=== PATIENT | female | born 1940 | race Caucasian/White ===

== ENCOUNTER 2017-06-18 16:00 | Inpatient (IN) | payer BC, MEDICARE, SELFPAY ==
[2017-06-18] VITALS (9 sets, daily range): BP systolic 132–155; BP diastolic 61–78; PULSE 66–91; RESP 16–19; TEMP 36.6; O2SAT 94–98; BMI 27.1; BMI 27.5
--- NOTE | 2017-06-18 16:13 | EKG12_ITS ---
Test Reason : CHEST PAIN Blood Pressure : / mmHG Vent. Rate : 087 BPM Atrial Rate : 087 BPM P-R Int : 154 ms QRS Dur : 084 ms QT Int : 360 ms P-R-T Axes : 052 031 034 degrees QTc Int : 433 ms Sinus rhythm with occasional Premature ventricular complexes Nonspecific ST abnormality Abnormal ECG Confirmed by JOSE LOVETT, OLIVIA ([id number]), book or script editor PAN FITZGERALD ([id number]) on 06/20/2017 1:19:45 PM Referred By: Confirmed By:OLIVIA GARCIA MD
--- NOTE | 2017-06-18 16:13 | RAD_ITS ---
STUDY: X-RAY CHEST REASON FOR EXAM: Female, 76 years old. SOB / SOA TECHNIQUE: Single frontal view of the chest. COMPARISON: None. FINDINGS: Chronic appearing increased interstitial lung markings. There is no demonstrated pleural abnormality. Normal heart size. Normal mediastinum and hadley. Normal visualized pulmonary arteries. There is atherosclerotic calcification of the aortic arch with tortuosity. There are diffuse degenerative changes of the visualized thoracic spine. There is degenerative osteoarthritis of the bilateral shoulders. There is no demonstrated abnormality of the visualized soft tissue structures of the upper abdomen. RAD/Chest 1 View (Portable) IMPRESSION: There are no acute findings. Electronically Signed: Nathan Engel MD at 16:48 EST , Service support ,
--- NOTE | 2017-06-18 16:18 | ED.DCSUM_ITS ---
- ER Visit Summary Date of Service: 06/18/17 Chief Complaint: Chest pain History of Present Illness: The patient is a 76 F who has chest pain. She states for the past week she has had intermittent tightness and heaviness in her substernal area. It is worse with exertion. She does get some exertional dyspnea with this. Today she noticed some tingling in her hands and legs which is why she called her granddaughter to bring her in. She has never had a stress test before. She has multiple cardiac risk factors including hypertension diabetes and high cholesterol. She is a non-smoker. Physical Examination: Vital signs reviewed. HEENT exam unremarkable. Heart is regular rate and rhythm without murmurs. Lungs are clear to auscultation. Abdomen is soft and nontender. Extremities reveal no edema. Peripheral pulses are equal. Skin exam normal. Neurologic exam normal. Test Results: EKG was normal sinus rhythm with a rate of 87. [address] changes. Laboratory studies normal except for potassium of 3.3, glucose 175. Chest x-ray reveals chronic changes. Emergency Department Course and Treatment: Patient was given aspirin. Treatment Plan: Patient's FAMILIA score is 2. She has never had a stress test. patient will be admitted to the hospital for further cardiac testing. Disposition: Admit Impression: Chest pain This note was generated with [employer] dictation software. It may contain incorrect words, spelling, and punctuation that were not noted in review of the chart prior to signing ED Disposition - Plan for ED Patient: Chief Complaint: Chest Pain
[2017-06-18] MEDS: Aspirin 81 MG TAB.CHEW 324 MG PO (16:24)
[2017-06-18 16:30] LABS: Absolute Lymphocyte Count 1.78 X10^3/ul (0.83-4.51); Absolute Neutrophil Count 6.4 X10^3/uL (2.0-7.7); Basophil# 0.04 X10^3/uL; Basophil% 0.4 % (0-1); Eosinophils% 1.1 % (0-5); Hematocrit 37.7 % (37-47); Lymphocyte # 1.78 X10^3/ul (4.0); Lymphocyte % 19.9 % (19-41); Mean Corp Hgb Conc 31.8 g/gl (32-36); Mean Corpuscular Hgb 26.8 pg (27.0-32.0); Mean Corpuscular Volume 84.2 fL (81-99); Mean Platelet Vol. 9.1 fl (6.2-12.0); Monocyte# 0.56 X10^3/uL; Monocyte% 6.3 % (0-10); Neutrophil # 6.43 X10^3/uL (2.7-7.7); Neutrophil % 72.1 % (47-70); Platelet Count 386 K/mm3 (150-450); RBC Distribution Width CV 16.9 % (11.6-14.6); RBC Distribution Width SD 51.2 fl (35.1-43.9); Red Blood Count 4.48 M/mm3 (4.2-5.4); White Blood Count 8.9 K/mm3 (4.4-11.0)
[2017-06-18 16:31] LABS: POSITIVE COUNT NO; POSITIVE DIFFERENTIAL NO; POSITIVE MORPHOLOGY NO
[2017-06-18 16:41] LABS: Anion Gap 7 (5-15); BUN 14 mg/dL (7-18); Calcium,Total 9.9 mg/dL (8.5-10.1); Chloride 100 mmol/L (98-107); Creatinine, Serum 0.67 mg/dL (0.55-1.02); EST Glomerular Filtration Rate 91 mL/min (>60); Est Glom Filt Rate - Afr Amer 110 mL/min (>60); Estimated Creatinine Clearance 46.54 ml/min; Glucose 175 mg/dL (70-110); Potassium 3.3 mmol/L (3.5-5.1); Sodium Level 137 mmol/L (136-145)
--- NOTE | 2017-06-18 17:33 | PCM.HP.STD ---
Problem List (1) Acute chest pain Status: Acute (2) Essential (primary) hypertension Status: Chronic (3) Dyslipidemia Status: Chronic (4) DM type 2 (diabetes mellitus, type 2) Status: Chronic Qualifiers: Diabetes mellitus complication status: without complication Diabetes mellitus jail insulin use: without jail use Qualified Code(s): E11.9 - Type 2 diabetes mellitus without complications History of Present Illness Date of Admission: 06/18/17 Chief Complaint: ACUTE CHEST PAIN The patient is a 76 year old F with past medical history is none for hypertension, dyslipidemia diabetes mellitus type 2 presented with chest pain. Patient describes her pain as discomfort located in the retrosternal region. She has apparently had intermittent chest discomfort for almost a week. She relates the discomfort to some activity such as walking. She has also been noticed by her family getting short winded with minimal activity. She elected to come to the ED after developing tingling sensation in both lower and upper extremities. Patient presented to the emergency department her initial set of cardiac enzymes and EKG obtained came back unremarkable however given his risk factors and the description of his symptoms decision was made to admit patient to a monitored bed for further management. On further questioning patient denied any nausea no vomiting no lightheadedness. Past Medical History Past Medical History (Chronic Problems): Chronic Problems Essential (primary) hypertension (Chronic) Dyslipidemia (Chronic) DM type 2 (diabetes mellitus, type 2) (Chronic) Allergies cephalexin [From Keflex] Allergy (Verified 06/18/17 16:05) Swelling lisinopril Allergy (Verified 06/18/17 16:05) Swelling codeine Adverse Reaction (Verified 06/18/17 16:05) Upset Stomach Home Medications: Ambulatory Orders Medication Instructions Recorded Amlodipine [Norvasc] 5 mg PO DAILY 06/18/17 Atorvastatin Calcium [Lipitor] 20 mg PO QHS 06/18/17 Calcium Carbonate/Vitamin D3 1 each PO BID 06/18/17 [Calcium 600 + Vit D3 Caplet] Co Q10 200 [Co Q-10] 100 mg PO DAILY 06/18/17 Glimepiride 2 mg PO DAILY 06/18/17 Hydrochlorothiazide [Hctz] 25 mg PO DAILY 06/18/17 Lorazepam [Ativan] 0.5 mg PO TID PRN PRN 06/18/17 Metformin HCl [Metformin HCl ER] 1,000 mg PO BID 06/18/17 Multivitamin [Multiple Vitamins] 1 each PO DAILY 06/18/17 Potassium Chloride [Klor-Con 8] 8 meq PO BID 06/18/17 Smoking Status: Former smoker - *Family History Maternal History Items: Heart Disease - Valvular heart disease Review of Systems Constitutional: Denies: Anorexia, Chills, Fever, Night Sweats, Weight Change HEENT: Denies: Head Aches, Sinus Congestion, Sinus Drainage Cardiovascular: Reports: Chest Pain. Denies: Orthopnea, Palpitations, Paroxysmal Noc. Dyspnea Respiratory: Reports: Shortness of breath upon exertion. Denies: Cough Gastrointestinal: Denies: Abdominal Pain, Hematemesis, Hematochezia, Nausea, Melena, Vomiting Genitourinary: Denies: Dysuria, Frequency, Hematuria, Urgency Musculoskeletal: Denies: Joint Pain, Joint Tenderness Skin: Denies: Rash Neurological: Denies: Focal weakness, Numbness, Tingling Psychiatric: Denies: Homicidal Ideations, Suicidal Ideations Hematologic/ Lymphatic: Denies: Easy Bruising, Easy Bleeding VTE Information - Inpt Only VTE Present on Admission: No VTE Mechan Device Prophylaxis: Knee High DALLIN Hose VTE Pharm Prophylaxis ordered?: Yes Patient Problems: Active and Suspected Problems Acute chest pain (Acute) Objective: GENERAL: cooperative . HEENT: Clear conjunctiva, NECK; supple, normal thyroid, CHEST: Clear to auscultation bilaterally, HEART: Regular S1 S2, no audible murmurs ABDOMEN: soft, non-tender, normoactive bowel sounds, RECTAL: deferred EXTREMITIES: No edema, no clubbing, no cyanosis. PIPE LINE REPAIRER: Awake, no lateralizing signs. SKIN: No lesions no erythema, - Physical Exam Vital Signs Temp Pulse Resp BP Pulse Ox 97.8 F 77 19 H 132/70 H 97 06/18/17 16:00 06/18/17 17:21 06/18/17 17:21 06/18/17 17:21 06/18/17 17:21 Oxygen Flow Rate 2 Oxygen Delivery Method Room Air Weight: 78.8 kg Body Mass Index (BMI) 27.1 Laboratory Tests Past 24 Hrs 06/18/17 06/18/17 16:11 16:11 WBC 8.9 RBC 4.48 Hgb 12.0 Hct 37.7 MCV 84.2 MCH 26.8 L MCHC 31.8 L RDW 16.9 H RDW Differential 51.2 H Plt Count 386 MPV 9.1 Immature Gran % (Auto) 0.200 Neut % (Auto) 72.1 H Lymph % (Auto) 19.9 Floyd % (Auto) 6.3 Eos % (Auto) 1.1 Baso % (Auto) 0.4 Absolute Neuts (auto) 6.4 Absolute Lymphs (auto) 1.78 Total Counted Not Reportable Sodium 137 Potassium 3.3 L Chloride 100 Carbon Dioxide 30.0 Anion Gap 7 BUN 14 Creatinine 0.67 Estim Creat Clear Calc 46.54 Est GFR (MDRD) Af Amer 110 Est GFR (MDRD) Non-Af 91 BUN/Creatinine Ratio 21.0 H Glucose 175 H Calcium 9.9 Troponin I < 0.02 Assessment/Plan Active and Suspected Problems Acute chest pain (Acute) Patient is a 76-year-old lady with past medical history cigar for hypertension, dyslipidemia diabetes mellitus type 2 presented with chest pain 1. Chest pain: Exertional in nature suspicious for myocardial ischemia. Patient has been admitted to monitored bed ordered serial cardiac enzymes to rule out VT patient undergo a nuclear stress test on 06/20/16 if VT is ruled out. 2D echo was also ordered as part of her evaluation X 2. Dyslipidemia-patient is on statin therapy, continued at home dose 3. Hypertension-blood pressure controlled, home medications continued with dose adjustment as needed 4. Diabetes mellitus type II: , patient's oral hypoglycemics held. Placed on long acting insulin, Accu-Cheks a.c. and at bedtime and covered with sliding scale insulin 5. DVT prophylaxis SC Lovenox Code Visit OBSV E&M: 38650 Initial observation care L3
--- NOTE | 2017-06-18 17:44 | HP.PCM_ITS ---
Problem List (1) Acute chest pain Status: Acute (2) Essential (primary) hypertension Status: Chronic (3) Dyslipidemia Status: Chronic (4) DM type 2 (diabetes mellitus, type 2) Status: Chronic Qualifiers: Diabetes mellitus complication status: without complication Diabetes mellitus fpc insulin use: without fpc use Qualified Code(s): E11.9 - Type 2 diabetes mellitus without complications History of Present Illness Date of Admission: 06/18/17 Chief Complaint: ACUTE CHEST PAIN The patient is a 76 year old F with past medical history is none for hypertension, dyslipidemia diabetes mellitus type 2 presented with chest pain. Patient describes her pain as discomfort located in the retrosternal region. She has apparently had intermittent chest discomfort for almost a week. She relates the discomfort to some activity such as walking. She has also been noticed by her family getting short winded with minimal activity. She elected to come to the ED after developing tingling sensation in both lower and upper extremities. Patient presented to the emergency department her initial set of cardiac enzymes and EKG obtained came back unremarkable however given his risk factors and the description of his symptoms decision was made to admit patient to a monitored bed for further management. On further questioning patient denied any nausea no vomiting no lightheadedness. Past Medical History Past Medical History (Chronic Problems): Chronic Problems Essential (primary) hypertension (Chronic) Dyslipidemia (Chronic) DM type 2 (diabetes mellitus, type 2) (Chronic) Allergies cephalexin [From Keflex] Allergy (Verified 06/18/17 16:05) Swelling lisinopril Allergy (Verified 06/18/17 16:05) Swelling codeine Adverse Reaction (Verified 06/18/17 16:05) Upset Stomach Home Medications: Ambulatory Orders Medication Instructions Recorded Amlodipine [Norvasc] 5 mg PO DAILY 06/18/17 Atorvastatin Calcium [Lipitor] 20 mg PO QHS 06/18/17 Calcium Carbonate/Vitamin D3 1 each PO BID 06/18/17 [Calcium 600 + Vit D3 Caplet] Co Q10 200 [Co Q-10] 100 mg PO DAILY 06/18/17 Glimepiride 2 mg PO DAILY 06/18/17 Hydrochlorothiazide [Hctz] 25 mg PO DAILY 06/18/17 Lorazepam [Ativan] 0.5 mg PO TID PRN PRN 06/18/17 Metformin HCl [Metformin HCl ER] 1,000 mg PO BID 06/18/17 Multivitamin [Multiple Vitamins] 1 each PO DAILY 06/18/17 Potassium Chloride [Klor-Con 8] 8 meq PO BID 06/18/17 Smoking Status: Former smoker - *Family History Maternal History Items: Heart Disease - Valvular heart disease Review of Systems Constitutional: Denies: Anorexia, Chills, Fever, Night Sweats, Weight Change HEENT: Denies: Head Aches, Sinus Congestion, Sinus Drainage Cardiovascular: Reports: Chest Pain. Denies: Orthopnea, Palpitations, Paroxysmal Noc. Dyspnea Respiratory: Reports: Shortness of breath upon exertion. Denies: Cough Gastrointestinal: Denies: Abdominal Pain, Hematemesis, Hematochezia, Nausea, Melena, Vomiting Genitourinary: Denies: Dysuria, Frequency, Hematuria, Urgency Musculoskeletal: Denies: Joint Pain, Joint Tenderness Skin: Denies: Rash Neurological: Denies: Focal weakness, Numbness, Tingling Psychiatric: Denies: Homicidal Ideations, Suicidal Ideations Hematologic/ Lymphatic: Denies: Easy Bruising, Easy Bleeding VTE Information - Inpt Only VTE Present on Admission: No VTE Mechan Device Prophylaxis: Knee High DALLIN Hose VTE Pharm Prophylaxis ordered?: Yes Patient Problems: Active and Suspected Problems Acute chest pain (Acute) Objective: GENERAL: cooperative . HEENT: Clear conjunctiva, NECK; supple, normal thyroid, CHEST: Clear to auscultation bilaterally, HEART: Regular S1 S2, no audible murmurs ABDOMEN: soft, non-tender, normoactive bowel sounds, RECTAL: deferred EXTREMITIES: No edema, no clubbing, no cyanosis. JOURNEYMAN OPERATOR ASSISTANT: Awake, no lateralizing signs. SKIN: No lesions no erythema, - Physical Exam Vital Signs Temp Pulse Resp BP Pulse Ox 97.8 F 77 19 H 132/70 H 97 06/18/17 16:00 06/18/17 17:21 06/18/17 17:21 06/18/17 17:21 06/18/17 17:21 Oxygen Flow Rate 2 Oxygen Delivery Method Room Air Weight: 78.8 kg Body Mass Index (BMI) 27.1 Laboratory Tests Past 24 Hrs 06/18/17 06/18/17 16:11 16:11 WBC 8.9 RBC 4.48 Hgb 12.0 Hct 37.7 MCV 84.2 MCH 26.8 L MCHC 31.8 L RDW 16.9 H RDW Differential 51.2 H Plt Count 386 MPV 9.1 Immature Gran % (Auto) 0.200 Neut % (Auto) 72.1 H Lymph % (Auto) 19.9 Mcmullen % (Auto) 6.3 Eos % (Auto) 1.1 Baso % (Auto) 0.4 Absolute Neuts (auto) 6.4 Absolute Lymphs (auto) 1.78 Total Counted Not Reportable Sodium 137 Potassium 3.3 L Chloride 100 Carbon Dioxide 30.0 Anion Gap 7 BUN 14 Creatinine 0.67 Estim Creat Clear Calc 46.54 Est GFR (MDRD) Af Amer 110 Est GFR (MDRD) Non-Af 91 BUN/Creatinine Ratio 21.0 H Glucose 175 H Calcium 9.9 Troponin I < 0.02 Assessment/Plan Active and Suspected Problems Acute chest pain (Acute) Patient is a 76-year-old lady with past medical history cigar for hypertension, dyslipidemia diabetes mellitus type 2 presented with chest pain 1. Chest pain: Exertional in nature suspicious for myocardial ischemia. Patient has been admitted to monitored bed ordered serial cardiac enzymes to rule out VA patient undergo a nuclear stress test on 06/20/16 if VA is ruled out. 2D echo was also ordered as part of her evaluation X 2. Dyslipidemia-patient is on statin therapy, continued at home dose 3. Hypertension-blood pressure controlled, home medications continued with dose adjustment as needed 4. Diabetes mellitus type II: , patient's oral hypoglycemics held. Placed on long acting insulin, Accu-Cheks a.c. and at bedtime and covered with sliding scale insulin 5. DVT prophylaxis SC Lovenox Code Visit OBSV E&M: 42320 Initial observation care L3
--- NOTE | 2017-06-18 18:18 | ECHOCS_ITS ---
Reason For Study: Chest Pain Procedure This was a 2D Doppler, Color Flow transthoracic echocardiogram. The study was technically difficult. Exam performed in department. Left Ventricle Mild concentric left ventricular hypertrophy. The estimated ejection fraction is 65 %. Stage 1 diastolic dysfunction. No regional wall motion abnormalities noted. Right Ventricle Normal size and thickness. Normal systolic function. Atria Normal left atrium. Normal right atrium. Normal atrial septum. Mitral Valve The mitral valve is structurally normal. No prolapse or stenosis seen. Tricuspid Valve Normal tricuspid valve. Trivial tricuspid valve insufficiency. Right ventricular systolic pressure estimated to be 29 mmHg. Aortic Valve Normal aortic valve. Pulmonic Valve Normal pulmonic valve. Trivial pulmonic valve insufficiency. Great Vessels Normal aortic root. Normal arch. Normal inferior vena cava. Inferior vena cava collapse with sniff. Pericardium/Pleural No pericardial effusion. Medication Diluted definity 2.5ml given slow IV push to enhance endocardial definition. MMode/2D Measurements & Calculations LVIDd: 3.7 cm IVSd: 1.5 cm Ao root diam: 4.1 cm LVIDs: 2.7 cm LVPWd: 1.2 cm LA dimension: 3.3 cm FS: 25.6 % LAV(MOD-bp): 46.6 ml LA A4 area: 18.1 cm2 LAV(MOD-bp) Indexed: 25.3 ml/m2 LAV(MOD-sp2): 44.9 ml LAV(MOD-sp4): 48.4 ml Time Measurements MV dec time: 0.27 sec Doppler Measurements & Calculations MV E max jarrod: 45.6 cm/sec Lat Peak E' Jarrod: 5.6 cm/sec Med Peak E' Jarrod: 4.2 cm/sec MV A max jarrod: 73.1 cm/sec E/E' lat: 8.2 E/E' med: 10.9 MV E/A: 0.62 MV V2 max: 94.9 cm/sec MV P1/2t max jarrod: 55.5 cm/sec Ao V2 max: 136.6 cm/sec MV max P.6 mmHg MV P1/2t: 76.3 msec Ao max P.5 mmHg MV V2 mean: 46.0 cm/sec MV dec slope: 213.3 cm/sec2 Ao V2 mean: 91.0 cm/sec MV mean P.98 mmHg MVA(P1/2t): 2.9 cm2 Ao mean P.7 mmHg MV V2 VTI: 16.8 cm Ao V2 VTI: 23.7 cm AI max jarrod: 384.4 cm/sec LV V1 max: 106.9 cm/sec PA V2 max: 105.0 cm/sec AI max P.1 mmHg LV V1 max P.6 mmHg AI dec slope: 295.9 cm/sec2 LV V1 mean P.9 mmHg AI P1/2t: 380.5 msec LV V1 mean: 63.2 cm/sec LV V1 VTI: 17.8 cm TR max jarrod: 240.9 cm/sec TR max P.2 mmHg Interpretation Summary Mild concentric left ventricular hypertrophy. The estimated ejection fraction is 65 %. Stage 1 diastolic dysfunction. Right ventricular systolic pressure estimated to be 29 mmHg. Ordering Physician: Hermilo Ordonez Referring Physician: Jose G Chahal Performed By: Jer Dudley RCS
[2017-06-18 18:51] LABS: Bedside Glucose 119 mg/dL (70-110)
[2017-06-19] VITALS (12 sets, daily range): BP systolic 121–133; BP diastolic 56–67; PULSE 68–81; RESP 16–18; TEMP 36.4–36.7; O2SAT 96–99
[2017-06-19 00:21] LABS: Bedside Glucose 184 mg/dL (70-110)
--- NOTE | 2017-06-19 05:55 | EKG12_ITS ---
Test Reason : AM EKG Blood Pressure : / mmHG Vent. Rate : 075 BPM Atrial Rate : 075 BPM P-R Int : 148 ms QRS Dur : 080 ms QT Int : 370 ms P-R-T Axes : 008 022 032 degrees QTc Int : 413 ms Normal sinus rhythm Normal ECG When compared with ECG of 19-JUN-2017 05:29, MANUAL COMPARISON REQUIRED, DATA IS UNCONFIRMED Confirmed by ORION DENNIS ([id number]), editor trade journal PAN FITZGERALD ([id number]) on 06/23/2017 1:58:56 PM Referred By: INA Confirmed By:ORION DENNIS
[2017-06-19 06:29] LABS: Hematocrit 35.3 % (37-47); Hemoglobin 11.1 g/dl (12.0-15.0); Mean Corp Hgb Conc 31.4 g/gl (32-36); Mean Corpuscular Hgb 26.6 pg (27.0-32.0); Mean Corpuscular Volume 84.4 fL (81-99); Mean Platelet Vol. 9.6 fl (6.2-12.0); Platelet Count 373 K/mm3 (150-450); RBC Distribution Width CV 16.8 % (11.6-14.6); RBC Distribution Width SD 51.4 fl (35.1-43.9); Red Blood Count 4.18 M/mm3 (4.2-5.4); White Blood Count 8.7 K/mm3 (4.4-11.0)
[2017-06-19 06:30] LABS: Scan Indicated on CBC? Y/N NO
[2017-06-19 07:11] LABS: Bedside Glucose 168 mg/dL (70-110)
[2017-06-19] MEDS: Aspirin E.C. 81 MG Tablet PO (07:38)
[2017-06-19 07:54] LABS: BUN 11 mg/dL (7-18); Creatinine, Serum 0.65 mg/dL (0.55-1.02); Glucose 137 mg/dL (70-110)
[2017-06-19 07:55] LABS: Anion Gap 9 (5-15); Calcium,Total 9.6 mg/dL (8.5-10.1); Chloride 100 mmol/L (98-107); EST Glomerular Filtration Rate 94 mL/min (>60); Est Glom Filt Rate - Afr Amer 114 mL/min (>60); Magnesium 1.7 mg/dL (1.6-2.6); Potassium 3.8 mmol/L (3.5-5.1); Sodium Level 138 mmol/L (136-145); Thyroid Stim Hormone (TSH) 2.98 uIU/mL (0.358-3.74)
[2017-06-19] MEDS: Enoxaparin 40 MG/0.4 ML Syringe SC (09:55)
--- NOTE | 2017-06-19 10:23 | PCM.PROGNOTE ---
<Annetta Brooks - Last Filed: 06/19/17 10:39> Patient Problems: Active and Suspected Problems Acute chest pain (Acute) Subjective: Patient seen and examined. Resting in bed in no acute distress. Denies chest pain currently. Patient describes having substernal chest heaviness/pressure intermittently for approximately 1 week prior to admission. Associated mild dyspnea. Symptoms were noted to be increased during exertion. She denies dizziness, lightheadedness, palpitations. Denies other complaints at this time. - Physical Exam General: Alert, Oriented x3, Cooperative, No apparent distress HEENT: Atraumatic, PERRLA, EOMI, Normocephalic Neck: Supple, No JVD, Negative Carotid Bruits Lungs: Clear to auscultation, Normal air movement Cardiovascular: Regular rate, Regular Rhythm, Normal S1, Normal S2, No murmurs Abdomen: Bowel Sounds Present, Soft, Non Tender, Non-Distended Extremities: No clubbing, No cyanosis, No edema, Capillary Refill Less than 3 Seconds Skin: No rashes, No breakdown Musculoskeletal: No Tenderness to Palpation of Joints or Extremities Neurological: Cranial nerves II-XII grossly intact, Neuro grossly intact Psych/Mental Status: Normal Affect, Appropriate Vital Signs Temp Pulse Resp BP Pulse Ox 97.8 F 72 18 131/63 H 99 06/19/17 09:50 06/19/17 09:50 06/19/17 09:50 06/19/17 09:50 06/19/17 09:50 Oxygen Flow Rate 2 Oxygen Delivery Method Nasal Cannula Weight: 77.36 kg Body Mass Index (BMI) 27.5 Intake and Output for Last 24 Hours 06/17/17 06/18/17 06/19/17 23:59 23:59 23:59 Intake Total 360 / 360 Balance 360 / 360 Laboratory Tests Past 24 Hrs 06/18/17 06/19/17 06/19/17 20:23 00:30 05:30 WBC 8.7 RBC 4.18 L Hgb 11.1 L Hct 35.3 L MCV 84.4 MCH 26.6 L MCHC 31.4 L RDW 16.8 H RDW Differential 51.4 H Plt Count 373 MPV 9.6 Sodium Potassium Chloride Carbon Dioxide Anion Gap BUN Creatinine Estim Creat Clear Calc Est GFR (MDRD) Af Amer Est GFR (MDRD) Non-Af BUN/Creatinine Ratio Glucose Calcium Magnesium Troponin I < 0.02 < 0.02 TSH 06/19/17 06/19/17 05:30 05:30 WBC RBC Hgb Hct MCV MCH MCHC RDW RDW Differential Plt Count MPV Sodium Cancelled 138 Potassium Cancelled 3.8 Chloride Cancelled 100 Carbon Dioxide Cancelled 29.0 Anion Gap Cancelled 9 BUN Cancelled 11 Creatinine Cancelled 0.65 Estim Creat Clear Calc Cancelled 44.80 Est GFR (MDRD) Af Amer Cancelled 114 Est GFR (MDRD) Non-Af Cancelled 94 BUN/Creatinine Ratio Cancelled 17.0 Glucose Cancelled 137 H Calcium Cancelled 9.6 Magnesium Cancelled 1.7 Troponin I < 0.02 TSH Cancelled 2.98 POC Glucose 06/19/17 06/18/17 06/18/17 06:52 21:01 18:43 POC Glucose 168 H 184 H 119 H Assessment/Plan Active and Suspected Problems Acute chest pain (Acute) Patient is a 76-year-old female admitted 06/18/2017 due to chest pain. She has a past medical history of hypertension, hyperlipidemia, type 2 diabetes mellitus. 1. Acute chest pain-denies chest pain currently. Troponin negative ?4. EKG without ST T changes, sinus rhythm. No arrhythmias noted on telemetry overnight. Patient will undergo nuclear stress test 06/20/2017 along with echocardiogram. Repeat EKG with recurrent episode of chest pain. Patient states she has never had a stress test or other cardiac workup before. She does have cardiac risk factors including hyperlipidemia, hypertension and type 2 diabetes mellitus. 2. Hyperlipidemia-continue statin. 3. Hypertension-stable, continue amlodipine and HCTZ regimen. 4. Type 2 diabetes mellitus-hold oral regimen. Accu-Cheks before meals at bedtime with sliding scale insulin. 5. Anxiety-continue home Ativan regimen. DVT prophylaxis-Lovenox subcu. This patient was seen by GLENNA Hidalgo under the supervision of Dr. Ordonez. <Hermilo Ordonez - Last Filed: 06/19/17 12:15> - Physical Exam Vital Signs Temp Pulse Resp BP Pulse Ox 97.8 F 81 18 131/63 H 99 06/19/17 09:50 06/19/17 10:58 06/19/17 09:50 06/19/17 09:50 06/19/17 09:50 Oxygen Flow Rate 2 Oxygen Delivery Method Nasal Cannula Weight: 77.36 kg Body Mass Index (BMI) 27.5 Intake and Output for Last 24 Hours 06/17/17 06/18/17 06/19/17 23:59 23:59 23:59 Intake Total 360 / 360 Balance 360 / 360 Laboratory Tests Past 24 Hrs 06/18/17 06/19/17 06/19/17 20:23 00:30 05:30 WBC 8.7 RBC 4.18 L Hgb 11.1 L Hct 35.3 L MCV 84.4 MCH 26.6 L MCHC 31.4 L RDW 16.8 H RDW Differential 51.4 H Plt Count 373 MPV 9.6 Sodium Potassium Chloride Carbon Dioxide Anion Gap BUN Creatinine Estim Creat Clear Calc Est GFR (MDRD) Af Amer Est GFR (MDRD) Non-Af BUN/Creatinine Ratio Glucose Calcium Magnesium Troponin I < 0.02 < 0.02 TSH 06/19/17 06/19/17 05:30 05:30 WBC RBC Hgb Hct MCV MCH MCHC RDW RDW Differential Plt Count MPV Sodium Cancelled 138 Potassium Cancelled 3.8 Chloride Cancelled 100 Carbon Dioxide Cancelled 29.0 Anion Gap Cancelled 9 BUN Cancelled 11 Creatinine Cancelled 0.65 Estim Creat Clear Calc Cancelled 44.80 Est GFR (MDRD) Af Amer Cancelled 114 Est GFR (MDRD) Non-Af Cancelled 94 BUN/Creatinine Ratio Cancelled 17.0 Glucose Cancelled 137 H Calcium Cancelled 9.6 Magnesium Cancelled 1.7 Troponin I < 0.02 TSH Cancelled 2.98 POC Glucose 06/19/17 06/19/17 06/18/17 11:24 06:52 21:01 POC Glucose 150 H 168 H 184 H 06/18/17 18:43 POC Glucose 119 H Assessment/Plan This patient was seen in conjunction with GLENNA Hidalgo . I have independently interviewed and examined the patient and reviewed pertinent historical, laboratory, and other data. Please refer toGLENNA Hidalgo note for details of this patient's presentation, findings, and recommendations. I have reviewed GLENNA Hidalgo note and concur fully with documented findings. In brief, Patient is a 76-year-old lady with past medical history cigar for hypertension, dyslipidemia diabetes mellitus type 2 presented with chest pain Physical Examination: GENERAL: cooperative HEENT: Clear conjunctiva, NECK; supple, normal thyroid, CHEST: Clear to auscultation bilaterally, . HEART: Regular S1 S2, no audible murmurs ABDOMEN: soft, non-tender, normoactive bowel sounds, RECTAL: deferred SKIN: No rash Assessment: 1. Chest pain: Exertional in nature suspicious for myocardial ischemia. 2. Dyslipidemia 3. Hypertension 4. Diabetes mellitus type II 5. DVT prophylaxis SC Lovenox Recommendations: 1. I have discussed the results of my overview and impressions with the patient 2. Options for management were reviewed Code Visit OBSV E&M: 42451 Subsequent observation care L3
[2017-06-19 11:46] LABS: Bedside Glucose 150 mg/dL (70-110)
[2017-06-19] MEDS: Calcium Carb/Vitamin D 1 TABLET Tablet PO (17:10)
[2017-06-19 17:26] LABS: Bedside Glucose 157 mg/dL (70-110)
[2017-06-19] MEDS: Atorvastatin Calcium 20 MG Tablet PO (21:22)
[2017-06-19] MEDS: 0.9% NaCl Peripheral Flush Adult/Peds IV (21:22)
[2017-06-19 21:36] LABS: Bedside Glucose 145 mg/dL (70-110)
[2017-06-20] VITALS (12 sets, daily range): BP systolic 114–147; BP diastolic 58–79; PULSE 68–95; RESP 16–18; TEMP 36.7–37.1; O2SAT 95–97
[2017-06-20 05:15] LABS: Hematocrit 36.2 % (37-47); Hemoglobin 11.6 g/dl (12.0-15.0); Mean Corpuscular Hgb 26.9 pg (27.0-32.0); Mean Platelet Vol. 8.8 fl (6.2-12.0); Platelet Count 363 K/mm3 (150-450); RBC Distribution Width CV 16.9 % (11.6-14.6); RBC Distribution Width SD 51.4 fl (35.1-43.9); Red Blood Count 4.31 M/mm3 (4.2-5.4); White Blood Count 8.8 K/mm3 (4.4-11.0)
[2017-06-20 05:21] LABS: Scan Indicated on CBC? Y/N NO
[2017-06-20 05:28] LABS: Anion Gap 8 (5-15); BUN 10 mg/dL (7-18); BUN/Creat Ratio 16.9 RATIO (10-20); Chloride 101 mmol/L (98-107); Creatinine, Serum 0.59 mg/dL (0.55-1.02); EST Glomerular Filtration Rate 105 mL/min (>60); Est Glom Filt Rate - Afr Amer 127 mL/min (>60); Glucose 172 mg/dL (70-110); Potassium 3.9 mmol/L (3.5-5.1); Sodium Level 138 mmol/L (136-145)
--- NOTE | 2017-06-20 05:55 | EKG12_ITS ---
Test Reason : AM EKG Blood Pressure : / mmHG Vent. Rate : 075 BPM Atrial Rate : 075 BPM P-R Int : 154 ms QRS Dur : 088 ms QT Int : 386 ms P-R-T Axes : 014 025 039 degrees QTc Int : 431 ms Normal sinus rhythm Normal ECG No previous ECGs available Confirmed by ORION DENNIS ([id number]), news editor PAN FITZGERALD ([id number]) on 06/23/2017 1:55:49 PM Referred By: ANNALEE Confirmed By:ORION DENNIS
[2017-06-20 06:15] LABS: Bedside Glucose 174 mg/dL (70-110)
[2017-06-20] MEDS: Calcium Carb/Vitamin D 1 TABLET Tablet PO ×2 (09:56→18:30)
[2017-06-20] MEDS: Aspirin E.C. 81 MG Tablet PO (09:56)
[2017-06-20] MEDS: Acetaminophen 325 MG Tablet 650 MG PO ×2 (09:56→16:54)
[2017-06-20] MEDS: Multivitamins,Therapeutic Tablet 1 TABLET PO (09:56)
[2017-06-20] MEDS: hydroCHLOROthiazide 25 MG Tablet PO (09:56)
[2017-06-20] MEDS: amLODIPine 5 MG Tablet PO (09:56)
--- NOTE | 2017-06-20 10:32 | STRESSREP_ITS ---
Stress Test Report Date: 06/20/2017 Procedure: Exercise tolerance test/nuclear imaging study Indications: Chest pain Consent: Per the patient Procedure: The patient exercised on a Sander protocol for 4 minutes completing stage I and 1 minute of stage II achieving a peak heart rate of 142 bpm (98% predicted maximal heart rate) with a peak blood pressure 178/52 mmHg and a peak MET capacity of approximately 5 MET's. The baseline ECG demonstrated normal sinus rhythm. The peak exercise ECG demonstrated no obvious ECG changes. There is an occasional PVC pretest, during exercise, and recovery. The functional capacity was considered average. The patient had no complaint of chest discomfort during exercise recovery. The examination was discontinued secondary to completion of protocol. Impression: 1. Technically adequate (percent predicted maximal heart rate greater than 85% ) exercise tolerance test 2. Peak exercise ECG with no obvious ECG changes 3. Occasional PVC pretest, during exercise, and recovery 4. Nuclear images pending Myocardial perfusion imaging study: Technique: The patient was injected with 11.2 mCi of technetium 99m Cardiolite and subsequently rest SPECT Cardiolite nuclear imaging was obtained in the horizontal long, vertical long, and short axis views. The patient The patient exercised on a Sander protocol for 4 minutes completing stage I and 1 minute of stage II achieving a peak heart rate of 142 bpm (98% predicted maximal heart rate) with a peak blood pressure 178/52 mmHg and a peak MET capacity of approximately 5 MET's. The patient was injected with 34.1 mCi of technetium 99m Cardiolite and subsequently stress SPECT Cardiolite nuclear imaging was obtained in the horizontal long, vertical long, and short axis views. A gated Cardiolite study at peak stress was obtained. Interpretation: Rest and stress SPECT Cardiolite nuclear imaging status post realignment, normalization, and attenuation correction, demonstrates at rest relative uniform tracer uptake. Status post stress there is an area of diminished tracer uptake in the apical segments. There are similar type findings on the resting and stress polar map images. There is end systolic thickening and brightening. The gated Cardiolite study demonstrates myocardial thickening and inward wall motion. The reported LVEF is 72%. Impression: 1. Rest and stress SPECT Cardiolite nuclear imaging demonstrate myocardial perfusion changes potentially compatible with physiologic apical thinning however an area of stress-induced myocardial ischemia involving the apical segments cannot be excluded. 2. The gated Cardiolite study reports an LVEF of 72%. This note was generated with Dragon dictation software. It may contain incorrect words, spelling, and punctuation that were not noted in checking the note before signing.
[2017-06-20 11:46] LABS: Bedside Glucose 186 mg/dL (70-110)
--- NOTE | 2017-06-20 12:38 | PCM.CONS.C ---
Problem List (1) Abnormal cardiovascular stress test Status: Acute (2) Acute chest pain Status: Acute (3) Essential (primary) hypertension Status: Chronic (4) Dyslipidemia Status: Chronic Reason for Consult Date of Consultation: 06/20/17 Reason for Consultation: chest pain, abnl stress test History of Present Illness: The patient is a 76 year old F, with a history of diabetes, hypercholesterolemia, hypertension, no previous known coronary disease, former smoker who quit around 25 years ago after a less than 1 pack per day smoking history for approximately 15 years. She has never had a heart catheterization denies a CVA in the past. The patient was started on Lipitor approximately 3 months ago, and late last week around Tuesday she developed what appeared to be generalized achiness, tingling in her fingers, and a discomfort in the midportion of her chest. This appeared to be nonexertional in nature, and was fleeting in nature. When she reported to her family members who are staff members of [facility], she was encouraged to come to the emergency room. Upon walking up the ramp to the emergency room the patient developed some dyspnea on exertion. Her initial EKG showed normal sinus rhythm, normal axis, normal intervals, no evidence of previous myocardial infarction and no acute changes. She was ruled out for myocardial infarction underwent a treadmill MPI this morning which demonstrated possible mid apical ischemia. The patient denied any symptoms during her treadmill component and stopped due to fatigue. Echocardiogram was completed and showed an EF of 65%, stage I diastolic dysfunction, and an RVSP of 29 mmHg. 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 Patient still has her gallbladder. She denies any fevers, chills, presyncope or syncope. [] Past Medical History Allergies/Adverse Reactions: Allergies cephalexin [From Keflex] Allergy (Verified 06/18/17 16:05) Swelling lisinopril Allergy (Verified 06/18/17 16:05) Swelling codeine Adverse Reaction (Verified 06/18/17 16:05) Upset Stomach Home Medications: Ambulatory Orders Medication Instructions Recorded Amlodipine [Norvasc] 5 mg PO DAILY 06/18/17 Atorvastatin Calcium [Lipitor] 20 mg PO QHS 06/18/17 Calcium Carbonate/Vitamin D3 1 each PO BID 01/20/18 [Calcium 600 + Vit D3 Caplet] Co Q10 200 [Co Q-10] 100 mg PO DAILY 06/18/17 Glimepiride 2 mg PO DINNER 06/18/17 Hydrochlorothiazide [Hctz] 25 mg PO DAILY 06/18/17 Lorazepam [Ativan] 0.5 mg PO TID PRN PRN 06/18/17 Metformin HCl [Metformin HCl ER] 1,000 mg PO BID 06/18/17 Multivitamin [Multiple Vitamins] 1 each PO DAILY 06/18/17 Potassium Chloride [Klor-Con 8] 8 meq PO BID 06/18/17 Past Medical History (Chronic Problems): Chronic Problems Essential (primary) hypertension (Chronic) Dyslipidemia (Chronic) DM type 2 (diabetes mellitus, type 2) (Chronic) - *Family History Maternal History Items: Heart Disease - Valvular heart disease Smoking Status: Former smoker Review of Systems - Review of Systems General: Denies: Fever, Night Sweats, Fatigue Cardiovascular: Reports: Chest Discomfort at Rest. Denies: Chest Discomfort, Shortness of Breath, Orthopnea, PND, Peripheral Edema, Palpitations, Lightheadedness, Dizziness, Near Syncope, Syncope Respiratory: Denies: Cough, Sputum Production, Hemoptysis Gastrointestinal: Denies: Hematemesis, Hematochezia, Melena Genitourinary: Denies: Dysuria, Hematuria Skin: Denies: Rash Subjectve: Patient laying in bed, no acute distress per Objective: Vital Signs Temp Pulse Resp BP Pulse Ox 98.1 F 95 16 114/71 96 06/20/17 06:00 06/20/17 11:43 06/20/17 06:00 06/20/17 06:00 06/20/17 07:25 Oxygen Flow Rate 2 Oxygen Delivery Method Room Air Weight: 170 lb 8.792 oz Body Mass Index (BMI) 27.5 Intake and Output for Last 24 Hours 06/18/17 06/19/17 06/20/17 23:59 23:59 23:59 Intake Total 840 / 840 720 / 720 Balance 840 / 840 720 / 720 General: Awake, Alert, Oriented x 3 HEENT: PERRL, EOMI, Sclera Non Icteric Neck: Supple, Good ROM, No Lymph Node Enlargement Lungs: Clear to auscultation Cardiovascular: Regular Rhythm, Normal S1, Normal S2, No Murmurs, No Rubs, No Gallops 06/20/17 05:05: WBC 8.8, RBC 4.31, Hgb 11.6 L, Hct 36.2 L, MCV 84.0, MCH 26.9 L, MCHC 32.0, RDW 16.9 H, RDW Differential 51.4 H, Plt Count 363, MPV 8.8 06/20/17 05:05: Sodium 138, Potassium 3.9, Chloride 101, Carbon Dioxide 29.0, Anion Gap 8, BUN 10, Creatinine 0.59, Est GFR (MDRD) Af Amer 127, Est GFR (MDRD) Non-Af 105, BUN/Creatinine Ratio 16.9, Glucose 172 H, Calcium 10.0 06/20/17 05:05: APTT 35.0 Rhythm: EKG: ECHO: Stress Test: Cardiac Cath: PCI: CT Surgery: Holter monitor: EPS: PPM: CXR: Chest CT Scan: Assessment/Plan 1. Abnormal stress test: The patient has signs and symptoms of possible coronary artery disease and several risk factors including her age, diabetes, hypertension, hypercholesterolemia, former smoker. In addition she has an abnormality of the mid anterior apical segment of her myocardial perfusion imaging however had no chest pain symptoms during her exercise component. Patient has normal LV function, and normal RVSP. I recommended the patient undergo a diagnostic coronary angiogram to confirm/deny the presence of significant coronary artery disease. In anticipation of possible intervention, recommended she be started on Plavix 75 mg p.o. daily after loading dose of 300 mg today. The risks/benefits of the procedure were thoroughly explained the patient including specific attention to the lack of on-site surgical backup, and the patient is agreed to proceed. In the meantime I recommended to continue baby aspirin, Norvasc, and hydrochlorothiazide. 2. Hyperlipidemia: Patient had been on Lipitor for approximately 3 months time without any symptoms, and her symptoms may be related to her Lipitor however she requires aggressive LDL reduction given her risk factors. Recommend obtaining a fasting lipid profile. 3. Thank you very much for the opportunity to participate in the cardiac care of your patient. Consultation time took place between 1210 and 12:45 PM. Code Visit Inpatient E&M: 30965 Init Hosp L2
--- NOTE | 2017-06-20 12:48 | CON.PCM_ITS ---
Problem List (1) Abnormal cardiovascular stress test Status: Acute (2) Acute chest pain Status: Acute (3) Essential (primary) hypertension Status: Chronic (4) Dyslipidemia Status: Chronic Reason for Consult Date of Consultation: 06/20/17 Reason for Consultation: chest pain, abnl stress test History of Present Illness: The patient is a 76 year old F, with a history of diabetes, hypercholesterolemia , hypertension, no previous known coronary disease, former smoker who quit around 25 years ago after a less than 1 pack per day smoking history for approximately 15 years. She has never had a heart catheterization denies a CVA in the past. The patient was started on Lipitor approximately 3 months ago, and late last week around Tuesday she developed what appeared to be generalized achiness, tingling in her fingers, and a discomfort in the midportion of her chest. This appeared to be nonexertional in nature, and was fleeting in nature. When she reported to her family members who are staff members of [facility], she was encouraged to come to the emergency room. Upon walking up the ramp to the emergency room the patient developed some dyspnea on exertion. Her initial EKG showed normal sinus rhythm, normal axis, normal intervals, no evidence of previous myocardial infarction and no acute changes. She was ruled out for myocardial infarction underwent a treadmill MPI this morning which demonstrated possible mid apical ischemia. The patient denied any symptoms during her treadmill component and stopped due to fatigue. Echocardiogram was completed and showed an EF of 65%, stage I diastolic dysfunction, and an RVSP of 29 mmHg. 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 Patient still has her gallbladder. She denies any fevers, chills, presyncope or syncope. [] Past Medical History Allergies/Adverse Reactions: Allergies cephalexin [From Keflex] Allergy (Verified 06/18/17 16:05) Swelling lisinopril Allergy (Verified 06/18/17 16:05) Swelling codeine Adverse Reaction (Verified 06/18/17 16:05) Upset Stomach Home Medications: Ambulatory Orders Medication Instructions Recorded Amlodipine [Norvasc] 5 mg PO DAILY 06/18/17 Atorvastatin Calcium [Lipitor] 20 mg PO QHS 06/18/17 Calcium Carbonate/Vitamin D3 1 each PO BID 01/20/18 [Calcium 600 + Vit D3 Caplet] Co Q10 200 [Co Q-10] 100 mg PO DAILY 06/18/17 Glimepiride 2 mg PO DINNER 06/18/17 Hydrochlorothiazide [Hctz] 25 mg PO DAILY 06/18/17 Lorazepam [Ativan] 0.5 mg PO TID PRN PRN 06/18/17 Metformin HCl [Metformin HCl ER] 1,000 mg PO BID 06/18/17 Multivitamin [Multiple Vitamins] 1 each PO DAILY 06/18/17 Potassium Chloride [Klor-Con 8] 8 meq PO BID 06/18/17 Past Medical History (Chronic Problems): Chronic Problems Essential (primary) hypertension (Chronic) Dyslipidemia (Chronic) DM type 2 (diabetes mellitus, type 2) (Chronic) - *Family History Maternal History Items: Heart Disease - Valvular heart disease Smoking Status: Former smoker Review of Systems - Review of Systems General: Denies: Fever, Night Sweats, Fatigue Cardiovascular: Reports: Chest Discomfort at Rest. Denies: Chest Discomfort, Shortness of Breath, Orthopnea, PND, Peripheral Edema, Palpitations, Lightheadedness, Dizziness, Near Syncope, Syncope Respiratory: Denies: Cough, Sputum Production, Hemoptysis Gastrointestinal: Denies: Hematemesis, Hematochezia, Melena Genitourinary: Denies: Dysuria, Hematuria Skin: Denies: Rash Subjectve: Patient laying in bed, no acute distress per Objective: Vital Signs Temp Pulse Resp BP Pulse Ox 98.1 F 95 16 114/71 96 06/20/17 06:00 06/20/17 11:43 06/20/17 06:00 06/20/17 06:00 06/20/17 07:25 Oxygen Flow Rate 2 Oxygen Delivery Method Room Air Weight: 170 lb 8.792 oz Body Mass Index (BMI) 27.5 Intake and Output for Last 24 Hours 06/18/17 06/19/17 06/20/17 23:59 23:59 23:59 Intake Total 840 / 840 720 / 720 Balance 840 / 840 720 / 720 General: Awake, Alert, Oriented x 3 HEENT: PERRL, EOMI, Sclera Non Icteric Neck: Supple, Good ROM, No Lymph Node Enlargement Lungs: Clear to auscultation Cardiovascular: Regular Rhythm, Normal S1, Normal S2, No Murmurs, No Rubs, No Gallops 06/20/17 05:05: WBC 8.8, RBC 4.31, Hgb 11.6 L, Hct 36.2 L, MCV 84.0, MCH 26.9 L , MCHC 32.0, RDW 16.9 H, RDW Differential 51.4 H, Plt Count 363, MPV 8.8 06/20/17 05:05: Sodium 138, Potassium 3.9, Chloride 101, Carbon Dioxide 29.0, Anion Gap 8, BUN 10, Creatinine 0.59, Est GFR (MDRD) Af Amer 127, Est GFR (MDRD ) Non-Af 105, BUN/Creatinine Ratio 16.9, Glucose 172 H, Calcium 10.0 06/20/17 05:05: APTT 35.0 Rhythm: EKG: ECHO: Stress Test: Cardiac Cath: PCI: CT Surgery: Holter monitor: EPS: PPM: CXR: Chest CT Scan: Assessment/Plan 1. Abnormal stress test: The patient has signs and symptoms of possible coronary artery disease and several risk factors including her age, diabetes, hypertension, hypercholesterolemia, former smoker. In addition she has an abnormality of the mid anterior apical segment of her myocardial perfusion imaging however had no chest pain symptoms during her exercise component. Patient has normal LV function, and normal RVSP. I recommended the patient undergo a diagnostic coronary angiogram to confirm/ deny the presence of significant coronary artery disease. In anticipation of possible intervention, recommended she be started on Plavix 75 mg p.o. daily after loading dose of 300 mg today. The risks/benefits of the procedure were thoroughly explained the patient including specific attention to the lack of on- site surgical backup, and the patient is agreed to proceed. In the meantime I recommended to continue baby aspirin, Norvasc, and hydrochlorothiazide. 2. Hyperlipidemia: Patient had been on Lipitor for approximately 3 months time without any symptoms, and her symptoms may be related to her Lipitor however she requires aggressive LDL reduction given her risk factors. Recommend obtaining a fasting lipid profile. 3. Thank you very much for the opportunity to participate in the cardiac care of your patient. Consultation time took place between 1210 and 12:45 PM. Code Visit Inpatient E&M: 30746 Init Hosp L2
[2017-06-20] MEDS: Enoxaparin 40 MG/0.4 ML Syringe SC (13:09)
[2017-06-20] MEDS: Clopidogrel Bisulfate 300 MG Tablet PO (13:10)
--- NOTE | 2017-06-20 14:02 | PCM.PROGNOTE ---
<Annetta Brooks - Last Filed: 06/20/17 14:11> Patient Problems: Active and Suspected Problems Acute chest pain (Acute) Abnormal cardiovascular stress test (Acute) Subjective: Patient seen and examined. Discussed with her that stress test was abnormal and cardiology was consulted with plans of cardiac catheterization. Patient agreeable. She denies further chest pain, shortness of breath. Denies other complaints at this time. - Physical Exam General: Alert, Oriented x3, Cooperative, No apparent distress HEENT: Atraumatic, PERRLA, EOMI, Normocephalic Neck: Supple, No JVD, Negative Carotid Bruits Lungs: Clear to auscultation, Normal air movement Cardiovascular: Regular rate, Regular Rhythm, Normal S1, Normal S2, No murmurs Abdomen: Bowel Sounds Present, Soft, Non Tender, Non-Distended Extremities: No clubbing, No cyanosis, No edema, Capillary Refill Less than 3 Seconds Skin: No rashes, No breakdown Musculoskeletal: No Tenderness to Palpation of Joints or Extremities Neurological: Cranial nerves II-XII grossly intact, Neuro grossly intact Psych/Mental Status: Normal Affect, Appropriate Vital Signs Temp Pulse Resp BP Pulse Ox 98.2 F 84 16 115/59 L 97 06/20/17 12:00 06/20/17 12:00 06/20/17 12:00 06/20/17 12:00 06/20/17 12:00 Oxygen Flow Rate 2 Oxygen Delivery Method Room Air Weight: 77.36 kg Body Mass Index (BMI) 27.5 Intake and Output for Last 24 Hours 06/18/17 06/19/17 06/20/17 23:59 23:59 23:59 Intake Total 840 / 840 720 / 720 Balance 840 / 840 720 / 720 Laboratory Tests Past 24 Hrs 06/20/17 06/20/17 06/20/17 05:05 05:05 05:05 WBC 8.8 RBC 4.31 Hgb 11.6 L Hct 36.2 L MCV 84.0 MCH 26.9 L MCHC 32.0 RDW 16.9 H RDW Differential 51.4 H Plt Count 363 MPV 8.8 APTT 35.0 Sodium 138 Potassium 3.9 Chloride 101 Carbon Dioxide 29.0 Anion Gap 8 BUN 10 Creatinine 0.59 Estim Creat Clear Calc 44.80 Est GFR (MDRD) Af Amer 127 Est GFR (MDRD) Non-Af 105 BUN/Creatinine Ratio 16.9 Glucose 172 H Calcium 10.0 POC Glucose 06/20/17 06/20/17 06/19/17 11:25 06:07 21:20 POC Glucose 186 H 174 H 145 H 06/19/17 17:08 POC Glucose 157 H Assessment/Plan Active and Suspected Problems Acute chest pain (Acute) Abnormal cardiovascular stress test (Acute) Patient is a 76-year-old female admitted 06/18/2017 due to chest pain. She has a past medical history of hypertension, hyperlipidemia, type 2 diabetes mellitus. 1. Acute chest pain-denies chest pain currently. Troponin negative ?4. EKG without ST T changes, sinus rhythm. No arrhythmias noted on telemetry overnight. Patient underwent nuclear stress test 06/20/2017 which was abnormal, apical ischemia cannot be excluded. Cardiology consulted. Patient was loaded with Plavix 300 mg and will continue Plavix 75 mg daily. She will undergo cardiac catheterization tomorrow. She will continue aspirin, Norvasc, hydrochlorothiazide. Repeat EKG with recurrent episode of chest pain. 2. Hyperlipidemia-continue statin. Patient was started on statin 3 months ago. Check fasting lipid panel in a.m. 3. Hypertension-stable, continue amlodipine and HCTZ regimen. 4. Type 2 diabetes mellitus-hold oral regimen. Accu-Cheks before meals at bedtime with sliding scale insulin. Check hemoglobin A1c. 5. Anxiety-continue home Ativan regimen. DVT prophylaxis-Lovenox subcu. hold in a.m. for cardiac catheterization. This patient was seen by GLENNA Hidalgo under the supervision of Dr. Bingham. <Keely Bingham - Last Filed: 06/20/17 15:44> - Physical Exam Vital Signs Temp Pulse Resp BP Pulse Ox 98.2 F 84 16 115/59 L 97 06/20/17 12:00 06/20/17 12:00 06/20/17 12:00 06/20/17 12:00 06/20/17 12:00 Oxygen Flow Rate 2 Oxygen Delivery Method Room Air Weight: 77.36 kg Body Mass Index (BMI) 27.5 Intake and Output for Last 24 Hours 06/18/17 06/19/17 06/20/17 23:59 23:59 23:59 Intake Total 840 / 840 720 / 720 Balance 840 / 840 720 / 720 Laboratory Tests Past 24 Hrs 06/20/17 06/20/17 06/20/17 05:05 05:05 05:05 WBC 8.8 RBC 4.31 Hgb 11.6 L Hct 36.2 L MCV 84.0 MCH 26.9 L MCHC 32.0 RDW 16.9 H RDW Differential 51.4 H Plt Count 363 MPV 8.8 APTT 35.0 Sodium 138 Potassium 3.9 Chloride 101 Carbon Dioxide 29.0 Anion Gap 8 BUN 10 Creatinine 0.59 Estim Creat Clear Calc 44.80 Est GFR (MDRD) Af Amer 127 Est GFR (MDRD) Non-Af 105 BUN/Creatinine Ratio 16.9 Glucose 172 H Calcium 10.0 POC Glucose 06/20/17 06/20/17 06/19/17 11:25 06:07 21:20 POC Glucose 186 H 174 H 145 H 06/19/17 17:08 POC Glucose 157 H Assessment/Plan She was seen and examined independently of next practitioner, Annetta Brooks, history and physical exam is as above. Patient denies any active chest pain no dizziness or palpitation orthopnea or PND. Aware that stress test was abnormal and patient will undergo cardiac cath tomorrow. Patient is aware ready for procedure. Vitals are stable, labs reviewed, medications reviewed. Code Visit Inpatient E&M: 85333 Subs Hosp L2
[2017-06-20 17:06] LABS: Bedside Glucose 155 mg/dL (70-110)
[2017-06-20] MEDS: Atorvastatin Calcium 20 MG Tablet PO (21:17)
[2017-06-20] MEDS: LORazepam 0.5 MG Tablet PO (21:22)
[2017-06-20 21:56] LABS: Bedside Glucose 168 mg/dL (70-110)
[2017-06-21] VITALS (35 sets, daily range): BP systolic 107–153; BP diastolic 47–88; PULSE 69–89; RESP 11–20; TEMP 36.6–37.1; O2SAT 93–99
[2017-06-21 05:17] LABS: Hematocrit 37.8 % (37-47); Hemoglobin 12.3 g/dl (12.0-15.0); Mean Corp Hgb Conc 32.5 g/gl (32-36); Mean Corpuscular Hgb 27.1 pg (27.0-32.0); Mean Corpuscular Volume 83.3 fL (81-99); Mean Platelet Vol. 8.6 fl (6.2-12.0); Platelet Count 383 K/mm3 (150-450); RBC Distribution Width CV 16.8 % (11.6-14.6); RBC Distribution Width SD 50.3 fl (35.1-43.9); Red Blood Count 4.54 M/mm3 (4.2-5.4); White Blood Count 8.8 K/mm3 (4.4-11.0)
[2017-06-21 05:23] LABS: International Normalized Ratio 1.1; Prothrombin Time (Protime)PT. 13.3 SECONDS (11.7-14.9)
[2017-06-21 05:24] LABS: Partial Thromboplast Time 38.3 Seconds (24.1-36.2)
[2017-06-21 05:25] LABS: Bacteria 0 SEEN /hpf (None Seen); Mucous, Urine 0 SEEN /hpf (<or=2+); White Blood Cells 0 SEEN /hpf (0-5)
[2017-06-21 05:27] LABS: Color, Urine Yellow (Yellow); Glucose, Dipstick Normal (Normal); Ketone-Dipstick Negative (Negative); Leukocyte Esterase-Dipstick Negative /ul (Negative); Nitrite-Dipstick Negative (Negative); Occult Blood-Urine 10 /ul (Negative); Protein-Dipstick Negative (Negative); Specific Gravity, Urine 1.015 (1.002-1.030); Urine Bilirubin Dipstick Negative (Negative); Urine Clarity Clear (Clear); Urine Urobilinogen Normal (Normal)
[2017-06-21 05:35] LABS: Scan Indicated on CBC? Y/N NO
[2017-06-21 05:36] LABS: Anion Gap 7 (5-15); BUN 10 mg/dL (7-18); BUN/Creat Ratio 14.5 RATIO (10-20); Calcium,Total 10.1 mg/dL (8.5-10.1); Chloride 98 mmol/L (98-107); Cholesterol 155 mg/dL (200); Creatinine, Serum 0.69 mg/dL (0.55-1.02); EST Glomerular Filtration Rate 88 mL/min (>60); Est Glom Filt Rate - Afr Amer 107 mL/min (>60); Glucose 162 mg/dL (70-110); High Density Lipoprotein 80 mg/dL; Magnesium 1.8 mg/dL (1.6-2.6); Potassium 3.8 mmol/L (3.5-5.1); Sodium Level 136 mmol/L (136-145); Triglycerides 94 mg/dL; Very Low Density Lipoprotein 19 mg/dL (5-40)
[2017-06-21] MEDS: DiphenhydrAMINE 25 MG Capsule 50 MG PO (05:45)
[2017-06-21] MEDS: Aspirin E.C. 81 MG Tablet PO (05:46)
[2017-06-21] MEDS: Clopidogrel Bisulfate 75 MG Tablet PO (05:46)
[2017-06-21] MEDS: 0.9% Normal Saline 1,000 ML 15 ML IV (05:46)
[2017-06-21 05:48] LABS: Red Blood Cells-Urine 0-5 SEEN /hpf (0-5); Squamous Epithelial Cells - UA 0-5 SEEN /hpf (5-10)
[2017-06-21] MEDS: amLODIPine 5 MG Tablet PO (05:48)
--- NOTE | 2017-06-21 05:55 | EKG12_ITS ---
Test Reason : CP Blood Pressure : / mmHG Vent. Rate : 077 BPM Atrial Rate : 077 BPM P-R Int : 150 ms QRS Dur : 080 ms QT Int : 366 ms P-R-T Axes : 009 018 031 degrees QTc Int : 414 ms Normal sinus rhythm Normal ECG When compared with ECG of 21-JUN-2017 05:19, MANUAL COMPARISON REQUIRED, DATA IS UNCONFIRMED Confirmed by ORION DENNIS ([id number]), purchasing expeditor PAN FITZGERALD ([id number]) on 06/23/2017 2:04:39 PM Referred By: HOSP Confirmed By:ORION DENNIS
--- NOTE | 2017-06-21 06:10 | EKG12_ITS ---
Test Reason : AM EKG Blood Pressure : / mmHG Vent. Rate : 077 BPM Atrial Rate : 077 BPM P-R Int : 148 ms QRS Dur : 078 ms QT Int : 368 ms P-R-T Axes : 010 025 071 degrees QTc Int : 416 ms Normal sinus rhythm ST elevation consider inferior injury or acute infarct Consider right ventricular involvement in acute inferior infarct Abnormal ECG When compared with ECG of 20-JUN-2017 06:40, MANUAL COMPARISON REQUIRED, DATA IS UNCONFIRMED Confirmed by ORION DENNIS ([id number]), hat blocking operator PAN FITZGERALD ([id number]) on 06/23/2017 2:04:15 PM Referred By: DENVER Confirmed By:ORION DENNIS
[2017-06-21 06:16] LABS: Bedside Glucose 172 mg/dL (70-110)
[2017-06-21 08:26] LABS: ACT Activated Clotting Time 186 sec (74-137)
--- NOTE | 2017-06-21 08:30 | EKG12_ITS ---
Test Reason : POST-PCI Blood Pressure : / mmHG Vent. Rate : 074 BPM Atrial Rate : 074 BPM P-R Int : 140 ms QRS Dur : 086 ms QT Int : 392 ms P-R-T Axes : 029 045 052 degrees QTc Int : 435 ms Normal sinus rhythm Normal ECG When compared with ECG of 21-JUN-2017 06:18, MANUAL COMPARISON REQUIRED, DATA IS UNCONFIRMED Confirmed by ORION DENNIS ([id number]), newspaper copy editor PAN FITZGERALD ([id number]) on 06/23/2017 1:27:19 PM Referred By: JEANNIE Confirmed By:ORION DENNIS
--- NOTE | 2017-06-21 08:50 | CL.I_ITS ---
Patient Name: FLORES WASHINGTON Study Date: 06/21/2017 Performing: Agusto Calhoun MD Ht: 66 inches 168 cm : 1940 Wt: 170 lbs 77 kg Age: 76 Gender: female BSA: 1.87 PROCEDURE(S) PERFORMED OW50-MGM/COR/LV WD01-WTK W OR WO PTCA, SINGLE CORONARY ARTERY CLINICAL PROFILE AND CO-MORBIDITIES INDICATIONS: Unstable Angina Stress/Imaging Stress Test w/SPECT MPI: Yes Result: Indeterminant Stress Test with SPECT MPI: Ind eterminant Angina Classification Anginal Classification w/in 2 Weeks: CCS I CAD Presentations: Unstable angina. 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 RECOMMENDATIONS Referred for immediate PCI Highly recommend quitting all tobacco products Follow up with primary manager pe Risk factor modification ASA Indefinitley Plavix for at least 12 months Routine post interventional care Refer for Outpatient Cardiac Rehab Manual sheath removal per protocol Follow up with Dr. Lj Pierce lopressor, unable to take acei/arb due to angioedema. Medical management of LAD and LCX non-obstructive disease. DESCRIPTION OF PROCEDURE The patient arrived to the procedure lab. The risks and benefits of the procedure as well as a full d escription of our services here and lack of surgical backup were fully explained to the patient and/o r their significant other prior to the catheterization. The Timeout was completed, verifying the percy ect patient and procedure. The patient's procedural site was prepped and draped in the usual fashion. Local anesthetic was given subcutaneously to right groin region with Lidocaine 2%. Using a modified Seldinger technique, arterial access was obtained via the right femoral artery, a 4Fr sheath was inse rted. Left Coronary Artery selective angiography was performed in multiple views using a 4 Fr. JL5 c atheter. Right Coronary Artery selective angiography was then performed in multiple views using a 4 F r. 3DRC catheter. Left Ventriculography was performed in WISE projection using a 4 Fr. Pigtail cathete r. LV to AO pullback pressures were then recorded Arterial sheath was exchanged for a 6 Fr Sheath HS II Guide catheter was inserted and engaged into th e RCA. [place] Guide wire was advanced to the RCA. 2.5 by 12 emerge Balloon catheter was inserted. Balloon catheter was advanced across lesion in the right coronary, proximal. PTCA balloon inflated at 7 atms for 14 secs 4.0 by 12 synergy Drug Eluting stent was inserted Drug Eluting stent was removed intact, failed to cross lesion 3.0 by 12 emerge Balloon catheter was inserted. Balloon catheter was a dvanced across lesion in the right coronary, proximal. PTCA balloon inflated at 12 atms for 14 secs P TCA balloon inflated at 12 atms for 09 secs PTCA balloon inflated at 12 atms for 08 secs Drug Eluting stent was advanced across the lesion in the right coronary, proximal. 5 by 8 NC balloon Balloon cath eter was inserted. Balloon catheter was inserted post stent. 4.0 by 8 NC balloon Balloon catheter was inserted. Balloon catheter was inserted post stent.. . The arterial sheath was sutured in place and capped. CORONARY ANGIOGRAPHY DOMINANCE: Right Dominant LEFT HEART ASSESSMENT Left Ventricular Ejection Fraction: by LV Gram 65 % Normal Left Ventricular systolic function Normal LV wall motion LEFT MAIN: Mild calcification LEFT ANTERIOR DECENDING ARTERY: Mild calcification, Mild luminal irregularities less than 30% DIAGONAL 1: Ostial - Mild luminal irregularities less than 30% CIRCUMFLEX ARTERY: Mild luminal irregularities less than 30% RIGHT CORONARY ARTERY: PROX RCA: 85 % Stenosis RT PDA: Proximal - Angiographically normal INTERVENTION INFORMATION LESION SITE: RCA (Proximal) Lesion Complexity: Non-High/Non-C, lesion at bifurcation: No, thrombus present: No, lesion length: 12 mm, culprit lesion: Yes Pre Stenosis: 85 % Pre intervention FAMILIA flow: 3 PROCEDURE: Drug Eluting Stent with pre and post dilatation Post Stenosis: 0 % Post intervention FAMILIA flow: 3 Lesion Devices: Sonalighttronic 6 Fr HSII 100cm Guide Catheter [place] .014 [employer] [place] Straight 190cm Bakari Sci EMERGE MR 2.50x12 BALLOON Bakari Sci Synergy MR KAM 4.00x12 Bakari Sci EMERGE MR 3.00x12 BALLOON Bakari Sci NC EMERGE MR 4.00x08 BALLOON Bakari Sci NC EMERGE MR 5.00x08 BALLOON COMPLICATIONS No Complications PROCEDURE MEDICATIONS Versed 1 mg IV Oxygen: 2 L/min via nasal cannula Heparin 6000 unit(s) IV 06/21/2017 07:40:07 Heparin 4000 unit(s) IV 06/21/2017 08:15:44 IV Fluids: .9 NaCl increased to wide open ml/hr 06/21/2017 07:42:21 SUMMARY OF HEMODYNAMIC DATA Time AIR REST ECG 06:58:12 AO 115/65 (88) SA 07:31:08 LV 152/-16, 13 07:38:05 LV 147/-20, 9 07:38:12 LVp 150/-21, 7 07:38:19 AOp 150/70 (103) 07:38:24 Signed By Agusto Calhoun MD On 06/21/2017 08:49:20 Agusto Calhoun MD
[2017-06-21] MEDS: 0.9% Normal Saline 1,000 ML 150 ML IV (08:53)
[2017-06-21 08:57] LABS: Hematocrit 36.5 % (37-47); Hemoglobin 11.6 g/dl (12.0-15.0); Mean Corp Hgb Conc 31.8 g/gl (32-36); Mean Corpuscular Hgb 26.4 pg (27.0-32.0); Mean Corpuscular Volume 83.1 fL (81-99); Platelet Count 326 K/mm3 (150-450); RBC Distribution Width CV 16.6 % (11.6-14.6); RBC Distribution Width SD 50.6 fl (35.1-43.9); Red Blood Count 4.39 M/mm3 (4.2-5.4); White Blood Count 8.7 K/mm3 (4.4-11.0)
[2017-06-21 08:59] LABS: Scan Indicated on CBC? Y/N NO
[2017-06-21 09:10] LABS: CPK Total, Creatine Kinase 19 U/L (26-192)
--- NOTE | 2017-06-21 10:27 | CRPHASE1 ---
Patient Data/Charges Phase II Referral:: [facility] Start Phase II:: FOLLOWING OFFICE VISIT WITH DEDENTER Risk Factors/Lifestyle Smoking Status: Former smoker Hx Hypertension: Yes Hx Diabetes Mellitus Type 1: No Hx Diabetes Mellitus Type 2: Yes Hx Metabolic Disorders: Yes Hx Dyslipidemia: Yes Height: 5 ft 6 in - WT. 170# Post-Menopausal: Yes Stress: Home/Family Risk Factor for Sedentary Lifestyle: Moderate Risk Laboratory Values: Cardiac Rehab Phase I Labs Hemoglobin A1c 7.0 % (4.2-6.3) H 06/21/17 05:08 Triglycerides 94 mg/dL (-199) 06/21/17 05:08 Cholesterol 155 mg/dL (200) 06/21/17 05:08 LDL Cholesterol 56 mg/dL (0-130) 06/21/17 05:08 HDL Cholesterol 80 mg/dL (40-) 06/21/17 05:08 Phase I Education Given On:: [place], Nutrition, Antiplatelet medication, Smoking cessation, Diabetes - Type II Issues Affecting Care:: None Knowledge of Condition:: Yes Learning Preferences: Verbal - MANY FAMILY MEMBERS AT BEDSIDE Hospital Course Presenting Symptoms:: CHEST DISCOMFORT / ABNORMAL STRESS TEST Medical/Surgical History NC:: No CAD:: No Diabetes:: Yes Diabetes Type I:: No Diabetes Type II:: Yes Hypertension:: Yes Dyslipidemia:: Yes Discharge/Home/Social Eval Discharge Disposition: Home
[2017-06-21 10:31] LABS: ACT Activated Clotting Time 169 sec (74-137)
--- NOTE | 2017-06-21 10:31 | CRPHASE1_ITS ---
Patient Data/Charges Phase II Referral:: [facility] Start Phase II:: FOLLOWING OFFICE VISIT WITH SITE MANAGER Risk Factors/Lifestyle Smoking Status: Former smoker Hx Hypertension: Yes Hx Diabetes Mellitus Type 1: No Hx Diabetes Mellitus Type 2: Yes Hx Metabolic Disorders: Yes Hx Dyslipidemia: Yes Height: 5 ft 6 in - WT. 170# Post-Menopausal: Yes Stress: Home/Family Risk Factor for Sedentary Lifestyle: Moderate Risk Laboratory Values: Cardiac Rehab Phase I Labs Hemoglobin A1c 7.0 % (4.2-6.3) H 06/21/17 05:08 Triglycerides 94 mg/dL (-199) 06/21/17 05:08 Cholesterol 155 mg/dL (200) 06/21/17 05:08 LDL Cholesterol 56 mg/dL (0-130) 06/21/17 05:08 HDL Cholesterol 80 mg/dL (40-) 06/21/17 05:08 Phase I Education Given On:: [place], Nutrition, Antiplatelet medication, Smoking cessation, Diabetes - Type II Issues Affecting Care:: None Knowledge of Condition:: Yes Learning Preferences: Verbal - MANY FAMILY MEMBERS AT BEDSIDE Hospital Course Presenting Symptoms:: CHEST DISCOMFORT / ABNORMAL STRESS TEST Medical/Surgical History NC:: No CAD:: No Diabetes:: Yes Diabetes Type I:: No Diabetes Type II:: Yes Hypertension:: Yes Dyslipidemia:: Yes Discharge/Home/Social Eval Discharge Disposition: Home
--- NOTE | 2017-06-21 10:31 | CRPH1.INSTRU ---
General Education CAD and cardiac anatomy and function:: Patient communicates acknowledgment, Family communicates acknowledgment Explanation of diagnoses and procedures:: Patient communicates acknowledgment, Family communicates acknowledgment Sign/Symptoms of AK:: Patient communicates acknowledgment, Family communicates acknowledgment Antiplatelet therapy: Patient communicates acknowledgment, Family communicates acknowledgment Proper use of NTG-SL: Patient communicates acknowledgment, Family communicates acknowledgment Emergency procedures and activation of EMS: Patient communicates acknowledgment, Family communicates acknowledgment Compliance of all prescribed medications: Patient communicates acknowledgment, Family communicates acknowledgment - MANY FAMILY MEMBERS AT BEDSIDE Smoking Patient Nicotine/Smoking Risk Factors Are:: Non-smoker Recommendations Include:: Previous smoker; encourage continued cessation Nicotine/Smoking Response Code:: Patient communicates acknowledgment, Family communicates acknowledgment Dyslipidemia Recommendations Include:: Lipid profile provided, Reviewed NCEP/ATP guidelines, Therapeutic Lifestyle Change dietary guidelines Dyslipidemia Response Code:: Patient communicates acknowledgment, Family communicates acknowledgment Overweight/Obesity Patient Overweight/Obesity Risk Factors Are:: Overweight = 26-29 Recommendations Include:: Weight loss of 5-10%, Reduced calorie diet, Exercise 5-7 times/week Overweight/Obesity:: Patient communicates acknowledgment, Family communicates acknowledgment Hypertension Recommendations Include:: BP <130/80 if diabetic, DASH dietary guidelines, Decrease/maintain normal body weight, Moderation of ETOH Hypertension:: Patient communicates acknowledgment, Family communicates acknowledgment Heart Disease Recommendations Include:: Educated family members of their risk, Educated family members of importance of prevention of heart disease Heart Disease Response Code:: Patient communicates acknowledgment, Family communicates acknowledgment Diabetes Patient Diabetes Risk Factors Are:: Elevated blood sugars Recommendations Include:: Maintain fasting blood sugars 70-110 md/dL, Maintain HgbA1c of 6% or less, Monitor blood sugar as prescribed, Diabetic dietary guidelines, Decrease/maintain body weight Diabetes:: Patient communicates acknowledgment, Family communicates acknowledgment Metabolic Syndrome Patient Metabolic Syndrome Risk Factors Are [3 of 5]:: Fasting blood sugar > 100 mg/dL, Waist circumference > 35 [female] or 40 [male], Hypertension Recommendations Include:: Reinforce compliance to risk factor modifications, Patient is diabetic, Encouraged follow-up with Primary Care Physician Metabolic Syndrome Response Code:: Patient communicates acknowledgment, Family communicates acknowledgment Sedentary Patient Sedentary Risk Factors Are:: Lack of regular exercise Recommendations Include:: Aerobic exercise 5-7 times/week for 20-30 minutes continuously, Benefits of regular exercise, Discussed home walking program, Monitored Outpatient Cardiac Rehab Sedentary Response Code:: Patient communicates acknowledgment, Family communicates acknowledgment - 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
--- NOTE | 2017-06-21 10:35 | CRPH1.INST_ITS ---
General Education CAD and cardiac anatomy and function:: Patient communicates acknowledgment, Family communicates acknowledgment Explanation of diagnoses and procedures:: Patient communicates acknowledgment, Family communicates acknowledgment Sign/Symptoms of VT:: Patient communicates acknowledgment, Family communicates acknowledgment Antiplatelet therapy: Patient communicates acknowledgment, Family communicates acknowledgment Proper use of NTG-SL: Patient communicates acknowledgment, Family communicates acknowledgment Emergency procedures and activation of EMS: Patient communicates acknowledgment , Family communicates acknowledgment Compliance of all prescribed medications: Patient communicates acknowledgment, Family communicates acknowledgment - MANY FAMILY MEMBERS AT BEDSIDE Smoking Patient Nicotine/Smoking Risk Factors Are:: Non-smoker Recommendations Include:: Previous smoker; encourage continued cessation Nicotine/Smoking Response Code:: Patient communicates acknowledgment, Family communicates acknowledgment Dyslipidemia Recommendations Include:: Lipid profile provided, Reviewed NCEP/ATP guidelines, Therapeutic Lifestyle Change dietary guidelines Dyslipidemia Response Code:: Patient communicates acknowledgment, Family communicates acknowledgment Overweight/Obesity Patient Overweight/Obesity Risk Factors Are:: Overweight = 26-29 Recommendations Include:: Weight loss of 5-10%, Reduced calorie diet, Exercise 5 -7 times/week Overweight/Obesity:: Patient communicates acknowledgment, Family communicates acknowledgment Hypertension Recommendations Include:: BP <130/80 if diabetic, DASH dietary guidelines, Decrease/maintain normal body weight, Moderation of ETOH Hypertension:: Patient communicates acknowledgment, Family communicates acknowledgment Heart Disease Recommendations Include:: Educated family members of their risk, Educated family members of importance of prevention of heart disease Heart Disease Response Code:: Patient communicates acknowledgment, Family communicates acknowledgment Diabetes Patient Diabetes Risk Factors Are:: Elevated blood sugars Recommendations Include:: Maintain fasting blood sugars 70-110 md/dL, Maintain HgbA1c of 6% or less, Monitor blood sugar as prescribed, Diabetic dietary guidelines, Decrease/maintain body weight Diabetes:: Patient communicates acknowledgment, Family communicates acknowledgment Metabolic Syndrome Patient Metabolic Syndrome Risk Factors Are [3 of 5]:: Fasting blood sugar > 100 mg/dL, Waist circumference > 35 [female] or 40 [male], Hypertension Recommendations Include:: Reinforce compliance to risk factor modifications, Patient is diabetic, Encouraged follow-up with Primary Care Physician Metabolic Syndrome Response Code:: Patient communicates acknowledgment, Family communicates acknowledgment Sedentary Patient Sedentary Risk Factors Are:: Lack of regular exercise Recommendations Include:: Aerobic exercise 5-7 times/week for 20-30 minutes continuously, Benefits of regular exercise, Discussed home walking program, Monitored Outpatient Cardiac Rehab Sedentary Response Code:: Patient communicates acknowledgment, Family communicates acknowledgment - 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
[2017-06-21] MEDS: LORazepam 0.5 MG Tablet PO ×2 (10:59→21:45)
[2017-06-21] MEDS: Acetaminophen 325 MG Tablet 650 MG PO (10:59)
[2017-06-21 11:36] LABS: Bedside Glucose 140 mg/dL (70-110)
--- NOTE | 2017-06-21 11:56 | PN_ITS ---
<Annetta Brooks - Last Filed: 06/21/17 11:58> Patient Problems: Active and Suspected Problems Acute chest pain (Acute) Abnormal cardiovascular stress test (Acute) Subjective: Patient seen and examined. Patient underwent successful PTCA of the proximal RCA early this morning. She is currently in room recovering in stable condition. Her EKG this morning was noted to have ST elevation. She denies symptoms at that time or currently. She has not had further chest pain. She denies other complaints at this time. - Physical Exam General: Alert, Oriented x3, Cooperative, No apparent distress HEENT: Atraumatic, PERRLA, EOMI, Normocephalic Neck: Supple, No JVD, Negative Carotid Bruits Lungs: Clear to auscultation, Normal air movement Cardiovascular: Regular rate, Regular Rhythm, Normal S1, Normal S2, No murmurs Abdomen: Bowel Sounds Present, Soft, Non Tender, Non-Distended Extremities: No clubbing, No cyanosis, No edema, Capillary Refill Less than 3 Seconds Skin: No rashes, No breakdown, - - Groin puncture site without signs of hematoma. Musculoskeletal: No Tenderness to Palpation of Joints or Extremities Neurological: Cranial nerves II-XII grossly intact, Neuro grossly intact Psych/Mental Status: Normal Affect, Appropriate Vital Signs Temp Pulse Resp BP Pulse Ox 97.9 F 72 14 129/61 H 97 06/21/17 11:30 06/21/17 11:30 06/21/17 11:30 06/21/17 11:30 06/21/17 11:30 Oxygen Flow Rate 2 Oxygen Delivery Method Room Air Weight: 77.36 kg Body Mass Index (BMI) 27.5 Intake and Output for Last 24 Hours 06/19/17 06/20/17 06/21/17 23:59 23:59 23:59 Intake Total 840 / 840 1270 / 1270 Balance 840 / 840 1270 / 1270 Laboratory Tests Past 24 Hrs 06/21/17 06/21/17 06/21/17 05:08 05:08 05:08 WBC 8.8 RBC 4.54 Hgb 12.3 Hct 37.8 MCV 83.3 MCH 27.1 MCHC 32.5 RDW 16.8 H RDW Differential 50.3 H Plt Count 383 MPV 8.6 PT 13.3 INR 1.1 APTT 38.3 H Activated Clotting Time Sodium 136 Potassium 3.8 Chloride 98 Carbon Dioxide 31.0 Anion Gap 7 BUN 10 Creatinine 0.69 Estim Creat Clear Calc 44.80 Est GFR (MDRD) Af Amer 107 Est GFR (MDRD) Non-Af 88 BUN/Creatinine Ratio 14.5 Glucose 162 H Hemoglobin A1c Calcium 10.1 Magnesium 1.8 Total Creatine Kinase Triglycerides 94 Cholesterol 155 LDL Cholesterol 56 VLDL Cholesterol 19 HDL Cholesterol 80 Urine Color Urine Clarity Urine pH Ur Specific Whiteface Urine Protein Urine Glucose (UA) Urine Ketones Urine Occult Blood Urine Nitrite Urine Bilirubin Urine Urobilinogen Ur Leukocyte Esterase Urine RBC Urine WBC Ur Squamous Epith Cells Urine Bacteria Urine Mucus 06/21/17 06/21/17 06/21/17 05:08 05:15 08:12 WBC RBC Hgb Hct MCV MCH MCHC RDW RDW Differential Plt Count MPV PT INR APTT Activated Clotting Time 186 H Sodium Potassium Chloride Carbon Dioxide Anion Gap BUN Creatinine Estim Creat Clear Calc Est GFR (MDRD) Af Amer Est GFR (MDRD) Non-Af BUN/Creatinine Ratio Glucose Hemoglobin A1c 7.0 H Calcium Magnesium Total Creatine Kinase Triglycerides Cholesterol LDL Cholesterol VLDL Cholesterol HDL Cholesterol Urine Color Yellow Urine Clarity Clear Urine pH 6.0 Ur Specific Whiteface 1.015 Urine Protein Negative Urine Glucose (UA) Normal Urine Ketones Negative Urine Occult Blood 10 H Urine Nitrite Negative Urine Bilirubin Negative Urine Urobilinogen Normal Ur Leukocyte Esterase Negative Urine RBC 0-5 SEEN Urine WBC 0 SEEN Ur Squamous Epith Cells 0-5 SEEN Urine Bacteria 0 SEEN Urine Mucus 0 SEEN 06/21/17 06/21/17 06/21/17 08:45 08:45 10:17 WBC 8.7 RBC 4.39 Hgb 11.6 L Hct 36.5 L MCV 83.1 MCH 26.4 L MCHC 31.8 L RDW 16.6 H RDW Differential 50.6 H Plt Count 326 MPV 9.0 PT INR APTT Activated Clotting Time 169 H Sodium Potassium Chloride Carbon Dioxide Anion Gap BUN Creatinine Estim Creat Clear Calc Est GFR (MDRD) Af Amer Est GFR (MDRD) Non-Af BUN/Creatinine Ratio Glucose Hemoglobin A1c Calcium Magnesium Total Creatine Kinase 19 L Triglycerides Cholesterol LDL Cholesterol VLDL Cholesterol HDL Cholesterol Urine Color Urine Clarity Urine pH Ur Specific Whiteface Urine Protein Urine Glucose (UA) Urine Ketones Urine Occult Blood Urine Nitrite Urine Bilirubin Urine Urobilinogen Ur Leukocyte Esterase Urine RBC Urine WBC Ur Squamous Epith Cells Urine Bacteria Urine Mucus POC Glucose 06/21/17 06/21/17 06/20/17 11:32 06:02 21:19 POC Glucose 140 H 172 H 168 H 06/20/17 16:52 POC Glucose 155 H Assessment/Plan Active and Suspected Problems Acute chest pain (Acute) Abnormal cardiovascular stress test (Acute) Patient is a 76-year-old female admitted 06/18/2017 due to chest pain. She has a past medical history of hypertension, hyperlipidemia, type 2 diabetes mellitus. 1. Acute chest pain-Troponin negative ?4. Patient underwent nuclear stress test 06/20/2017 which was abnormal, apical ischemia cannot be excluded. Cardiology consulted. 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 Patient will continue aspirin indefinitely , Plavix for 12 months, beta-lily and follow-up with Dr. Calhoun. 2. Hyperlipidemia-continue statin. Patient was started on statin 3 months ago. Lipid panel within normal limits. 3. Hypertension-stable, continue amlodipine and HCTZ regimen. Metoprolol added. 4. Type 2 diabetes mellitus-hold oral regimen. Accu-Cheks before meals at bedtime with sliding scale insulin. Hemoglobin A1c 7%. 5. Anxiety-continue home Ativan regimen. DVT prophylaxis-Lovenox subcu. hold in a.m. for cardiac catheterization. This patient was seen by GLENNA Hidalgo under the supervision of Dr. Bingham. <Keely Bingham - Last Filed: 06/21/17 16:01> - Physical Exam Vital Signs Temp Pulse Resp BP Pulse Ox 97.9 F 71 17 131/63 H 95 06/21/17 11:30 06/21/17 15:14 06/21/17 15:00 06/21/17 15:00 06/21/17 15:29 Oxygen Delivery Method Room Air Intake and Output for Last 24 Hours 06/19/17 06/20/17 06/21/17 23:59 23:59 23:59 Intake Total 550 / 1270 1480 / 1480 Output Total 450 / 450 Balance 550 / 1270 1030 / 1030 Laboratory Tests Past 24 Hrs 06/21/17 06/21/17 06/21/17 05:08 05:08 05:08 WBC 8.8 RBC 4.54 Hgb 12.3 Hct 37.8 MCV 83.3 MCH 27.1 MCHC 32.5 RDW 16.8 H RDW Differential 50.3 H Plt Count 383 MPV 8.6 PT 13.3 INR 1.1 APTT 38.3 H Activated Clotting Time Sodium 136 Potassium 3.8 Chloride 98 Carbon Dioxide 31.0 Anion Gap 7 BUN 10 Creatinine 0.69 Estim Creat Clear Calc 44.80 Est GFR (MDRD) Af Amer 107 Est GFR (MDRD) Non-Af 88 BUN/Creatinine Ratio 14.5 Glucose 162 H Hemoglobin A1c Calcium 10.1 Magnesium 1.8 Total Creatine Kinase Triglycerides 94 Cholesterol 155 LDL Cholesterol 56 VLDL Cholesterol 19 HDL Cholesterol 80 Urine Color Urine Clarity Urine pH Ur Specific Whiteface Urine Protein Urine Glucose (UA) Urine Ketones Urine Occult Blood Urine Nitrite Urine Bilirubin Urine Urobilinogen Ur Leukocyte Esterase Urine RBC Urine WBC Ur Squamous Epith Cells Urine Bacteria Urine Mucus 06/21/17 06/21/17 06/21/17 05:08 05:15 08:12 WBC RBC Hgb Hct MCV MCH MCHC RDW RDW Differential Plt Count MPV PT INR APTT Activated Clotting Time 186 H Sodium Potassium Chloride Carbon Dioxide Anion Gap BUN Creatinine Estim Creat Clear Calc Est GFR (MDRD) Af Amer Est GFR (MDRD) Non-Af BUN/Creatinine Ratio Glucose Hemoglobin A1c 7.0 H Calcium Magnesium Total Creatine Kinase Triglycerides Cholesterol LDL Cholesterol VLDL Cholesterol HDL Cholesterol Urine Color Yellow Urine Clarity Clear Urine pH 6.0 Ur Specific Whiteface 1.015 Urine Protein Negative Urine Glucose (UA) Normal Urine Ketones Negative Urine Occult Blood 10 H Urine Nitrite Negative Urine Bilirubin Negative Urine Urobilinogen Normal Ur Leukocyte Esterase Negative Urine RBC 0-5 SEEN Urine WBC 0 SEEN Ur Squamous Epith Cells 0-5 SEEN Urine Bacteria 0 SEEN Urine Mucus 0 SEEN 06/21/17 06/21/17 06/21/17 08:45 08:45 10:17 WBC 8.7 RBC 4.39 Hgb 11.6 L Hct 36.5 L MCV 83.1 MCH 26.4 L MCHC 31.8 L RDW 16.6 H RDW Differential 50.6 H Plt Count 326 MPV 9.0 PT INR APTT Activated Clotting Time 169 H Sodium Potassium Chloride Carbon Dioxide Anion Gap BUN Creatinine Estim Creat Clear Calc Est GFR (MDRD) Af Amer Est GFR (MDRD) Non-Af BUN/Creatinine Ratio Glucose Hemoglobin A1c Calcium Magnesium Total Creatine Kinase 19 L Triglycerides Cholesterol LDL Cholesterol VLDL Cholesterol HDL Cholesterol Urine Color Urine Clarity Urine pH Ur Specific Whiteface Urine Protein Urine Glucose (UA) Urine Ketones Urine Occult Blood Urine Nitrite Urine Bilirubin Urine Urobilinogen Ur Leukocyte Esterase Urine RBC Urine WBC Ur Squamous Epith Cells Urine Bacteria Urine Mucus 06/21/17 06/21/17 15:00 15:00 WBC 9.0 RBC 4.15 L Hgb 11.1 L Hct 34.7 L MCV 83.6 MCH 26.7 L MCHC 32.0 RDW 16.7 H RDW Differential 50.1 H Plt Count 363 MPV 9.0 PT INR APTT Activated Clotting Time Sodium Potassium Chloride Carbon Dioxide Anion Gap BUN Creatinine Estim Creat Clear Calc Est GFR (MDRD) Af Amer Est GFR (MDRD) Non-Af BUN/Creatinine Ratio Glucose Hemoglobin A1c Calcium Magnesium Total Creatine Kinase 19 L Triglycerides Cholesterol LDL Cholesterol VLDL Cholesterol HDL Cholesterol Urine Color Urine Clarity Urine pH Ur Specific Whiteface Urine Protein Urine Glucose (UA) Urine Ketones Urine Occult Blood Urine Nitrite Urine Bilirubin Urine Urobilinogen Ur Leukocyte Esterase Urine RBC Urine WBC Ur Squamous Epith Cells Urine Bacteria Urine Mucus POC Glucose 06/21/17 06/21/17 06/20/17 11:32 06:02 21:19 POC Glucose 140 H 172 H 168 H 06/20/17 16:52 POC Glucose 155 H Assessment/Plan Patient seen and examined independently of OXYACETYLENE CUTTER. Interval history, physical exam and assessment as above Symptomatic of chest pain. Underwent PTCA with stenting of the proximal RCA. Patient is being monitored in the CVICU. Vitals are stable, labs reviewed, possibly will be discharged tomorrow.
[2017-06-21] MEDS: Multivitamins,Therapeutic Tablet 1 TABLET PO (13:03)
[2017-06-21] MEDS: Metoprolol Tartrate 25 MG Tablet 12.5 MG PO ×2 (13:03→21:41)
[2017-06-21] MEDS: hydroCHLOROthiazide 25 MG Tablet PO (13:03)
[2017-06-21] MEDS: Calcium Carb/Vitamin D 1 TABLET Tablet PO ×2 (13:03→17:19)
[2017-06-21] MEDS: 0.9% NaCl Peripheral Flush Adult/Peds IV (13:07)
[2017-06-21 15:24] LABS: Hematocrit 34.7 % (37-47); Hemoglobin 11.1 g/dl (12.0-15.0); Mean Corpuscular Hgb 26.7 pg (27.0-32.0); Mean Corpuscular Volume 83.6 fL (81-99); Platelet Count 363 K/mm3 (150-450); RBC Distribution Width CV 16.7 % (11.6-14.6); RBC Distribution Width SD 50.1 fl (35.1-43.9); Red Blood Count 4.15 M/mm3 (4.2-5.4)
[2017-06-21 15:33] LABS: Scan Indicated on CBC? Y/N NO
[2017-06-21 15:43] LABS: CPK Total, Creatine Kinase 19 U/L (26-192)
[2017-06-21 17:26] LABS: Bedside Glucose 108 mg/dL (70-110)
[2017-06-21] MEDS: Atorvastatin Calcium 20 MG Tablet PO (21:43)
[2017-06-21 22:01] LABS: Bedside Glucose 177 mg/dL (70-110)
[2017-06-21 23:13] LABS: Hematocrit 37.2 % (37-47); Hemoglobin 11.8 g/dl (12.0-15.0); Mean Corp Hgb Conc 31.7 g/gl (32-36); Mean Corpuscular Hgb 26.5 pg (27.0-32.0); Mean Corpuscular Volume 83.6 fL (81-99); Mean Platelet Vol. 8.8 fl (6.2-12.0); Platelet Count 338 K/mm3 (150-450); RBC Distribution Width CV 16.9 % (11.6-14.6); RBC Distribution Width SD 51.6 fl (35.1-43.9); Red Blood Count 4.45 M/mm3 (4.2-5.4); White Blood Count 9.8 K/mm3 (4.4-11.0)
[2017-06-21 23:14] LABS: Scan Indicated on CBC? Y/N NO
[2017-06-21 23:31] LABS: CPK Total, Creatine Kinase 22 U/L (26-192)
[2017-06-22] VITALS (9 sets, daily range): BP systolic 121–138; BP diastolic 41–74; PULSE 67–84; RESP 16–18; TEMP 36.8–36.9; O2SAT 92–96
[2017-06-22 05:12] LABS: Hematocrit 36.8 % (37-47); Hemoglobin 11.8 g/dl (12.0-15.0); Mean Corp Hgb Conc 32.1 g/gl (32-36); Mean Corpuscular Hgb 26.8 pg (27.0-32.0); Mean Corpuscular Volume 83.4 fL (81-99); Mean Platelet Vol. 8.8 fl (6.2-12.0); Platelet Count 305 K/mm3 (150-450); RBC Distribution Width CV 16.8 % (11.6-14.6); RBC Distribution Width SD 51.3 fl (35.1-43.9); Red Blood Count 4.41 M/mm3 (4.2-5.4); White Blood Count 9.5 K/mm3 (4.4-11.0)
[2017-06-22 05:13] LABS: Scan Indicated on CBC? Y/N NO
[2017-06-22 05:36] LABS: Anion Gap 9 (5-15); BUN 13 mg/dL (7-18); BUN/Creat Ratio 20.1 RATIO (10-20); Calcium,Total 9.9 mg/dL (8.5-10.1); Chloride 99 mmol/L (98-107); Creatinine, Serum 0.65 mg/dL (0.55-1.02); EST Glomerular Filtration Rate 95 mL/min (>60); Est Glom Filt Rate - Afr Amer 114 mL/min (>60); Glucose 158 mg/dL (70-110); Potassium 3.6 mmol/L (3.5-5.1); Sodium Level 136 mmol/L (136-145)
[2017-06-22] MEDS: Multivitamins,Therapeutic Tablet 1 TABLET PO (08:10)
[2017-06-22] MEDS: Calcium Carb/Vitamin D 1 TABLET Tablet PO (08:10)
[2017-06-22] MEDS: Aspirin E.C. 81 MG Tablet PO (08:10)
[2017-06-22] MEDS: Clopidogrel Bisulfate 75 MG Tablet PO (08:11)
[2017-06-22] MEDS: hydroCHLOROthiazide 25 MG Tablet PO (08:11)
[2017-06-22] MEDS: Metoprolol Tartrate 25 MG Tablet 12.5 MG PO (08:11)
[2017-06-22] MEDS: amLODIPine 5 MG Tablet PO (08:11)
[2017-06-22 08:16] LABS: Bedside Glucose 172 mg/dL (70-110)
--- NOTE | 2017-06-22 08:30 | EKG12_ITS ---
Test Reason : AM EKG Blood Pressure : / mmHG Vent. Rate : 085 BPM Atrial Rate : 085 BPM P-R Int : 150 ms QRS Dur : 082 ms QT Int : 370 ms P-R-T Axes : 015 029 033 degrees QTc Int : 440 ms Sinus rhythm with occasional Premature ventricular complexes Otherwise normal ECG When compared with ECG of 21-JUN-2017 08:42, MANUAL COMPARISON REQUIRED, DATA IS UNCONFIRMED Confirmed by ORION DENNIS [id number]), associate editor PAN FITZGERALD ([id number]) on 06/23/2017 1:49:42 PM Referred By: DENVER Confirmed By:ORION DENNIS
--- NOTE | 2017-06-22 08:40 | PCM.PN.CARD ---
Subjectve: Patient doing very well overnight. No chest pain, feels great explanation remigio right groin is clean/dry/intact, no thrills or bruits. Telemetry showed normal sinus rhythm with rare PVCs. CKs are negative. Hemoglobin and creatinine within nominal limits. Objective: Vital Signs Temp Pulse Resp BP Pulse Ox 98.2 F 82 16 138/48 H 94 06/22/17 04:00 06/22/17 08:11 06/22/17 06:00 06/22/17 06:00 06/22/17 06:00 Oxygen Delivery Method Room Air Weight: 159 lb 9.835 oz Intake and Output for Last 24 Hours 06/20/17 06/21/17 06/22/17 23:59 23:59 23:59 Intake Total 550 / 1270 1480 / 1480 600 / 600 Output Total 450 / 450 Balance 550 / 1270 1030 / 1030 600 / 600 General: Awake, Alert, Oriented x 3 HEENT: PERRL, EOMI, Sclera Non Icteric Neck: Supple, Good ROM, No Lymph Node Enlargement Lungs: Clear to auscultation Cardiovascular: Regular Rhythm, Normal S1, Normal S2, No Murmurs, No Rubs, No Gallops Vascular: No Carotid Bruits, Normal Femoral Pulses, Normal Radial Pulses, Normal Dorsalis Pedal Pulse, Normal Posterior Tibial Pulses Abdomen: Bowel Sounds Present, Soft, Non Tender, No HSM, No Organomegaly Extremities: No Cyanosis, No Clubbing, No edema Neurological: No Focal Motor or Sensory Deficit 06/21/17 05:08: Hemoglobin A1c 7.0 H 06/21/17 08:45: WBC 8.7, RBC 4.39, Hgb 11.6 L, Hct 36.5 L, MCV 83.1, MCH 26.4 L, MCHC 31.8 L, RDW 16.6 H, RDW Differential 50.6 H, Plt Count 326, MPV 9.0 06/21/17 15:00: WBC 9.0, RBC 4.15 L, Hgb 11.1 L, Hct 34.7 L, MCV 83.6, MCH 26.7 L, MCHC 32.0, RDW 16.7 H, RDW Differential 50.1 H, Plt Count 363, MPV 9.0 06/21/17 22:55: WBC 9.8, RBC 4.45, Hgb 11.8 L, Hct 37.2, MCV 83.6, MCH 26.5 L, MCHC 31.7 L, RDW 16.9 H, RDW Differential 51.6 H, Plt Count 338, MPV 8.8 06/22/17 05:00: WBC 9.5, RBC 4.41, Hgb 11.8 L, Hct 36.8 L, MCV 83.4, MCH 26.8 L, MCHC 32.1, RDW 16.8 H, RDW Differential 51.3 H, Plt Count 305, MPV 8.8 06/22/17 05:00: Sodium 136, Potassium 3.6, Chloride 99, Carbon Dioxide 28.0, Anion Gap 9, BUN 13, Creatinine 0.65, Est GFR (MDRD) Af Amer 114, Est GFR (MDRD) Non-Af 95, BUN/Creatinine Ratio 20.1 H, Glucose 158 H, Calcium 9.9 Rhythm: EKG: Normal sinus rhythm, no acute changes per ECHO: Stress Test: Cardiac Cath: PCI: CT Surgery: Holter monitor: EPS: PPM: CXR: Chest CT Scan: Assessment/Plan 1. Coronary artery disease: The patient underwent diagnostic left heart catheterization yesterday which demonstrated nonobstructive disease of her LAD and left circumflex with a critical proximal RCA stenosis. This was treated with a 4.0X 12 Promus Synergy stent, postdilated with 4.5 mm noncompliant balloon on the ostial segment. Patient feels much better today. Recommend that she continue baby aspirin, Plavix, Lopressor. Unfortunately she is unable to take SHANTA inhibitors due to possible angioedema related allergic reaction. She will be discharged home today, follow-up with me going forward. We will do cardiac rehab in 2 weeks time once her groin has healed. Given the ostial nature of her stenting, recommend lifelong Plavix and aspirin. In the meantime I recommended to continue Norvasc, and hydrochlorothiazide. 2. Hyperlipidemia: Continue Lipitor therapy. Repeat lipid profile in 6 weeks time. 3. Thank you very much for the opportunity to participate in the cardiac care of your patient. Patient may be discharged home from a cardiac standpoint. Code Visit Inpatient E&M: 90646 Subs Hosp L2
--- NOTE | 2017-06-22 08:40 | PCM.DC ---
- Discharge Diagnoses Current Active Problems: Current Active and Chronic Problems Acute chest pain (Acute) Essential (primary) hypertension (Chronic) Dyslipidemia (Chronic) DM type 2 (diabetes mellitus, type 2) (Chronic) Abnormal cardiovascular stress test (Acute) You will use the following diet at home:: Other - Carb Control, Low cholesterol Discharge Activity: - - Follow post-op cath/intervention activity instructions. Call your doctor if your incision/area has: Sudden Increased Bleeding, Increased Pain/ Swelling, Increased Redness, Foul Smelling Discharge, Swelling at the incision site Call your doctor if you observe: Fever of 101 or Higher, Numbness or Tingling, Shortness of breath, Dizziness, Fainting spells, Chest pain, Increased palpitations (irregular heartbeat) Additional Instructions: You will need to hold metformin until 06/23/17 due to contrast dye during cardiac catheterization. Allergies/Adverse Reactions: Allergies cephalexin [From Keflex] Allergy (Verified 06/18/17 16:05) Swelling lisinopril Allergy (Verified 06/18/17 16:05) Swelling codeine Adverse Reaction (Verified 06/18/17 16:05) Upset Stomach Medications to take at Discharge Amlodipine [Norvasc] 5 mg PO DAILY 06/18/17 Atorvastatin Calcium [Lipitor] 20 mg PO QHS 06/18/17 Calcium Carbonate/Vitamin D3 [Calcium 600-Vit D3 800 Caplet] 1 each PO BID 06/18/17 Co Q10 200 [Co Q-10] 100 mg PO DAILY 06/18/17 Glimepiride 2 mg PO DINNER 06/18/17 Hydrochlorothiazide [Hctz] 25 mg PO DAILY 06/18/17 Lorazepam [Ativan] 0.5 mg PO TID PRN PRN 06/18/17 Metformin HCl [Metformin HCl ER] 1,000 mg PO BID 06/18/17 Multivitamin [Multiple Vitamins] 1 each PO DAILY 06/18/17 Potassium Chloride [Klor-Con 8] 8 meq PO BID 06/18/17 Aspirin E.C. [Ecotrin] 81 mg PO DAILY@0800 #30 tab 06/22/17 Clopidogrel Bisulfate [Plavix] 75 mg PO DAILY #30 tab 06/22/17 Metoprolol Tartrate [Lopressor (beta lily)] 12.5 mg PO BID #60 tab 06/22/17 The following prescriptions were given: Aspirin E.C. [Ecotrin] 81 mg PO DAILY@0800 #30 tab Clopidogrel Bisulfate [Plavix] 75 mg PO DAILY #30 tab Metoprolol Tartrate [Lopressor (beta lily)] 12.5 mg PO BID #60 tab Primary Care Physician: Jose G Chahal [Primary Care Provider] - Please follow up with your Primary Care Physician in: 1-2 Weeks Please Follow Up With: Agusto Calhoun MD When: Office visit in one week for groin site check with RN,Dr. Calhoun in 2 Weeks Proposed Discharge Date: 06/22/17
--- NOTE | 2017-06-22 08:43 | PN.CARD_ITS ---
Subjectve: Patient doing very well overnight. No chest pain, feels great explanation remigio right groin is clean/dry/intact, no thrills or bruits. Telemetry showed normal sinus rhythm with rare PVCs. CKs are negative. Hemoglobin and creatinine within nominal limits. Objective: Vital Signs Temp Pulse Resp BP Pulse Ox 98.2 F 82 16 138/48 H 94 06/22/17 04:00 06/22/17 08:11 06/22/17 06:00 06/22/17 06:00 06/22/17 06:00 Oxygen Delivery Method Room Air Weight: 159 lb 9.835 oz Intake and Output for Last 24 Hours 06/20/17 06/21/17 06/22/17 23:59 23:59 23:59 Intake Total 550 / 1270 1480 / 1480 600 / 600 Output Total 450 / 450 Balance 550 / 1270 1030 / 1030 600 / 600 General: Awake, Alert, Oriented x 3 HEENT: PERRL, EOMI, Sclera Non Icteric Neck: Supple, Good ROM, No Lymph Node Enlargement Lungs: Clear to auscultation Cardiovascular: Regular Rhythm, Normal S1, Normal S2, No Murmurs, No Rubs, No Gallops Vascular: No Carotid Bruits, Normal Femoral Pulses, Normal Radial Pulses, Normal Dorsalis Pedal Pulse, Normal Posterior Tibial Pulses Abdomen: Bowel Sounds Present, Soft, Non Tender, No HSM, No Organomegaly Extremities: No Cyanosis, No Clubbing, No edema Neurological: No Focal Motor or Sensory Deficit 06/21/17 05:08: Hemoglobin A1c 7.0 H 06/21/17 08:45: WBC 8.7, RBC 4.39, Hgb 11.6 L, Hct 36.5 L, MCV 83.1, MCH 26.4 L , MCHC 31.8 L, RDW 16.6 H, RDW Differential 50.6 H, Plt Count 326, MPV 9.0 06/21/17 15:00: WBC 9.0, RBC 4.15 L, Hgb 11.1 L, Hct 34.7 L, MCV 83.6, MCH 26.7 L, MCHC 32.0, RDW 16.7 H, RDW Differential 50.1 H, Plt Count 363, MPV 9.0 06/21/17 22:55: WBC 9.8, RBC 4.45, Hgb 11.8 L, Hct 37.2, MCV 83.6, MCH 26.5 L, MCHC 31.7 L, RDW 16.9 H, RDW Differential 51.6 H, Plt Count 338, MPV 8.8 06/22/17 05:00: WBC 9.5, RBC 4.41, Hgb 11.8 L, Hct 36.8 L, MCV 83.4, MCH 26.8 L , MCHC 32.1, RDW 16.8 H, RDW Differential 51.3 H, Plt Count 305, MPV 8.8 06/22/17 05:00: Sodium 136, Potassium 3.6, Chloride 99, Carbon Dioxide 28.0, Anion Gap 9, BUN 13, Creatinine 0.65, Est GFR (MDRD) Af Amer 114, Est GFR (MDRD ) Non-Af 95, BUN/Creatinine Ratio 20.1 H, Glucose 158 H, Calcium 9.9 Rhythm: EKG: Normal sinus rhythm, no acute changes per ECHO: Stress Test: Cardiac Cath: PCI: CT Surgery: Holter monitor: EPS: PPM: CXR: Chest CT Scan: Assessment/Plan 1. Coronary artery disease: The patient underwent diagnostic left heart catheterization yesterday which demonstrated nonobstructive disease of her LAD and left circumflex with a critical proximal RCA stenosis. This was treated with a 4.0X 12 Promus Synergy stent, postdilated with 4.5 mm noncompliant balloon on the ostial segment. Patient feels much better today. Recommend that she continue baby aspirin, Plavix, Lopressor. Unfortunately she is unable to take SHANTA inhibitors due to possible angioedema related allergic reaction. She will be discharged home today, follow-up with me going forward. We will do cardiac rehab in 2 weeks time once her groin has healed. Given the ostial nature of her stenting, recommend lifelong Plavix and aspirin. In the meantime I recommended to continue Norvasc, and hydrochlorothiazide. 2. Hyperlipidemia: Continue Lipitor therapy. Repeat lipid profile in 6 weeks time. 3. Thank you very much for the opportunity to participate in the cardiac care of your patient. Patient may be discharged home from a cardiac standpoint. Code Visit Inpatient E&M: 36637 Subs Hosp L2
--- NOTE | 2017-06-22 08:46 | PCM.DC.SUM ---
Discharge Date and Diagnosis Date of Admission: 06/18/17 Date of Discharge: 06/22/17 - Primary Discharge Diagnosis Active and Suspected Problems Chest pain Abnormal stress test CAD- requiring PCI to the proximal RCA Suspected MICHAEL - Secondary Discharge Diagnosis Chronic Problems Essential (primary) hypertension (Chronic) Dyslipidemia (Chronic) DM type 2 (diabetes mellitus, type 2) (Chronic) Anxiety Hospital Course and Treatment Imaging Results: Diagnostic Data Chest X-Ray 06/18/17 16:13 IMPRESSION: There are no acute findings. Electronically Signed: Nathan Engel MD at 16:48 EST , Service support , Dr. Calhoun- Cardiology Operations: None Procedures: Cardiac catheterization, Stress test Summary of Care Provided: Patient is a 76-year-old female admitted 06/18/2017 due to chest pain. She has a past medical history of hypertension, hyperlipidemia, type 2 diabetes mellitus. 1. Acute chest pain-Troponin negative ?4. Patient underwent nuclear stress test 06/20/2017 which was abnormal, apical ischemia could not be excluded. Cardiology consulted. Patient underwent cardiac catheterization 06/21/17 in which single vessel CAD of the proximal RCA was noted and patient underwent successful PTCA of the proximal RCA. Patient will continue aspirin indefinitely, Plavix for 12 months, beta-lily, statin and follow-up with Dr. Calhoun. She will return for groin site check with RN in one week and Dr. Clahoun in 2 weeks when she can also begin cardiac rehab. 2. Hyperlipidemia-continue statin. Patient was started on statin 3 months ago. Lipid panel within normal limits. 3. Hypertension-stable, continue amlodipine and HCTZ regimen. Metoprolol added. 4. Type 2 diabetes mellitus-Hemoglobin A1c 7%. Continue home regimen of glimepiride and metformin. Continue to hold metformin until 06/23/2017 given contrast dye for cardiac catheterization. 5. Anxiety-continue home Ativan regimen. 6. Suspected MICHAEL-Recommend sleep study to be ordered by PCP. Further follow up after sleep study is complete with Pulmonary Medicine of Dr. Darvin Wall. Patient had episodes of desaturation overnight, frequently wakes herself at night with snoring. Feels tired during day. This patient was seen by GLENNA Hidalgo under the supervision of Dr. Bingham. General: Alert, Oriented x3, Cooperative, No apparent distress HEENT: Atraumatic, PERRLA, EOMI, Normocephalic Neck: Supple, No JVD, Negative Carotid Bruits Lungs: Clear to auscultation, Normal air movement Cardiovascular: Regular rate, Regular Rhythm, Normal S1, Normal S2, No murmurs Abdomen: Bowel Sounds Present, Soft, Non Tender, Non-Distended Extremities: No clubbing, No cyanosis, No edema, Capillary Refill Less than 3 Seconds Skin: No rashes, No breakdown, - - Groin puncture site without signs of hematoma. Musculoskeletal: No Tenderness to Palpation of Joints or Extremities Neurological: Cranial nerves II-XII grossly intact, Neuro grossly intact Psych/Mental Status: Normal Affect, Appropriate Patient seen and examined prior to discharge. Physical assessment as an above. Groin site without signs of hematoma, dressing clean dry and intact. Vitals stable. Patient denies chest pain, shortness of breath. Patient is stable for discharge home with recommendations as noted above. This patient was seen by GLENNA Hidalgo under the supervision of Dr. Bingham. Discharge Diet: Low fat/ Low Cholesterol, Carb Control Diet Discharge Activity: - - Follow post-op cath/intervention activity instructions. Call your doctor if your incision/area has: Sudden Increased Bleeding, Increased Pain/ Swelling, Increased Redness, Foul Smelling Discharge, Swelling at the incision site Call your doctor if you observe: Fever of 101 or Higher, Numbness or Tingling, Shortness of breath, Dizziness, Fainting spells, Chest pain, Increased palpitations (irregular heartbeat) Home Medications: Medications to take at Discharge Amlodipine [Norvasc] 5 mg PO DAILY 06/18/17 Atorvastatin Calcium [Lipitor] 20 mg PO QHS 06/18/17 Calcium Carbonate/Vitamin D3 [Calcium 600-Vit D3 800 Caplet] 1 each PO BID 06/18/17 Co Q10 200 [Co Q-10] 100 mg PO DAILY 06/18/17 Glimepiride 2 mg PO DINNER 06/18/17 Hydrochlorothiazide [Hctz] 25 mg PO DAILY 06/18/17 Lorazepam [Ativan] 0.5 mg PO TID PRN PRN 06/18/17 Metformin HCl [Metformin HCl ER] 1,000 mg PO BID 06/18/17 Multivitamin [Multiple Vitamins] 1 each PO DAILY 06/18/17 Potassium Chloride [Klor-Con 8] 8 meq PO BID 06/18/17 Aspirin E.C. [Ecotrin] 81 mg PO DAILY@0800 #30 tab 06/22/17 Clopidogrel Bisulfate [Plavix] 75 mg PO DAILY #30 tab 06/22/17 Metoprolol Tartrate [Lopressor (beta lily)] 12.5 mg PO BID #60 tab 06/22/17 Following Prescrptions Were Given to Patient: Aspirin E.C. [Ecotrin] 81 mg PO DAILY@0800 #30 tab Clopidogrel Bisulfate [Plavix] 75 mg PO DAILY #30 tab Metoprolol Tartrate [Lopressor (beta lily)] 12.5 mg PO BID #60 tab Primary Care Physician: Jose G Chahal [Primary Care Provider] - Please follow up with your Primary Care Physician in: 1-2 Weeks Please Follow Up With: Agusto Calhoun MD When: Office visit in one week for groin site check with RN,Dr. Calhoun in 2 Weeks Please Follow Up With: Sander Boston MD When: 4 Weeks following sleep study Disposition: Home Minutes spent on discharge:: 35 Patient Condition:: Stable Meaningful Use Info Meaningful Use Diagnoses (Choose all that apply): None applicable
== END 2017-06-22 10:00 | disposition home or self-care (01) | DRG 247 ==
LOC: ED 17:09 → PCU 17:52 → ICU 06-21 11:20 → PCU 06-21 13:01 → ICU 06-21 14:08 → PCU 06-22 13:04
PROVIDERS: Internal Medicine Cardiovascular Disease; Nurse Practitioner Family; Admitting Provider Internal Medicine; Emergency Provider Emergency Medicine; Family Provider Internal Medicine Infectious Disease; PCP Internal Medicine Infectious Disease; Visit Provider Internal Medicine
DX: I25.110 Atherosclerotic heart disease of native coronary artery with unstable angina pectoris (principal); E11.9 Type 2 diabetes mellitus without complications; I10 Essential (primary) hypertension; E78.5 Hyperlipidemia, unspecified; F41.9 Anxiety disorder, unspecified; Z79.84 Long term (current) use of oral hypoglycemic drugs; Z87.891 Personal history of nicotine dependence; Z79.899 Other long term (current) drug therapy; G47.33 Obstructive sleep apnea (adult) (pediatric)
CPT/HCPCS: 36415; 71045; 78452; 80048; 80061; 81001; 82550; 82962; 83036; 83735; 84443; 84484; 85025; 85027; 85347; 85610; 85730; 92928; 93005; 93017; 93306; 93458; 99152; 99153; 99283; A9500; J7030; J7040; Q9957; A4216; C1725; C1769; C1874; C1887; C1894; C8929; C9600; Q9967

== ENCOUNTER 2017-07-05 11:59 | Emergency (ER) | payer BC, MEDICARE, SELFPAY ==
[2017-07-05 11:59] VITALS: BP 145/78; PULSE 84; RESP 18; TEMP 36.9; O2SAT 97; BMI 27.7
[2017-07-05 12:16] VITALS: BP 134/66; BP 139/69; BP 141/59; PULSE 78; PULSE 80; PULSE 84
[2017-07-05 12:41] LABS: Absolute Neutrophil Count 8.5 X10^3/uL (2.0-7.7); Basophil# 0.02 X10^3/uL; Basophil% 0.2 % (0-1); Eosinophil# 0.06 X10^3/uL; Eosinophils% 0.6 % (0-5); Hematocrit 36.5 % (37-47); Hemoglobin 11.5 g/dl (12.0-15.0); Lymphocyte % 9.9 % (19-41); Mean Corp Hgb Conc 31.5 g/gl (32-36); Mean Corpuscular Hgb 26.5 pg (27.0-32.0); Mean Corpuscular Volume 84.1 fL (81-99); Mean Platelet Vol. 8.7 fl (6.2-12.0); Monocyte# 0.53 X10^3/uL; Monocyte% 5.3 % (0-10); Neutrophil # 8.47 X10^3/uL (2.7-7.7); Neutrophil % 83.9 % (47-70); POSITIVE COUNT NO; POSITIVE DIFFERENTIAL NO; Platelet Count 312 K/mm3 (150-450); RBC Distribution Width SD 49.3 fl (35.1-43.9); Red Blood Count 4.34 M/mm3 (4.2-5.4); White Blood Count 10.1 K/mm3 (4.4-11.0)
[2017-07-05 12:42] LABS: POSITIVE MORPHOLOGY NO
[2017-07-05 12:51] LABS: Anion Gap 10 (5-15); BUN 15 mg/dL (7-18); BUN/Creat Ratio 22.4 RATIO (10-20); Calcium,Total 10.2 mg/dL (8.5-10.1); Chloride 100 mmol/L (98-107); Creatinine, Serum 0.67 mg/dL (0.55-1.02); EST Glomerular Filtration Rate 91 mL/min (>60); Est Glom Filt Rate - Afr Amer 110 mL/min (>60); Glucose 167 mg/dL (74-106); Potassium 3.9 mmol/L (3.5-5.1); Sodium Level 138 mmol/L (136-145)
--- NOTE | 2017-07-05 13:26 | EKG12_ITS ---
Test Reason : Blood Pressure : / mmHG Vent. Rate : 079 BPM Atrial Rate : 079 BPM P-R Int : 154 ms QRS Dur : 088 ms QT Int : 368 ms P-R-T Axes : 025 019 038 degrees QTc Int : 421 ms Normal sinus rhythm Normal ECG Confirmed by JOSE LOVETT, OLIVIA ([id number]), desk editor PAN FITZGERALD ([id number]) on 07/08/2017 1:41:42 PM Referred By: ABBIE Confirmed By:OLIVIA GARCIA MD
--- NOTE | 2017-07-05 13:57 | ED.VISSUMM ---
- ER Visit Summary Date of Service: 07/05/17 Chief Complaint: Lightheadedness while sitting at breakfast table History of Present Illness: The patient is a 76 F presents because of lightheadedness while sitting this morning after eating breakfast. She assessed her blood sugar prior to eating and noted her blood sugar was 192. She also complains of intermittent right-sided neck pain since cardiac catheterization. She had cardiac catheterization with stent placement 2 weeks ago. She denies fever, chills night sweats. She has ocular, visual auditory symptoms. She denies trouble with speech or swallowing. She denies any cardiac or respiratory symptoms. She denies any GI symptoms. She denies dysuria, frequency, urgency hematuria. There is no history of trauma. She has history of diabetes for 10 years but does not give any symptoms of autonomic dysfunction.. She made the comment she is not sure what she should or should not be concerned with since she recently had a cardiac catheterization. These read written note for complete detail Past medical history coronary disease, diabetes hypertension Physical Examination: Patient appears no distress.. Vital signs are marked for an elevated blood pressure 141/59. Vital signs are otherwise unremarkable. She is not hypoxic. Orthostatic vital signs were obtained and negative. HEENT exam is unremarkable. Heart is regular without murmur, gallop or rub. S1 and S2 are normal. Lungs are clear to auscultation with good movement of air bilaterally. Abdomen soft nontender with no palpable, pulsatile mass or abdominal bruit. Lower extremity exam is unremarkable. There is no excessive bruising noted. Test Results: BC was obtained to evaluate for anemia. She is mildly anemic with H&H 11.5 and 36.5. This is baseline. BMP is unremarkable and specifically potassium because she made the comment that this is occurred in the past when her potassium was low. Glucose is 167. EKG was obtained after discussion with Dr. Calhoun. Since her EKG is normal with a rate of 69 she will be discharged home Emergency Department Course and Treatment: To evaluate her symptoms a BMP was obtained because patient reported similar symptoms when she had electrode abnormalities. CBC was obtained to evaluate H&H since she had recent catheterization and is on antiplatelet medication. EKG was obtained because Dr. Calhoun called and spoke to me requesting an EKG based on patient's atypical presentation prior to catheterization. Treatment Plan: Discharge to home and keep appointment to see Dr. Calhoun tomorrow in the office Disposition: Discharge to home in stable condition Impression: 1. Lightheadedness of unknown etiology 2. Recent cardiac catheterization with stent placement 3. History of type 2 diabetes 4. History of hypertension 5. Intermittent right-sided neck pain of unknown etiology This note was generated with [employer] dictation software. It may contain incorrect words, spelling, and punctuation that were not noted in review of the chart prior to signing ED Disposition - Plan for ED Patient: Disposition: Home or Assisted Living Chief Complaint: Dizziness Instructions: ED Dizziness [facility] Referrals: Jose G Chahal [Primary Care Provider] - Agusto Calhoun MD [STAFF PHYSICIAN] - Keep Tiesha appointment
[2017-07-05 14:07] VITALS: BP 127/60; PULSE 77; RESP 14; RESP 18; O2SAT 95
--- NOTE | 2017-07-05 14:08 | ED.RN ---
REVIEWED D/C INSTRUCTIONS, FOLLOW UP CARE, AND S/S THAT WOULD WARRANT A RETURN TO THE ED WITH PT. PT VERBALIZED AN UNDERSTANDING AND DENIES FURTHER QUESTIONS FOR THIS RN. PT SKIN P/W/D, RESP EVEN AND UNLABORED, PT A&O X 3, NO DISTRESS NOTED. PT AMBULATED OUT OF ED, GAIT STEADY.
== END 2017-07-05 14:10 | disposition home or self-care (01) ==
PROVIDERS: Emergency Provider Emergency Medicine; Family Provider Internal Medicine Infectious Disease; PCP Internal Medicine Infectious Disease
DX: R42 Dizziness and giddiness (principal); E11.9 Type 2 diabetes mellitus without complications; I10 Essential (primary) hypertension; M54.2 Cervicalgia; D64.9 Anemia, unspecified; I25.10 Atherosclerotic heart disease of native coronary artery without angina pectoris; Z86.73 Personal history of transient ischemic attack (TIA), and cerebral infarction without residual deficits; Z95.5 Presence of coronary angioplasty implant and graft; Z79.82 Long term (current) use of aspirin; Z79.84 Long term (current) use of oral hypoglycemic drugs; Z79.899 Other long term (current) drug therapy
CPT/HCPCS: 80048; 85025; 93005; 99285; A4216

== ENCOUNTER 2017-12-17 22:44 | Emergency (ER) | payer BC, MEDICARE, SELFPAY ==
[2017-12-17 22:45] VITALS: BP 175/84; PULSE 82; RESP 16; TEMP 36.9; O2SAT 97; BMI 27.5
--- NOTE | 2017-12-17 22:56 | ED.RN ---
RN CALLED FOR EKG, PULLED OLD EKG'S FOR
--- NOTE | 2017-12-17 22:58 | EKG12_ITS ---
Test Reason : NUMBNESS/TINGLING Blood Pressure : / mmHG Vent. Rate : 075 BPM Atrial Rate : 075 BPM P-R Int : 170 ms QRS Dur : 090 ms QT Int : 382 ms P-R-T Axes : 052 027 052 degrees QTc Int : 426 ms Normal sinus rhythm Normal ECG Confirmed by JOSE LOVETT, OLIVIA ([id number]), editor index PAN FITZGERALD ([id number]) on 12/20/2017 1:03:02 PM Referred By: ANTONIO Confirmed By:OLIVIA GARCIA MD
--- NOTE | 2017-12-17 22:59 | RAD_ITS ---
STUDY: X-RAY CHEST REASON FOR EXAM: Female, 77 years old. Numbness and tingling of the hands TECHNIQUE: 2 views COMPARISON: November 16, 2017 FINDINGS: The heart is normal. The aorta is calcified in its knuckle. There is mild widening of the right side of the superior mediastinum most likely from ectatic brachiocephalic vessels. The lungs are clear. There are no pleural effusions. Normal visualized thoracic spine. Normal visualized ribs, clavicles, and shoulders. There is no demonstrated abnormality of the visualized soft tissue structures of the upper abdomen. RAD/Chest PA and Lateral IMPRESSION: No acute findings in the lungs Electronically Signed: Aaron Sharp, at 0:43 EDT Tel , Service support ,
--- NOTE | 2017-12-17 23:02 | ED.DCSUM_ITS ---
- ER Visit Summary Date of Service: 12/17/17 Chief Complaint: [Hand tingling] History of Present Illness: The patient is a 77 F [who presents the emergency department with an hour and a half of a strange feeling over her body and tingling in her fingertips. It started about 9-930 she got this wave of discomfort from her head down to her toes. She got tingling in her fingertips. This lasted about an hour and an hour and a half. No shortness of breath no chest pain no nausea or vomiting. When it first started she was little bit dizzy that went away quickly. She has been otherwise feeling well no fevers or chills no cough urine has been normal bowel movements have been normal. She was concerned because these are similar symptoms when she had her heart attack in August. At that time she was also short of breath. She had 2 stents placed at that time and has been on aspirin and Plavix and compliant with those medications. She sees Dr. Calhoun.] Physical Examination: [] Blood pressure 175/84 other vitals within acceptable limits WN WD NAD PERRL EOMI MMM NECK supple and nontender, no masses RRR no murmur rub or gallop, no peripheral edema, symmetric radial pulses CTAB no respiratory distress ABDOMEN is soft and nontender, normal bowel sounds, no distension, no rebound or guarding SKIN is warm and dry no rashes Alert and Oriented x3, CN II-XII in tact, no motor or sensory deficits, gait normal No lymphadenopathy Test Results: [EKG is sinus at a rate of [address]-T wave abnormalities but no acute ischemic changes] Emergency Department Course and Treatment: [Workup showed mildly depressed potassium which was replaced. Initial troponin was normal. Urinalysis showed no evidence of infection. Chest x-ray was normal. I do not think that this represents an intracranial problem. The patient has no neurologic deficits. The tingling in her fingertips is bilateral and has since resolved. Because of the similarity from her previous cardiac symptoms I did discuss troponin at 3 hours this was performed and was also normal. Patient remained asymptomatic while in the emergency department. She will be discharged home to follow-up with her primary care physician. She was invited to come back to the ER for any change or recurrence of her symptoms.] Treatment Plan: [] Disposition: [Discharge] Impression: [Paresthesia] This note was generated with [employer] dictation software. It may contain incorrect words, spelling, and punctuation that were not noted in review of the chart prior to signing ED Disposition - Plan for ED Patient: Chief Complaint: Numb/Ting Referrals: Jose G Chahal [Primary Care Provider] -
[2017-12-17 23:20] VITALS: BP 132/71; PULSE 77; RESP 15; O2SAT 96
[2017-12-17] MEDS: Aspirin 81 MG TAB.CHEW 243 MG PO (23:32)
[2017-12-17 23:38] LABS: Absolute Lymphocyte Count 1.83 X10^3/ul (0.83-4.51); Absolute Neutrophil Count 5.4 X10^3/uL (2.0-7.7); Basophil# 0.03 X10^3/uL; Basophil% 0.4 % (0-1); Eosinophil# 0.12 X10^3/uL; Eosinophils% 1.5 % (0-5); Hematocrit 36.4 % (37-47); Hemoglobin 11.9 g/dl (12.0-15.0); Lymphocyte # 1.83 X10^3/ul (4.0); Lymphocyte % 22.7 % (19-41); Mean Corp Hgb Conc 32.7 g/gl (32-36); Mean Corpuscular Hgb 28.8 pg (27.0-32.0); Mean Corpuscular Volume 88.1 fL (81-99); Mean Platelet Vol. 8.8 fl (6.2-12.0); Monocyte% 8.7 % (0-10); Neutrophil # 5.37 X10^3/uL (2.7-7.7); Neutrophil % 66.6 % (47-70); POSITIVE COUNT NO; POSITIVE DIFFERENTIAL NO; POSITIVE MORPHOLOGY NO; Platelet Count 316 K/mm3 (150-450); RBC Distribution Width CV 14.3 % (11.6-14.6); RBC Distribution Width SD 45.8 fl (35.1-43.9); Red Blood Count 4.13 M/mm3 (4.2-5.4); White Blood Count 8.1 K/mm3 (4.4-11.0)
[2017-12-18 00:03] LABS: Anion Gap 5 (5-15); BUN 15 mg/dL (7-18); BUN/Creat Ratio 19.3 RATIO (10-20); Calcium,Total 9.7 mg/dL (8.5-10.1); Chloride 105 mmol/L (98-107); Creatinine, Serum 0.78 mg/dL (0.55-1.02); EST Glomerular Filtration Rate 76 mL/min (>60); Est Glom Filt Rate - Afr Amer 93 mL/min (>60); Glucose 141 mg/dL (74-106); Potassium 3.3 mmol/L (3.5-5.1); Sodium Level 140 mmol/L (136-145)
[2017-12-18 00:29] LABS: Red Blood Cells-Urine 0 SEEN /hpf (0-5); Squamous Epithelial Cells - UA 0 SEEN /hpf (5-10)
[2017-12-18 00:30] LABS: Color, Urine Yellow (Yellow); Glucose, Dipstick Normal (Normal); Ketone-Dipstick Negative (Negative); Leukocyte Esterase-Dipstick 25 /ul (Negative); Nitrite-Dipstick Negative (Negative); Occult Blood-Urine Negative /ul (Negative); Protein-Dipstick Negative (Negative); Urine Bilirubin Dipstick Negative (Negative); Urine Clarity Clear (Clear); Urine Urobilinogen Normal (Normal)
[2017-12-18 00:37] LABS: Amorphous Sediment 1+; Bacteria RARE /hpf (None Seen); Mucous, Urine 1+ /hpf (<or=2+); White Blood Cells 0-5 SEEN /hpf (0-5)
[2017-12-18 01:00] VITALS: BP 146/70; PULSE 73; RESP 18; O2SAT 97
[2017-12-18 03:10] VITALS: BP 139/70; PULSE 72; RESP 16; O2SAT 96
--- NOTE | 2017-12-18 03:22 | ED.DEP ---
ED Disposition - Plan for ED Patient: Chief Complaint: Numb/Ting Instructions: ED Paraesthesias Referrals: Jose G Chahal [Primary Care Provider] - 3-5 Days
[2017-12-18 03:29] VITALS: BP 139/70; PULSE 67; RESP 17; O2SAT 95
== END 2017-12-18 03:31 | disposition home or self-care (01) ==
LOC: ED 23:38
PROVIDERS: Emergency Provider Emergency Medicine; Family Provider Internal Medicine Infectious Disease; PCP Internal Medicine Infectious Disease
DX: R20.2 Paresthesia of skin (principal); R42 Dizziness and giddiness; E11.9 Type 2 diabetes mellitus without complications; I10 Essential (primary) hypertension; E78.00 Pure hypercholesterolemia, unspecified; I25.2 Old myocardial infarction; Z95.5 Presence of coronary angioplasty implant and graft; Z79.82 Long term (current) use of aspirin; Z79.02 Long term (current) use of antithrombotics/antiplatelets; Z79.84 Long term (current) use of oral hypoglycemic drugs; Z79.899 Other long term (current) drug therapy
CPT/HCPCS: 71046; 80048; 81001; 84484; 85025; 93005; 99285; A4216

== ENCOUNTER → 2018-04-27 08:47 | Outpatient (CLI) | payer BC, MEDICARE, SELFPAY ==
[2018-04-25 11:24] VITALS: BMI 27.6
== END ==
PROVIDERS: Family Provider Internal Medicine Infectious Disease; PCP Internal Medicine Infectious Disease; Referring Provider Internal Medicine Cardiovascular Disease; Visit Provider Internal Medicine Cardiovascular Disease
DX: R03.0 Elevated blood-pressure reading, without diagnosis of hypertension (principal)
CPT/HCPCS: 93788

== ENCOUNTER → 2018-12-21 | Outpatient (CLI) | payer MEDICARE, OTHER, SELFPAY ==
[2018-12-07 14:17] VITALS: BMI 29.5
--- NOTE | 2018-12-21 12:33 | STEWCON_ITS ---
Reason For Study: CAD Stress Results Protocol: Sander Protocol Maximum Predicted HR: 142 bpm Target HR: 121 bpm % Maximum Predicted HR: 101 % DurationHeart Rate Stage (mm:ss) (bpm) BP Comment Baseline 93 118/70No Chest Pain; Diluted Definity 4 ML Given Sander Protocol Stage I 3:00 131 134/68No Chest Pain Sander Protocol Stage II 3:00 142 142/62No Chest Pain; Mild Dyspnea Sander Protocol Stage III 0:17 144 / No Chest Pain; Mild Dyspnea Recovery 96 116/64No Chest Pain Stress Duration: 6:17 mm:ss Maximum Stress HR: 144 bpm METS: 7 Baseline Echocardiogram Findings The estimated ejection fraction is 65 %. Stress Echo Wall motion Data Resting WM Intermediate WM Stress WM Resting Wall Motion Wall Motion Stress No regional wall motion No regional wall motion abnormalities noted. abnormalities noted. EKG Data The baseline ECG displays normal sinus rhythm. The patient exercised according to the regular Sander protocol for a total duration of 6:17. The maximum heart rate attained was 146 beats per minute. This was 102% of maximum predicted heart rate. The patient exercised into stage 3 of the Sander protocol. No clinical angina was noted. At peak exercise, upsloping ST changes only were noted, which did not meet the criteria for ischemia. Interpretation Summary The estimated ejection fraction is 65 %. Normal, adequate, treadmill echocardiogram. Negative for ischemia by EKG and echocardiographic criteria. No anginal symptoms noted. Rare PVC noted. Appropriate blood pressure response to exercise. Average exercise capacity for age. Final LVEF is 75%. Decreased sensitivity due to poor echo windows requiring Definity agent. Test terminated due to leg discomfort. No complications. The study was technically difficult. Contrast injection was performed. Ordering Physician: Agusto Calhoun Referring Physician: Jose G Chahal Performed By: Candice Lott, SONCS, RVT
== END | disposition home or self-care (01) ==
LOC: CVS 12:33
PROVIDERS: Family Provider Internal Medicine Infectious Disease; PCP Internal Medicine Infectious Disease; Referring Provider Internal Medicine Infectious Disease; Visit Provider Internal Medicine Cardiovascular Disease
DX: I25.119 Atherosclerotic heart disease of native coronary artery with unspecified angina pectoris (principal); Z98.61 Coronary angioplasty status; R03.0 Elevated blood-pressure reading, without diagnosis of hypertension; Z95.5 Presence of coronary angioplasty implant and graft; E78.5 Hyperlipidemia, unspecified; I10 Essential (primary) hypertension; E11.9 Type 2 diabetes mellitus without complications
CPT/HCPCS: 93017; 93350; Q9957; A4216; C8928

== ENCOUNTER 2019-02-19 18:51 | Emergency (ER) | payer MEDICARE, OTHER, SELFPAY ==
[2018-12-07 14:17] VITALS: BMI 29.5
[2019-02-19 18:52] VITALS: BP 131/59; PULSE 78; RESP 17; TEMP 36.7; O2SAT 95; BMI 27.4
--- NOTE | 2019-02-19 19:37 | EKG12_ITS ---
Test Reason : Blood Pressure : / mmHG Vent. Rate : 075 BPM Atrial Rate : 075 BPM P-R Int : 140 ms QRS Dur : 086 ms QT Int : 382 ms P-R-T Axes : 004 008 032 degrees QTc Int : 426 ms Normal sinus rhythm Normal ECG Confirmed by JOSE LOVETT, OLIVIA ([id number]), newspaper editor BENSON MORENO ([id number]) on 02/21/2019 10:50:08 AM Referred By: Confirmed By:OLIVIA GACRIA MD
--- NOTE | 2019-02-19 19:49 | CT_ITS ---
STUDY: CT BRAIN WITHOUT CONTRAST REASON FOR EXAM: Female, 78 years old. Dizziness RADIATION DOSAGE (If Supplied By Facility): DLP = ( 1044.28 ) mGycm TECHNIQUE: Transaxial CT imaging of the brain was performed without administration of intravenous contrast material. Individualized dose optimization techniques were used for this CT. COMPARISON: None. FINDINGS: There is no acute bleed or infarct. There are normal white matter tracts. The ventricles are normal in configuration. There is no hydrocephalus. The visualized paranasal sinuses are clear. The mastoid air cells are well aerated. There is no skull fracture. CT/Brain/Head without Contrast IMPRESSION: No acute intracranial abnormality. Electronically Signed: David Rock, at 20:25 EDT Tel , Service support ,
--- NOTE | 2019-02-19 19:50 | RAD_ITS ---
STUDY: X-RAY CHEST REASON FOR EXAM: Female, 78 years old. Dizziness TECHNIQUE: PA and lateral views of the chest COMPARISON: X-ray chest December 17, 2017 FINDINGS: The lungs are clear. There are no pleural effusions. There is no pneumothorax. The heart is normal in size. The visualized osseous structures are within normal limits. RAD/Chest PA and Lateral IMPRESSION: No acute thoracic pathology. Electronically Signed: David Rock, at 20:04 EDT Tel , Service support ,
[2019-02-19 20:00] LABS: Absolute Lymphocyte Count 1.44 X10^3/uL (0.83-4.51); Absolute Neutrophil Count 4.9 X10^3/uL (2.0-7.7); Basophil# 0.02 X10^3/uL; Basophil% 0.3 % (0-1); Eosinophil# 0.09 X10^3/uL; Eosinophils% 1.3 % (0-5); Hematocrit 39.3 % (37-47); Lymphocyte # 1.44 X10^3/ul (4.0); Lymphocyte % 20.7 % (19-41); Mean Corp Hgb Conc 33.1 g/dL (32-36); Mean Corpuscular Volume 87.7 fL (81-99); Mean Platelet Vol. 9.1 fl (6.2-12.0); Monocyte# 0.54 X10^3/uL; Monocyte% 7.7 % (0-10); NRBC Flagged by Analyzer 0 % (0-5); Neutrophil # 4.86 X10^3/uL (2.7-7.7); Neutrophil % 69.7 % (47-70); Platelet Count 307 K/mm3 (150-450); RBC Distribution Width CV 13.7 % (11.6-14.6); RBC Distribution Width SD 43.8 fl (35.1-43.9); Red Blood Count 4.48 M/mm3 (4.2-5.4)
[2019-02-19 20:07] LABS: International Normalized Ratio 0.9; Prothrombin Time (Protime)PT. 12.2 SECONDS (11.7-14.9)
[2019-02-19 20:08] LABS: Partial Thromboplast Time 26.4 Seconds (24.1-36.2)
[2019-02-19 20:24] LABS: Anion Gap 9 (5-15); BUN 14 mg/dL (7-18); BUN/Creat Ratio 16.9 RATIO (10-20); Chloride 99 mmol/L (98-107); Creatinine, Serum 0.83 mg/dL (0.55-1.02); EST Glomerular Filtration Rate 71 mL/min (>60); Est Glom Filt Rate - Afr Amer 86 mL/min (>60); Estimated Creatinine Clearance 52.29 ml/min; Glucose 204 mg/dL (74-106); Potassium 3.3 mmol/L (3.5-5.1); Sodium Level 137 mmol/L (136-145)
[2019-02-19] MEDS: 0.9% Normal Saline 1,000 ML 50 ML IV (20:33)
[2019-02-19 20:34] VITALS: BP 140/68; PULSE 81; RESP 16; O2SAT 94
[2019-02-19 20:38] VITALS: BP 140/68; PULSE 78; RESP 18; O2SAT 94
[2019-02-19 21:38] VITALS: BP 133/79; PULSE 77; RESP 18; O2SAT 95
--- NOTE | 2019-02-19 21:38 | ED.VISSUMM ---
- ER Visit Summary Date of Service: 02/19/19 Chief Complaint: Dizziness History of Present Illness: The patient is a 78 F who presents after an episode of dizziness that occurred today. Patient dizziness lasted for less than 1 hour. Patient states she felt lightheaded. Patient states this improved with sitting still. Patient denies any headaches. Patient denies any nausea or vomiting. Patient denies any ear pain or hearing changes. Denies any chest pain or shortness of breath. Patient denies any nausea or vomiting. Patient states nothing made the dizziness worse. Physical Examination: Vital signs are stable. Patient is afebrile. Patient is in no acute distress. Oral mucosa is pink and moist. Neck is supple. Trachea is midline. There is no JVD noted. Heart was regular rate and rhythm. Lungs are clear and equal bilaterally. Abdomen is soft and nontender. Cranial nerves II through XII are intact. There are no focal motor or sensory deficits noted. Emergency Department Course and Treatment: Patient was asymptomatic throughout her stay here in the emergency department. CBC, basic metabolic profile, PT with INR, and PTT were obtained and were all normal. CT scan of the brain was negative. PA and lateral chest x-ray does not show any acute cardiopulmonary process. Patient wants to go home. Patient was instructed to follow-up with her primary care physician in 5 to 7 days. Patient understood and was agreeable with the plan. All questions were answered. Disposition: Discharge home Impression: Dizziness This note was generated with [employer] dictation software. It may contain incorrect words, spelling, and punctuation that were not noted in review of the chart prior to signing ED Disposition - Plan for ED Patient: Disposition: Home or Assisted Living Diagnosis: Dizziness Instructions: DIZZINESS, Unk Cause Referrals: Jose G Chahal MD [Primary Care Provider] - 3-5 Days
[2019-02-19 21:42] VITALS: BP 133/79; PULSE 80; RESP 16; O2SAT 95
== END 2019-02-19 22:04 | disposition home or self-care (01) ==
LOC: ED 22:01
PROVIDERS: Emergency Provider Emergency Medicine; Family Provider Internal Medicine Infectious Disease; PCP Internal Medicine Infectious Disease
DX: R42 Dizziness and giddiness (principal); I25.10 Atherosclerotic heart disease of native coronary artery without angina pectoris; E11.9 Type 2 diabetes mellitus without complications; I10 Essential (primary) hypertension; Z95.5 Presence of coronary angioplasty implant and graft; Z79.84 Long term (current) use of oral hypoglycemic drugs; Z79.82 Long term (current) use of aspirin; Z79.899 Other long term (current) drug therapy
CPT/HCPCS: 70450; 71046; 80048; 85025; 85610; 85730; 93005; 96360; 99284; J7030; A4216

== ENCOUNTER → 2020-01-16 09:56 | Outpatient (CLI) | payer MEDICARE, OTHER, SELFPAY ==
[2019-12-27 10:33] VITALS: BMI 27.2
--- NOTE | 2020-01-16 09:58 | ECHOD_ITS ---
Reason For Study: CAD/ASHD Procedure This was a 2D Doppler, Color Flow transthoracic echocardiogram. Exam performed in department. Left Ventricle Normal size and thickness. The estimated ejection fraction is 65 %. Stage 1 diastolic dysfunction. No regional wall motion abnormalities noted. Right Ventricle Mildly dilated right ventricle. Normal systolic function. Atria Normal left atrium. Normal right atrium. Normal atrial septum. Mitral Valve The mitral valve is structurally normal. No prolapse or stenosis seen. Tricuspid Valve Normal tricuspid valve. Mild (1+) tricuspid valve insufficiency. Right ventricular systolic pressure estimated to be 30 mmHg. Aortic Valve Trisinus/trileaflet aortic valve. Mild diffuse aortic valve thickening. Trivial aortic valve insufficiency. Pulmonic Valve Normal pulmonic valve. Great Vessels Mildly dilated aortic root. Normal arch. Normal inferior vena cava. Inferior vena cava collapse with sniff. Pericardium/Pleural No pericardial effusion. MMode/2D Measurements & Calculations LVIDd: 3.9 cm IVSd: 1.5 cm Ao root diam: 4.3 cm LVIDs: 2.2 cm LVPWd: 1.1 cm LA dimension: 3.8 cm RVDd: 4.3 cm FS: 43.3 % LAV(MOD-bp): 39.7 ml LA A4 area: 17.0 cm2 RA A4 area: 18.3 cm2 LAV(MOD-bp) Indexed: 22.0 ml/m2 LAV(MOD-sp2): 32.7 ml LAV(MOD-sp4): 47.1 ml Time Measurements MV dec time: 0.32 sec Doppler Measurements & Calculations MV E max jarrod: 55.9 cm/sec Lat Peak E' Jarrod: 7.7 cm/sec Med Peak E' Jarrod: 6.6 cm/sec MV A max jarrod: 76.6 cm/sec E/E' lat: 7.3 E/E' med: 8.5 MV E/A: 0.73 MV V2 max: 91.1 cm/sec MV P1/2t max jarrod: 73.3 cm/sec Ao V2 max: 128.8 cm/sec MV max P.3 mmHg MV P1/2t: 92.9 msec Ao max P.6 mmHg MV V2 mean: 43.6 cm/sec MV dec slope: 231.2 cm/sec2 Ao V2 mean: 92.4 cm/sec MV mean P.90 mmHg MVA(P1/2t): 2.4 cm2 Ao mean P.8 mmHg MV V2 VTI: 28.6 cm Ao V2 VTI: 30.2 cm AI max jarrod: 371.3 cm/sec LV V1 max: 116.7 cm/sec PA V2 max: 94.4 cm/sec AI max P.2 mmHg LV V1 max P.4 mmHg LV V1 mean P.4 mmHg AI dec slope: 128.1 cm/sec2 LV V1 mean: 71.1 cm/sec AI P1/2t: 848.8 msec LV V1 VTI: 27.6 cm TR max jarrod: 247.5 cm/sec TR max P.5 mmHg Interpretation Summary The estimated ejection fraction is 65 %. Stage 1 diastolic dysfunction. Mild (1+) tricuspid valve insufficiency. Right ventricular systolic pressure estimated to be 30 mmHg. Trivial aortic valve insufficiency. Mildly dilated aortic root. Mildly dilated right ventricle. Compared to echo report dated 06/20/2017, no appreciable changes noted. Ordering Physician: Agusto Calhoun Referring Physician: Agusto Calhoun Performed By: eJr Dudley RCS
== END ==
PROVIDERS: PCP Internal Medicine Infectious Disease; Referring Provider Internal Medicine Cardiovascular Disease; Visit Provider Internal Medicine Cardiovascular Disease
DX: I25.10 Atherosclerotic heart disease of native coronary artery without angina pectoris (principal)
CPT/HCPCS: 93306

== ENCOUNTER 2022-04-23 06:46 | Outpatient (CLI) | payer MEDICARE, OTHER, SELFPAY ==
--- NOTE | 2022-04-23 14:02 | STRESSREP ---
Stress Test Report Pharmacologic myocardial perfusion stress test. Resting EKG demonstrates normal sinus rhythm with a rate of [address]-T wave changes noted. Resting blood pressure is 116/64 mmHg. 0.4 mg of regadenoson was infused per usual protocol followed by wrap intravenous saline flush injection continuous EKG monitoring was performed. The maximum heart rate attained was 89 bpm which was 64% of max impacted heart rate the maximum workload was 1 metabolic equivalent. At rest there were no ST or T wave changes noted to suggest ischemia but nonspecific ST changes were noted. The final blood pressure was 124/58 mmHg. Patient noted mild nondescript chest discomfort during the infusion. No arrhythmias were noted. Myocardial perfusion protocol. 9.4 mCi of technetium 99m sestamibi was injected at rest. 0.4 mg of regadenoson was infused per usual protocol. At peak infusion 31.0 mCi of technetium 99m sestamibi was injected stress images were obtained stress and rest images were reconstructed and compared in the short axis vertical long and horizontal long axis. Gated images were also obtained. Perfusion SPECT analysis: Review of the stress images demonstrate normal uptake of tracer noted in all areas of the myocardium. The resting images similar demonstrate normal uptake of tracer noted in all areas of the myocardium. No areas of reversibility are noted to suggest ischemia and no previous infarct is noted. Gated SPECT analysis: The gated ejection fraction is noted to be 72%. Conclusion: Normal pharmacologic myocardial perfusion stress test. Preserved ejection fraction.
== END 2022-04-23 23:59 | disposition home or self-care (01) ==
LOC: CVS 06:49
PROVIDERS: PCP Internal Medicine Infectious Disease; Referring Provider Internal Medicine Cardiovascular Disease; Visit Provider Internal Medicine Cardiovascular Disease
DX: Z95.5 Presence of coronary angioplasty implant and graft (principal)
CPT/HCPCS: 78452; 93017; A9500; A4216; J2785

== ENCOUNTER 2022-07-05 13:28 | Observation (INO) | payer MEDICARE, OTHER, SELFPAY ==
[2022-07-05] VITALS (7 sets, daily range): BP systolic 120–140; BP diastolic 57–79; PULSE 67–78; RESP 13–18; TEMP 36.1–37.7; O2SAT 95–98; BMI 26.5; BMI 26.4
--- NOTE | 2022-07-05 14:38 | ED.VIS.GI ---
HPI HPI - GI History of Present Illness Chief Complaint: GI Bleed Narrative Narrative: 81-year-old female past medical history of coronary artery disease with stent placement, hypertension, diabetes, takes Plavix and aspirin/baby aspirin presents with rectal bleeding that began at 1030 this morning. She states she awoke, and felt like she had have a bowel movement. While she does not think that she passed any stool, she passed bright red blood and clots. She denies any chest pain or shortness of breath, no lightheadedness or dizziness. No abdominal pain. No nausea or vomiting, no hematemesis. She denies any other bleeding diathesis. She states she feels fine, but has to wear a pad because she feels that she is still having rectal bleeding. [facility] Medical History (Updated 07/05/22 @ 17:[address] Nena Mcallister MD) Anxiety and depression Aortic root dilatation Atherosclerosis of coronary artery of [place] heart without angina pectoris Chronic anemia DM type 2 (diabetes mellitus, type 2) Dyslipidemia Essential (primary) hypertension Home Medications atorvastatin 20 mg tablet 20 mg PO QHS 06/18/17 [History Last Taken 12/17/17] hydrochlorothiazide 25 mg tablet 25 mg PO DAILY 06/18/17 [History Last Taken 12/17/17] metformin 1,000 mg 24 hr tablet,extended release 1,000 mg PO BID 06/18/17 [History Last Taken 12/17/17] multivitamin 1 ea PO DAILY 06/18/17 [History Last Taken 12/17/17] aspirin 81 mg tablet,delayed release 81 mg PO DAILY@0800 #30 tabs 06/22/17 [Rx Last Taken 12/17/17] amlodipine 5 mg tablet 5 mg PO DAILY 10/03/17 [History Last Taken 12/17/17] coenzyme Q10 100 mg capsule (CoQ-10) 100 mg PO DAILY 05/08/18 [History Last Taken Unknown] lorazepam 0.5 mg tablet 0.5 mg PO BID PRN Anxiety 06/28/19 [History Last Taken Unknown] cholecalciferol (vitamin D3) 50 mcg (2,000 unit) capsule 50 mcg PO DAILY 03/24/21 [History Last Taken Unknown] potassium chloride 8 mEq tablet,extended release 24 meq PO DAILY 03/24/21 [History Last Taken Unknown] fluoxetine 40 mg capsule 40 mg PO DAILY 03/30/22 [History Last Taken Unknown] glimepiride 2 mg tablet 2 mg PO DAILY 03/30/22 [History Last Taken Unknown] metoprolol tartrate 25 mg tablet 12.5 mg PO BID #90 tabs 04/02/22 [Rx Last Taken Unknown] clopidogrel 75 mg tablet 75 mg PO DAILY #90 tabs 06/30/22 [Rx Last Taken Unknown] Allergy/AdvReac Type Severity Reaction Status Date / Time cephalexin [From Keflex] Allergy Swelling Verified 03/30/22 09:39 lisinopril Allergy Swelling Verified 03/30/22 09:39 codeine AdvReac Upset Verified 03/30/22 09:39 Stomach Family History Father Heart disease Mother Cancer Surgical History History of coronary artery stent placement (06/21/17) History of hysterectomy Social History Smoking Status: Never smoker alcohol intake: never substance use type: does not use caffeine: Yes Type: carbonated beverages what type of physical activity do you participate in: none seatbelt use: always do you feel safe at home: Yes ROS ROS ED ROS Narrative Constitutional: No fever, no chills. HEENT: No sore throat. No neck pain. No loss of vision. No rhinorrhea. Cardiovascular: No chest pain. No palpitations. No pedal edema. Respiratory: No cough, no shortness of breath. Abdominal: No abdominal pain. No nausea. No vomiting. Positive rectal bleeding/bright red blood per rectum. Genitourinary: No dysuria. No hematuria. Musculoskeletal: No myalgias. No arthralgias. Neurologic: No headaches. No dizziness. No lightheadedness. Skin: No rash. No change in color. Psychiatric: No depression. No anxiety. EXAM Physical Exam Narrative Exam Narrative: Afebrile. Vital signs noted. HEENT: Normocephalic. Atraumatic. PERRL, EOMI. Neck soft and supple. No point tenderness or step off. Cardiovascular: Regular rate and rhythm. No murmurs, rubs, or gallops appreciated. Respiratory: No tachypnea. Lungs clear to auscultation bilaterally. Gastrointestinal: Abdomen soft, nontender, with normoactive bowel sounds. No rebound or guarding. Chaperoned rectal examination performed which reveals Neurological: Awake. Alert. Nonfocal, nonlateralizing. Skin: No rash. Normal color. No pallor. Musculoskeletal: No pedal edema. Full range of motion extremities. Const Vital Signs: 07/05/22 13:29 07/05/22 15:09 07/05/22 17:02 Temperature 97.0 F L Temperature Source Temporal Pulse Rate 75 69 Pulse Rate [Sitting (for 1 minute prior to obtaining)] 70 Pulse Rate [Standing (for 1 minute prior to obtaining)] 78 Respiratory Rate 18 13 Blood Pressure 140/79 H 129/57 H Blood Pressure [Sitting (for 1 minute prior to obtaining)] 131/64 H Blood Pressure [Standing (for 1 minute prior to obtaining)] 120/67 Blood Pressure Mean 99 81 Blood Pressure Mean [Sitting (for 1 minute prior to obtaining)] 86 Blood Pressure Mean [Standing (for 1 minute prior to obtaining)] 84 Pulse Ox 98 97 Oxygen Delivery Method Room Air Room Air MDM MDM MDM Narrative Medical decision making narrative: In the differential diagnosis is internal hemorrhoid versus AV malformation versus diverticular bleed. Comprehensive work-up was pursued. Type and screen will be obtained along with orthostatics, CBC, BMP to look for elevated BUN for upper GI bleeding. I did order a fecal occult blood, but if there is gross blood on examination, this will be canceled. Patient did have rectal bleeding here in the emergency department, so rectal examination was deferred. I reviewed her laboratory work and she has a normal hemoglobin of 12.7, white count normal at 9.0, platelet count normal at 370. CMP is significant for a glucose of 161 with a normal anion gap of 10, BUN normal at 13 with creatinine 0.89. She was typed and screened given her GI bleeding. Orthostatics are negative. I do feel that she is having stable lower GI bleeding. I do not feel that an NG tube is indicated. I do feel that it is because she is on Plavix and baby aspirin. I discussed patient with Dr. Decker with gastroenterology who agrees with admission for endoscopy tomorrow. Additionally, I discussed patient with Dr. Nena Mcallister for observation on the general medical floor as I feel she is stable rectal bleed and she states she feels well. Disposition is assigned to observation. Patient is in stable condition. Lab Data Attestation: I reviewed the patient's lab results. Labs: Laboratory Results - last 24 hr 07/05/22 07/05/22 07/05/22 14:34 14:34 14:34 WBC 9.0 RBC 4.37 Hgb 12.7 Hct 39.2 MCV 89.7 MCH 29.1 MCHC 32.4 RDW Std Deviation 44.4 H RDW Coeff of Lizz 13.5 Plt Count 370 MPV 9.4 Immature Gran % (Auto) 0.400 Neut % (Auto) 80.6 H Lymph % (Auto) 12.9 L [place] % (Auto) 5.1 Eos % (Auto) 0.6 Baso % (Auto) 0.4 Absolute Neuts (auto) 7.3 Absolute Lymphs (auto) 1.16 Nucleated RBC % 0 Sodium 137 Potassium 3.5 Chloride 100 Carbon Dioxide 27.0 Anion Gap 10 BUN 13 Creatinine 0.89 Estim Creat Clear Calc 44.61 Est GFR (MDRD) Af Amer 78 Est GFR (MDRD) Non-Af 64 BUN/Creatinine Ratio 14.5 Glucose 161 H Calcium 10.2 H Total Bilirubin 0.40 AST 15 ALT 23 Alkaline Phosphatase 73 Total Protein 7.3 Albumin 3.6 Globulin 3.7 Albumin/Globulin Ratio 1.0 Blood Type A POSITIVE Antibody Screen NEGATIVE Discharge Plan Triage Chief Complaint: GI Bleed ED Provider: Jason Cuba Dx/Rx/DC Orders Prescriptions: No Action coenzyme Q10 [CoQ-10] 100 mg capsule 100 mg PO DAILY cholecalciferol (vitamin D3) 50 mcg (2,000 unit) capsule 50 mcg PO DAILY fluoxetine 40 mg capsule 40 mg PO DAILY glimepiride 2 mg tablet 2 mg PO DAILY multivitamin 1 EACH tablet 1 ea PO DAILY atorvastatin 20 MG tablet 20 mg PO QHS hydrochlorothiazide 25 MG tablet 25 mg PO DAILY metformin 1,000 MG tablet,ER leanna.retention 24 hr 1,000 mg PO BID aspirin 81 MG tablet 81 mg PO DAILY@0800 Qty: 30 0RF amlodipine 5 mg tablet 5 mg PO DAILY Label Comments: at night lorazepam 0.5 mg tablet 0.5 mg PO BID PRN (Reason: Anxiety) potassium chloride 8 mEq tablet extended release 24 meq PO DAILY metoprolol tartrate 25 mg tablet 12.5 mg PO BID Qty: 90 3RF clopidogrel 75 mg tablet 75 mg PO DAILY Qty: 90 3RF Primary Care Provider: Jose G Chahal Referrals: Jose G Chahal MD [Primary Care Provider] -
--- NOTE | 2022-07-05 14:38 | ED.VIS.GI ---
HPI HPI - GI History of Present Illness Chief Complaint: GI Bleed PFSH PFSH Medical History Aortic root dilatation Atherosclerosis of coronary artery of [place] heart without angina pectoris DM type 2 (diabetes mellitus, type 2) Dyslipidemia Essential (primary) hypertension Home Medications atorvastatin 20 mg tablet 20 mg PO QHS 06/18/17 [History Last Taken 12/17/17] hydrochlorothiazide 25 mg tablet 25 mg PO DAILY 06/18/17 [History Last Taken 12/17/17] metformin 1,000 mg 24 hr tablet,extended release 1,000 mg PO BID 06/18/17 [History Last Taken 12/17/17] multivitamin 1 ea PO DAILY 06/18/17 [History Last Taken 12/17/17] aspirin 81 mg tablet,delayed release 81 mg PO DAILY@0800 #30 tabs 06/22/17 [Rx Last Taken 12/17/17] amlodipine 5 mg tablet 5 mg PO DAILY 10/03/17 [History Last Taken 12/17/17] coenzyme Q10 100 mg capsule (CoQ-10) 100 mg PO DAILY 05/08/18 [History Last Taken Unknown] lorazepam 0.5 mg tablet 0.5 mg PO BID PRN Anxiety 06/28/19 [History Last Taken Unknown] cholecalciferol (vitamin D3) 50 mcg (2,000 unit) capsule 50 mcg PO DAILY 03/24/21 [History Last Taken Unknown] potassium chloride 8 mEq tablet,extended release 24 meq PO DAILY 03/24/21 [History Last Taken Unknown] fluoxetine 40 mg capsule 40 mg PO DAILY 03/30/22 [History Last Taken Unknown] glimepiride 2 mg tablet 2 mg PO DAILY 03/30/22 [History Last Taken Unknown] metoprolol tartrate 25 mg tablet 12.5 mg PO BID #90 tabs 04/02/22 [Rx Last Taken Unknown] clopidogrel 75 mg tablet 75 mg PO DAILY #90 tabs 06/30/22 [Rx Last Taken Unknown] Allergy/AdvReac Type Severity Reaction Status Date / Time cephalexin [From Keflex] Allergy Swelling Verified 03/30/22 09:39 lisinopril Allergy Swelling Verified 03/30/22 09:39 codeine AdvReac Upset Verified 03/30/22 09:39 Stomach Family History Father Heart disease Mother Cancer Surgical History History of coronary artery stent placement (06/21/17) History of hysterectomy Social History Smoking Status: Never smoker alcohol intake: never substance use type: does not use caffeine: Yes Type: carbonated beverages what type of physical activity do you participate in: none seatbelt use: always do you feel safe at home: Yes EXAM Physical Exam Const Vital Signs: 07/05/22 13:29 07/05/22 15:09 Temperature 97.0 F L Temperature Source Temporal Pulse Rate 75 69 Respiratory Rate 18 13 Blood Pressure 140/79 H 129/57 H Blood Pressure Mean 99 81 Pulse Ox 98 97 Oxygen Delivery Method Room Air Room Air MDM MDM Lab Data Labs: Laboratory Results - last 24 hr 07/05/22 07/05/22 07/05/22 14:34 14:34 14:34 WBC 9.0 RBC 4.37 Hgb 12.7 Hct 39.2 MCV 89.7 MCH 29.1 MCHC 32.4 RDW Std Deviation 44.4 H RDW Coeff of Lizz 13.5 Plt Count 370 MPV 9.4 Immature Gran % (Auto) 0.400 Neut % (Auto) 80.6 H Lymph % (Auto) 12.9 L [place] % (Auto) 5.1 Eos % (Auto) 0.6 Baso % (Auto) 0.4 Absolute Neuts (auto) 7.3 Absolute Lymphs (auto) 1.16 Nucleated RBC % 0 Sodium 137 Potassium 3.5 Chloride 100 Carbon Dioxide 27.0 Anion Gap 10 BUN 13 Creatinine 0.89 Estim Creat Clear Calc 44.61 Est GFR (MDRD) Af Amer 78 Est GFR (MDRD) Non-Af 64 BUN/Creatinine Ratio 14.5 Glucose 161 H Calcium 10.2 H Total Bilirubin 0.40 AST 15 ALT 23 Alkaline Phosphatase 73 Total Protein 7.3 Albumin 3.6 Globulin 3.7 Albumin/Globulin Ratio 1.0 Blood Type A POSITIVE Antibody Screen NEGATIVE Discharge Plan Triage Chief Complaint: GI Bleed ED Provider: Jason Cuba Dx/Rx/DC Orders Prescriptions: No Action coenzyme Q10 [CoQ-10] 100 mg capsule 100 mg PO DAILY cholecalciferol (vitamin D3) 50 mcg (2,000 unit) capsule 50 mcg PO DAILY fluoxetine 40 mg capsule 40 mg PO DAILY glimepiride 2 mg tablet 2 mg PO DAILY multivitamin 1 EACH tablet 1 ea PO DAILY atorvastatin 20 MG tablet 20 mg PO QHS hydrochlorothiazide 25 MG tablet 25 mg PO DAILY metformin 1,000 MG tablet,ER leanna.retention 24 hr 1,000 mg PO BID aspirin 81 MG tablet 81 mg PO DAILY@0800 Qty: 30 0RF amlodipine 5 mg tablet 5 mg PO DAILY Label Comments: at night lorazepam 0.5 mg tablet 0.5 mg PO BID PRN (Reason: Anxiety) potassium chloride 8 mEq tablet extended release 24 meq PO DAILY metoprolol tartrate 25 mg tablet 12.5 mg PO BID Qty: 90 3RF clopidogrel 75 mg tablet 75 mg PO DAILY Qty: 90 3RF Primary Care Provider: Jose G Chahal Referrals: Jose G Chahal MD [Primary Care Provider] -
[2022-07-05 14:55] LABS: Absolute Lymphocyte Count 1.16 X10^3/uL (0.83-4.51); Absolute Neutrophil Count 7.3 X10^3/uL (2.0-7.7); Basophil# 0.04 X10^3/uL; Basophil% 0.4 % (0-1); Eosinophil# 0.05 X10^3/uL; Eosinophils% 0.6 % (0-5); Hematocrit 39.2 % (37-47); Hemoglobin 12.7 g/dL (12.0-15.0); Lymphocyte # 1.16 X10^3/ul (0.83-4.51); Lymphocyte % 12.9 % (19-41); Mean Corp Hgb Conc 32.4 g/dL (32-36); Mean Corpuscular Hgb 29.1 pg (27.0-32.0); Mean Corpuscular Volume 89.7 fL (81-99); Mean Platelet Vol. 9.4 fl (6.2-12.0); Monocyte# 0.46 X10^3/uL; Monocyte% 5.1 % (0-10); NRBC Flagged by Analyzer 0 % (0-5); Neutrophil # 7.27 X10^3/uL (2.7-7.7); Neutrophil % 80.6 % (47-70); Platelet Count 370 K/mm3 (150-450); RBC Distribution Width CV 13.5 % (11.6-14.6); RBC Distribution Width SD 44.4 fl (35.1-43.9); Red Blood Count 4.37 M/mm3 (4.2-5.4)
[2022-07-05] MEDS: 0.9% Normal Saline 1,000 ML 1000 ML IV (15:01)
[2022-07-05 15:10] LABS: AST(SGOT) 15 U/L (15-37); Alanine Aminotransfer ALT/SGPT 23 U/L (13-56); Albumin, Serum 3.6 g/dL (3.2-5.0); Alkaline Phosphatase 73 U/L (45-117); Anion Gap 10 (5-15); BUN 13 mg/dL (7-18); BUN/Creat Ratio 14.5 RATIO (10-20); Calcium,Total 10.2 mg/dL (8.5-10.1); Chloride 100 mmol/L (98-107); Creatinine, Serum 0.89 mg/dL (0.55-1.02); EST Glomerular Filtration Rate 64 mL/min (>60); Est Glom Filt Rate - Afr Amer 78 mL/min (>60); Estimated Creatinine Clearance 44.61 ml/min; Globulin 3.7 g/dL (2.2-4.2); Glucose 161 mg/dL (74-106); Potassium 3.5 mmol/L (3.5-5.1); Protein, Total 7.3 g/dL (6.4-8.2); Sodium Level 137 mmol/L (136-145)
--- NOTE | 2022-07-05 17:03 | ED.RN ---
patient had bowel movement that was dark red blood.
--- NOTE | 2022-07-05 17:14 | PCM.HP.STD ---
HPI - General General Date of Admission: 07/05/22 Date of Service: 07/05/22 Chief Complaint: Rectal bleeding BRBPR/clots, ongoing. HPI Narrative The patient is an 81 y/o F w/ PMHx: Anxiety and Depression, Chronic normocytic anemia, CAD s/p PCI, Known aortic root dilation, HTN, HLD, Diabetes mellitus type II, Overweight who presents to the [facility] ED on 07/05/22 with history of rectal bleeding that started approximately 10:30 in the morning apparently awoke and felt like she was having a bowel movement but instead of passing stool she passed copious amounts of bright red blood and large clots with no chest pain, dyspnea, lightheadedness or dizziness at that time nor any recent nausea, emesis, abdominal pain or hematemesis but given ongoing bleeding requiring her to wear a pad prompted eventual ED evaluation. She notes that since she has presented to the ED the bleeding has somewhat slowed. Work-up in the ED included T97, heart 75, BP 140/79, respiratory rate 18, 98% on room air, unremarkable orthostatic vital signs, CBC with WC 9, hemoglobin 12.7, platelet 370 without marked shift, unremarkable CMP with glucose 161, calcium 10.2, type and screen performed per ED physician, stool occult requested per ED physician and pending. Patient ministered 1 L normal saline. [facility] Medical History Anxiety and depression Aortic root dilatation Atherosclerosis of coronary artery of [place] heart without angina pectoris Chronic anemia DM type 2 (diabetes mellitus, type 2) Dyslipidemia Essential (primary) hypertension Home Medications atorvastatin 20 mg tablet 20 mg PO QHS 06/18/17 [History Last Taken 12/17/17] hydrochlorothiazide 25 mg tablet 25 mg PO DAILY 06/18/17 [History Last Taken 12/17/17] metformin 1,000 mg 24 hr tablet,extended release 1,000 mg PO BID 06/18/17 [History Last Taken 12/17/17] multivitamin 1 ea PO DAILY 06/18/17 [History Last Taken 12/17/17] aspirin 81 mg tablet,delayed release 81 mg PO DAILY@0800 #30 tabs 06/22/17 [Rx Last Taken 12/17/17] amlodipine 5 mg tablet 5 mg PO DAILY 10/03/17 [History Last Taken 12/17/17] coenzyme Q10 100 mg capsule (CoQ-10) 100 mg PO DAILY 05/08/18 [History Last Taken Unknown] lorazepam 0.5 mg tablet 0.5 mg PO BID PRN Anxiety 06/28/19 [History Last Taken Unknown] cholecalciferol (vitamin D3) 50 mcg (2,000 unit) capsule 50 mcg PO DAILY 03/24/21 [History Last Taken Unknown] potassium chloride 8 mEq tablet,extended release 24 meq PO DAILY 03/24/21 [History Last Taken Unknown] fluoxetine 40 mg capsule 40 mg PO DAILY 03/30/22 [History Last Taken Unknown] glimepiride 2 mg tablet 2 mg PO DAILY 03/30/22 [History Last Taken Unknown] metoprolol tartrate 25 mg tablet 12.5 mg PO BID #90 tabs 04/02/22 [Rx Last Taken Unknown] clopidogrel 75 mg tablet 75 mg PO DAILY #90 tabs 06/30/22 [Rx Last Taken Unknown] Allergy/AdvReac Type Severity Reaction Status Date / Time cephalexin [From Keflex] Allergy Swelling Verified 03/30/22 09:39 lisinopril Allergy Swelling Verified 03/30/22 09:39 codeine AdvReac Upset Verified 03/30/22 09:39 Stomach Family History Father Heart disease Mother Cancer Surgical History History of coronary artery stent placement (06/21/17) History of hysterectomy Social History Smoking Status: Never smoker alcohol intake: never substance use type: does not use caffeine: Yes Type: carbonated beverages what type of physical activity do you participate in: none seatbelt use: always do you feel safe at home: Yes ROS ROS Narrative Admission Review of Systems: CONSTITUTIONAL: No weight loss, fever, chills, + weakness or fatigue. HEENT: Eyes: No visual loss, blurred vision, double vision or yellow sclerae. Ears, Nose, Throat: No hearing loss, sneezing, congestion, runny nose or sore throat. SKIN: No rash or itching, lesions, wounds. CARDIOVASCULAR: No chest pain, chest pressure or chest discomfort, palpitations, edema, orthopnea, syncopal events. RESPIRATORY: No shortness of breath, cough or sputum, wheezing, hemoptysis. GASTROINTESTINAL: + Bright red blood per rectum, no anorexia, nausea, vomiting or diarrhea, abdominal pain, melena. GENITOURINARY: No dysuria, frequency, urgency or retention. NEUROLOGICAL: No headache, dizziness, syncope, paralysis, ataxia, numbness or tingling in the extremities, focal weakness, change in bowel or bladder control, seizure. MUSCULOSKELETAL: + muscle, back pain, joint pain or stiffness. HEMATOLOGIC: + anemia, bleeding or bruising. LYMPHATICS: No enlarged nodes. No history of splenectomy. PSYCHIATRIC: + history of depression or anxiety. ENDOCRINOLOGIC: No reports of sweating, cold or heat intolerance. No polyuria or polydipsia. ALLERGIES: No history of asthma, hives, eczema or rhinitis. Vital Signs Vital Signs Vital Signs: 07/05/22 13:29 07/05/22 15:09 07/05/22 17:02 Temperature 97.0 F L Temperature Source Temporal Pulse Rate 75 69 Pulse Rate [Sitting (for 1 minute prior to obtaining)] 70 Pulse Rate [Standing (for 1 minute prior to obtaining)] 78 Respiratory Rate 18 13 Blood Pressure 140/79 H 129/57 H Blood Pressure [Sitting (for 1 minute prior to obtaining)] 131/64 H Blood Pressure [Standing (for 1 minute prior to obtaining)] 120/67 Blood Pressure Mean 99 81 Blood Pressure Mean [Sitting (for 1 minute prior to obtaining)] 86 Blood Pressure Mean [Standing (for 1 minute prior to obtaining)] 84 Pulse Ox 98 97 Oxygen Delivery Method Room Air Room Air Weight Weight: 159 lb 11.2 oz Body Mass Index (BMI) 26.5 Physical Exam Narrative Physical Examination: General: Awake, alert, oriented x 3 and cooperative, seated upright in ED bed, fatigued but no acute distress. Skin: Normal color, normal turgor, no icterus, no cyanosis. HEENT: AT/NC, EOMI, PERRLA, MMM, no carotid bruits or JVD noted. Lungs: Mildly diminished, greater bases appropriate effort, no rales, ronchi or wheezing. Heart: Currently regular rate and rhythm; no gallop, rub audible. Abdomen: Soft, NTTP, ND, hyperactive BS, no HSM. Extremities: No cyanosis, no clubbing, no marked bilateral lower extremity peripheral ankle edema, does have thicker ankles. Neurological: Patient awake, alert, oriented as noted, cognitive function intact; pupils equally reactive to light and accommodation, cranial nerves II-XII grossly normal, moving all 4 extremities, no focal deficits, strength mildly to moderately globally [place] secondary to acute presentation Psychiatric: Affect appears fatigued otherwise normal, no acute evidence of depressive or anxiety feelings. Results Lab / Micro Data Result Diagrams: 07/05/22 14:34 07/05/22 14:34 Labs: Laboratory Results - last 24 hr 07/05/22 14:34: WBC 9.0, RBC 4.37, Hgb 12.7, Hct 39.2, MCV 89.7, MCH 29.1, MCHC 32.4, RDW Std Deviation 44.4 H, RDW Coeff of Lizz 13.5, Plt Count 370, MPV 9.4, Immature Gran % (Auto) 0.400, Neut % (Auto) 80.6 H, Lymph % (Auto) 12.9 L, [place] % (Auto) 5.1, Eos % (Auto) 0.6, Baso % (Auto) 0.4, Absolute Neuts (auto) 7.3, Absolute Lymphs (auto) 1.16, Nucleated RBC % 0 07/05/22 14:34: Sodium 137, Potassium 3.5, Chloride 100, Carbon Dioxide 27.0, Anion Gap 10, BUN 13, Creatinine 0.89, Estim Creat Clear Calc 44.61, Est GFR (MDRD) Af Amer 78, Est GFR (MDRD) Non-Af 64, BUN/Creatinine Ratio 14.5, Glucose 161 H, Calcium 10.2 H, Total Bilirubin 0.40, AST 15, ALT 23, Alkaline Phosphatase 73, Total Protein 7.3, Albumin 3.6, Globulin 3.7, Albumin/Globulin Ratio 1.0 07/05/22 14:34: Blood Type A POSITIVE, Antibody Screen NEGATIVE Assessment & Plan Assessment/Plan (1) GI bleed: PLAN: Plan The patient is an 81 y/o F w/ PMHx: Anxiety and Depression, Chronic normocytic anemia, CAD s/p PCI, Known aortic root dilation, HTN, HLD, Diabetes mellitus type II, Overweight who presents to the [facility] ED on 2/6/23 with history of rectal bleeding that started approximately 10:30 in the morning apparently awoke and felt like she was having a bowel movement but instead of passing stool she passed copious amounts of bright red blood and large clots with ongoing bleeding requiring her to wear a pad prompted eventual ED evaluation. #1. Acute GI Bleed with chronic anemia, normocytic: Admission hemoglobin 12.7, baseline prior has been 11-12, will admit to medical surgical, maintain on judicious IV fluids, will obtain serial H&H's, type and screen already performed per ED physician, maintain on IV PPI although this is more distal, will allow clear liquids until n.p.o. status at midnight, gastroenterology consulted, pending. Will maintain on fall precautions although patient not currently markedly symptomatic may worsen. #2. CAD: Status post prior PCI 2017, given acute presentation we will temporarily hold aspirin, Plavix, resume immediately following GI evaluation, will continue metoprolol, not on SHANTA inhibitor/ARB recurrent regimen. #3 hypertension: Continue home regimen including metoprolol, hydrochlorothiazide, amlodipine with hold parameters as needed given symptoms, PRN hydralazine. #4. Hyperlipidemia: We will continue patient on statin therapy. #5. Anxiety depression: We will continue patient on fluoxetine and low-dose as needed Ativan regimen. #6. Diabetes mellitus type II: Hold oral home regimen, given presentation will maintain on clears with n.p.o. status transition at midnight, accu checks w/ ISS. #7. DVT prophylaxis: SCDs, holding chemoprophylaxis given acute presentation as noted. #8. CODE status: Patient HCPOA are her children and living will is currently in place. Discussed CODE status at length including difference between FULL code, DNR-CCA and DNR-CC status. Following discussions about the differences in these status, requested Full Code status. Admission Evaluation Time spent evaluating chart, patient history, patient evaluation, care planning and discussion with specialists: 60 minutes. Charges/Coding Visit Charges Inpatient E&M: 30321 Init Hosp L2
--- NOTE | 2022-07-05 19:47 | CON.PCM.GI_ITS ---
HPI Consult Data Date of Consult: 07/05/22 HPI Narrative Reason for Consultation: GI bleed HPI Narrative: FLORES WASHINGTON, is a 81 F who presents with lower GI bleeding. 81-year-old female past medical history of coronary artery disease with stent placement, hypertension, diabetes, takes Plavix and aspirin/baby aspirin presents with rect al bleeding that began at 1030 this morning.? She states she awoke, and felt like she had have a bowel movement.? While she does not think that she passed any stool, she passed bright red blood and clots.? She denies any chest pain or shortness of breath, no lightheadedness or dizziness.? No abdominal pain.? No nausea or vomiting, no hematemesis.? She denies any other bleeding diathesis.? She states she feels fine, but has to wear a pad because she feels that she is still having rectal bleeding. Her hemoglobin is 12.9 and then ranges in between 11 and 12. She has normal kidney function. Her BUN to creatinine ratio was normal. She denies any abdominal pain. [facility] Medical History (Updated 07/05/22 @ 19:[address] Roth Friend, DO) Anxiety and depression Aortic root dilatation Atherosclerosis of coronary artery of [place] heart without angina pectoris Chronic anemia DM type 2 (diabetes mellitus, type 2) Dyslipidemia Essential (primary) hypertension Home Medications atorvastatin 20 mg tablet 20 mg PO QHS 06/18/17 [History Last Taken 12/17/17] hydrochlorothiazide 25 mg tablet 25 mg PO DAILY 06/18/17 [History Last Taken 12/17/17] metformin 1,000 mg 24 hr tablet,extended release 1,000 mg PO BID 06/18/17 [History Last Taken 12/17/17] multivitamin 1 ea PO DAILY 06/18/17 [History Last Taken 12/17/17] aspirin 81 mg tablet,delayed release 81 mg PO DAILY@0800 #30 tabs 06/22/17 [Rx Last Taken 12/17/17] amlodipine 5 mg tablet 5 mg PO DAILY 10/03/17 [History Last Taken 12/17/17] coenzyme Q10 100 mg capsule (CoQ-10) 100 mg PO DAILY 05/08/18 [History Last Taken Unknown] lorazepam 0.5 mg tablet 0.5 mg PO BID PRN Anxiety 06/28/19 [History Last Taken Unknown] cholecalciferol (vitamin D3) 50 mcg (2,000 unit) capsule 50 mcg PO DAILY 03/24/21 [History Last Taken Unknown] potassium chloride 8 mEq tablet,extended release 24 meq PO DAILY 03/24/21 [History Last Taken Unknown] fluoxetine 40 mg capsule 40 mg PO DAILY 03/30/22 [History Last Taken Unknown] glimepiride 2 mg tablet 2 mg PO DAILY 03/30/22 [History Last Taken Unknown] metoprolol tartrate 25 mg tablet 12.5 mg PO BID #90 tabs 04/02/22 [Rx Last Taken Unknown] clopidogrel 75 mg tablet 75 mg PO DAILY #90 tabs 06/30/22 [Rx Last Taken Unknown] Allergy/AdvReac Type Severity Reaction Status Date / Time cephalexin [From Keflex] Allergy Swelling Verified 03/30/22 09:39 lisinopril Allergy Swelling Verified 03/30/22 09:39 codeine AdvReac Upset Verified 03/30/22 09:39 Stomach Family History Father Heart disease Mother Cancer Surgical History History of coronary artery stent placement (06/21/17) History of hysterectomy Social History Smoking Status: Never smoker alcohol intake: never substance use type: does not use caffeine: Yes Type: carbonated beverages what type of physical activity do you participate in: none seatbelt use: always do you feel safe at home: Yes ROS Review of Systems ROS Unobtainable: other Constitutional Constitutional: Denies fatigue, fever(s), poor appetite, weight gain or weight loss ENT HEENT: Denies mouth lesions Cardiovascular Cardiovascular: Denies abdominal bloating, abdominal edema or abdominal pain Respiratory/Chest Respiratory/Chest: Denies change in mental status, change in phlegm color, chest congestion or chest tightness Gastrointestinal Gastrointestinal: Denies belching, bloating, change in bowel habits, change in stool character, chewing difficulty, coffee ground emesis, constipation, cramping, diarrhea, dyspepsia, dysphagia, early satiety, excessive flatus, fecal incontinence, heartburn, hematemesis, hematochezia, hemorrhoids, loose stools, melena, nausea, odynophagia, rectal bleeding, tenesmus, vomiting or weight yamini nges Genitourinary Genitourinary: Denies abdominal discomfort, burning urination or itching Musculoskeletal Musculoskeletal: Reports as per HPI; Denies muscle weakness or myalgias Integumentary Integumentary: Denies jaundice Neurologic Neurologic: Denies lack of coordination or weakness Psychiatric Psychiatric: Denies confusion, depression, memory loss, mood swings, paranoia or suicidal ideation Endocrine Endocrinology: Denies systems reviewed and no addt'l complaints, except as documented Hematologic/Lymphatic Hematologic/Lymphatic: Denies anemia, easy bleeding, easy bruising or lymphadenopathy Allergic/Immunologic Allergic/Immunologic: Denies systems reviewed and no addt'l complaints, except as documented Physical Exam Const alert General Appearance: cooperative Orientation / Consciousness: oriented to person HEENT hearing grossly normal bilaterally Head and Scalp: normal to inspection Face and Sinus: face symmetric Nose: external nose normal Mouth: oral and palatal mucosa normal Eyes conjunctivae normal General Eye: normal appearance of both eyes Neck full ROM General: normal visual inspection Lymph Lymphatic: no lymphadenopathy noted Chest inspection of chest normal and palpation of chest normal Chest: symmetrical chest wall rise Resp normal respiratory effort Effort and Inspection: able to speak in complete sentences Cardio regular rate GI non-distended Percussion: normal to percussion Rectal Exam: deferred Neuro Speech: speech normal Gait (Neuro): normal gait Lab / Micro Data Result Diagrams: 07/05/22 14:34 07/05/22 14:34 Labs: Laboratory Results - last 24 hr 07/05/22 14:34: WBC 9.0, RBC 4.37, Hgb 12.7, Hct 39.2, MCV 89.7, MCH 29.1, MCHC 32.4, RDW Std Deviation 44.4 H, RDW Coeff of Lizz 13.5, Plt Count 370, MPV 9.4, Immature Gran % (Auto) 0.400, Neut % (Auto) 80.6 H, Lymph % (Auto) 12.9 L, [place] % (Auto) 5.1, Eos % (Auto) 0.6, Baso % (Auto) 0.4, Absolute Neuts (auto) 7.3, Absolute Lymphs (auto) 1.16, Nucleated RBC % 0 07/05/22 14:34: Sodium 137, Potassium 3.5, Chloride 100, Carbon Dioxide 27.0, Anion Gap 10, BUN 13, Creatinine 0.89, Estim Creat Clear Calc 44.61, Est GFR (MDRD) Af Amer 78, Est GFR (MDRD) Non-Af 64, BUN/Creatinine Ratio 14.5, Glucose 161 H, Calcium 10.2 H, Total Bilirubin 0.40, AST 15, ALT 23, Alkaline Phosphatase 73, Total Protein 7.3, Albumin 3.6, Globulin 3.7, Albumin/Globulin Ratio 1.0 07/05/22 14:34: Blood Type A POSITIVE, Antibody Screen NEGATIVE Assessment & Plan Assessment/Plan (1) GI bleed: PLAN: The differential diagnosis for lower GI bleed to her would be diverticular, hemorrhoidal, stercoral ulcer, ischemic colitis, ulcerative colitis in the elderly, NSAID induced enteropathy or colitis, angiodysplasia, neoplasia. I am okay with her having clear liquids. Recommended to follow her hemoglobin and to get a CT scan of the abdomen pelvis be that her kidney function is within normal limits. I will discuss with her the possibility of possibly done a sigmoidoscopy or colonoscopy pending CT scan. Charges/Coding Visit Charges Inpatient E&M: 29737 Init Hosp L2
--- NOTE | 2022-07-05 20:02 | CT_ITS ---
STUDY: CT ABDOMEN AND PELVIS WITH CONTRAST REASON FOR EXAM: Female, 81 years old. gi bleed RADIATION DOSAGE (If Supplied By Facility): CTDIvol = ( 14.86 ) mGy, DLP = ( 774.14 ) mGycm TECHNIQUE: Transaxial images were obtained from the dome of the diaphragm to the symphysis pubis without oral contrast. IV 100mL Isovue-370 was administered. Sagittal and coronal images were reconstructed. Individualized dose optimization techniques were used for this CT. COMPARISON: None. FINDINGS: The visualized lung bases are unremarkable. The visualized portions of the heart are within normal limits. Small hiatal hernia is noted Mild multinodular appearance to the liver which may be hepatic cirrhosis. No focal mass or bile duct dilatation. Outside gallstones without evidence for acute cholecystitis. Normal size spleen demonstrating tiny granulomatous calcifications. Normal pancreas. Normal bilateral adrenal glands. Multifocal cortical scarring of the kidneys which may be on the basis of old inflammatory disease. No evidence for renal obstruction. There is a small simple cyst in the right kidney which will not need additional imaging. Normal visualized stomach. Normal small intestine. Nonspecific fecal retention throughout the colon.. Minor diverticular changes of the colon without evidence for acute diverticulitis No evidence for acute appendicitis. Atherosclerotic changes of the aorta without evidence for aneurysm. Normal inferior vena cava. Normal retroperitoneum. Poorly distended thick walled bladder of uncertain significance.. Uterus not visualized status post hysterectomy. There is a tiny left ovarian cyst Normal abdominal wall. Lumbar spine demonstrates degenerative change. CT/Abdomen/Pelvis W IV Cont ONLY IMPRESSION: Cholelithiasis without evidence for acute cholecystitis.. Minor diverticular changes of the colon without evidence for acute diverticulitis. No evidence for small bowel obstruction. No site of contrast accumulation within the bowel to suggest acute intraluminal hemorrhage at this time Radionuclide tagged red blood cells study would be helpful for further evaluation if clinically warranted Electronically Signed: David Bedoya MD at 20:39 EST ,
[2022-07-05] MEDS: 0.9% Normal Saline 1,000 ML 100 ML IV (21:20)
[2022-07-05] MEDS: 0.9% Saline Lock 10 ML Syringe IV (21:20)
[2022-07-05 21:38] LABS: Hematocrit 34.5 % (37-47); Hemoglobin 11.1 g/dL (12.0-15.0)
[2022-07-05] MEDS: Metoprolol Tartrate 25 MG Tablet 12.5 MG PO (22:00)
[2022-07-05] MEDS: Atorvastatin Calcium 20 MG Tablet PO (22:00)
[2022-07-05 22:55] LABS: Bedside Glucose 100 mg/dL (74-106)
[2022-07-06 00:37] LABS: Hematocrit 33.1 % (37-47); Hemoglobin 11.1 g/dL (12.0-15.0)
[2022-07-06 03:42] VITALS: BP 136/62; PULSE 69; RESP 16; TEMP 36.8; O2SAT 96
[2022-07-06 04:11] LABS: Bedside Glucose 94 mg/dL (74-106)
[2022-07-06 04:47] LABS: Absolute Lymphocyte Count 2.36 X10^3/uL (0.83-4.51); Absolute Neutrophil Count 4.8 X10^3/uL (2.0-7.7); Basophil# 0.05 X10^3/uL; Basophil% 0.6 % (0-1); Eosinophil# 0.09 X10^3/uL; Eosinophils% 1.1 % (0-5); Hematocrit 30.9 % (37-47); Hemoglobin 10.6 g/dL (12.0-15.0); Lymphocyte # 2.36 X10^3/ul (0.83-4.51); Lymphocyte % 29.9 % (19-41); Mean Corp Hgb Conc 34.3 g/dL (32-36); Mean Corpuscular Hgb 30.1 pg (27.0-32.0); Mean Corpuscular Volume 87.8 fL (81-99); Monocyte# 0.54 X10^3/uL; Monocyte% 6.8 % (0-10); NRBC Flagged by Analyzer 0 % (0-5); Neutrophil # 4.84 X10^3/uL (2.7-7.7); Neutrophil % 61.5 % (47-70); Platelet Count 284 K/mm3 (150-450); RBC Distribution Width CV 13.6 % (11.6-14.6); RBC Distribution Width SD 43.6 fl (35.1-43.9); Red Blood Count 3.52 M/mm3 (4.2-5.4); White Blood Count 7.9 K/mm3 (4.4-11.0)
[2022-07-06 05:17] LABS: AST(SGOT) 12 U/L (15-37); Alanine Aminotransfer ALT/SGPT 19 U/L (13-56); Albumin, Serum 2.9 g/dL (3.2-5.0); Alkaline Phosphatase 56 U/L (45-117); Anion Gap 8 (5-15); BUN 10 mg/dL (7-18); BUN/Creat Ratio 15.4 RATIO (10-20); Calcium,Total 9.1 mg/dL (8.5-10.1); Chloride 105 mmol/L (98-107); Creatinine, Serum 0.65 mg/dL (0.55-1.02); EST Glomerular Filtration Rate 93 mL/min (>60); Est Glom Filt Rate - Afr Amer 113 mL/min (>60); Globulin 2.8 g/dL (2.2-4.2); Glucose 94 mg/dL (74-106); Potassium 3.2 mmol/L (3.5-5.1); Protein, Total 5.7 g/dL (6.4-8.2); Sodium Level 140 mmol/L (136-145)
[2022-07-06] MEDS: 0.9% Normal Saline 1,000 ML 100 ML IV (06:49)
[2022-07-06 08:05] VITALS: BP 139/62; PULSE 65; RESP 16; TEMP 36.8; O2SAT 94
[2022-07-06 08:48] VITALS: BP 139/62; PULSE 65; RESP 18; TEMP 36.8; O2SAT 94
[2022-07-06] MEDS: 0.9% Saline Lock 10 ML Syringe IV (08:58)
[2022-07-06 09:18] VITALS: PULSE 65
[2022-07-06] MEDS: Metoprolol Tartrate 25 MG Tablet 12.5 MG PO (09:18)
[2022-07-06] MEDS: Fluoxetine HCl 40 MG CAPSULE PO (09:19)
[2022-07-06] MEDS: amLODIPine 5 MG Tablet PO (09:19)
[2022-07-06] MEDS: hydroCHLOROthiazide 25 MG Tablet PO (09:19)
[2022-07-06] MEDS: Insulin Lispro 100 UNIT/ML INSULN.PEN SC (11:21)
[2022-07-06 11:41] LABS: Bedside Glucose 194 mg/dL (74-106)
--- NOTE | 2022-07-06 12:15 | PCM.DC.SUM ---
Providers Date of Admission: 07/05/22 Date of Discharge: 07/06/22 Primary Care Physician: Dr. Jose G Chahal MD Consultations 07/05/22 20:43 Consult: Gastroenterology Routine Consulting Provider: [facility] Reason for Consult: Rectal bleeding EMERGENT Consult: No MD Notified: Yes Date Notified: 07/05/22 Time Notified: 18:43 Method of Notification: ED Physician Initiated Reason For Visit: RECTAL BLEEDING Diagnosis Discharge Diagnosis (1) GI bleed: Status: Acute Code(s): K92.2 - Gastrointestinal hemorrhage, unspecified Medications at Discharge Home Medications atorvastatin 20 mg tablet 20 mg PO QHS 06/18/17 hydrochlorothiazide 25 mg tablet 25 mg PO DAILY 06/18/17 metformin 1,000 mg 24 hr tablet,extended release 1,000 mg PO BID 06/18/17 multivitamin 1 ea PO DAILY 06/18/17 aspirin 81 mg tablet,delayed release 81 mg PO DAILY@0800 #30 tabs 06/22/17 amlodipine 5 mg tablet 5 mg PO DAILY 10/03/17 coenzyme Q10 100 mg capsule (CoQ-10) 100 mg PO DAILY 05/08/18 lorazepam 0.5 mg tablet 0.5 mg PO BID PRN Anxiety 06/28/19 cholecalciferol (vitamin D3) 50 mcg (2,000 unit) capsule 50 mcg PO DAILY 03/24/21 potassium chloride 8 mEq tablet,extended release 24 meq PO DAILY 03/24/21 fluoxetine 40 mg capsule 40 mg PO DAILY 03/30/22 glimepiride 2 mg tablet 2 mg PO DAILY 03/30/22 metoprolol tartrate 25 mg tablet 12.5 mg PO BID #90 tabs 04/02/22 clopidogrel 75 mg tablet 75 mg PO DAILY #90 tabs 06/30/22 Hospital Course Operations None Procedures - (CT abdomen and pelvis) Summary of Care Provided Minutes Spent on Discharge: 33 Hospital Course: Mrs. Vance is an 81-year-old white female who presented to the emergency department at [facility] on 07/05/2022 with rectal bleeding having bright red blood per rectum and clots that has been ongoing. The patient reported that it started on the morning prior to admission at 1030 at which time she woke and felt like she was having a bowel movement but instead of passing stool she passed copious amounts of bright red blood with large clots. She denied chest pain, dyspnea, lightheadedness or dizziness at that time or since. She had no nausea or vomiting, no abdominal pain and no melena. With her ongoing bleeding she had to wear a pad and eventually presented to the emergency department. At the time of arrival to the ED she felt the bleeding had somewhat slowed. Vital signs upon presentation were unremarkable. Orthostatic vital signs were normal. Her hemoglobin was 12.7 on presentation and she was given 1 L of normal saline. She was admitted to the medical floor and evaluated by gastroenterology. Her aspirin and Plavix were held and she was initially made NPO for possible colonoscopy. A CT of her abdomen pelvis was performed and demonstrated cholelithiasis without acute cholecystitis, minor diverticular changes in the colon without evidence of acute diverticulitis, no evidence of a small bowel obstruction, and no contrast accumulation in the bowel suggestive of acute intraluminal hemorrhage. The patient had no further bleeding after admission to the hospital. I reviewed the case with gastroenterology and they feel that this is most likely a diverticular bleed as noted above and with the fact that the bleeding stopped they did not feel urgent colonoscopy was required at this time. Her hemoglobin on the morning of discharge was 10.6. Given her drop, we repeated her hemoglobin at noon at which time it was found to be 11.3. I have asked the patient to hold her aspirin and Plavix for 5 days postdischarge. Her last cardiac stent was 3 years ago. I did encourage her to talk with her primary school childcare attendant about possibly discontinuing her Plavix since she is 3 years out from her last stent. She was discharged home after eating on a regular diet without any difficulties in stable condition on 07/06/2022. She is to follow-up with gastroenterology within the next month to be evaluated for need of colonoscopy but we strongly encouraged her to come back to the emergency department if she has any recurrent bleeding. I have asked her to follow-up with her primary care physician within the next 2 weeks. Discharge diagnoses: Hematochezia-suspect diverticular bleed--> resolved Acute blood loss anemia-mild and stable CAD Hypertension Hyperlipidemia DM-2 Anxiety Depression Physical Exam Const alert, oriented x3, no apparent distress, average body habitus and well nourished Constitutional Narrative: Very pleasant, elderly, white female sitting up in bed eating breakfast, family at bedside, patient appears comfortable and nontoxic General Appearance: cooperative, comfortable, well kempt and well developed Orientation / Consciousness: awake, oriented to person, oriented to place and oriented to time Exam Limitations: no limitations Nutritional Appearance: overweight HEENT normocephalic, head/scalp atraumatic and moist oral mucous membranes HEENT Narrative: Mild hearing loss Eyes PERRL, EOMs intact bilaterally and conjunctivae normal Eyes Narrative: Scleral torus Neck no lymphadenopathy, supple and no JVD Neck Narrative: Trachea midline, no thyroid enlargement Resp normal respiratory effort, no retractions, no use of accessory muscles and clear to auscultation bilaterally Cardio regular rate, regular rhythm, S1 normal heart sound, S2 normal heart sound, no murmurs, no rub, no gallops and no clicks GI normal to inspection, nondistended, normoactive bowel sounds, soft to palpation and non-tender Extremity no clubbing, cyanosis or edema Extremity Narrative: 2+ pedal pulses Skin no rashes or lesions noted, no wounds, skin turgor normal and no jaundice Neuro oriented x3, moves all extremities and no focal motor deficits Speech: speech normal Psych affect normal Psych Narrative: Very pleasant and appropriately interactive Weight / BMI Weight Weight: 72.5 kg Body Mass Index (BMI) 26.4 ABG / Lab / Microbiology Data Result Diagrams: 07/06/22 04:40 07/06/22 04:40 Laboratory: Laboratory Results - last 24 hr 07/05/22 14:34: WBC 9.0, RBC 4.37, Hgb 12.7, Hct 39.2, MCV 89.7, MCH 29.1, MCHC 32.4, RDW Std Deviation 44.4 H, RDW Coeff of Lizz 13.5, Plt Count 370, MPV 9.4, Immature Gran % (Auto) 0.400, Neut % (Auto) 80.6 H, Lymph % (Auto) 12.9 L, [place] % (Auto) 5.1, Eos % (Auto) 0.6, Baso % (Auto) 0.4, Absolute Neuts (auto) 7.3, Absolute Lymphs (auto) 1.16, Nucleated RBC % 0 07/05/22 14:34: Sodium 137, Potassium 3.5, Chloride 100, Carbon Dioxide 27.0, Anion Gap 10, BUN 13, Creatinine 0.89, Estim Creat Clear Calc 44.61, Est GFR (MDRD) Af Amer 78, Est GFR (MDRD) Non-Af 64, BUN/Creatinine Ratio 14.5, Glucose 161 H, Calcium 10.2 H, Total Bilirubin 0.40, AST 15, ALT 23, Alkaline Phosphatase 73, Total Protein 7.3, Albumin 3.6, Globulin 3.7, Albumin/Globulin Ratio 1.0 07/05/22 14:34: Blood Type A POSITIVE, Antibody Screen NEGATIVE 07/05/22 21:25: Hgb 11.1 L, Hct 34.5 L 07/05/22 21:49: POC Glucose 100 07/06/22 00:15: Hgb 11.1 L, Hct 33.1 L 07/06/22 03:47: POC Glucose 94 07/06/22 04:40: WBC 7.9, RBC 3.52 L, Hgb 10.6 L, Hct 30.9 L, MCV 87.8, MCH 30.1, MCHC 34.3 D, RDW Std Deviation 43.6, RDW Coeff of Lizz 13.6, Plt Count 284, MPV 9.0, Immature Gran % (Auto) 0.100, Neut % (Auto) 61.5, Lymph % (Auto) 29.9, [place] % (Auto) 6.8, Eos % (Auto) 1.1, Baso % (Auto) 0.6, Absolute Neuts (auto) 4.8, Absolute Lymphs (auto) 2.36, Nucleated RBC % 0 07/06/22 04:40: Sodium 140, Potassium 3.2 L, Chloride 105, Carbon Dioxide 27.0, Anion Gap 8, BUN 10, Creatinine 0.65, Estim Creat Clear Calc 39.70, Est GFR (MDRD) Af Amer 113, Est GFR (MDRD) Non-Af 93, BUN/Creatinine Ratio 15.4, Glucose 94, Calcium 9.1, Total Bilirubin 0.60, AST 12 L, ALT 19, Alkaline Phosphatase 56, Total Protein 5.7 L, Albumin 2.9 L, Globulin 2.8, Albumin/Globulin Ratio 1.0 07/06/22 11:07: POC Glucose 194 H Radiography Diagnostic Testing: Radiology Impression Abdomen/Pelvis CT 07/05/22 20:02 IMPRESSION: Cholelithiasis without evidence for acute cholecystitis.. Minor diverticular changes of the colon without evidence for acute diverticulitis. No evidence for small bowel obstruction. No site of contrast accumulation within the bowel to suggest acute intraluminal hemorrhage at this time Radionuclide tagged red blood cells study would be helpful for further evaluation if clinically warranted Electronically Signed: David Bedoya MD at 20:39 EST Reading Location ID and State: [address] [place] [address] , Service support , D/C Instructions Discharge Diet: Low fat / Low cholesterol and 1800 Calorie Control Diet Discharge Activity: Return to Normal Activity and No Restrictions Meaningful Use Info Meaningful Use Diagnoses (Choose all that apply): None applicable Discharge Plan Admission Admit Date/Time: 07/05/22 18:42 Primary Reason for Your Visit: Rectal Bleeding Attending Provider: Sarah Vera Primary Care Provider: Jose G Chahal Consulting Providers: Nena Mcallister Instructions Additional Instructions / Restrictions: 1. Your bleeding is highly suspicious for diverticular bleed. Your hemoglobin/blood counts stabilized. 2. Hold Plavix and aspirin for 5 days and I would discuss whether or not you need ongoing Plavix with your primary school childcare attendant since it has been 3 years since your last stent placement 3. Please return to the emergency department if you have repeat bleeding otherwise schedule appointment with Dr. Decker as directed below Discharge Orders/Prescriptions Prescriptions: Continued coenzyme Q10 [CoQ-10] 100 mg capsule 100 mg PO DAILY cholecalciferol (vitamin D3) 50 mcg (2,000 unit) capsule 50 mcg PO DAILY fluoxetine 40 mg capsule 40 mg PO DAILY glimepiride 2 mg tablet 2 mg PO DAILY multivitamin 1 EACH tablet 1 ea PO DAILY atorvastatin 20 MG tablet 20 mg PO QHS hydrochlorothiazide 25 MG tablet 25 mg PO DAILY metformin 1,000 MG tablet,ER leanna.retention 24 hr 1,000 mg PO BID amlodipine 5 mg tablet 5 mg PO DAILY Label Comments: at night lorazepam 0.5 mg tablet 0.5 mg PO BID PRN (Reason: Anxiety) potassium chloride 8 mEq tablet extended release 24 meq PO DAILY metoprolol tartrate 25 mg tablet 12.5 mg PO BID Qty: 90 3RF Held aspirin 81 MG tablet 81 mg PO DAILY@0800 Qty: 30 0RF Hold Instructions: x 5 days clopidogrel 75 mg tablet 75 mg PO DAILY Qty: 90 3RF Hold Instructions: x 5 days Referrals / Follow Up: Gonzalez Decker DO [Med Staff - Active Staff] - Within 1 Month (follow up for rectal bleeding) Jose G Chahal MD [Primary Care Provider] - Within 2 Weeks Disposition Disposition (needs filled in before D/C Order can be placed): Home, Self Care Charges/Coding Visit Charges Inpatient E&M: 32327 Disch Hosp >30min
[2022-07-06 12:23] LABS: Hemoglobin 11.3 g/dL (12.0-15.0)
[2022-07-06 12:41] VITALS: BP 112/49; PULSE 62; RESP 18; TEMP 36.6; O2SAT 98
--- NOTE | 2022-07-06 13:24 | CASEMGMT ---
RN CM NOTE: Pt being discharged. RN CM to room. Introduced self and role. Pt denies having any discharge planning needs or concerns. Luiz GUARDADON RN CM
--- NOTE | 2022-07-06 13:28 | PHA.DC.MR ---
Pharmacy Service has performed discharge medication reconciliation for this patient. The patient's discharge medication list was reviewed for discrepancies and discrepancies were resolved. Home Medications atorvastatin 20 mg tablet 20 mg PO QHS 06/18/17 hydrochlorothiazide 25 mg tablet 25 mg PO DAILY 06/18/17 metformin 1,000 mg 24 hr tablet,extended release 1,000 mg PO BID 06/18/17 multivitamin 1 ea PO DAILY 06/18/17 aspirin 81 mg tablet,delayed release 81 mg PO DAILY@0800 #30 tabs 06/22/17 amlodipine 5 mg tablet 5 mg PO DAILY 10/03/17 coenzyme Q10 100 mg capsule (CoQ-10) 100 mg PO DAILY 05/08/18 lorazepam 0.5 mg tablet 0.5 mg PO BID PRN Anxiety 06/28/19 cholecalciferol (vitamin D3) 50 mcg (2,000 unit) capsule 50 mcg PO DAILY 03/24/21 potassium chloride 8 mEq tablet,extended release 24 meq PO DAILY 03/24/21 fluoxetine 40 mg capsule 40 mg PO DAILY 03/30/22 glimepiride 2 mg tablet 2 mg PO DAILY 03/30/22 metoprolol tartrate 25 mg tablet 12.5 mg PO BID #90 tabs 04/02/22 clopidogrel 75 mg tablet 75 mg PO DAILY #90 tabs 06/30/22
== END 2022-07-06 14:00 | disposition home or self-care (01) ==
LOC: ED 15:37 → MS3 19:05
PROVIDERS: Admitting Provider Family Medicine; Emergency Provider Emergency Medicine; PCP Internal Medicine Infectious Disease; Visit Provider Internal Medicine
DX: K92.2 Gastrointestinal hemorrhage, unspecified (principal); E11.9 Type 2 diabetes mellitus without complications; Z95.5 Presence of coronary angioplasty implant and graft; D62 Acute posthemorrhagic anemia; F41.9 Anxiety disorder, unspecified; E78.5 Hyperlipidemia, unspecified; F32.A Depression, unspecified; I25.10 Atherosclerotic heart disease of native coronary artery without angina pectoris; I10 Essential (primary) hypertension; Z79.84 Long term (current) use of oral hypoglycemic drugs; Z79.899 Other long term (current) drug therapy; Z79.82 Long term (current) use of aspirin
CPT/HCPCS: 36415; 74177; 80053; 82962; 85014; 85018; 85025; 86850; 86900; 86901; 94668; 96361; 96365; 99221; 99252; 99284; J7030; Q9967; A4216; G0378; G0463

== ENCOUNTER → 2022-07-21 | Outpatient (CLI) | payer MEDICARE, OTHER, SELFPAY ==
[2022-07-21 15:46] LABS: Hematocrit 36.1 % (37-47); Hemoglobin 11.5 g/dL (12.0-15.0)
== END | disposition home or self-care (01) ==
LOC: LAB 15:22
PROVIDERS: PCP Internal Medicine Infectious Disease; Visit Provider Internal Medicine Gastroenterology
DX: I25.10 Atherosclerotic heart disease of native coronary artery without angina pectoris (principal)
CPT/HCPCS: 36415; 85014; 85018

== ENCOUNTER → 2023-08-01 | Outpatient (CLI) | payer MEDICARE, OTHER, SELFPAY ==
--- NOTE | 2023-08-01 13:50 | ECHOD_ITS ---
Reason For Study: HTN, Dilated Ao Root Procedure This was a 2D Doppler, Color Flow transthoracic echocardiogram. Exam performed in department. Left Ventricle Normal LV size. Sigmoid septum. Left ventricular systolic function is normal. The estimated ejection fraction is 65 %. Stage 1 diastolic dysfunction. No regional wall motion abnormalities noted. Right Ventricle Normal RV size. Normal systolic function. Atria Normal left atrium. Normal right atrium. Mitral Valve Normal mitral valve. Trivial eccentric mitral valve insufficiency. Tricuspid Valve Normal tricuspid valve. Mild tricuspid valve insufficiency. Pulmonary artery systolic pressure is 22 mmHg. Aortic Valve Trisinus/trileaflet aortic valve. Mild (1+) aortic valve insufficiency. Pulmonic Valve Normal pulmonic valve. Trivial pulmonic valve insufficiency. Great Vessels Dilated aortic root measuring 4.4 cm at the sinus and 4.1 cm at the root. The pulmonary artery is normal size. Normal inferior vena cava. Pericardium/Pleural No pericardial effusion. MMode/2D Measurements & Calculations LVIDd: 3.6 cm IVSd: 1.5 cm Ao root diam: 4.4 cm LVIDs: 2.3 cm LVPWd: 1.1 cm RVDd: 3.3 cm FS: 36.2 % LAV(MOD-bp): 63.1 ml LVAd ap4: 24.0 cm2 LVAd ap2: 23.6 cm2 LAV(MOD-bp) Indexed: 35.0 ml/m2 LVLd ap4: 7.4 cm LVLd ap2: 7.5 cm LAV(MOD-sp2): 69.4 ml EDV(MOD-sp4): 63.7 ml EDV(MOD-sp2): 60.4 ml LAV(MOD-sp4): 56.7 ml EDV(sp4-el): 66.5 ml EDV(sp2-el): 63.5 ml LVAs ap4: 13.2 cm2 LVAs ap2: 12.1 cm2 LVLs ap4: 6.3 cm LVLs ap2: 6.6 cm ESV(MOD-sp4): 24.4 ml ESV(MOD-sp2): 19.3 ml ESV(sp4-el): 23.8 ml ESV(sp2-el): 18.8 ml EF(MOD-sp4): 61.7 % EF(MOD-sp2): 68.1 % EF(sp4-el): 64.2 % SV(MOD-sp4): 39.3 ml SV(MOD-sp2): 41.1 ml SV(sp4-el): 42.7 ml LA dimension(2D): 3.5 cm LA A4 area: 19.9 cm2 RA A4 area: 15.6 cm2 TAPSE: 2.6 cm Time Measurements MV dec time: 0.28 sec Doppler Measurements & Calculations MV E max jarrod: 50.4 cm/sec Lat Peak E' Jarrod: 4.6 cm/sec Med Peak E' Jarrod: 5.3 cm/sec MV A max jarrod: 73.4 cm/sec E/E' lat: 10.9 E/E' med: 9.5 MV E/A: 0.69 MV dec slope: 180.3 cm/sec2 Ao V2 max: 148.7 cm/sec AI max jarrod: 398.6 cm/sec Ao max P.8 mmHg AI max P.6 mmHg Ao V2 mean: 108.2 cm/sec AI dec slope: 184.4 cm/sec2 Ao mean P.1 mmHg AI P1/2t: 633.3 msec Ao V2 VTI: 33.3 cm AV (velocity ratio): 0.86 LV V1 max: 119.2 cm/sec PA V2 max: 86.4 cm/sec TR max jarrod: 217.7 cm/sec LV V1 max P.7 mmHg TR max P.0 mmHg LV V1 mean P.9 mmHg LV V1 mean: 79.0 cm/sec LV V1 VTI: 28.5 cm ECHO/Echo Complete Interpretation Summary Normal LV size. Left ventricular systolic function is normal. The estimated ejection fraction is 65 %. Dilated aortic root measuring 4.4 cm at the sinus and 4.1 cm at the root Mild (1+) aortic valve insufficiency. Stage 1 diastolic dysfunction. Ordering Physician: Yoana Sethi Referring Physician: Jose G Chahal Performed By: Sarah Andrea RDCS
== END | disposition home or self-care (01) ==
LOC: CVS 13:49
PROVIDERS: PCP Internal Medicine Infectious Disease; Referring Provider Nurse Practitioner Gerontology; Visit Provider Nurse Practitioner Gerontology
DX: I25.10 Atherosclerotic heart disease of native coronary artery without angina pectoris (principal); I77.810 Thoracic aortic ectasia; Z95.5 Presence of coronary angioplasty implant and graft; I10 Essential (primary) hypertension
CPT/HCPCS: 93306

== ENCOUNTER → 2024-02-10 | Outpatient (CLI) | payer MEDICARE, OTHER, SELFPAY ==
--- NOTE | 2024-02-10 17:06 | RAD_ITS ---
EXAM: XR LEFT RIBS, 2 VIEWS CLINICAL INDICATION: rib pain TECHNIQUE: Frontal and oblique views of the left ribs. COMPARISON: No relevant prior studies available. FINDINGS: LUNGS AND PLEURAL SPACES: Unremarkable. No consolidation or edema. No pneumothorax. No effusion. BONES/JOINTS: Unremarkable. No displaced fracture. No sclerotic or destructive changes observed. SOFT TISSUES: Unremarkable. No soft tissue swelling or gas. RAD/Ribs Unil 2V No CXR IMPRESSION: No evidence of displaced rib fracture. Electronically Signed: Jaden Zuleta MD at 18:03 EDT ,
== END | disposition home or self-care (01) ==
LOC: MTRAD 17:06
PROVIDERS: PCP Internal Medicine Infectious Disease; Referring Provider Physician Assistant Surgical; Visit Provider Physician Assistant Surgical
DX: R07.81 Pleurodynia (principal)
CPT/HCPCS: 71100

== ENCOUNTER → 2024-10-09 | Outpatient (CLI) | payer MEDICARE, OTHER, SELFPAY ==
[2024-10-09 13:04] LABS: Absolute Lymphocyte Count 1.65 X10^3/uL (0.83-4.51); Absolute Neutrophil Count 7.7 X10^3/uL (2.0-7.7); Basophil# 0.06 X10^3/uL; Basophil% 0.6 % (0-1); Eosinophil# 0.17 X10^3/uL; Eosinophils% 1.6 % (0-5); Hematocrit 36.8 % (37-47); Hemoglobin 11.8 g/dL (12.0-15.0); Lymphocyte # 1.65 X10^3/ul (0.83-4.51); Mean Corp Hgb Conc 32.1 g/dL (32-36); Mean Corpuscular Volume 90.4 fL (81-99); Mean Platelet Vol. 9.4 fl (6.2-12.0); Monocyte# 0.75 X10^3/uL; Monocyte% 7.3 % (0-10); NRBC Flagged by Analyzer 0 % (0-5); Neutrophil # 7.66 X10^3/uL (2.7-7.7); Neutrophil % 74.1 % (47-70); Platelet Count 368 K/mm3 (150-450); RBC Distribution Width CV 13.4 % (11.6-14.6); RBC Distribution Width SD 44.1 fl (35.1-43.9); Red Blood Count 4.07 M/mm3 (4.2-5.4); White Blood Count 10.3 K/mm3 (4.4-11.0)
[2024-10-09 15:02] LABS: Hemoglobin A1c 7.2 % (<=5.6)
[2024-10-09 15:25] LABS: ALB/GLOB Ratio 1.5 RATIO (0.9-2.4); AST(SGOT) 23 U/L (<=31); Alanine Aminotransfer ALT/SGPT 18 U/L (<=34); Albumin, Serum 4.1 g/dL (3.4-4.8); Alkaline Phosphatase 74 U/L (35-104); Anion Gap 12 (5-15); BUN 22 mg/dL (4-19); Carbon Dioxide 24.4 mmol/L (21.0-32.0); Chloride 102 mmol/L (98-108); Cholesterol 146 mg/dL (<=200); Creatinine, Serum 0.97 mg/dL (0.70-1.20); EST Glomerular Filtration Rate 58 (>60); Ferritin 41 ng/mL (22-378); Globulin 2.8 g/dL (2.2-4.2); Glucose 132 mg/dL (70-99); High Density Lipoprotein 65 mg/dL; Low Density Lipoprotein Calc. 65 mg/dL; Potassium 4.1 mmol/L (3.3-5.1); Protein, Total 6.9 g/dL (5.9-8.4); Sodium Level 138 mmol/L (133-145); Total Bilirubin 0.37 mg/dL (0.00-1.30); Triglycerides 84 mg/dL; Very Low Density Lipoprotein 17 mg/dL (5-40); Vitamin B12 410 pg/mL (180-914); cholesterol:hdl ratio screen 2.26
[2024-10-09 15:45] LABS: Iron 51 ug/dL (50-170); Iron Binding Capacity,Total 338 ug/dL (250-450); Iron Binding Capacity,Unsat 287 ug/dL (228-428)
== END | disposition home or self-care (01) ==
LOC: VSLAB 09:26
PROVIDERS: PCP Nurse Practitioner Family; Visit Provider Nurse Practitioner Family
DX: E11.9 Type 2 diabetes mellitus without complications (principal); E78.5 Hyperlipidemia, unspecified; R54 Age-related physical debility
CPT/HCPCS: 36415; 80053; 80061; 82607; 82728; 83036; 83540; 83550; 85025

== ENCOUNTER 2025-03-26 06:20 | Day surgery (SDC) | payer MEDICARE, OTHER, SELFPAY ==
--- NOTE | 2025-03-22 16:15 | PAT.ANESEVAL ---
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 When Was Last Pacemaker Check QUESTION #4 FULL TEXT: You/Your Family Experience fever (hyperthermia) with Anesthesia Last Oral Intake Last Oral intake: Last Oral Intake NPO since Meds taken in AM with sips of water? 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 Female Yes 03/22/25 13:56 HX of Motion Sickness Yes 03/22/25 13:56 HX of N/V After Surgery No 03/22/25 13:56 Non-Smoker Yes 03/22/25 13:56 Duration of Surgery greater No 03/22/25 13:56 than 60 minutes Number of Risk Factors 3 03/22/25 13:56 PONV Score Moderate Risk 03/22/25 13:56 Height & Weight Height & Weight: Anesthesia: Height & Weight Height 5 ft 5 in 03/13/25 14:07 Respiratory Assessment Respiratory Assessment - core winder machine operator: Respiratory Tract Infection Hx - 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 Has anyone observed you stop No 03/22/25 13:56 breathing during sleep? STOP Results Positive 03/22/25 13:56 QUESTION #5 FULL TEXT : Do you snore loudly (louder than talking or can be heard through closed doors)? 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 Specify any problems Hx of Preganancy in last 3 No 03/22/25 13:56 Months Nurse Filling Out Transfusion DSCHRIBER 03/22/25 13:56 & Questions: Date: 03/22/25 03/22/25 13:56 Time: 13:57 03/22/25 13:56 Patient unable to answer at this time (ie. 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: /Reproductive Hx- core winder machine operator Hx Now No 03/22/25 13:56 Gestational Age (in weeks): EDC: Hx Hx Para Hx Section SAB No 03/22/25 13:56 [facility] Medical History (Updated 03/22/25 @ 14:04 by Jocelin Tinsley) Wears glasses Wears dentures Post-menopausal Arthritis High cholesterol Restless legs Migraine headache History of diverticulitis Heartburn Non-smoker Shortness of breath on exertion History of edema History of stress test History of echocardiogram Cardiology follow-up encounter Anxiety Depression Diabetes Coronary artery disease Hypertension Chronic anemia Aortic root dilatation Atherosclerosis of coronary artery of [place] heart without angina pectoris Home Medications Medication Instructions Recorded Last Taken Type atorvastatin 20 mg tablet 20 mg PO QHS 06/18/17 12/17/17 History metformin 1,000 mg 24 hr 1,000 mg PO BID 06/18/17 12/17/17 History tablet,extended release (gastric reten.) multivitamin 1 ea PO DAILY 06/18/17 12/17/17 History aspirin 81 mg tablet,delayed 81 mg PO DAILY@0800 #30 tabs 06/22/17 03/21/25 Rx release lorazepam 0.5 mg tablet 0.5 mg PO BID PRN Anxiety 06/28/19 Unknown History cholecalciferol (vitamin D3) 50 50 mcg PO DAILY 03/24/21 Unknown History mcg (2,000 unit) capsule fluoxetine 40 mg capsule 40 mg PO DAILY 03/30/22 Unknown History glimepiride 2 mg tablet 2 mg PO DAILY 03/30/22 03/21/25 History calcium 600 mg-D3 20 mcg-magnesium 1 tab PO QDAY 03/07/24 Unknown History 50 mg-copper 1 [id number] tablet coenzyme Q10 200 mg capsule 200 mg PO QDAY 03/07/24 Unknown History amlodipine 5 mg tablet 2.5 mg (1/2 x 5 mg) PO DAILY #90 03/09/24 Unknown Rx tabs metoprolol tartrate 25 mg tablet 12.5 mg (1/2 x 25 mg) PO BID #90 03/29/24 Unknown Rx tabs spironolactone 25 mg tablet 25 mg PO DAILY #90 tabs 06/12/24 Unknown Rx buspirone 5 mg tablet 5 mg PO TID 11/29/24 Unknown History fluoxetine 10 mg capsule 10 mg PO QDAY 11/29/24 Unknown History inulin 1.7 gram chewable tablet 1.7 g PO DAILY 11/29/24 Unknown History (Fiber Gummies) Allergy/AdvReac Type Severity Reaction Status Date / Time cephalexin (From Keflex) Allergy Swelling Verified 03/22/25 13:52 lisinopril Allergy Swelling Verified 03/22/25 13:52 codeine AdvReac Upset Verified 03/22/25 13:52 Stomach Family History Father Heart disease Mother Cancer Surgical History (Updated 03/22/25 @ 14:04 by Jocelin Tinsley) History of cardiac catheterization Hx of colonoscopy History of bilateral cataract extraction History of coronary artery stent placement (06/21/17) History of hysterectomy Social History Smoking Status: Never smoker alcohol intake: never substance use type: does not use caffeine: Yes Type: carbonated beverages what type of physical activity do you participate in: none seatbelt use: always do you feel safe at home: Yes Audit: Pertinent Findings Pertinent Findings EKG Perinent findings: 02/19/2019. Normal sinus rhythm. Stress test pertinent findings: 04/23/2022. EF is 73%. No areas of reversibility are noted suggest ischemia. No previous infarct. Echo (EF%) pertinent findings: August 01, 2023. EF is 65%. PASP is 22 mmHg. No aortic stenosis noted. Aortic root at 4.4 cm at the sinus and 4.1 cm at the root. Consult pertinent findings: November 29, 2024. Dr. Ortiz. 1. Coronary artery stent placement-status post PCI/KAM to the proximal RCA in 2017. Most recent stress in 2021 was negative for ischemia. Stable at this time. Continue current medical therapy. 2. [id number]. Continue medical therapy. 3. Aortic root dilation-last echo 08/01/2023 shows mild dilated aortic root at 4.4 cm. Continue to monitor. Recommendation Anesthesia Recommendation Anesthesia recommendation: OPTIMIZED for anesthesia
[2025-03-26] VITALS (8 sets, daily range): BP systolic 119–134; BP diastolic 60–67; PULSE 60–70; RESP 15–16; TEMP 36.6–36.8; O2SAT 92–96; BMI 26.0
--- OUTSIDE RECORDS SUMMARY | 2025-03-26 06:40 | XMS RPT_ITS | CCD ---
Author Organization [facility] Care Team Providers Care Database Report Writer Name Role Phone Dr. Jessica Escobar Primary Care Provider Dr. Jessica Escobar Referring Provider Dr. Etienne Ortiz Attending Provider Dr. Etienne Ortiz Referring Provider Dr. Etienne Ortiz Other Provider MD Rosa Elena [place] Emergency Provider Dr. Nnea Mcallister Admit Provider Dr. Nena Mcallister Other Provider Friend, Dr. Roth Attending Provider Dr. Sarah Vera Attending Provider Dr. Sarah Vera Other Provider Dr. Jessica Escobar Primary Care Provider Dr. Etienne Ortiz Attending Provider Dr. Jessica Escobar Referring Provider Dr. Jessica Escobar Primary Care Provider Dr. Jessica Escobar Referring Provider Navdeep NICHOLS, GLENNA Lees Attending Provider Dr. Etienne Ortiz Attending Provider Unavailable Primary Care Provider Unavailabl e JESSICA ESCOBAR MD Admitting Unavailable JESSICA ESCOBAR MD Primary Care Unavailable JESSICA ESCOBAR MD Consulting Unavailable JESSICA ESCOBAR MD Attending Unavailable PROVIDER, UNKNOWN Consulting Unavailable PROVIDER, UNKNOWN Consulting Unavailable PROVIDER, UNKNOWN Consulting Unavailable JESSICA ESCOBAR MD Admitting Unavailable JESSICA ESCOBAR MD Primary Care Unavailable JESSICA ESCOBAR MD Consulting Unavailable JESSICA ESCOBAR MD Attending Unavailable PROVIDER, UNKNOWN Consulting Unavailable PROVIDER, UNKNOWN Consulting Unavailable PROVIDER, UNKNOWN Consulting Unavailable JESSICA ESCOBAR MD Attending Unavailable JESSICA ESCOBAR MD Admitting Unavailable JESSICA ESCOBAR MD Primary Care Unavailable JESSICA ESCOBAR MD Consulting Unavailable PROVIDER, UNKNOWN Consulting Unavailable PROVIDER, UNKNOWN Consulting Unavailable PROVIDER, UNKNOWN Consulting Unavailable JESSICA ESCOBAR MD Admitting Unavailable JESSICA ESCOBAR MD Primary Care Unavailable JESSICA ESCOBAR MD Consulting Unavailable JESSICA ESCOBAR MD Attending Unavailable PROVIDER, UNKNOWN Consulting Unavailable PROVIDER, UNKNOWN Consulting Unavailable PROVIDER, UNKNOWN Consulting Unavailable Tannhof WE[employer]ER-C, Anh Primary Care Provider [phone] Alden WELL SHOOTER-CAnh Attending Provider [phone] Fela LOVETT, Dr. Araiza Referring Provider [phone] Dr. Etienne Ortiz MD Attending Provider [phone] Tannhof, Anh Primary Care Unavailable Alexeihof, Anh Referring Unavailable Brian Lim Attending Unavailable Alexeihof, Anh Primary Care Unavailable Anh Ruano Attending Unavailable Tannhof, Anh Primary Care Unavailable Tannhof, Anh Referring Unavailable Brian Lim Attending Unavailable Tannhof, Anh Primary Care Unavailable Etienne Ortiz Attending Unavailable Jessica Escobar Referring Unavailable Allergies Allergy Classification Reported Allergen(s) Allergy Type Date of Onset Reaction(s) Facility (9 sources) Cephalexin Drug Allergy 03-30-2022 [facility] (9 sources) Codeine Drug Allergy 03-30-2022 GI Upset [facility] (9 sources) Lisinopril Drug Allergy 03-30-2022 [facility] (1 source) Cephalexin Drug Allergy 03-22-2025 [facility]ository (1 source) Codeine Drug Allergy 03-22-2025 [facility] (1 source) Lisinopril Drug Allergy 03-22-2025 [facility] Repository Medications Current Medications Medication Drug Class(es) Dates Sig (Normalized) Sig (Original) amLODIPine 5 mg oral tablet (20 sources) Dihydropyridine Calcium Channel Nando Start: 03-09-2024 take 0.5 tablet by mouth once amLODIPine (NORVASC) 5 mg tablet Take 0.5 tablets by mouth every afternoon. 03/09/2024 Active Start: 11-14-2023 End: 03-09-2024 take 2.5 mg by mouth once daily Amlodipine 5 mg tablet Active 2.5 mg PO DAILY March 09, 2024 5:22pm Start: 06-18-2017 End: 11-14-2023 take 1 tablet by mouth once daily Amlodipine 5 mg tablet Discontinued 5 mg PO DAILY October 03, 2017 1:28pm November 14, 2023 4:32pm aspirin 81 mg delayed release oral tablet (8 sources) Platelet Aggregation Inhibitor, Nonsteroidal Anti-inflammatory Drug Start: 06-22-2017 take 1 tablet by mouth once daily Aspirin 81 MG tablet Active 81 mg PO DAILY@0800 30 0 June 22, 2017 1:00am atorvastatin 20 mg oral tablet (9 sources) HMG-CoA Reductase Inhibitor Start: 06-18-2017 take 1 tablet by mouth at bedtime Atorvastatin 20 MG tablet Active 20 mg PO AT BEDTIME June 18, 2017 1:00am benzonatate 100 mg oral capsule (1 source) Non-narcotic Antitussive Start: 05-25-2024 take 1 capsule by mouth every eight hours as needed benzonatate (TESSALON PERLE) 100 mg capsule Take 1 capsule by mouth three times a day as needed. 21 capsule 05/25/2024 Active busPIRone hydrochloride 5 mg oral tablet (1 source) Start: 11-29-2024 take 1 tablet by mouth three times daily in the morning, then take 2 tablets by mouth in the evening Buspirone 5 mg tablet Active 5 mg PO THREE TIMES A DAY November 29, 2024 12:00am 5mg AM, Lunch and 10mg at PM Ca Carb-D3-Mag Eu-Ofo-Rkcy-Zn 600 mg-20 mcg- 50 mg-1 mg tablet (2 sources) Start: 03-07-2024 Ca Carb-D3-Mag Po-Kic-Xtke-Zn 600 mg-20 mcg- 50 mg-1 mg tablet Active {tbl} PO daily March 07, 2024 12:00am cholecalciferol 0.05 mg oral capsule (8 sources) Vitamin D Start: 03-24-2021 take 1 capsule by mouth once daily Cholecalciferol (Vitamin D3) 50 mcg (2,000 unit) capsule Active 50 ug PO DAILY March 24, 2021 12:00am FLUoxetine 10 mg oral capsule (18 sources) Serotonin Reuptake Inhibitor Start: 11-29-2024 take 1 capsule by mouth once daily Fluoxetine 10 mg capsule Active 10 mg PO daily November 29, 2024 12:00am Start: 03-30-2022 take 1 capsule by mo [facility] once daily Fluoxetine 40 mg capsule Active 40 mg PO DAILY March 30, 2022 12:00am Start: 06-28-2019 End: 03-30-2022 take 1 capsule by mouth once daily Fluoxetine 20 mg capsule Discontinued 20 mg PO DAILY June 28, 2019 1:00am March 30, 2022 11:24am glimepiride 2 mg oral tablet (17 sources) Sulfonylurea Start: 03-30-2022 take 1 tablet by mouth once daily Glimepiride 2 mg tablet Active 2 mg PO DAILY March 30, 2022 12:00am Start: 06-18-2017 End: 03-30-2022 take 2 tablets by mouth at dinner Glimepiride 1 MG tablet Discontinued 2 mg PO WITH DINNER June 18, 2017 1:00am March 30, 2022 11:25am Start: 06-18-2017 End: 03-30-2022 take 2 mg by mouth at dinner Glimepiride Discontinued 2 MG PO WITH DINNER June 18, 2017 12:00am March 30, 2022 10:25am Inulin (1 source) Start: 11-29-2024 Inulin (Fiber Gummies) 1.7 gram tablet,chewable Active g PO November 29, 2024 12:00am LORazepam 0.5 mg oral tablet (16 sources) Benzodiazepine Start: 06-18-2017 End: 06-28-2019 take 1 tablet by mouth twice daily as needed for anxiety Lorazepam 0.5 mg tablet Active 0.5 mg PO TWICE A DAY as needed for Anxiety June 28, 2019 11:55am modified 24 hr metFORMIN hydrochloride 1000 mg extended release oral tablet (8 sources) Biguanide Start: 06-18-2017 take 1 tablet by mouth twice daily Metformin 1,000 MG tablet,ER leanna.retention 24 hr Active 1000 mg PO TWICE A DAY June 18, 2017 1:00am Multivitamin 1 EACH tablet (2 sources) Start: 06-18-2017 Multivitamin 1 EACH tablet Active 1 NMA PO DAILY June 18, 2017 1:00am Multivitamin preparation (6 sources) Start: 06-18-2017 Multivitamin Active 1 EACH PO DAILY June 18, 2017 12:00am spironolactone 25 mg oral tablet (5 sources) Aldosterone Antagonist Start: 06-23-2023 End: 06-12-2024 take 1 tablet by mouth once daily Spironolactone 25 mg tablet Active 25 mg PO DAILY 90 3 June 12, 2024 4:10pm ubidecarenone 200 mg oral capsule (18 sources) Start: 03-07-2024 take 10 capsules by mouth once daily Coenzyme Q10 200 mg capsule Active 200 mg PO daily March 07, 2024 12:00am Start: 05-08-2018 End: 03-07-2024 Coenzyme Q10 (Coq-10) 100 mg capsule Discontinued 100 mg PO DAILY May 08, 2018 1:00am March 07, 2024 11:06am Start: 06-18-2017 End: 10-03-2017 take 10 capsules by mouth once daily Coenzyme Q10 100 MG capsule Discontinued 100 mg PO DAILY June 18, 2017 1:00am October 03, 2017 1:30pm Completed/Discontinued Medications Medication Drug Class(es) Dates Sig (Normalized) Sig (Original) calcium carbonate 1500 mg / cholecalciferol 800 unt oral tablet (8 sources) Vitamin D Start: 06-18-2017 End: 03-24-2021 Calcium Carbonate-Vitamin D3 1 EACH tablet Discontinued 1 NMA PO TWICE A DAY June 18, 2017 1:00am March 24, 2021 10:05am Start: 06-18-2017 End: 03-24-2021 Calcium Carbonate-Vitamin D3 Discontinued 1 EACH PO TWICE A DAY June 18, 2017 12:00am March 24, 2021 9:05am clopidogrel 75 mg oral tablet (20 sources) P2Y12 Platelet Inhibitor Start: 06-22-2017 End: 07-08-2022 take 1 tablet by mouth once daily Clopidogrel 75 mg tablet Discontinued 75 mg PO DAILY 90 3 June 30, 2022 5:42pm July 08, 2022 1:56pm On Hold: x 5 days hydroCHLOROthiazide 25 mg oral tablet (8 sources) Thiazide Diuretic Start: 06-18-2017 End: 06-23-2023 take 1 tablet by mouth once daily Hydrochlorothiazide 25 MG tablet Discontinued 25 mg PO DAILY June 18, 2017 1:00am June 23, 2023 12:05pm methylPREDNISolone 4 mg oral tablet (2 sources) Corticosteroid Start: 02-10-2024 End: 02-16-2024 take 1 tablet by mouth once Methylprednisolone (Medrol (Kaleb)) 4 mg tablets,dose pack Discontinued 4 mg PO per package directions 21 6 February 10, 2024 12:00am February 15, 2024 12:00am February 16, 2024 12:06am metoprolol tartrate 25 mg oral tablet (20 sources) beta-Adrenergic Nando Start: 06-22-2017 End: 03-29-2024 Metoprolol Tartrate 25 mg tablet Discontinued 12.5 mg PO TWICE A DAY April 04, 2023 6:06pm March 29, 2024 1:49pm Start: 06-22-2017 End: 04-04-2023 take 12.5 mg by mouth twice daily Metoprolol Tartrate Active 12.5 MG PO TWICE A DAY April 04, 2023 5:06pm potassium chloride 8 meq extended release oral tablet (20 sources) Start: 06-23-2023 End: 07-04-2023 take 2 tablets by mouth once daily Potassium Chloride 8 mEq tablet extended release Discontinued 16 meq PO DAILY June 23, 2023 12:06pm July 04, 2023 5:45pm Start: 06-23-2023 End: 07-04-2023 take 16 mEq by mouth once daily Potassium Chloride Dis continued 16 MEQ PO DAILY June 23, 2023 11:06am July 04, 2023 4:45pm Start: 06-23-2023 End: 06-23-2023 take 4 tablets by mouth once daily Potassium Chloride Discontinued 32 MEQ PO DAILY June 23, 2023 10:56am June 23, 2023 11:08am takes 4 tablets daily Start: 06-23-2023 End: 06-23-2023 take 4 tablets by mouth once daily Potassium Chloride 8 mEq tablet extended release Discontinued 32 meq PO DAILY June 23, 2023 11:56am June 23, 2023 12:08pm takes 4 tablets daily Start: 06-23-2023 End: 06-23-2023 take 4 tablets by mouth once daily Potassium Chloride Discontinued 28 MEQ PO DAILY June 23, 2023 10:50am June 23, 2023 10:56am takes 4 tablets daily Start: 03-24-2021 End: 06-23-2023 take 3 tablets by mouth once daily Potassium Chloride 8 mEq tablet extended release Discontinued 24 meq PO DAILY March 24, 2021 10:06am June 23, 2023 11:50am Start: 03-24-2021 End: 06-23-2023 take 24 mEq by mouth once daily Potassium Chloride Dis continued 24 MEQ PO DAILY March 24, 2021 9:06am June 23, 2023 10:50am Start: 06-18-2017 End: 03-24-2021 take 1 tablet by mouth twice daily Potassium Chloride 8 MEQ tablet extended release Discontinued 8 meq PO TWICE A DAY June 18, 2017 1:00am March 24, 2021 10:07am simvastatin 40 mg oral tablet (8 sources) HMG-CoA Reductase Inhibitor Start: 09-22-2017 End: 10-03-2017 Simvastatin 40 mg tablet Discontinued 40 mg PO .Take As Directed September 22, 2017 12:00am October 03, 2017 1:29pm Problems Active Problems Problem Classification Problem Date Documented Da te Episodic/Chronic Aortic; peripheral; and visceral artery aneurysms (9 sources) Aortic root dilatation; Translations: [Thoracic aortic ectasia] 06-27-2020 Chronic Conditions associated with dizziness or vertigo (8 sources) Dizziness; Translations: [Dizziness and giddiness] 02-20-2019 Episodic Coronary atherosclerosis and other heart disease (8 sources) Coronary atherosclerosis; Translations: [Atherosclerotic heart disease of [place] coronary artery without angina pectoris] 11-12-2020 Chronic Diabetes mellitus without complication (10 sources) Type 2 diabetes mellitus; Translations: [Type 2 diabetes mellitus without complications] Onset: 5 03-29-2022 Chronic Disorders of lipid metabolism (14 sources) Dyslipidemia; Translations: [Hyperlipidemia, unspecified] Onset: Chronic Essential hypertension (13 sources) Essential hypertension; Translations: [Essential (primary) hypertension] Chronic Gastrointestinal hemorrhage (14 sources) Gastrointestinal hemorrhage; Translations: [Gastrointestinal hemorrhage, unspecified] 07-05-2022 Episodic Malaise and fatigue (4 sources) Fatigue; Translations: [Other fatigue] 06-23-2023 Episodic Nonspecific chest pain (8 sources) Acute chest pain; Translations: [Chest pain, unspecified] 11-12-2020 Episodic Other bone disease and musculoskeletal deformities (2 sources) Costal chondritis; Translations: [Chondrocostal junction syndrome [Tietze]] 02-10-2024 Episodic Other gastrointestinal disorders (1 source) Dysphagia, unspecified; Translations: [Dysphagia, unspecified] Onset: Episodic Other screening for suspected conditions (not mental disorders or infectious disease) (8 sources) Cardiovascular stress test abnormal; Translations: [Abnormal result of other cardiovascular function study] 11-12-2020 Episodic Viral infection (1 source) Disease caused by 2019-nCoV; Translations: [COVID-19] 05-25-2024 Episodic Past or Other Problems Problem Classification Problem Date Documented Da te Episodic/Chronic Coronary atherosclerosis and other heart disease (6 sources) Presence of coronary angioplasty implant and graft; Translations: [Percutaneous transluminal coronary angioplasty status] Onset: 06-21-2017 Episodic Results Test Name Value Interpretation Reference Range Facility MR/RODshi 03-22-2025 /PAT.ROD [facility] Medical Records Department [address] [place] [address] PAT - Anesthesia 03/22/25 1615 MR#: [id number] Acct: [id number] Name: FLORES WASHINGTON Rep #: [id number] : 1940 84 From: Mainor Reilly MD PCP: GLENNA Herrera [place] [facility] [place] C Location: [place] Pre-Assessment Diagnosis/Proposed Procedure Planned Operative Procedure(s): EGD POSS DILATION Anesthesia History 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 When Was Last Pacemaker Check QUESTION #4 FULL TEXT: You/Your Family Experience fever (hyperthermia) with Anesthesia Last Oral Intake Last Oral intake: Last Oral Intake NPO since Meds taken in AM with sips of water? Meds patient instructed to take am of surgery PONV PONV - intelligence analyst: PONV - intelligence analyst Female Yes 03/22/25 13:56 HX of Motion Sickness Yes 03/22/25 13:56 HX of N/V After Surgery No 03/22/25 13:56 Non-Smoker Yes 03/22/25 13:56 Duration of Surgery greater No 03/22/25 13:56 than 60 minutes Number of Risk Factors 3 03/22/25 13:56 PONV Score Moderate Risk 03/22/25 13:56 Height Weight Height Weight: Anesthesia: Height Weight Height 5 ft 5 in 03/13/25 14:07 Respiratory Assessment Respiratory Assessment - intelligence analyst: Respiratory Tract Infection Hx - intelligence analyst Hx Respiratory Tract Infection No 03/22/25 13:56 STOP Sleep Apnea STOP Sleep Apnea - intelligence analyst: STOP Sleep Apnea - intelligence analyst Hx Hypertension Yes: CONTROLLED WITH MED 03/22/25 13:56 Hx Sleep Apnea No 03/22/25 13:56 CPAP BIPAP Do you snore loudly (louder No 03/22/25 13:56 than talking or can be heard Do you often feel tired/ Yes 03/22/25 13:56 fatigued/ sleepy during daytime? Has anyone observed you stop No 03/22/25 13:56 breathing during sleep? STOP Results Positive 03/22/25 13:56 QUESTION #5 FULL TEXT : Do you snore loudly (louder than talking or can be heard through closed doors)? 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 Specify any problems Hx of Preganancy in last 3 No 03/22/25 13:56 Months Nurse Filling Out Transfusion DSCHRIBER 03/22/25 13:56 Questions: Date: 03/22/25 03/22/25 13:56 Time: 13:57 03/22/25 13:56 Patient unable to answer at this time (ie. confused, unrespo /Reproducti on History /Reproducti ve History - intelligence analyst: /Reproducti ve Hx- intelligence analyst Hx Now No 03/22/25 13:56 Gestational Age (in weeks): EDC: Hx Hx Para Hx Section SAB No 03/22/25 13:56 [facility] Medical History (Updated 03/22/25 @ 14:04 by Jocelin Tinsely) Wears glasses Wears dentures Post-menopausal Arthritis High cholesterol Restless legs Migraine headache History of diverticulitis Heartburn Non-smoker Shortness of breath on exertion History of edema History of stress test History of echocardiogram Cardiology follow-up encounter Anxiety Depression Diabetes Coronary artery disease Hypertension Chronic anemia Aortic root dilatation Atherosclerosis of coronary artery of [place] heart without angina pectoris Home Medications ???Medication ???Instructions ???Recorded ???Last Taken ???Type atorvastatin 20 mg tablet 20 mg PO QHS 06/18/17 12/17/17 His tory metformin 1,000 mg 24 hr 1,000 mg PO BID 06/18/17 12/17/17 History tablet,extended release (gastric reten.) multivitamin 1 ea PO DAILY 06/18/17 12/17/17 Hi story aspirin 81 mg tablet,delayed 81 mg PO DAILY@0800 #30 tabs 06/22 (more content not included)... Normal [facility] Surgery Visit Reporton 03-13 Surgery Visit Report [facility] [address] [place] [address] OFFICE VISIT Date of Service: 03/13/25 MR#: [id number] Acct: [id number] Name: FLORES WASHINGTON Jeana Rep #: [id number] : 1940 Provider: Dr. Brian hernandez MD Age/Sex: 84/F Location: [facility] Status: Signed Intake Vital Signs 11/29/24 11:18 10/15/25 14:07 Height 5 ft 5 in 5 ft 5 in Weight: 163 lb 158 lb BMI 27.1 26.2 BP 110/63 125/66 H Blood Pressure Location Lt brachial Rt brachial Position Sitting Sitting Respiration 16 16 Pulse 62 Pulse Source Monitor Intake Visit Reasons: Dysphagia Chief Complaint: dysphagia Director Food Safety Required: No Is patient in pain?: No Allergies cephalexin (From Keflex) Allergy (Verified 03/13/25 14:07) Swelling lisinopril Allergy (Verified 03/13/25 14:07) Swelling codeine Adverse Reaction (Verified 03/13/25 14:07) Upset Stomach Medications ???Medication ???Instructions ???Recorded ???Confirmed ???Type atorvastatin 20 mg tablet 20 mg PO QHS 06/18/17 03/13/25 His tory metformin 1,000 mg 24 hr 1,000 mg PO BID 06/18/17 03/13/25 History tablet,extended release (gastric reten.) multivitamin 1 ea PO DAILY 06/18/17 03/13/25 Hi story aspirin 81 mg tablet,delayed 81 mg PO DAILY@0800 #30 tabs 06/2203/13/25 Rx release lorazepam 0.5 mg tablet 0.5 mg PO BID PRN Anxiety 06/28/19 03/13/25 History cholecalciferol (vitamin D3) 50 50 mcg PO DAILY 03/24/21 03/13/25 History mcg (2,000 unit) capsule fluoxetine 40 mg capsule 40 mg PO DAILY 03/30/22 03/13/25 H istory glimepiride 2 mg tablet 2 mg PO DAILY 03/30/22 03/13/25 Hi story calcium 600 mg-D3 20 mcg-magnesium tab PO QDAY 03/07/24 03/13/25 Hi story 50 mg-copper 1 ni-knqy-zbug tablet coenzyme Q10 200 mg capsule 200 mg PO QDAY 03/07/24 03/13/25 H istory amlodipine 5 mg tablet 2.5 mg (1/2 x 5 mg) PO DAILY #90 1 03/13/25 Rx tabs metoprolol tartrate 25 mg tablet 12.5 mg (1/2 x 25 mg) PO BID #90 1 03/13/25 Rx tabs spironolactone 25 mg tablet 25 mg PO DAILY #90 tabs 06/12/24 1 Rx buspirone 5 mg tablet 5 mg PO TID 11/29/24 03/13/25 Hist ory fluoxetine 10 mg capsule 10 mg PO QDAY 11/29/24 03/13/25 Hi story inulin 1.7 gram chewable tablet g PO 11/29/24 03/13/25 History (Fiber Gummies) Have you fallen in the past year?: No PFSH Medical History Anxiety Depression Diabetes Coronary artery disease Hypertension Chronic anemia Anxiety and depression Aortic root dilatation Atherosclerosis of coronary artery of [place] heart without angina pectoris DM type 2 (diabetes mellitus, type 2) Dyslipidemia Essential (primary) hypertension Surgical History History of bilateral cataract extraction History of coronary artery stent placement (06/21/17) History of hysterectomy Family History Father Heart disease Mother Cancer Social History Smoking Status: Never smoker alcohol intake: never substance use type: does not use caffeine: Yes Type: carbonated beverages what type of physical activity do you participate in: none seatbelt use: always do you feel safe at home: Yes HPI HPI HPI: Patient is a 84-year-old female who reports dysphagia. She thinks that food is getting stuck in her distal esophagus. She says that if she eats too fast or does not chew well enough food gets stuck and eventually moves this way through. She has never had food get stuck but has not been able to pass. She has no problems swallowing pills. ROS General General: Yes fatigue; No weight change, appetite, colon cancer, breast cancer or weakness HEENT HEENT: Yes difficulty swallowing and eye surgery; No eye injury, swollen glands or hoarseness Endo Endocrine: Yes diabetes mellitus; No thyroid disease, thyroid cancer, Hair loss, heat intolerance or cold intolerance Skin Skin: No rash or changing moles Breast Breast: No left breast lump, right breast lump, nipple discharge, breast pain, abnormal mammogram, abnormal US or breast enlargement Musc Musculoskeletal: Yes arthritis; No back problems, rheumatoid arthritis, gout or joint pain Cardio Cardiovascular: Yes high blood pressure and heart stent; No murmur, pacemaker, heart disease, atrial fibrillation, heart attack, palpitations, shortness of breath with exertion or chest pain Psych Psychiatric: No depression, anxiety or hearing voices Resp Respiratory: No shortness of breath, No sleep apnea, No cough, No COPD, No asthma, No emphysema and No wheezing Gastro Gastrointestinal: No abdominal pain, No na (more content not included)... Normal [facility] Cardiology Visit Reporton Cardiology Visit Report [facility] [address] [place] [address] OFFICE VISIT Date of Service: 11/29/24 MR#: [id number] Acct: [id number] Name: FLORES WASHINGTON Rep #: [id number] : 1940 Provider: Dr. Etienne Ortiz MD Age/Sex: 84/F Location: [facility] Status: Signed HPI HPI History of Present Illness Details: This is a 84-year-old female who presents here today for a cardiovascular follow-up. She has a history of coronary artery disease status post PCI/KAM to RCA in May 2017, hypertension, hyperlipidemia, and diabetes. Patient presented to [facility] in May 2017 with chest pain. She was admitted and underwent a cardiovascular stress test. Her stress test was read abnormal and she underwent a heart catheterization. Heart catheterization revealed left main with mild calcification, LAD with less than 30% stenosis, diagonal 1 with less than 30% stenosis, circumflex artery with less than 30% stenosis, proximal RCA with 85% stenosis, and proximal right PDA that was angiographically normal. Patient underwent successful PTCA/KAM of the Proximal RCA with a 4.0 x 12 Promus Synergy stent, post dilated with a 4.0 x 8 NC, followed at the ostium of the stent with a 4.5 x 8 NC balloon. In June of last year, she presented to the emergency room for a GI bleed. She did follow with Dr. Decker, and her Plavix was discontinued at that time. From a cardiac standpoint, the patient is doing well. She denies any palpitations, chest pain, pressure or heaviness. She denies SOB, Orthopnea, and PND. She does not have bleeding issues; no blood in urine, stool or nosebleeds. She denies any decrease in energy level, myalgias, or claudication. She does not have edema, or sudden weight gain. She denies dizziness, lightheadedness, syncopal or near syncopal episodes, and headaches. 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 Food Safety Required: No Accompanied by: Granddaughter Is patient in pain?: No Allergies cephalexin (From Keflex) Allergy (Verified 11/29/24 11:20) Swelling lisinopril Allergy (Verified 11/29/24 11:20) Swelling codeine Adverse Reaction (Verified 11/29/24 11:20) Upset Stomach Medications ???Medication ???Instructions ???Recorded ???Confirmed ???Type atorvastatin 20 mg tablet 20 mg PO QHS 06/18/17 11/29/24 His tory metformin 1,000 mg 24 hr 1,000 mg PO BID 06/18/17 11/29/24 History tablet,extended release (gastric reten.) multivitamin 1 ea PO DAILY 06/18/17 11/29/24 Hi story aspirin 81 mg tablet,delayed 81 mg PO DAILY@0800 #30 tabs 06/2211/29/24 Rx release lorazepam 0.5 mg tablet 0.5 mg PO BID PRN Anxiety 06/28/19 11/29/24 History cholecalciferol (vitamin D3) 50 50 mcg PO DAILY 03/24/21 11/29/24 History mcg (2,000 unit) capsule fluoxetine 40 mg capsule 40 mg PO DAILY 03/30/22 11/29/24 H istory glimepiride 2 mg tablet 2 mg PO DAILY 03/30/22 11/29/24 Hi story calcium 600 mg-D3 20 mcg-magnesium tab PO QDAY 03/07/24 11/29/24 Hi story 50 mg-copper 1 fw-yzpx-gwol tablet coenzyme Q10 200 mg capsule 200 mg PO QDAY 03/07/24 11/29/24 H istory amlodipine 5 mg tablet 2.5 mg (1/2 x 5 mg) PO DAILY #90 1 11/29/24 Rx tabs metoprolol tartrate 25 mg tablet 12.5 mg (1/2 x 25 mg) PO BID #90 1 11/29/24 Rx tabs spironolactone 25 mg tablet 25 mg PO DAILY #90 tabs 06/12/24 0 11/29/24 Rx buspirone 5 mg tablet 5 mg PO TID 11/29/24 11/29/24 Hist ory fluoxetine 10 mg capsule 10 mg PO QDAY 11/29/24 11/29/24 Hi story inulin 1.7 gram chewable tablet g PO 11/29/24 11/29/24 History (Fiber Gummies) Have you fallen in the past year?: Yes PFSH Medical History Anxiety Depression Diabetes Coronary artery disease Hypertension Chronic anemia Anxiety and depression Aortic root dilatation Atherosclerosis of coronary artery of [place] heart without angina pectoris DM type 2 (diabetes mellitus, type 2) Dyslipidemia Essential (primary) hypertension Surgical History History of bilateral cataract extraction History of coronary artery stent placement (06/21/17) History of hysterectomy Family History Father Heart disease Mother Cancer Social History Smoking Status: Never smoker alcohol intake: never substance use type: does not use caffeine: Yes Typ (more content not included)... Normal [facility] Absolute lymphocyte countOrd ered By: Anh Ruano on 10-09-2024 Lymphocytes Auto (Unsp spec) [#/Vol] 1.65 10*3/uL 0.83-4.51 [facility] Absolute neutrophil countOrd ered By: Anh Ruano on 10-09-2024 Neutrophils (Bld) [#/Vol] 7.7 10*3/uL 2.0-7.7 [facility] Anion gap in Serum or Plasma Ordered By: Anh Ruano on 10-09-2024 Anion gap [Moles/Vol] 12 mmol/L 5-15 [facility] Automated lymphocyte count a s percentage of total leukocytesOrdered By: Anh Ruano on 10-09-2024 Lymphocytes/100 WBC Auto (Unsp spec) 16.0 % Low 19-41 [facility] BUN/creatinine ratioOrdered By: Anh Ruano on 10-09-2024 Urea nitrogen/Creatinine [Mass ratio] 23.0 mg/mg High 10-20 [facility] Basophil percentageOrdered B y: Anh Ruano on 10-09-2024 Basophils/100 WBC (Bld) 0.6 % 0-1 [facility] Bilirubin, totalOrdered By: Anh Ruano on 10-09-2024 Bilirubin [Mass/Vol] 0.37 mg/dL 0.00-1.30 [facility] CBC W/Diff, Automatedon 09-27 Absolute Lymph 1.65 X10 3/uL Normal 0.83-4.51 [facility] Comment on above: Performed By: #### L 503.6030, L500.4100, L500.4050, L100.0100, L501.9985, L503.0106, L503.6550 #### [facility] [address] [place], [place], [id number] ([phone] Absolute Neut 7.7 X10 3/uL Normal 2.0-7.7 [facility] Comment on above: Performed By: #### L 503.6030, L500.4100, L500.4050, L100.0100, L501.9985, L503.0106, L503.6550 #### [facility] [address], [address] Basophils/100 WBC (Bld) 0.6 % Normal 0-1 [facility] Comment on above: Performed By: #### L 503.6030, L500.4100, L500.4050, L100.0100, L501.9985, L503.0106, L503.6550 #### [facility] [address] [place], [address] Eosinophils/100 WBC (Bld) 1.6 % Normal 0-5 [facility] Comment on above: Performed By: #### L 503.6030, L500.4100, L500.4050, L100.0100, L501.9985, L503.0106, L503.6550 #### [facility] [address] [place], [address] Erythrocyte distribution width (RBC) [Ratio] 13.4 % Normal 11.6-14.6 [facility] Comment on above: Performed By: #### L 503.6030, L500.4100, L500.4050, L100.0100, L501.9985, L503.0106, L503.6550 #### [facility] [address] [place], [address] Hematocrit (Bld) [Volume fraction] 36.8 % Low 37-47 [facility] Comment on above: Performed By: #### L 503.6030, L500.4100, L500.4050, L100.0100, L501.9985, L503.0106, L503.6550 #### [facility] [address] [place], [address] Hemoglobin (Bld) [Mass/Vol] 11.8 g/dL Low 12.0-15.0 [facility] Comment on above: Performed By: #### L 503.6030, L500.4100, L500.4050, L100.0100, L501.9985, L503.0106, L503.6550 #### [facility] [address] [place], [address] IG% 0.400 Normal 0.0-0.9 [facility] Comment on above: Result Comment: IG% - Immature Granulocytes (promyelocytes, myelocytes and metamyelocytes) > 1% indicates that a LEFT SHIFT is Present. Performed By: #### L 503.6030, L500.4100, L500.4050, L100.0100, L501.9985, L503.0106, L503.6550 #### [facility] [address] [place], [address] Lymphocytes/100 WBC (Bld) 16.0 % Low 19-41 [facility] Comment on above: Performed By: #### L 503.6030, L500.4100, L500.4050, L100.0100, L501.9985, L503.0106, L503.6550 #### [facility] [address] [place], [address] MCH (RBC) [Entitic mass] 29.0 pg Normal 27.0-32.0 [facility] Comment on above: Performed By: #### L 503.6030, L500.4100, L500.4050, L100.0100, L501.9985, L503.0106, L503.6550 #### [facility] [address] [place], [address] MCHC (RBC) [Mass/Vol] 32.1 g/dL Normal 32-36 [facility] Comment on above: Performed By: #### L 503.6030, L500.4100, L500.4050, L100.0100, L501.9985, L503.0106, L503.6550 #### [facility] [address] [place], [address] MCV (RBC) [Entitic vol] 90.4 fL Normal 81-99 [facility] Comment on above: Performed By: #### L 503.6030, L500.4100, L500.4050, L100.0100, L501.9985, L503.0106, L503.6550 #### [facility] [address] [place], [address] Monocytes/100 WBC (Bld) 7.3 % Normal 0-10 [facility] Comment on above: Performed By: #### L 503.6030, L500.4100, L500.4050, L100.0100, L501.9985, L503.0106, L503.6550 #### [facility] [address] [place], [address] Neutrophils/100 WBC (Bld) 74.1 % High 47-70 [facility] Comment on above: Performed By: #### L 503.6030, L500.4100, L500.4050, L100.0100, L501.9985, L503.0106, L503.6550 #### [facility] [address] [place], [address] Nucleated RBC (Bld) [#/Vol] 0 10*3/uL Normal 0-5 [facility] Comment on above: Performed By: #### L 503.6030, L500.4100, L500.4050, L100.0100, L501.9985, L503.0106, L503.6550 #### [facility] [address] [place], [address] Platelet mean volume (Bld) [Entitic vol] 9.4 fL Normal 6.2-12.0 [facility] Comment on above: Performed By: #### L 503.6030, L500.4100, L500.4050, L100.0100, L501.9985, L503.0106, L503.6550 #### [facility] [address] [place], [address] Platelets (Bld) [#/Vol] 368 10*3/uL Normal 150-450 [facility] Comment on above: Performed By: #### L 503.6030, L500.4100, L500.4050, L100.0100, L501.9985, L503.0106, L503.6550 #### [facility] [address] [place], [place], [phone] (858) RBC (Bld) [#/Vol] 4.07 10*6/uL Low 4.2-5.4 [facility] Comment on above: Performed By: #### L 503.6030, L500.4100, L500.4050, L100.0100, L501.9985, L503.0106, L503.6550 #### [facility] [address] [place], [address] (417) RDW SD 44.1 fl High 35.1-43.9 [facility] Comment on above: Performed By: #### L 503.6030, L500.4100, L500.4050, L100.0100, L501.9985, L503.0106, L503.6550 #### [facility] [address] [place], [place], [phone] (517) WBC (Bld) [#/Vol] 10.3 10*3/uL Normal 4.4-11.0 [facility] Comment on above: Performed By: #### L 503.6030, L500.4100, L500.4050, L100.0100, L501.9985, L503.0106, L503.6550 #### [facility] [address] [place], [place], [id number] Calculated very low density lipoprotein (VLDL) cholesterol measurementOrdered By: Anh Ruano on 10-09-2024 Calculated very low density lipoprotein (VLDL) cholesterol measurement 17 mg/dL 5-40 [facility] Carbon dioxide, total [Moles /volume] in Central venous bloodOrdered By: Anh Ruano on 10-09-2024 CO2 [Moles/Vol] 24.4 mmol/L 21.0-32.0 [facility] Chloride assayOrdered By: Kevan Ruano on 10-09-2024 Chloride [Moles/Vol] 102 mmol/L 98-108 [facility] Comprehensive Metabolic Prof ilon 10-09-2024 Albumin [Mass/Vol] 4.1 g/dL Normal 3.4-4.8 [facility] Comment on above: Performed By: #### L 503.6030, L500.4100, L500.4050, L100.0100, L501.9985, L503.0106, L503.6550 #### [facility] [address] [place], [address] Albumin/Globulin [Mass ratio] 1.5 {ratio} Normal 0.9-2.4 [facility] Comment on above: Performed By: #### L 503.6030, L500.4100, L500.4050, L100.0100, L501.9985, L503.0106, L503.6550 #### [facility] [address] [place], [address] ALK PHOS 74 U/L Normal 35-104 [facility] Comment on above: Performed By: #### L 503.6030, L500.4100, L500.4050, L100.0100, L501.9985, L503.0106, L503.6550 #### [facility] [address] [place], [place], [phone] (196) ALT [Catalytic activity/Vol] 18 U/L Normal <=34 [facility] Comment on above: Performed By: #### L 503.6030, L500.4100, L500.4050, L100.0100, L501.9985, L503.0106, L503.6550 #### [facility] [address] [place], [address] AST [Catalytic activity/Vol] 23 U/L Normal <=31 [facility] Comment on above: Performed By: #### L 503.6030, L500.4100, L500.4050, L100.0100, L501.9985, L503.0106, L503.6550 #### [facility] [address] [place], [address] Bilirubin [Mass/Vol] 0.37 mg/dL Normal 0.00-1.30 [facility] Comment on above: Performed By: #### L 503.6030, L500.4100, L500.4050, L100.0100, L501.9985, L503.0106, L503.6550 #### [facility] [address] [place], [address] BUN/CRE 23.0 RATIO High 10-20 [facility] Comment on above: Performed By: #### L 503.6030, L500.4100, L500.4050, L100.0100, L501.9985, L503.0106, L503.6550 #### [facility] [address] [place], [address] Calcium [Mass/Vol] 11.0 mg/dL Normal 7.6-11.0 [facility] Comment on above: Performed By: #### L 503.6030, L500.4100, L500.4050, L100.0100, L501.9985, L503.0106, L503.6550 #### [facility] [address] [place], [address] Chloride [Moles/Vol] 102 mmol/L Normal 98-108 [facility] Comment on above: Performed By: #### L 503.6030, L500.4100, L500.4050, L100.0100, L501.9985, L503.0106, L503.6550 #### [facility] [address] [place], [address] CO2 [Moles/Vol] 24.4 mmol/L Normal 21.0-32.0 [facility] Comment on above: Performed By: #### L 503.6030, L500.4100, L500.4050, L100.0100, L501.9985, L503.0106, L503.6550 #### [facility] [address] [place], [place], [phone] (560) Creatinine [Mass/Vol] 0.97 mg/dL Normal 0.70-1.20 [facility] Comment on above: Performed By: #### L 503.6030, L500.4100, L500.4050, L100.0100, L501.9985, L503.0106, L503.6550 #### [facility] [address] [place], [address] (378) GAP 12 Normal 5-15 [facility] Comment on above: Performed By: #### L 503.6030, L500.4100, L500.4050, L100.0100, L501.9985, L503.0106, L503.6550 #### [facility] [address] [place], [address] GFR/1.73 sq M.predicted among non-blacks MDRD (S/P/Bld) [Vol rate/Area] 58 mL/min/{1.73_m2} Low >60 [facility] Comment on above: Result Comment: mL/m in/1.73m2 CKD-EPI Creatinine Equation (2020) Performed By: #### L 503.6030, L500.4100, L500.4050, L100.0100, L501.9985, L503.0106, L503.6550 #### [facility] [address] [place], [address] (514) Globulin (S) [Mass/Vol] 2.8 g/dL Normal 2.2-4.2 [facility] Comment on above: Performed By: #### L 503.6030, L500.4100, L500.4050, L100.0100, L501.9985, L503.0106, L503.6550 #### [facility] [address] [place], [address] Glucose [Mass/Vol] 132 mg/dL High 70-99 [facility] Comment on above: Performed By: #### L 503.6030, L500.4100, L500.4050, L100.0100, L501.9985, L503.0106, L503.6550 #### [facility] [address] [place], [address] Potassium [Moles/Vol] 4.1 mmol/L Normal 3.3-5.1 [facility] Comment on above: Performed By: #### L 503.6030, L500.4100, L500.4050, L100.0100, L501.9985, L503.0106, L503.6550 #### [facility] [address] [place], [address] Sodium [Moles/Vol] 138 mmol/L Normal 133-145 [facility] Comment on above: Performed By: #### L 503.6030, L500.4100, L500.4050, L100.0100, L501.9985, L503.0106, L503.6550 #### [facility] [address] [place], [address] T PROT 6.9 g/dL Normal 5.9-8.4 [facility] Comment on above: Performed By: #### L 503.6030, L500.4100, L500.4050, L100.0100, L501.9985, L503.0106, L503.6550 #### [facility] [address] [place], [address] Urea nitrogen [Mass/Vol] 22 mg/dL High 4-19 [facility] Comment on above: Performed By: #### L 503.6030, L500.4100, L500.4050, L100.0100, L501.9985, L503.0106, L503.6550 #### [facility] [address] [place], [place], [id number] Eosinophil percentageOrdered By: Anh Ruano on 10-09-2024 Eosinophils/100 WBC (Bld) 1.6 % 0-5 [facility] Erythrocyte distribution wid th ratioOrdered By: Anh Ruano on 10-09-2024 Erythrocyte distribution width (RBC) [Ratio] 13.4 % 11.6-14.6 [facility] Erythrocyte distribution wid th standard deviationOrdered By: Anhleno Ruano on 10-09-2024 Erythrocyte distribution width (RBC) [Ratio] 44.1 fl High 35.1-43.9 [facility] Ferritinon 10-09-2024 Ferritin [Mass/Vol] 41 ng/mL Normal 22-378 [facility] Comment on above: Performed By: #### L 503.6030, L500.4100, L500.4050, L100.0100, L501.9985, L503.0106, L503.6550 #### [facility] [address] [place], [place], [id number] Glomerular filtration rate ( GFR) estimation/1.73 sq m using serum, plasma, or whole bOrdered By: Anh Ruano on 10-09-2024 GFR/1.73 sq M.predicted among non-blacks MDRD (S/P/Bld) [Vol rate/Area] 58 mL/min/{1.73_m2} Low >60 [facility] Comment on above: mL/min/1.73m2 CKD-EP I Creatinine Equation (2020) Hematocrit Auto (Bld) [Volum e fraction]Ordered By: Anh Ruano on 10-09-2024 Hematocrit (Bld) [Volume fraction] 36.8 % Low 37-47 [facility] Hemoglobin A1con 10-09-2024 HbA1c (Bld) [Mass fraction] 7.2 % High <=5.6 [facility] Comment on above: Result Comment: Norm al < 5.7 % Prediabetic 5.7 - 6.4 % Diabetic >or= 6.5 % Please note range changes. Performed By: #### L 503.6030, L500.4100, L500.4050, L100.0100, L501.9985, L503.0106, L503.6550 #### [facility] [address] [place], [address] Hemoglobin A1c percentageOrd ered By: Anh Ruano on 10-09-2024 HbA1c (Bld) [Mass fraction] 7.2 % High <5.7 [facility] Comment on above: Normal < 5.7 % Predi abetic 5.7 - 6.4 % Diabetic >or= 6.5 % Please note range changes. Hemoglobin measurementOrdere d By: Anh Ruano on 10-09-2024 Hemoglobin (Bld) [Mass/Vol] 11.8 g/dL Low 12.0-15.0 [facility] Immature granulocytes/100 WB C Auto (Bld)Ordered By: Anh Ruano on 10-09-2024 Immature granulocytes/100 WBC (Bld) 0.400 % 0.0-0.9 [facility] Comment on above: IG% - Immature Granu locytes (promyelocytes, myelocytes and metamyelocytes) > 1% indicates that a LEFT SHIFT is Present. Iron measurement (mass/mass) Ordered By: Anh Ruano on 10-09-2024 Iron (Unsp spec) [Mass/Mass] 51 ug/dL 50-170 [facility] Iron+Iron Binding Capacityon 10-09-2024 Iron [Mass/Vol] 51 ug/dL Normal 50-170 [facility] Comment on above: Performed By: #### L 503.6030, L500.4100, L500.4050, L100.0100, L501.9985, L503.0106, L503.6550 #### [facility] [address] [place], [address] IRON SATURATION 15.0 Normal 13-59 [facility] Comment on above: Performed By: #### L 503.6030, L500.4100, L500.4050, L100.0100, L501.9985, L503.0106, L503.6550 #### [facility] [address] [place], [address] TIBC 338 ug/dL Normal 250-450 [facility] Comment on above: Performed By: #### L 503.6030, L500.4100, L500.4050, L100.0100, L501.9985, L503.0106, L503.6550 #### [facility] [address] [place], [address] UIBC 287 ug/dL Normal 228-428 [facility] Comment on above: Performed By: #### L 503.6030, L500.4100, L500.4050, L100.0100, L501.9985, L503.0106, L503.6550 #### [facility] [address] [place], [address] LDL calc ser/plasOrdered By: Anh Ruano on 10-09-2024 Cholesterol in LDL [Mass/Vol] 65 mg/dL [facility] Comment on above: Yutjdgtaej=500-974 m g/dL & Higher Alsq=371 mg/dL or greater Laboratory - Chemistry and C hemistry - challengeOrdered By: Anh Ruano on 10-09-2024 AST [Catalytic activity/Vol] 23 U/L <32 [facility] Lipid Profileon 10-09-2024 CHOL:HDL 2.26 Normal [facility] Comment on above: Performed By: #### L 503.6030, L500.4100, L500.4050, L100.0100, L501.9985, L503.0106, L503.6550 #### [facility] [address] [place], [address] Cholesterol [Mass/Vol] 146 mg/dL Normal <=200 [facility] Comment on above: Result Comment: Chol esterol level, Desirable <200 mg/dL Borderline high cholesterol 200-239 mg/dL High cholesterol >=240 mg/dL Recommendations of the NCEP Adult Treatment Panel for the following risk-cutoff thresholds for the [place] population. Performed By: #### L 503.6030, L500.4100, L500.4050, L100.0100, L501.9985, L503.0106, L503.6550 #### [facility] [address] [place], [address] Cholesterol in HDL [Mass/Vol] 65 mg/dL Normal [facility] Comment on above: Result Comment: Ashli onal Cholesterol Education Program (NCEP) guidelines: <40 mg/dL: Low HDL-cholesterol (major risk factor for CHD) >= 60 mg/dL: High HDL-cholesterol (negative risk factor for CHD) HDL-cholesterol is affected by a number of factors, e.g. smoking, exercise, hormones, sex and age. Performed By: #### L 503.6030, L500.4100, L500.4050, L100.0100, L501.9985, L503.0106, L503.6550 #### [facility] [address] [place], [address] Cholesterol in LDL [Mass/Vol] 65 mg/dL Normal [facility] Comment on above: Result Comment: Bord zlobho=985-670 mg/dL Higher Dlek=561 mg/dL or greater Performed By: #### L 503.6030, L500.4100, L500.4050, L100.0100, L501.9985, L503.0106, L503.6550 #### [facility] [address] [place], [address] Cholesterol in VLDL [Mass/Vol] 17 mg/dL Normal 5-40 [facility] Comment on above: Performed By: #### L 503.6030, L500.4100, L500.4050, L100.0100, L501.9985, L503.0106, L503.6550 #### [facility] [address] [place], [address] Triglyceride [Mass/Vol] 84 mg/dL Normal [facility] Comment on above: Result Comment: The drugs N-Acetylcysteine and Metamizole may falsely depress this assay. Normal range: <150 mg/dL Borderline High: 150-199 mg/dL High: 200-499 mg/dL Very High: >500 mg/dL Performed By: #### L 503.6030, L500.4100, L500.4050, L100.0100, L501.9985, L503.0106, L503.6550 #### [facility] [address] [place], [address] MCV (mean corpuscular volume ) determinationOrdered By: Anh Ruano on 10-09-2024 MCV (RBC) [Entitic vol] 90.4 fL 81-99 [facility] Mean corpuscular hemoglobin (MCH) determinationOrdered By: Anh Ruano on 10-09-2024 MCH (RBC) [Entitic mass] 29.0 pg 27.0-32.0 [facility] Mean corpuscular hemoglobin concentration (MCHC) determinationOrdered By: Anh Ruano on 10-09-2024 MCHC (RBC) [Mass/Vol] 32.1 g/dL 32-36 [facility] Mean platelet volume determi nationOrdered By: Anh Ruano on 10-09-2024 Platelet mean volume (Bld) [Entitic vol] 9.4 fL 6.2-12.0 [facility] Monocyte percentageOrdered B y: Anh Ruano on 10-09-2024 Monocytes/100 WBC (Bld) 7.3 % 0-10 [facility] Neutrophil percentageOrdered By: Anh Ruano on 10-09-2024 Neutrophils/100 WBC (Bld) 74.1 % High 47-70 [facility] No Panel InformationOrdered By: Anh Ruano on 10-09-2024 Unsaturated Iron Binding Capacity 287 ug/dL 228-428 [facility] Nucleated red blood cell per centageOrdered By: Anh Ruano on 10-09-2024 Nucleated RBC/100 WBC (Bld) [Ratio] 0 % 0-5 [facility] Platelet countOrdered By: Kevan Ruano on 10-09-2024 Platelets (Bld) [#/Vol] 368 10*3/uL 150-450 [facility] Potassium measurement (mass/ volume)Ordered By: Anh Ruano on 10-09-2024 Potassium (Unsp spec) [Mass/Vol] 4.1 mmol/L 3.3-5.1 [facility] RBC Auto (Bld) [#/Vol]Ordere d By: Anh Ruano on 10-09-2024 RBC (Bld) [#/Vol] 4.07 10*6/uL Low 4.2-5.4 [facility] Screening total cholesterol/ high density lipoprotein (HDL) cholesterol ratioOrdered By: Anh Ruano on 10-09-2024 Cholesterol.total/Choles terol in HDL [Mass ratio] 2.26 {ratio} [facility] Serum creatinine measurement (mass/volume)Ordered By: Anh Ruano on 10-09-2024 Creatinine [Mass/Vol] 0.97 mg/dL 0.70-1.20 [facility] Serum globulin measurementOr dered By: Anh Ruano on 10-09-2024 Globulin (S) [Mass/Vol] 2.8 g/dL 2.2-4.2 [facility] Serum glucose measurement (m ass/volume)Ordered By: Anh Ruano on 10-09-2024 Glucose [Mass/Vol] 132 mg/dL High 70-99 [facility] Serum or plasma alanine brunson otransferase (ALT) measurementOrdered By: Anh Ruano on 10-09-2024 ALT [Catalytic activity/Vol] 18 U/L <35 [facility] Serum or plasma albumin cheryl urement (mass/volume)Ordered By: Anh Ruano on 10-09-2024 Albumin [Mass/Vol] 4.1 g/dL 3.4-4.8 [facility] Serum or plasma albumin/glob ulin mass ratioOrdered By: Anh Ruano on 10-09-2024 Albumin/Globulin [Mass ratio] 1.5 {ratio} 0.9-2.4 [facility] Serum or plasma alkaline [place] sphatase measurementOrdered By: Anh Ruano on 10-09-2024 ALP [Catalytic activity/Vol] 74 U/L 35-104 [facility] Serum or plasma calcium cheryl urement (mass/volume)Ordered By: Anh Ruano on 10-09-2024 Calcium [Mass/Vol] 11.0 mg/dL 7.6-11.0 [facility] Serum or plasma cholesterol in HDL measurement (mass/volume)Ordered By: Anh Ruano on 10-09-2024 Cholesterol in HDL [Mass/Vol] 65 mg/dL >40 [facility] Comment on above: National Cholesterol Education Program (NCEP) guidelines:<40 mg/dL: Low HDL-cholesterol (major risk factor for CHD)>= 60 mg/dL: High HDL-cholesterol (negative risk factor for CHD)HDL-cholesterol is affected by a number of factors, e.g. smoking, exercise, hormones, sex and age. Serum or plasma cholesterol measurement (mass/volume)Ordered By: Anh Ruano on 10-09-2024 Cholesterol [Mass/Vol] 146 mg/dL <201 [facility] Comment on above: Cholesterol level, D esirable <200 mg/dLBorderline high cholesterol 200-239 mg/dLHigh cholesterol >=240 mg/dLRecommendations of the NCEP Adult Treatment Panel for the following risk-cutoff thresholds for the [place] population. Serum or plasma ferritin darrell surement (mass/volume)Ordered By: Anh Ruano on 10-09-2024 Ferritin [Mass/Vol] 41 ng/mL 22-378 [facility] Serum or plasma iron saturat ion measurement (mass fraction)Ordered By: Anh Ruano on 10-09-2024 Iron saturation [Mass fraction] 15.0 % 13-59 [facility] Serum or plasma urea nitroge n measurement (mass/volume)Ordered By: Anh Ruano on 10-09-2024 Urea nitrogen [Mass/Vol] 22 mg/dL High 4-19 [facility] Sodium levelOrdered By: Grecia Ruano on 10-09-2024 Sodium [Moles/Vol] 138 mmol/L 133-145 [facility] Total proteinOrdered By: Vick Ruano on 10-09-2024 Protein [Mass/Vol] 6.9 g/dL 5.9-8.4 [facility] Triglycerides measurementOrd ered By: Anh Ruano on 10-09-2024 Triglyceride [Mass/Vol] 84 mg/dL <199 [facility] Comment on above: The drugs N-Acetylcy steine and Metamizole may falsely depress this assay. Normal range: <150 mg/dLBorderline High: 150-199 mg/dLHigh: 200-499 mg/dLVery High: >500 mg/dL Vitamin B12on 10-09-2024 Cobalamin (Vitamin B12) [Mass/Vol] 410 pg/mL Normal 180-914 [facility] Comment on above: Performed By: #### L 503.6030, L500.4100, L500.4050, L100.0100, L501.9985, L503.0106, L503.6550 #### [facility] [address] [place] [address], [address] Vitamin B12 ser/plasOrdered By: Anh Ruano on 10-09-2024 Cobalamin (Vitamin B12) [Mass/Vol] 410 pg/mL 180-914 [facility] White blood cell (WBC) count Ordered By: Anh Ruano on 10-09-2024 WBC (Bld) [#/Vol] 10.3 10*3/uL 4.4-11.0 [facility] CMP with eGFRon 06-13-2024 AGE 83 years Normal [facility] Comment on above: Performed By: #### 2 34874 #### [facility],[address] [place] [address] 02472 Albumin [Mass/Vol] 3.3 g/dL Low 3.4 - 5.0 [facility] Comment on above: Performed By: #### 2 10893 #### [facility],[address] [place] [address] 17941 Albumin/Globulin [Mass ratio] 1.0 {ratio} Normal 0.9 - 1.6 [facility] Comment on above: Performed By: #### 2 23066 #### [facility],[address] [place] [address] 51550 ALK PHOS 71 U/L Normal 46 - 116 [facility] Comment on above: Performed By: #### 2 07506 #### [facility],[address] [place] [address] 40870 ALT [Catalytic activity/Vol] 29 U/L Normal 16 - 63 [facility] Comment on above: Performed By: #### 2 61822 #### [facility],[address] [place] [address] 53525 Anion gap [Moles/Vol] 15 mmol/L Normal 10 - 20 [facility] Comment on above: Performed By: #### 2 86819 #### [facility],[address] [place] [address] 35986 AST [Catalytic activity/Vol] 28 U/L Normal 13 - 39 [facility] Comment on above: Performed By: #### 2 11651 #### [facility],[address] [place] [address] 94937 B/C RATIO 11 ratio Normal 0 - 30 [facility] Comment on above: Performed By: #### 2 80510 #### [facility],[address] [place] [address] 24306 Bilirubin [Mass/Vol] 0.5 mg/dL Normal 0.2 - 1.0 [facility] Comment on above: Performed By: #### 2 81335 #### [facility],[address] [place] [address] 47021 Calcium [Mass/Vol] 10.2 mg/dL High 8.5 - 10.1 [facility] Comment on above: Performed By: #### 2 49621 #### [facility],[address] [place] [address] 98146 Chloride [Moles/Vol] 103 mmol/L Normal 98 - 107 [facility] Comment on above: Performed By: #### 2 84195 #### [facility],[address] [place] [address] 23758 CMP with eGFR Normal [facility] Comment on above: Result Comment: COMP REHENSIVE METABOLIC PANEL Performed By: #### 2 12327 #### [facility],[address] [place] [address] 62472 CO2 [Moles/Vol] 27.1 mmol/L Normal 21.0 - 32.0 [facility] Comment on above: Performed By: #### 2 69046 #### [facility],[address] [place] [address] 16077 Creatinine [Mass/Vol] 1.13 mg/dL High 0.55 - 1.02 [facility] Comment on above: Performed By: #### 2 68119 #### [facility],[address] [place] [address] 76872 eGFR 46 ML/MINUTE Low 60 - 999 [facility] Comment on above: Performed By: #### 2 45727 #### [facility],[address] [place] [address] 78632 eGFR(AA) 56 ML/MINUTE Low 60 - 999 [facility] Comment on above: Result Comment: ACCO RDING TO THE NATIONAL KIDNEY DISEASE EDUCATION PROGRAM(NKDE), A NORMAL eGFR IS A VALUE GREATER THAN OR EQUAL TO 60 ML/MIN/1.73 SQ METERS. CHRONIC KIDNEY DISEASE: <60mL/MIN/1.73 SQ METERS KIDNEY FAILURE: <15mL/MIN/1.73 SQ METERS THIS TEST SHOULD ONLY BE USED FOR PATIENTS 18 YEARS OF AGE AND OLDER. Performed By: #### 2 57061 #### [facility],[address] [place] [address] 46865 Globulin (S) [Mass/Vol] 3.3 g/dL Normal 1.5 - 3.8 [facility] Comment on above: Performed By: #### 2 34673 #### [facility],[address] [place] [address] 38564 Glucose [Mass/Vol] 180 mg/dL High 74 - 106 [facility] Comment on above: Performed By: #### 2 54525 #### [facility],[address] [place] [address] 57298 Potassium [Moles/Vol] 4.7 mmol/L Normal 3.5 - 5.1 [facility] Comment on above: Performed By: #### 2 19975 #### [facility],[address] [place] [address] 50023 Protein [Mass/Vol] 6.6 g/dL Normal 6.4 - 8.2 [facility] Comment on above: Performed By: #### 2 61016 #### [facility],[address] [place] [address] 47712 Sodium [Moles/Vol] 140 mmol/L Normal 136 - 145 [facility] Comment on above: Performed By: #### 2 72365 #### [facility],[address] [place], [place] [address] Urea nitrogen [Mass/Vol] 12 mg/dL Normal 7 - 18 [facility] Comment on above: Performed By: #### 2 73027 #### [facility],[address] [place] [address] 06687 HEMOGLOBIN A1C (POM)on 06-13 Glucose [Mass/Vol] 154.2 mg/dL High 0.0 - 0.0 [facility] Comment on above: Result Comment: BLDo HEMOGLOBIN A1C REFERENCE RANGESBLDo Suggested Diagnosis HbA1c(%) HbA1C (mmol/mol Diabetic >/=6.5 >/=48 Prediabetes 5.7 - 6.4 39 - 47 Normal <5.7 <39 Performed By: #### 2 83685 #### [facility],[address] [place] [address] 27261 HbA1c (Bld) [Mass fraction] 7.0 % High 0.0 - 6.5 [facility] Comment on above: Performed By: #### 2 66618 #### [place] [address],[place] [address] LIPID PROFILEon 06-13-2024 Cholesterol [Mass/Vol] 151 mg/dL Normal 0 - 240 [facility] Comment on above: Performed By: #### 2 19815 #### [facility],[address] [place] [address] 43581 Cholesterol in HDL [Mass/Vol] 76 mg/dL High 40 - 60 [facility] Comment on above: Performed By: #### 2 86550 #### [facility],[address] [place] [address] 04994 Cholesterol in LDL [Mass/Vol] 61 mg/dL Normal 0 - 129 [facility] Comment on above: Performed By: #### 2 26444 #### [facility],[address] [place] [address] 50629 Cholesterol.total/Choles terol in HDL [Mass ratio] 2.0 {ratio} Normal 0.0 - 5.0 [facility] Comment on above: Performed By: #### 2 51131 #### [facility],[address] [place] [address] 77755 Lipid 1996 panel Normal [facility] Comment on above: Result Comment: LIPI D PROFILE Performed By: #### 2 32678 #### [facility],[address] [place] [address] 28481 Triglyceride [Mass/Vol] 70 mg/dL Normal 0 - 150 [facility] Comment on above: Performed By: #### 2 96399 #### [facility],[address] [place] [address] 40052 CNOVon 05-25-2024 CNOV Office Visit ([facility]WSTR) FLORES WASHINGTON ([id number]) 1940 F Date Time Provider Department 05/25/24 6:30 PM MUSTAPHA SOTO [facility] During your visit today, we recorded the following information about you: Temperature Pulse Respiration Blood pressure 98.6 degrees 76/minute 18/minute 110/64 Weight 76.4 kg Mustapha Soto PA 05/25/2024 6:39 PM Signed This note was created using [facility]. Subjective Flores Washington is a 83 year old female. HPI 83-year-old female presents for cough, congestion, fever x 2 days. Patient states she started getting a cough 2 days ago. She has a little bit of nasal congestion. She had a fever yesterday of 99 ?F. No chest pain or shortness of breath. No vomiting or diarrhea. Still able to eat and drink. She states that she was exposed to COVID and did a COVID test today that came back negative. She would like to discuss Paxlovid. History reviewed. No pertinent past medical history. No past surgical history on file. ALLERGIES Cephalexin, Codeine, and Lisinopril MEDICATIONS amLODIPine (NORVASC) 5 mg tablet Take 0.5 tablets by mouth every afternoon. atorvastatin (LIPITOR) 20 mg tablet Take 20 mg by mouth daily at bedtime. ONETOUCH ULTRA TEST test strip use 1 strip to check glucose once daily FLUoxetine (PROZAC) 40 mg capsule Take 1 capsule by mouth every afternoon. glimepiride (AMARYL) 2 mg tablet Take 1 tablet by mouth every afternoon. benzonatate (TESSALON PERLE) 100 mg capsule Take 1 capsule by mouth three times a day as needed. No family history on file. Review of Systems Constitutional: Positive for fever. Negative for chills. HENT: Positive for congestion. Negative for ear pain and sore throat. Respiratory: Positive for cough. Negative for shortness of breath. Cardiovascular: Negative for chest pain. Gastrointestinal: Negative for diarrhea and vomiting. Objective BP 110/64 Pulse 76 Temp 37 ?C (98.6 ?F) (Tympanic) Resp 18 Wt 76.4 kg (168 lb 6.9 oz) SpO2 95% Physical Exam Vitals and nursing note reviewed. Constitutional: General: She is not in acute distress. Appearance: Normal appearance. She is not toxic-appearing. HENT: Right Ear: Tympanic membrane and ear canal normal. Left Ear: Tympanic membrane and ear canal normal. Nose: Nose normal. Mouth/Throat: Mouth: Mucous membranes are moist. Eyes: Conjunctiva/sclera: Conjunctivae normal. Cardiovascular: Rate and Rhythm: Normal rate and regular rhythm. Pulmonary: Effort: Pulmonary effort is normal. Breath sounds: Normal breath sounds. No wheezing, rhonchi or rales. Skin: General: Skin is warm and dry. Neurological: Mental Status: She is alert. Assessment and Plan ASSESSMENT/PLAN: 1. COVID - ICD9: 079.89, ICD10: U07.1 -Home positive COVID test. -Discussed with patient that she is a candidate for Paxlovid. However, I do not have any recent kidney function on her. Lab is closed for the evening. Did recommend if patient would like Paxlovid, she would need to return tomorrow to have lab testing completed before we could prescribe it. -Patient declines Paxlovid at this time. -Rx for Tessalon Perles given to help with cough. -She will follow-up if she changes her mind within the next 2 days. Diagnosis and treatment plan were discussed and questions were answered to the patient's satisfaction. Pt acknowledged understanding of concepts and follow up plan. Specific signs and symptoms that would indicate the need for higher level of care were discussed in detail warranting prompt ER evaluation. NOEL Mendoza Allergies As of Date: 05/25/2024 Noted Allergy Reaction CEPHALEXIN 05/25/2024 7 - Swelling CODEINE 05/25/2024 8 - GI Upset LISINOPRIL 05/25/2024 7 - Swelling Date Reviewed: 05/25/2024 Reviewed by: Porsche Killian LPN - Fully Assessed Reason for Visit: Cough [28] Cmt: Cough x 2 days-positive for COVID at home 2 hours ago Primary Visit Diagnosis:COVID [U07.1] Order(s):benzonatate (TESSALON PERLE) 100 mg capsuleTake 1 capsule by mouth three times a day as needed.Disp: 21 capsuleRfl: 0 Prescriptions as of 05/25/2024 - amLODIPine (NORVASC) 5 mg tablet Take 0.5 tablets by mouth every afternoon. - atorvastatin (LIPITOR) 20 mg tablet Take 20 mg by mouth daily at bedtime. - Accuri CytometersTOUCH ULTRA TEST test strip use 1 strip to check glucose once daily - FLUoxetine (PROZAC) 40 mg capsule Take 1 capsule by mouth every afternoon. - glimepiride (AMARYL) 2 mg tablet Take 1 tablet by mouth every afternoon. - benzonatate (TESSALON PERLE) 100 mg capsule Take 1 capsule by mouth three times a day as needed. Problem List As Of Date: 05/25/2024 (None) Prescriptions ordered this encounter Disp Refills Start End BENZONATATE 100 MG CAPSULE 21 c* 0 05/25/2024 Route: ORAL Sig: Take 1 capsule by mouth three times a day as needed. (more content not included)... Normal [facility] CBC + DIFFon 11-01-2023 Baso # 0.02 x10EE3/UL Normal 0.00 - 0.10 [facility] Comment on above: Performed By: #### 2 43591 #### [facility],[address] [place] [address] Basophils/100 WBC (Bld) 0.3 % Normal 0.0 - 2.0 [facility] Comment on above: Performed By: #### 2 13822 #### [place] [address] CBC + DIFF Normal [facility] Comment on above: Result Comment: CBC- COMPLETE BLOOD COUNT Performed By: #### 2 70336 #### [facility],[address] [place] [address] EO # 0.11 x10EE3/UL Normal 0.00 - 0.50 [facility] Comment on above: Performed By: #### 2 38575 #### [facility],[address] [place] [address] Eosinophils/100 WBC (Bld) 1.3 % Normal 0.0 - 7.0 [facility] Comment on above: Performed By: #### 2 30309 #### [place] [address],[place] [address] Erythrocyte distribution width (RBC) [Ratio] 14.0 % Normal 12.0 - 15.6 [facility] Comment on above: Performed By: #### 2 13593 #### [facility],[address] [place], [place] [address] Hematocrit (Bld) [Volume fraction] 35.3 % Normal 34.0 - 46.0 [facility] Comment on above: Performed By: #### 2 46805 #### [facility],[address] [place] [address] Hemoglobin (Bld) [Mass/Vol] 11.8 g/dL Low 12.0 - 16.0 [facility] Comment on above: Performed By: #### 2 12751 #### [facility],[address] [place] [address] Lymph # 1.51 x10EE3/UL Normal 0.80 - 2.80 [facility] Comment on above: Performed By: #### 2 06832 #### [facility],[address] [place], [place] [address] Lymphocytes/100 WBC (Bld) 18.6 % Low 20.0 - 45.0 [facility] Comment on above: Performed By: #### 2 39388 #### [facility],[address] [place], [place] [address] MANUAL DIFF N/A Normal [facility] Comment on above: Performed By: #### 2 57549 #### [facility],[address] [place] [address] 30304 MCH (RBC) [Entitic mass] 30 pg Normal 27 - 33 [facility] Comment on above: Performed By: #### 2 85305 #### [facility],[address] [place] [address] 67990 MCHC 34 X10 3 Normal 32 - 36 [facility] Comment on above: Performed By: #### 2 18529 #### [facility],[address] [place] [address] 81907 MCV (RBC) [Entitic vol] 90 fL Normal 80 - 99 [facility] Comment on above: Performed By: #### 2 22899 #### [facility],[address] [place] [address] [place] # 0.64 x10EE3/UL Normal 0.20 - 1.00 [facility] Comment on above: Performed By: #### 2 31412 #### [facility],[address] [place] [address] 71347 MONOS % 7.8 % Normal 0.0 - 10.0 [facility] Comment on above: Performed By: #### 2 97781 #### [facility],[address] [place] [address] 06484 Morphology Charly (Bld) [Interp] N/A Normal [facility] Comment on above: Performed By: #### 2 74586 #### [facility],[address] [place] [address] 10677 Neut # 5.85 x10EE3/UL Normal 1.50 - 7.10 [facility] Comment on above: Performed By: #### 2 25717 #### [facility],[address] [place] [address] 29807 Neutrophils/100 WBC (Bld) 72.0 % Normal 46.0 - 76.0 [facility] Comment on above: Performed By: #### 2 91576 #### [facility],[address] [place] [address] 56562 PLATELET 346 x10EE3/UL Normal 150 - 450 [facility] Comment on above: Performed By: #### 2 40762 #### [facility],[address] [place] [address] 25054 Platelet mean volume (Bld) [Entitic vol] 7.6 fL Normal 6.6 - 10.5 [facility] Comment on above: Result Comment: AUTO MATED DIFFERENTIAL Performed By: #### 2 72744 #### [facility],[address] [place] [address] 79907 RBC 3.93 x 10EE6/UL Low 4.10 - 5.30 [facility] Comment on above: Performed By: #### 2 41231 #### [facility],[address] [place] [address] 74884 WBC 8.1 x 10EE3/UL Normal 4.5 - 10.8 [facility] Comment on above: Performed By: #### 2 19462 #### [facility],[address] [place] [address] 24663 CMP with eGFRon 11-01-2023 AGE 83 years Normal [facility] Comment on above: Performed By: #### 2 75515 #### [facility],[address] [place] [address] 07093 Albumin [Mass/Vol] 3.5 g/dL Normal 3.4 - 5.0 [facility] Comment on above: Performed By: #### 2 38415 #### [facility],[address] [place] [address] 20516 Albumin/Globulin [Mass ratio] 1.1 {ratio} Normal 0.9 - 1.6 [facility] Comment on above: Performed By: #### 2 07556 #### [facility],[address] [place] [address] 30364 ALK PHOS 63 U/L Normal 46 - 116 [facility] Comment on above: Performed By: #### 2 82394 #### [facility],[address] [place] [address] 84133 ALT [Catalytic activity/Vol] 26 U/L Normal 16 - 63 [facility] Comment on above: Performed By: #### 2 25424 #### [facility],[address] [place] [address] 81068 Anion gap [Moles/Vol] 12 mmol/L Normal 10 - 20 [facility] Comment on above: Performed By: #### 2 82331 #### [facility],[address] [place] [address] 93834 AST [Catalytic activity/Vol] 23 U/L Normal 13 - 39 [facility] Comment on above: Performed By: #### 2 69188 #### [facility],[address] [place] [address] 03984 B/C RATIO 14 ratio Normal 0 - 30 [facility] Comment on above: Performed By: #### 2 46738 #### [facility],[address] [place] [address] 21781 Bilirubin [Mass/Vol] 0.5 mg/dL Normal 0.2 - 1.0 [facility] Comment on above: Performed By: #### 2 61489 #### [facility],[address] [place] [address] 22473 Calcium [Mass/Vol] 10.0 mg/dL Normal 8.5 - 10.1 [facility] Comment on above: Performed By: #### 2 49058 #### [facility],[address] [place] [address] 88546 Chloride [Moles/Vol] 99 mmol/L Normal 98 - 107 [facility] Comment on above: Performed By: #### 2 46555 #### [facility],[address] [place] [address] 36618 CMP with eGFR Normal [facility] Comment on above: Result Comment: COMP REHENSIVE METABOLIC PANEL Performed By: #### 2 11938 #### [facility],[address] [place] [address] 91725 CO2 [Moles/Vol] 26.1 mmol/L Normal 21.0 - 32.0 [facility] Comment on above: Performed By: #### 2 99539 #### [facility],[address] [place] [address] 18335 Creatinine [Mass/Vol] 0.94 mg/dL Normal 0.55 - 1.02 [facility] Comment on above: Performed By: #### 2 61419 #### [facility],[address] [place] [address] 46714 eGFR 57 ML/MINUTE Low 60 - 999 [facility] Comment on above: Performed By: #### 2 56093 #### [facility],[address] [place] [address] 58484 GFR/1.73 sq M.predicted among non-blacks MDRD (S/P/Bld) [Vol rate/Area] mL/min/{1.73_m2} Normal 60 - 999 [facility] Comment on above: Result Comment: ACCO RDING TO THE NATIONAL KIDNEY DISEASE EDUCATION PROGRAM(NKDE), A NORMAL eGFR IS A VALUE GREATER THAN OR EQUAL TO 60 ML/MIN/1.73 SQ METERS. CHRONIC KIDNEY DISEASE: <60mL/MIN/1.73 SQ METERS KIDNEY FAILURE: <15mL/MIN/1.73 SQ METERS THIS TEST SHOULD ONLY BE USED FOR PATIENTS 18 YEARS OF AGE AND OLDER. Performed By: #### 2 55952 #### [facility],[address] [place] [address] 34428 Globulin (S) [Mass/Vol] 3.2 g/dL Normal 1.5 - 3.8 [facility] Comment on above: Performed By: #### 2 53871 #### [facility],[address] [place] [address] 42532 Glucose [Mass/Vol] 123 mg/dL High 74 - 106 [facility] Comment on above: Performed By: #### 2 84188 #### [facility],[address] [place] [address] 12677 Potassium [Moles/Vol] 4.3 mmol/L Normal 3.5 - 5.1 [facility] Comment on above: Performed By: #### 2 90580 #### [facility],[address] [place] [address] 71913 Protein [Mass/Vol] 6.7 g/dL Normal 6.4 - 8.2 [facility] Comment on above: Performed By: #### 2 25087 #### [facility],[address] [place] [address] Sodium [Moles/Vol] 133 mmol/L Low 136 - 145 [facility] Comment on above: Performed By: #### 2 22487 #### [facility],[address] [place] [address] Urea nitrogen [Mass/Vol] 13 mg/dL Normal 7 - 18 [facility] Comment on above: Performed By: #### 2 72447 #### [facility],[address] [place], [place] [address] HEMOGLOBIN A1C (POM)on 10-31 Glucose [Mass/Vol] 148.5 mg/dL High 0.0 - 0.0 [facility] Comment on above: Result Comment: BLDo HEMOGLOBIN A1C REFERENCE RANGESBLDo Suggested Diagnosis HbA1c(%) HbA1C (mmol/mol Diabetic >/=6.5 >/=48 Prediabetes 5.7 - 6.4 39 - 47 Normal <5.7 <39 Performed By: #### 2 88168 #### [facility],[address] [place] [address] HbA1c (Bld) [Mass fraction] 6.8 % High 0.0 - 6.5 [facility] Comment on above: Performed By: #### 2 95325 #### [facility],[address] [place], [place] [address] LIPID PROFILEon 11-01-2023 Cholesterol [Mass/Vol] 138 mg/dL Normal 0 - 240 [facility] Comment on above: Performed By: #### 2 78557 #### [facility],[address] [place], [place] [address] Cholesterol in HDL [Mass/Vol] 64 mg/dL High 40 - 60 [facility] Comment on above: Performed By: #### 2 05404 #### [facility],[address] [place] [address] 85796 Cholesterol in LDL [Mass/Vol] 62 mg/dL Normal 0 - 129 [facility] Comment on above: Performed By: #### 2 45697 #### [facility],[address] [place] [address] 39403 Cholesterol.total/Choles terol in HDL [Mass ratio] 2.2 {ratio} Normal 0.0 - 5.0 [facility] Comment on above: Performed By: #### 2 20957 #### [facility],[address] [place] [address] 86607 Lipid 1996 panel Normal [facility] Comment on above: Result Comment: LIPI D PROFILE Performed By: #### 2 33938 #### [facility],[address] [place] [address] 08361 Triglyceride [Mass/Vol] 61 mg/dL Normal 0 - 150 [facility] Comment on above: Performed By: #### 2 46241 #### [facility],[address] [place] [address] 78531 URINALYSISon 11-01-2023 Amorphous NONE Normal [facility] Comment on above: Performed By: #### 2 50006 #### [facility],[address] [place] [id number] Bacteria NONE Normal [facility] Comment on above: Performed By: #### 2 [id number] #### [facility],[address] [place] [address] 77472 Bilirubin Ql (U) 1 Abnormal NORMAL: NEGATIVE [facility] Comment on above: Performed By: #### 2 60582 #### [facility],[address] [place] [address] 41785 Casts NONE Normal [facility] Comment on above: Performed By: #### 2 07180 #### [facility],[address] [place] [address] 96203 Clarity (U) clear Normal NORMAL: CLEAR [facility] Comment on above: Performed By: #### 2 78207 #### [facility],[address] [place] [address] 52829 Color (U) tierra Normal NORMAL: YELLOW [facility] Comment on above: Performed By: #### 2 46378 #### [facility],[address] [place] [address] 06382 Crystals LM Nom (Urine sed) NONE Normal [facility] Comment on above: Performed By: #### 2 44104 #### [facility],[address] [place] [address] 71020 Epi Cells NONE Normal [facility] Comment on above: Performed By: #### 2 92352 #### [facility],[address] [place] [address] 70314 Glucose Ql (U) NORM Normal NORMAL: NORMAL [facility] Comment on above: Performed By: #### 2 85060 #### [facility],[address] [place] [address] 73245 Hemoglobin Ql (U) 10 Abnormal NORMAL: NEGATIVE [facility] Comment on above: Performed By: #### 2 96418 #### [facility],[address] [place] [address] 79497 Ketone 5 Abnormal NORMAL: NEGATIVE [facility] Comment on above: Performed By: #### 2 88130 #### [facility],[address] [place] [address] 42778 Leukocytes 25 Abnormal NORMAL: NEGATIVE [facility] Comment on above: Performed By: #### 2 01959 #### [facility],[address] [place] [address] 66913 Mucous NONE Normal [facility] Comment on above: Performed By: #### 2 19420 #### [facility],[address] [place] [address] 43821 Nitrite Ql (U) Negative Normal NORMAL: NEGATIVE [facility] Comment on above: Performed By: #### 2 09208 #### [facility],[address] [place] [address] pH (U) 5 [pH] Normal NORMAL: 5.0-8.0 [facility] Comment on above: Performed By: #### 2 77493 #### [facility],[address] [place] [address] Protein Ql (U) 30 Abnormal NORMAL: NEGATIVE [facility] Comment on above: Performed By: #### 2 20957 #### [facility],[address] [place] [address] Rbc 0-5 Normal 0-3/hpf [facility] Comment on above: Performed By: #### 2 41398 #### [facility],[address] [place] [address] Sp [place] 1.025 Normal NORMAL: 1.010-1.030 [facility] Comment on above: Performed By: #### 2 93274 #### [facility],[address] [place] [address] Specimen Type R Normal [facility] Comment on above: Performed By: #### 2 68503 #### [facility],[address] [place] [address] Urinalysis dipstick W Reflex Microscopic panel (U) SEE BELOW Normal [facility] Comment on above: Result Comment: MICR OSCOPIC Performed By: #### 2 89763 #### [facility],[address] [place] [address] Urobilinog 1 Abnormal NORMAL: NORMAL [facility] Comment on above: Performed By: #### 2 01573 #### [facility],[address] [place] [address] Wbc 1-5 Normal 0-5/hpf [facility] Comment on above: Performed By: #### 2 72662 #### [facility],[address] [place] [address] Yeast NONE Normal [facility] Comment on above: Performed By: #### 2 99762 #### [facility],[address] [place] [address] URINE MICROALBUMIN W/CREATIN INE, RANDOMon 11-01-2023 CREATININE UR 284.51 mg/dl Normal [facility] Comment on above: Performed By: #### 2 27387 #### [facility],[address] [place], [place] [id number] MICROALBUMIN UR 5.6 mg/dL Normal 0.1 - 11.6 [facility] Comment on above: Performed By: #### 2 46996 #### [facility],[address] [place] [address] UACR 20 mg/g Normal [facility] Comment on above: Performed By: #### 2 15871 #### [facility],[address] [place], [place] [id number] T3Free SerPl-mCncon 07-01-19 24 Free T3 [Mass/Vol] 3.0 pg/mL Normal 2.3-4.1 [facility] Comment on above: Order Comment: Speci men Type: BLOOD SPECIMEN Ordering Facility: [facility] Address: [address] [place] [address] Performed By: #### 3 051-0 #### [facility] CLIA [id number] [address] [place] [address] [place] Blood hemoglobin measurement (mass/volume)Ordered By: Gonzalez Decker on 07-21-2022 Hemoglobin (Bld) [Mass/Vol] 11.5 g/dL 12.0-15.0 [facility] Hematocrit Auto (Bld) [Volum e fraction]Ordered By: Gonzalez Decker on 07-21-2022 Hematocrit (Bld) [Volume fraction] 36.1 % 37-47 [facility] Absolute lymphocyte countOrd ered By: Dr. Mcallister on 07-06-2022 Lymphocytes Auto (Unsp spec) [#/Vol] 2.36 10*3/uL 0.83-4.51 [facility] Basophil percentageOrdered B y: Dr. Mcallister on 07-06-2022 Basophils/100 WBC (Bld) 0.6 % 0-1 [facility] Bilirubin [Mass/Vol] 0.60 mg/dL 0.20-1.00 [facility] Comment on above: For patients on eltr ombopag therapy, use of Dimension [place] TBIL is not recommended. Chloride [Moles/Vol] 105 mmol/L 98-107 [facility] Eosinophils/100 WBC (Bld) 1.1 % 0-5 [facility] Glucose [Mass/Vol] 94 mg/dL 74-106 [facility] Neutrophils (Bld) [#/Vol] 4.8 10*3/uL 2.0-7.7 [facility] Neutrophils/100 WBC (Bld) 61.5 % 47-70 [facility] Potassium [Moles/Vol] 3.2 mmol/L 3.5-5.1 [facility] Protein [Mass/Vol] 5.7 g/dL 6.4-8.2 [facility] Sodium [Moles/Vol] 140 mmol/L 136-145 [facility] WBC (Bld) [#/Vol] 7.9 10*3/uL 4.4-11.0 [facility] Blood erythrocytes count (nu mber/volume)Ordered By: Dr. Mcallister on 07-06-2022 RBC (Bld) [#/Vol] 3.52 10*6/uL 4.2-5.4 [facility] Blood hemoglobin measurement (mass/volume)Ordered By: Dr. Vera on 07-06-2022 Hemoglobin (Bld) [Mass/Vol] 11.3 g/dL 12.0-15.0 [facility] Blood lymphocytes/100 leukoc ytesOrdered By: Dr. Mcallister on 07-06-2022 Lymphocytes/100 WBC (Bld) 29.9 % 19-41 [facility] Blood monocytes/100 leukocyt esOrdered By: Dr. Mcallister on 07-06-2022 Monocytes/100 WBC (Bld) 6.8 % 0-10 [facility] Blood platelet mean volumeOr dered By: Dr. Mcallister on 07-06-2022 Platelet mean volume (Bld) [Entitic vol] 9.0 fL 6.2-12.0 [facility] Determination of erythrocyte mean corpuscular volume (MCV)Ordered By: Dr. Mcallister on 07-06-2022 MCV (RBC) [Entitic vol] 87.8 fL 81-99 [facility] Glucose Glucometer (BldC) [M ass/Vol]Ordered By: Dr. Vera on 07-06-2022 Glucose [Mass/Vol] 194 mg/dL 74-106 [facility] Comment on above: MANAGEMENT OF PATIEN T CARE PER NURSING PROTOCOL Hematocrit Auto (Bld) [Volum e fraction]Ordered By: Dr. Vera on 07-06-2022 Hematocrit (Bld) [Volume fraction] 34.0 % 37-47 [facility] Laboratory - Chemistry and C hemistry - challengeOrdered By: Dr. Mcallister on 07-06-2022 ALP [Catalytic activity/Vol] 56 U/L 45-117 [facility] ALT [Catalytic activity/Vol] 19 U/L 13-56 [facility] CO2 [Moles/Vol] 27.0 mmol/L 21.0-32.0 [facility] Globulin (S) [Mass/Vol] 2.8 g/dL 2.2-4.2 [facility] Urea nitrogen/Creatinine [Mass ratio] 15.4 mg/mg 10-20 [facility] Laboratory - Hematology and Cell countsOrdered By: Dr. Mcallister on 07-06-2022 Erythrocyte distribution width (RBC) [Entitic vol] 43.6 fL 35.1-43.9 [facility] Erythrocyte distribution width (RBC) [Ratio] 13.6 % 11.6-14.6 [facility] Immature granulocytes/100 WBC (Bld) 0.100 % 0.0-0.9 [facility] Comment on above: IG% - Immature Granu locytes (promyelocytes, myelocytes and metamyelocytes) > 1% indicates that a LEFT SHIFT is Present. MCH (RBC) [Entitic mass] 30.1 pg 27.0-32.0 [facility] Nucleated RBC/100 WBC (Bld) [Ratio] 0 % 0-5 [facility] MCHC Auto (RBC) [Mass/Vol]Or dered By: Dr. Mcallister on 07-06-2022 MCHC (RBC) [Mass/Vol] 34.3 g/dL 32-36 [facility] Comment on above: Delta: 32.4 on [id number] No Panel InformationOrdered By: Dr. Mcallister on 07-06-2022 Estimated Creatinine Clearance Calc 39.70 ml/min [facility] Estimated GFR (MDRD) Amer 113 mL/min >60 [facility] Comment on above: GFR Calc Estimated GFR (MDRD) Non-Af Amer 93 mL/min >60 [facility] Comment on above: Non- GFR Calc Platelets bldOrdered By: Dr. Mcallister on 07-06-2022 Platelets (Bld) [#/Vol] 284 10*3/uL 150-450 [facility] Serum or plasma albumin cheryl urement (mass/volume)Ordered By: Dr. Mcallister on 07-06-2022 Albumin [Mass/Vol] 2.9 g/dL 3.2-5.0 [facility] Serum or plasma albumin/glob ulin mass ratioOrdered By: Dr. Mcallister on 07-06-2022 Albumin/Globulin [Mass ratio] 1.0 {ratio} 0.9-2.4 [facility] Serum or plasma calcium cheryl urement (mass/volume)Ordered By: Dr. Mcallister on 07-06-2022 Calcium [Mass/Vol] 9.1 mg/dL 8.5-10.1 [facility] Serum or plasma creatinine m easurement (mass/volume)Ordered By: Dr. Mcallister on 07-06-2022 Creatinine [Mass/Vol] 0.65 mg/dL 0.55-1.02 [facility] Comment on above: The validity of the calculated GFR & GFRAA in patients over 70 years has not been determined. Clinical correlation is essential. Serum or plasma urea nitroge n measurement (mass/volume)Ordered By: Dr. Mcallister on 07-06-2022 Urea nitrogen [Mass/Vol] 10 mg/dL 7-18 [facility] Thin prep Papanicolaou smear with manual screeningOrdered By: Dr. Mcallister on 07-06-2022 Thin prep Papanicolaou smear with manual screening 12 U/L 15-37 [facility] Thin prep Papanicolaou smear with manual screening 8 5-15 [facility] Absolute lymphocyte countOrd ered By: Dr. Cuba on 07-05-2022 Lymphocytes Auto (Unsp spec) [#/Vol] 1.16 10*3/uL 0.83-4.51 [facility] Basophil percentageOrdered B y: Dr. Cuba on 07-05-2022 Basophils/100 WBC (Bld) 0.4 % 0-1 [facility] Bilirubin [Mass/Vol] 0.40 mg/dL 0.20-1.00 [facility] Comment on above: For patients on eltr ombopag therapy, use of Dimension [place] TBIL is not recommended. Chloride [Moles/Vol] 100 mmol/L 98-107 [facility] Eosinophils/100 WBC (Bld) 0.6 % 0-5 [facility] Glucose [Mass/Vol] 161 mg/dL 74-106 [facility] Comment on above: Fasting Glucose resu lt greater than or equal to 126 mg/dL suggests DIABETES MELLITUS per A.D.A. criteria. Neutrophils (Bld) [#/Vol] 7.3 10*3/uL 2.0-7.7 [facility] Neutrophils/100 WBC (Bld) 80.6 % 47-70 [facility] Potassium [Moles/Vol] 3.5 mmol/L 3.5-5.1 [facility] Protein [Mass/Vol] 7.3 g/dL 6.4-8.2 [facility] Sodium [Moles/Vol] 137 mmol/L 136-145 [facility] WBC (Bld) [#/Vol] 9.0 10*3/uL 4.4-11.0 [facility] Blood erythrocytes count (nu mber/volume)Ordered By: Dr. Cuba on 07-05-2022 RBC (Bld) [#/Vol] 4.37 10*6/uL 4.2-5.4 [facility] Blood hemoglobin measurement (mass/volume)Ordered By: Dr. Cuba on 07-05-2022 Hemoglobin (Bld) [Mass/Vol] 12.7 g/dL 12.0-15.0 [facility] Blood lymphocytes/100 leukoc ytesOrdered By: Dr. Cuba on 07-05-2022 Lymphocytes/100 WBC (Bld) 12.9 % 19-41 [facility] Blood monocytes/100 leukocyt esOrdered By: Dr. Cuba on 07-05-2022 Monocytes/100 WBC (Bld) 5.1 % 0-10 [facility] Blood platelet mean volumeOr dered By: Dr. Cuba on 07-05-2022 Platelet mean volume (Bld) [Entitic vol] 9.4 fL 6.2-12.0 [facility] Determination of erythrocyte mean corpuscular volume (MCV)Ordered By: Dr. Cuba on 07-05-2022 MCV (RBC) [Entitic vol] 89.7 fL 81-99 [facility] Hematocrit Auto (Bld) [Volum e fraction]Ordered By: Dr. Cuba on 07-05-2022 Hematocrit (Bld) [Volume fraction] 39.2 % 37-47 [facility] Laboratory - Chemistry and C hemistry - challengeOrdered By: Dr. Cuba on 07-05-2022 ALP [Catalytic activity/Vol] 73 U/L 45-117 [facility] ALT [Catalytic activity/Vol] 23 U/L 13-56 [facility] CO2 [Moles/Vol] 27.0 mmol/L 21.0-32.0 [facility] Globulin (S) [Mass/Vol] 3.7 g/dL 2.2-4.2 [facility] Urea nitrogen/Creatinine [Mass ratio] 14.5 mg/mg 10-20 [facility] - Hematology and Cell countsOrdered By: Dr. Cuba on 07-05-2022 Erythrocyte distribution width (RBC) [Entitic vol] 44.4 fL 35.1-43.9 [facility] Erythrocyte distribution width (RBC) [Ratio] 13.5 % 11.6-14.6 [facility] Immature granulocytes/100 WBC (Bld) 0.400 % 0.0-0.9 [facility] Comment on above: IG% - Immature Granu locytes (promyelocytes, myelocytes and metamyelocytes) > 1% indicates that a LEFT SHIFT is Present. MCH (RBC) [Entitic mass] 29.1 pg 27.0-32.0 [facility] Nucleated RBC/100 WBC (Bld) [Ratio] 0 % 0-5 [facility] Auto ([facility]BC) [Mass/Vol]Or dered By: Dr. Cuba on 07-05-2022 MCHC (RBC) [Mass/Vol] 32.4 g/dL 32-36 [facility] No Panel InformationOrdered By: Dr. Cuba on 07-05-2022 Estimated Creatinine Clearance Calc 44.61 ml/min [facility] Estimated GFR (MDRD) Amer 78 mL/min >60 [facility] Comment on above: GFR Calc Estimated GFR (MDRD) Non-Af Amer 64 mL/min >60 [facility] Comment on above: Non- GFR Calc Platelets bldOrdered By: Dr. Cuba on 07-05-2022 Platelets (Bld) [#/Vol] 370 10*3/uL 150-450 [facility] Serum or plasma albumin cheryl urement (mass/volume)Ordered By: Dr. Cuba on 07-05-2022 Albumin [Mass/Vol] 3.6 g/dL 3.2-5.0 [facility] Serum or plasma albumin/glob ulin mass ratioOrdered By: Dr. Cuba on 07-05-2022 Albumin/Globulin [Mass ratio] 1.0 {ratio} 0.9-2.4 [facility] Serum or plasma calcium cheryl urement (mass/volume)Ordered By: Dr. Cuba on 07-05-2022 Calcium [Mass/Vol] 10.2 mg/dL 8.5-10.1 [facility] Serum or plasma creatinine m easurement (mass/volume)Ordered By: Dr. Cuba on 07-05-2022 Creatinine [Mass/Vol] 0.89 mg/dL 0.55-1.02 [facility] Comment on above: The validity of the calculated GFR & GFRAA in patients over 70 years has not been determined. Clinical correlation is essential. Serum or plasma urea nitroge n measurement (mass/volume)Ordered By: Dr. Cuba on 07-05-2022 Urea nitrogen [Mass/Vol] 13 mg/dL 7-18 [facility] Thin prep Papanicolaou smear with manual screeningOrdered By: Dr. Cuba on 07-05-2022 Thin prep Papanicolaou smear with manual screening 15 U/L 15-37 [facility] Thin prep Papanicolaou smear with manual screening 10 5-15 [facility] Hemoglobin A1con 05-06-2021 Glucose [Mass/Vol] 134 mg/dL Normal [facility] Comment on above: Performed By: #### H BA1C #### [facility] Routine Lab [address] [address] HbA1c (Bld) [Mass fraction] 6.3 % High 4.3-5.6 [facility] Comment on above: Performed By: #### H BA1C #### [facility] Routine Lab [address] [address] Hemoglobin A1con 10-25-2020 Glucose [Mass/Vol] 140 mg/dL Normal [facility] Comment on above: Performed By: #### H BA1C #### [facility] Routine Lab [address] [address] HbA1c (Bld) [Mass fraction] 6.5 % High 4.3-5.6 [facility] Comment on above: Performed By: #### H BA1C #### [facility] Routine Lab [address] [address] Vital Signs Date Time Vital Sign Value Performing Clinician Dev tam 11-29-2024 11:18-0400 Body height 165.1 cm Anh Ruano [employer] Work Phone: [facility] 11-29-2024 11:18-0400 Body mass index (BMI) [Ratio] 27.1 kg/m2 Anh Ruano [employer] Work Phone: [facility] 11-29-2024 11:18-040 Body weight 73.93 kg Anh Ruano [employer] Work Phone: [facility] 11-29-2024 11:18-0400 Diastolic blood pressure 63 mm[Hg] Anh Ruano [employer] Work Phone: [facility] 11-29-2024 11:18-0400 Heart rate 62 /min Anh Howardf [employer] Work Phone: [facility] 11-29-2024 11:18-0400 Respiratory rate 16 /min Anh Howardf [employer] Work Phone: [facility] 11-29-2024 11:18-0400 Systolic blood pressure 110 mm[Hg] Anh Howardf [employer] Work Phone: [facility] 05-25-2024 18:27-0500 Body temperature 98.6 [degF] Krislyn Aberegg PA Work Phone: [facility] 05-25-2024 18:27-0500 Body weight 76.4 kg Krislyn Aberegg PA Work Phone: [facility] 05-25-2024 18:27-0500 Diastolic blood pressure 64 mm[Hg] Krislyn Aberegg PA Work Phone: [facility] 05-25-2024 18:27-0500 Heart rate 76 /min Krislyn Aberegg PA Work Phone: [facility] 05-25-2024 18:27-0500 Respiratory rate 18 /min Krislyn Aberegg PA Work Phone: [facility] 05-25-2024 18:27-0500 SaO2% (BldA) [Mass fraction] 95 % Krislyn Aberegg PA Work Phone: [facility] 05-25-2024 18:27-0500 Systolic blood pressure 110 mm[Hg] Krislyn Aberegg PA Work Phone: [facility] 06-23-2023 10:48-0500 Body height 165.[address] Jessica Escobar Work Phone: [facility] 06-23-2023 10:48-0500 Body mass index (BMI) [Ratio] 26.8 kg/m2 Dr. Jessica Escobar Work Phone: [facility] 06-23-2023 10:48-0500 Body weight 73.[address] Jessica Escobar Work Phone: [facility] 06-23-2023 10:48-0500 Diastolic blood pressure 65 mm[Hg] Dr. Jessica Escobar Work Phone: [facility] 06-23-2023 10:48-0500 Heart rate 73 /min Dr. Jessica Escobar Work Phone: [facility] 06-23-2023 10:48-0500 Respiratory rate 18 /min Dr. Jessica Escobar Work Phone: [facility] 06-23-2023 10:48-0500 SaO2% (BldA) [Mass fraction] 97 % Dr. Jessica Escobar Work Phone: [facility] 06-23-2023 10:48-0500 Systolic blood pressure 122 mm[Hg] Dr. Jessica Escobar Work Phone: [facility] 07-06-2022 12:41-0500 Body temperature 97.9 [degF] Dr. Jessica Escobar Work Phone: [facility] 07-06-2022 12:41-0500 Diastolic blood pressure 49 mm[Hg] Dr. Jessica Escobar Work Phone: [facility] 07-06-2022 12:41-0500 Heart rate 62 /min Dr. Jessica Escobar Work Phone: [facility] 07-06-2022 12:41-0500 Respiratory rate 18 /min Dr. Jessica Escobar Work Phone: [facility] 07-06-2022 12:41-0500 SaO2% (BldA) [Mass fraction] 98 % Dr. Jessica Escobar Work Phone: [facility] 07-06-2022 12:41-0500 Systolic blood pressure 112 mm[Hg] Dr. Jessica Escobar Work Phone: [facility] 07-06-2022 02:59-0500 Body weight 72.[address] Jessica Escobar Work Phone: [facility] 07-05-2022 20:54-0500 Body height 165.[address] Jessica Escobar Work Phone: [facility] 07-05-2022 20:54-0500 Body mass index (BMI) [Ratio] 26.4 kg/m2 Dr. Jessica Escobar Work Phone: [facility] 07-05-2022 19:37-0500 Body temperature 97.6 [degF] Dr. Jessica Escobar Work Phone: [facility] 07-05-2022 19:37-0500 Diastolic blood pressure 67 mm[Hg] Dr. Jessica Escobar Work Phone: [facility] 07-05-2022 19:37-0500 Heart rate 67 /min Dr. Jessica Escobar Work Phone: [facility] 07-05-2022 19:37-0500 Respiratory rate 16 /min Dr. Jessica Escobar Work Phone: [facility] 07-05-2022 19:37-0500 SaO2% (BldA) [Mass fraction] 95 % Dr. Jessica Escobar Work Phone: [facility] 07-05-2022 19:37-0500 Systolic blood pressure 131 mm[Hg] Dr. Jessica Escobar Work Phone: [facility] 07-05-2022 13:29-0500 Body height 165.[address] Jessica Escobar Work Phone: [facility] 07-05-2022 13:29-0500 Body mass index (BMI) [Ratio] 26.5 kg/m2 Dr. Jessica Escobar Work Phone: [facility] 07-05-2022 13:29-0500 Body weight 72.[address] Jessica Escobar Work Phone: [facility] 03-30-2022 09:39-0400 Body height 182.[address] Jessica Escobar Work Phone: [facility] Work Phone: 03-30-2022 09:39-0400 Body mass index (BMI) [Ratio] 21.4 kg/m2 Dr. Jessica Escobar Work Phone: [facility] 03-30-2022 09:39-0400 Body weight 71.[address] Jessica Escobar Work Phone: [facility] 03-30-2022 09:39-0400 Diastolic blood pressure 65 mm[Hg] Dr. Jessica Escobar Work Phone: [facility] 03-30-2022 09:39-0400 Heart rate 68 /min Dr. Jessica Escobar Work Phone: [facility] 03-30-2022 09:39-0400 Respiratory rate 16 /min Dr. Jessica Escobar Work Phone: [facility] 03-30-2022 09:39-0400 SaO2% (BldA) [Mass fraction] 97 % Dr. Jessica Escobar Work Phone: [facility] 03-30-2022 09:39-0400 Systolic blood pressure 112 mm[Hg] Dr. Jessica Escobar Work Phone: [facility] Encounters Encounter Date Encounter Type Care Provider Facility Start: 03-26-2025 [facility] Facility :[facility] Start: 03-13-2025 End: 03-13-2025 ambulatory [facility] Facility:[facility] Start: 11-29-2024 End: 11-29-[address] Etienne Ortiz MD -[facility] Work Phone: Start: 11-29-2024 End: 11-29-2024 ambulatory Anh Ruano [employer] Work Phone: -[facility] Start: 10-09-2024 End: 10-09-2024 ambulatory Anh Ruano [employer] Work Phone: [facility] Work Phone: Start: 10-09-2024 End: 10-09-2024 Patient encounter procedure Anh Ruano [employer] -[facility] Start: 10-09-2024 End: 10-09-2024 ambulatory Anh Ruano Facility:[facility] Start: 09-17-2024 ambulatory JESSICA Mai [facility] Start: 06-13-2024 End: 06-13-2024 ambulatory JESSICA LOVETT [facility] Start: 05-25-2024 End: 05-25-2024 ambulatory Facility:[facility] Start: 05-25-2024 End: 05-25-2024 Patient encounter procedure Mustapha COHEN Work Phone: [facility] Comment on above: COVID (Primary Dx) Start: 11-01-2023 End: 11-01-2023 ambulatory JESSICA LOVETT MAND[facility] Start: 08-01-2023 Non-patient / Non-visit Dr. Jessica Escobar Work Phone: [facility] Work Phone: Start: 08-01-2023 Non-patient / Non-visit Dr. Jessica Escobar Work Phone: [facility] Start: 08-01-2023 End: 08-01-[address] Jessica Escobar Work Phone: [facility] Work Phone: Start: 08-01-2023 End: 08-01-[address] [facility]: Start: 06-23-2023 End: 06-23-[address] Jessica Escobar Work Phone: [facility] Work Phone: Start: 07-21-2022 End: 07-21-[address] Jessica Escobar Work Phone: [facility] Work Phone: Start: 07-21-2022 End: 07-21-[address] Jessica Escobar Work Phone: [facility] Start: 07-06-2022 Non-patient / Non-visit Dr. Jessica Escobar Work Phone: [facility] Start: 07-05-2022 Non-patient / Non-visit Dr. Jessica Escobar Work Phone: [facility] Start: 07-05-2022 End: 07-06-2022 Evaluation and management of inpatient Dr. Jessica Escobar [facility] Start: 07-05-2022 End: 07-06-2022 observation encounter Dr. Jessica Escobar Work Phone: [facility] Work Phone: Start: 04-23-2022 Non-patient / Non-visit Dr. Jessica Escobar Work Phone: [facility] Start: 04-23-2022 End: 04-23-[address] Jessica Escobar Work Phone: [facility] Work Phone: Start: 04-23-2022 End: 04-23-[address] Jessica Escobar Work Phone: [facility] Start: 03-30-2022 End: 03-30-[address] Jessica Escobar Work Phone: [facility] Procedures Date Procedure Procedure Detail Performing Clinician Start: 10-09-2024 Total iron binding capacity measurement Anh Ruano [employer] Work Phone: Start: 11-01-2023 Urinalysis JESSICA CAREY Comment on above: Result Comment: URIN ALYSIS Performed By: #### [id number] #### [facility],[address] [address] Start: 07-05-2022 Computed tomography of abdomen and pelvis with intravenous contrast Dr. Jessica Escobar Work Phone: Start: 04-23-2022 Cardiovascular stres s test using pharmacologic stress agent Dr. Jessica Escobar Work Phone: Start: 06-21-2017 History of placement of stent for coronary artery disease History of coronary artery stent placement Dr. Jessica Escobar Work Phone: Comment on above: [id number] RCA w/ 4.0 X 12 Promus Synergy 06/21/2017 Stool Occult Blood (JAN) Dr. Jessica Escobar Work Phone: Plan of Treatment Date Care Activity Detail Author Start: 11-12-2025 Diabetes Screening Diabetes Screening [facility] Start: 01-29-2024 Covid-19 Vaccine ( season) Covid-19 Vaccine () [facility] Start: 05-30-2023 Advance Directive Discussion Advance Directive Discussion [facility] Start: 07-06-2022 Patient discharge [facility] Start: 07-05-2022 End: 07-06-2022 [facility] Start: 07-05-2022 Application of intermittent pneumatic compression device [facility] Start: 07-05-2022 Following clinical pathway protocol [facility] Start: 07-05-2022 Assessment of risk of venous thromboembolism [facility] Start: 07-05-2022 Care regimes management [facility] Start: 07-05-2022 Fall prevention [facility] Start: 07-05-2022 Incentive spirometry [facility] Start: 07-05-2022 Inhalation therapy procedure [facility] Start: 07-05-2022 Insertion of catheter into peripheral vein [facility] Start: 07-05-2022 Introduction of urinary catheter [facility] Start: 07-05-2022 Measuring intake and output [facility] Start: 07-05-2022 Oxygen therapy [facility] Start: 07-05-2022 Providing care according to standard [facility] Start: 07-05-2022 Provision of activity privileges [facility] Start: 07-05-2022 Referral to gastroenterology service [facility] Start: 07-05-2022 Referral to service [facility] Start: 07-05-2022 Computed tomography of abdomen and pelvis with intravenous contrast Abdomen/Pelvis W IV Cont ONLY [facility] Start: 07-05-2022 CT Abdomen and Pelvis W contrast IV [facility] Start: 07-05-2022 Verification routine [facility] Start: 07-05-2022 Admission procedure [facility] Start: 07-05-2022 Measurement of occult blood in stool specimen using immunoassay [facility] Start: 10-19-2015 RSV Vaccine (1 - 1-dose 75+ series) RSV Vaccine (1 - 1-dose 75+ series) [facility] Start: 2005 Screening for osteoporosis Bone Density Screening [facility] Start: 1990 Shingrix Vaccine (1 of 2) Shingrix Vaccine (1 of 2) [facility] Start: 10-19-1959 Urine microalbumin profile DTaP,Tdap,Td Vaccine (1 - Tdap) [facility] Start: 1958 Anxiety Screening Anxiety Screening [facility] Start: 1958 Depression Screening Depression Screening [facility] Patient referral [facility] Work Phone: Immunizations Immunization Date Immunization Notes Care Provider Gaurav garcia 03-19-2024 influenza, high dose seasonal, preservative-free Mustapha COHEN Work Phone: [facility] 11-10-2023 pneumococcal conjuga te (PCV20) vaccine, 20 valent (PREVNAR 20) Mustapha COHEN Work Phone: [facility] 03-03-2023 influenza (HD-IIV4) vaccine, age 65+ yr, high dose, quadrivalent, PF (FLUZONE HIGH-DOSE) Krislyn Aberegg PA Work Phone: [facility] 03-11-2022 influenza, injectabl e, quadrivalent, preservative free Krislyn Aberegg PA Work Phone: [facility] 04-13-2021 influenza (HD-IIV4) vaccine, age 65+ yr, high dose, quadrivalent, PF (FLUZONE HIGH-DOSE) Krislyn Aberegg PA Work Phone: [facility] 03-17-2020 influenza, injectabl e, quadrivalent, preservative free Krislyn Aberegg PA Work Phone: [facility] 03-29-2019 influenza, injectabl e, quadrivalent, preservative free Krislyn Aberegg PA Work Phone: [facility] 02-28-2018 influenza, seasonal, injectable Krislyn Aberegg PA Work Phone: [facility] 03-30-[address] Jessica Escobar Work Phone: [facility] 03-23-2017 influenza, high dose seasonal, preservative-free Krislyn Aberegg PA Work Phone: [facility] 03-23-2017 pneumococcal polysaccharide vaccine, 23 valent Krislyn Aberegg PA Work Phone: [facility] 03-04-2016 influenza, seasonal, injectable Krislyn Aberegg PA Work Phone: [facility] 11-13-2015 pneumococcal conjuga te vaccine, 13 valent Krislyn Aberegg PA Work Phone: [facility] 04-16-2015 influenza, high dose seasonal, preservative-free Krislyn Aberegg PA Work Phone: [facility] 03-16-2007 influenza virus vacc ine, whole virus Mustapha COHEN Work Phone: [facility] Payers Date Payer Category Payer Self-pay [id number] 2021 Unknown MMO MMO MEDICARE SUPPLEMENT [id number] 2021-Present [phone] [address] [place] [address] Indemnity [id number] 2021 Unknown [id number] 2005 Medicare MEDICARE MEDICAR E A AND B [id number] 2005-Present [phone] [address] [address] [place] [address] Medicare [id number] 2005 Medicare [id number] 1940 Unknown [id number] 1940 Unknown [id number] 1940 Unknown [id number] 1940 Unknown [id number] Unknown [id number] Unknown [id number] Unknown [id number] Unknown [id number] Unknown [id number] Social History Date Type Detail Facility Start: 03-30-2022 End: 06-23-2023 Tobacco smoking status NHIS Unknown if ever smoked [facility] Start: 1940 Sex Assigned At Female [facility] Start: 1940 Sex assigned at Not on file [facility] Gender identity Not on file [facility] Start: 06-23-2023 Tobacco smoking stat us NHIS Never smoked tobacco (finding) [facility] Medical Equipment Procedure Code Equipment Code Equipment Origin al Text Equipment Identifier Dates use 1 strip to c heck glucose once daily Start: 05-08-2024 Goals Date Patient Goal Desired Activity /State Functional Status Date Assessment Result Facility 07-06-2022 Functional status Activity Abili ty Standby Assist [facility] Work Phone: 07-06-2022 Functional status Patient Activity Ambula florinda [facility] Work Phone: Mental Status Date Assessment Result Facility 07-06-2022 Cognitive function Appropriate;Cooperativ e [facility] Work Phone: Clinical Notes 06-21-2017 to 05-25-2024 Mustapha Soto PA - 05/25/2024 6:36 PM EST Note Date & Type Note Facility 05-25-2024 Note HNO ID: [id number] Author: MUSTAPHA SOTO PA Service: ? Author Type: Physician [employer] Type: Progress Notes Filed: 05/25/2024 18:39 Note Text: This note was created using [employer]. Subjective Flores Washington is a 83 year old female. HPI 83-year-old female presents for cough, congestion, fever x 2 days. Patient states she started getting a cough 2 days ago. She has a little bit of nasal congestion. She had a fever yesterday of 99 ?F. No chest pain or shortness of breath. No vomiting or diarrhea. Still able to eat and drink. She states that she was exposed to COVID and did a COVID test today that came back negative. She would like to discuss Paxlovid. History reviewed. No pertinent past medical history. No past surgical history on file. ALLERGIES Cephalexin, Codeine, and Lisinopril MEDICATIONS amLODIPine (NORVASC) 5 mg tablet Take 0.5 tablets by mouth every afternoon. atorvastatin (LIPITOR) 20 mg tablet Take 20 mg by mouth daily at bedtime. ONETOUCH ULTRA TEST test strip use 1 strip to check glucose once daily FLUoxetine (PROZAC) 40 mg capsule Take 1 capsule by mouth every afternoon. glimepiride (AMARYL) 2 mg tablet Take 1 tablet by mouth every afternoon. benzonatate (TESSALON PERLE) 100 mg capsule Take 1 capsule by mouth three times a day as needed. No family history on file. Review of Systems Constitutional: Positive for fever. Negative for chills. HENT: Positive for congestion. Negative for ear pain and sore throat. Respiratory: Positive for cough. Negative for shortness of breath. Cardiovascular: Negative for chest pain. Gastrointestinal: Negative for diarrhea and vomiting. Objective BP 110/64 Pulse 76 Temp 37 ?C (98.6 ?F) (Tympanic) Resp 18 Wt 76.4 kg (168 lb 6.9 oz) SpO2 95% Physical Exam Vitals and nursing note reviewed. Constitutional: General: She is not in acute distress. Appearance: Normal appearance. She is not toxic-appearing. HENT: Right Ear: Tympanic membrane and ear canal normal. Left Ear: Tympanic membrane and ear canal normal. Nose: Nose normal. Mouth/Throat: Mouth: Mucous membranes are moist. Eyes: Conjunctiva/sclera: Conjunctivae normal. Cardiovascular: Rate and Rhythm: Normal rate and regular rhythm. Pulmonary: Effort: Pulmonary effort is normal. Breath sounds: Normal breath sounds. No wheezing, rhonchi or rales. Skin: General: Skin is warm and dry. Neurological: Mental Status: She is alert. Assessment and Plan ASSESSMENT/PLAN: 1. COVID - ICD9: 079.89, ICD10: U07.1 -Home positive COVID test. -Discussed with patient that she is a candidate for Paxlovid. However, I do not have any recent kidney function on her. Lab is closed for the evening. Did recommend if patient would like Paxlovid, she would need to return tomorrow to have lab testing completed before we could prescribe it. -Patient declines Paxlovid at this time. -Rx for Tessalon Perles given to help with cough. -She will follow-up if she changes her mind within the next 2 days. Diagnosis and treatment plan were discussed and questions were answered to the patient's satisfaction. Pt acknowledged understanding of concepts and follow up plan. Specific signs and symptoms that would indicate the need for higher level of care were discussed in detail warranting prompt ER evaluation. NOEL Mendoza [facility] 05-25-2024 History of Present illness Narrative This note was created using [facility]. Subjective Flores Washington is a 83 year old female. HPI 83-year-old female presents for cough, congestion, fever x 2 days. Patient states she started getting a cough 2 days ago. She has a little bit of nasal congestion. She had a fever yesterday of 99 F. No chest pain or shortness of breath. No vomiting or diarrhea. Still able to eat and drink. She states that she was exposed to COVID and did a COVID test today that came back negative. She would like to discuss Paxlovid. History reviewed. No pertinent past medical history. No past surgical history on file. ALLERGIES Cephalexin, Codeine, and Lisinopril MEDICATIONS amLODIPine (NORVASC) 5 mg tablet Take 0.5 tablets by mouth every afternoon. atorvastatin (LIPITOR) 20 mg tablet Take 20 mg by mouth daily at bedtime. ONETOUCH ULTRA TEST test strip use 1 strip to check glucose once daily FLUoxetine (PROZAC) 40 mg capsule Take 1 capsule by mouth every afternoon. glimepiride (AMARYL) 2 mg tablet Take 1 tablet by mouth every afternoon. benzonatate (TESSALON PERLE) 100 mg capsule Take 1 capsule by mouth three times a day as needed. No family history on file. Review of Systems Constitutional: Positive for fever. Negative for chills. HENT: Positive for congestion. Negative for ear pain and sore throat. Respiratory: Positive for cough. Negative for shortness of breath. Cardiovascular: Negative for chest pain. Gastrointestinal: Negative for diarrhea and vomiting. Objective BP 110/64 Pulse 76 Temp 37 C (98.6 F) (Tympanic) Resp 18 Wt 76.4 kg (168 lb 6.9 oz) SpO2 95% Physical Exam Vitals and nursing note reviewed. Constitutional: General: She is not in acute distress. Appearance: Normal appearance. She is not toxic-appearing. HENT: Right Ear: Tympanic membrane and ear canal normal. Left Ear: Tympanic membrane and ear canal normal. Nose: Nose normal. Mouth/Throat: Mouth: Mucous membranes are moist. Eyes: Conjunctiva/sclera: Conjunctivae normal. Cardiovascular: Rate and Rhythm: Normal rate and regular rhythm. Pulmonary: Effort: Pulmonary effort is normal. Breath sounds: Normal breath sounds. No wheezing, rhonchi or rales. Skin: General: Skin is warm and dry. Neurological: Mental Status: She is alert. Assessment and Plan ASSESSMENT/PLAN: 1. COVID - ICD9: 079.89, ICD10: U07.1 -Home positive COVID test. -Discussed with patient that she is a candidate for Paxlovid. However, I do not have any recent kidney function on her. Lab is closed for the evening. Did recommend if patient would like Paxlovid, she would need to return tomorrow to have lab testing completed before we could prescribe it. -Patient declines Paxlovid at this time. -Rx for Tessalon Perles given to help with cough. -She will follow-up if she changes her mind within the next 2 days. Diagnosis and treatment plan were discussed and questions were answered to the patient's satisfaction. Pt acknowledged understanding of concepts and follow up plan. Specific signs and symptoms that would indicate the need for higher level of care were discussed in detail warranting prompt ER evaluation. NOLE Mendoza documented in this encounter [facility] 07-05-2022 History and physi natividad note Note Date/Time July 05, 2022 5:15pm [facility] Medical Records Department [address] [place] [address] H&P Exam - Hospitalist 07/05/22 1714 MR#: [id number] Acct: [id number] Name: FLORES WASHINGTON Jeana Rep #:[id number] 1 : 1940 81 From: Nena Mcallister MD PCP: Dr. Jessica Escobar MD Status:ADM I NO Location: [place]3 [facility] HPI - General General Date of Admission: 07/05/22 Date of Service: 07/05/22 Chief Complaint: Rectal bleeding BRBPR/clots, ongoing. HPI Narrative The patient is an 81 y/o F w/ PMHx: Anxiety and Depression, Chronic normocytic anemia, CAD s/p PCI, Known aortic root dilation, HTN, HLD, Diabetes mellitus type II, Overweight who presents to the [facility] ED on 07/05/22 with history of rectal bleeding that started approximately 10:30 in the morning apparently awoke and felt like she was having a bowel movement but instead of passing stool she passed copious amounts of bright red blood and large clots with no chest pain, dyspnea, lightheadedness or dizziness at that time nor any recent nausea, emesis, abdominal pain or hematemesis but given ongoing bleeding requiring her to wear a pad prompted eventual ED evaluation. She notes that since she has presented to the ED the bleeding has somewhat slowed. Work-up in the ED included T97, heart 75, BP 140/79, respiratory rate 18, 98% on room air, unremarkable orthostatic vital signs, CBC with WC 9, hemoglobin 12.7, platelet 370 without marked shift, unremarkable CMP with glucose 161, calcium 10.2, type and screen performed per ED physician, stool occult requested per ED physician and pending. Patient ministered 1 L normal saline. [facility] Medical History Anxiety and depression Aortic root dilatation Atherosclerosis of coronary artery of [place] heart without angina pectoris Chronic anemia DM type 2 (diabetes mellitus, type 2) Dyslipidemia Essential (primary) hypertension Home Medications atorvastatin 20 mg tablet 20 mg PO QHS 06/18/17 [History Last Taken 12/17/17] hydrochlorothiazide 25 mg tablet 25 mg PO DAILY 06/18/17 [History Last Taken 12/17/17] metformin 1,000 mg 24 hr tablet,extended release 1,000 mg PO BID 06/18/17 [History Last Taken 12/17/17] multivitamin 1 ea PO DAILY 06/18/17 [History Last Taken 12/17/17] aspirin 81 mg tablet,delayed release 81 mg PO DAILY@0800 #30 tabs 06/22/17 [Rx Last Taken 12/17/17] amlodipine 5 mg tablet 5 mg PO DAILY 10/03/17 [History Last Taken 12/17/17] coenzyme Q10 100 mg capsule (CoQ-10) 100 mg PO DAILY 05/08/18 [History Last Taken Unknown] lorazepam 0.5 mg tablet 0.5 mg PO BID PRN Anxiety 06/28/19 [History Last Taken Unknown] cholecalciferol (vitamin D3) 50 mcg (2,000 unit) capsule 50 mcg PO DAILY 03/24/21 [History Last Taken Unknown] potassium chloride 8 mEq tablet,extended release 24 meq PO DAILY 03/24/21 [History Last Taken Unknown] fluoxetine 40 mg capsule 40 mg PO DAILY 03/30/22 [History Last Taken Unknown] glimepiride 2 mg tablet 2 mg PO DAILY 03/30/22 [History Last Taken Unknown] metoprolol tartrate 25 mg tablet 12.5 mg PO BID #90 tabs 04/02/22 [Rx Last Taken Unknown] clopidogrel 75 mg tablet 75 mg PO DAILY #90 tabs 06/30/22 [Rx Last Taken Unknown] Allergy/AdvReac Type Severity Reaction Status Date / Time cephalexin [From Keflex] Allergy Swelling Verified 03/30/22 09:39 lisinopril Allergy Swelling Verified 03/30/22 09:39 codeine AdvReac Upset Verified 03/30/22 09:39 Stomach Family History Father Heart disease Mother Cancer Surgical History History of coronary artery stent placement (06/21/17) History of hysterectomy Social History Smoking Status: Never smoker alcohol intake: never substance use type: does not use caffeine: Yes Type: carbonated beverages what type of physical activity do you participate in: none seatbelt use: always do you feel safe at home: Yes ROS ROS Narrative Admission Review of Systems: CONSTITUTIONAL: No weight loss, fever, chills, + weakness or fatigue. HEENT: Eyes: No visual loss, blurred vision, double vision or yellow sclerae. Ears, Nose, Throat: No hearing loss, sneezing, congestion, runny nose or sore throat. SKIN: No rash or itching, lesions, wounds. CARDIOVASCULAR: No chest pain, chest pressure or chest discomfort, palpitations,edema, orthopnea, syncopal events. RESPIRATORY: No shortness of breath, cough or sputum, wheezing, hemoptysis. GASTROINTESTINAL: + Bright red blood per rectum, no anorexia, nausea, vomiting or diarrhea, abdominal pain, melena. GENITOURINARY: No dysuria, frequency, urgency or retention. NEUROLOGICAL: No headache, dizziness, syncope, paralysis, ataxia, numbness or tingling in the extremities, focal weakness, change in bowel or bladder control,seizure. MUSCULOSKELETAL: + muscle, back pain, joint pain or stiffness. HEMATOLOGIC: + anemia, bleeding or bruising. LYMPHATICS: No enlarged nodes. No history of splenectomy. PSYCHIATRIC: + history of depression or anxiety. ENDOCRINOLOGIC: No reports of sweating, cold or heat intolerance. No polyuria orpolydipsia. ALLERGIES: No history of asthma, hives, eczema or rhinitis. Vital Signs Vital Signs Vital Signs: 07/05/22 13:29 07/05/22 15:09 07/05/22 17:02 Temperature 97.0 F L Temperature Source Temporal Pulse Rate 75 69 Pulse Rate [Sitting (for 1 minute prior to obtaining)] 70 Pulse Rate [Standing (for 1 minute prior to obtaining)] 78 Respiratory Rate 18 13 Blood Pressure 140/79 H 129/57 H Blood Pressure [Sitting (for 1 minute prior to obtaining)] 131/64 H Blood Pressure [Standing (for 1 minute prior to obtaining)] 120/67 Blood Pressure Mean 99 81 Blood Pressure Mean [Sitting (for 1 minute prior to obtaining)] 86 Blood Pressure Mean [Standing (for 1 minute prior to obtaining)] 84 Pulse Ox 98 97 Oxygen Delivery Method Room Air Room Air Weight Weight: 159 lb 11.2 oz Body Mass Index (BMI) 26.5 Physical Exam Narrative Physical Examination: General: Awake, alert, oriented x 3 and cooperative, seated upright in ED bed, fatigued but no acute distress. Skin: Normal color, normal turgor, no icterus, no cyanosis. HEENT: AT/NC, EOMI, PERRLA, MMM, no carotid bruits or JVD noted. Lungs: Mildly diminished, greater bases appropriate effort, no rales, ronchi or wheezing. Heart: Currently regular rate and rhythm; no gallop, rub audible. Abdomen: Soft, NTTP, ND, hyperactive BS, no HSM. Extremities: No cyanosis, no clubbing, no marked bilateral lower extremity peripheral ankle edema, does have thicker ankles. Neurological: Patient awake, alert, oriented as noted, cognitive function intact; pupils equally reactive to light and accommodation, cranial nerves II-XII grossly normal, moving all 4 extremities, no focal deficits, strength mildly to moderately globally Germaine secondary to acute presentation Psychiatric: Affect appears fatigued otherwise normal, no acute evidence of depressive or anxiety feelings. Results Lab / Micro Data Result Diagrams: 07/05/22 14:34 07/05/22 14:34 Labs: Laboratory Results - last 24 hr 07/05/22 14:34: WBC 9.0, RBC 4.37, Hgb 12.7, Hct 39.2, MCV 89.7, MCH 29.1, MCHC 32.4, RDW Std Deviation 44.4 H, RDW Coeff of Lizz 13.5, Plt Count 370, MPV 9.4, Immature Gran % (Auto) 0.400, Neut % (Auto) 80.6 H, Lymph % (Auto) 12.9 L, [place] % (Auto) 5.1, Eos % (Auto) 0.6, Baso % (Auto) 0.4, Absolute Neuts (auto) 7.3, Absolute Lymphs (auto) 1.16, Nucleated RBC % 0 07/05/22 14:34: Sodium 137, Potassium 3.5, Chloride 100, Carbon Dioxide 27.0, Anion Gap 10, BUN 13, Creatinine 0.89, Estim Creat Clear Calc 44.61, Est GFR (MDRD) Af Amer 78, Est GFR (MDRD) Non-Af 64, BUN/Creatinine Ratio 14.5, Glucose 161 H, Calcium 10.2 H, Total Bilirubin 0.40, AST 15, ALT 23, Alkaline Phosphatase 73, Total Protein 7.3, Albumin 3.6, Globulin 3.7, Albumin/Globulin Ratio 1.0 07/05/22 14:34: Blood Type A POSITIVE, Antibody Screen NEGATIVE Assessment & Plan Assessment/Plan (1) GI bleed: PLAN: Plan The patient is an 81 y/o F w/ PMHx: Anxiety and Depression, Chronic normocytic anemia, CAD s/p PCI, Known aortic root dilation, HTN, HLD, Diabetes mellitus type II, Overweight who presents to the [facility] ED on 07/05/22 with history of rectal bleeding that started approximately 10:30 in the morning apparently awoke and felt like she was having a bowel movement but instead of passing stool she passed copious amounts of bright red blood and large clots with ongoing bleedingrequiring her to wear a pad prompted eventual ED evaluation. #1. Acute GI Bleed with chronic anemia, normocytic: Admission hemoglobin 12.7, baseline prior has been 11-12, will admit to medical surgical, maintain on judicious IV fluids, will obtain serial H&H's, type and screen already performedper ED physician, maintain on IV PPI although this is more distal, will allow clear liquids until n.p.o. status at midnight, gastroenterology consulted, pending. Will maintain on fall precautions although patient not currently markedly symptomatic may worsen. #2. CAD: Status post prior PCI 2017, given acute presentation we will temporarily hold aspirin, Plavix, resume immediately following GI evaluation, will continue metoprolol, not on SHANTA inhibitor/ARB recurrent regimen. #3 hypertension: Continue home regimen including metoprolol, hydrochlorothiazide, amlodipine with hold parameters as needed given symptoms, PRN hydralazine. #4. Hyperlipidemia: We will continue patient on statin therapy. #5. Anxiety depression: We will continue patient on fluoxetine and low-dose as needed Ativan regimen. #6. Diabetes mellitus type II: Hold oral home regimen, given presentation will maintain on clears with n.p.o. status transition at midnight, accu checks w/ ISS. #7. DVT prophylaxis: SCDs, holding chemoprophylaxis given acute presentation asnoted. #8. CODE status: Patient HCPOA are her children and living will is currently inplace. Discussed CODE status at length including difference between FULL code, DNR-CCA and DNR-CC status. Following discussions about the differences in these status, requested Full Code status. Admission Evaluation Time spent evaluating chart, patient history, patient evaluation, care planning and discussion with specialists: 60 minutes. Charges/Coding Visit Charges Inpatient E&M: 02744 Init Hosp L2 07/05/221952 <Electronically signed by Nena Mcallister MD> Cosigner Signature (if applicable): CC: Dr. Nena Mcallister MD; Dr. Jessica Escobar MD~ Signed [facility] Work Phone: 1(908) 663-818102-06-2023 Consult note Author Gonzalez Decker [facility] July 05, 2022 7:51pm Note Date/Time July 05, 2022 7 :51pm [facility] Medical Records Department [address] [place] [address] Consultation - GI 07/05/221946 MR#: [id number] Acct: [id number] Name: FLORES WASHINGTON Rep #:[id number] : 1940 81 From: Gonzalez Decker DO PCP: Dr. Jessica Escobar MD Status:ADM I NO Location: [place] [address] HPI Consult Data Date of Consult: 07/05/22 HPI Narrative Reason for Consultation: GI bleed HPI Narrative: FLORES WASHINGTON, is a 81 F who presents with lower GI bleeding. 81-year-old female past medical history of coronary artery disease with stent placement, hypertension, diabetes, takes Plavix and aspirin/baby aspirin presents with rectal bleeding that began at 1030 this morning.? She states she awoke, and felt like she had have a bowel movement.? While she does not think that she passed any stool, she passed bright red blood and clots.? She denies any chest pain or shortness of breath, no lightheadedness or dizziness.? No abdominal pain.? No nausea or vomiting, no hematemesis.? She denies any other bleeding diathesis.? She states she feels fine, but has to weara pad because she feels that she is still having rectal bleeding. Her hemoglobin is 12.9 and then ranges in between 11 and 12. She has normal kidney function. Her BUN to creatinine ratio was normal. She denies any abdominal pain. [facility] Medical History (Updated 07/05/22 @ 19:[address] Gonzalez Decker DO) Anxiety and depression Aortic root dilatation Atherosclerosis of coronary artery of [place] heart without angina pectoris Chronic anemia DM type 2 (diabetes mellitus, type 2) Dyslipidemia Essential (primary) hypertension Home Medications atorvastatin 20 mg tablet 20 mg PO QHS 06/18/17 [History Last Taken 12/17/17] hydrochlorothiazide 25 mg tablet 25 mg PO DAILY 06/18/17 [History Last Taken 12/17/17] metformin 1,000 mg 24 hr tablet,extended release 1,000 mg PO BID 06/18/17 [History Last Taken 12/17/17] multivitamin 1 ea PO DAILY 06/18/17 [History Last Taken 12/17/17] aspirin 81 mg tablet,delayed release 81 mg PO DAILY@0800 #30 tabs 06/22/17 [Rx Last Taken 12/17/17] amlodipine 5 mg tablet 5 mg PO DAILY 10/03/17 [History Last Taken 12/17/17] coenzyme Q10 100 mg capsule (CoQ-10) 100 mg PO DAILY 05/08/18 [History Last Taken Unknown] lorazepam 0.5 mg tablet 0.5 mg PO BID PRN Anxiety 06/28/19 [History Last Taken Unknown] cholecalciferol (vitamin D3) 50 mcg (2,000 unit) capsule 50 mcg PO DAILY 03/24/21 [History Last Taken Unknown] potassium chloride 8 mEq tablet,extended release 24 meq PO DAILY 03/24/21 [History Last Taken Unknown] fluoxetine 40 mg capsule 40 mg PO DAILY 03/30/22 [History Last Taken Unknown] glimepiride 2 mg tablet 2 mg PO DAILY 03/30/22 [History Last Taken Unknown] metoprolol tartrate 25 mg tablet 12.5 mg PO BID #90 tabs 04/02/22 [Rx Last Taken Unknown] clopidogrel 75 mg tablet 75 mg PO DAILY #90 tabs 06/30/22 [Rx Last Taken Unknown] Allergy/AdvReac Type Severity Reaction Status Date / Time cephalexin [From Keflex] Allergy Swelling Verified 03/30/22 09:39 lisinopril Allergy Swelling Verified 03/30/22 09:39 codeine AdvReac Upset Verified 03/30/22 09:39 Stomach Family History Father Heart disease Mother Cancer Surgical History History of coronary artery stent placement (06/21/17) History of hysterectomy Social History Smoking Status: Never smoker alcohol intake: never substance use type: does not use caffeine: Yes Type: carbonated beverages what type of physical activity do you participate in: none seatbelt use: always do you feel safe at home: Yes ROS Review of Systems ROS Unobtainable: other Constitutional Constitutional: Denies fatigue, fever(s), poor appetite, weight gain or weight loss ENT HEENT: Denies mouth lesions Cardiovascular Cardiovascular: Denies abdominal bloating, abdominal edema or abdominal pain Respiratory/Chest Respiratory/Chest: Denies change in mental status, change in phlegm color, chestcongestion or chest tightness Gastrointestinal Gastrointestinal: Denies belching, bloating, change in bowel habits, change in stool character, chewing difficulty, coffee ground emesis, constipation, cramping, diarrhea, dyspepsia, dysphagia, early satiety, excessive flatus, fecalincontinence, heartburn, hematemesis, hematochezia, hemorrhoids, loose stools, melena, nausea, odynophagia, rectal bleeding, tenesmus, vomiting or weight changes Genitourinary Genitourinary: Denies abdominal discomfort, burning urination or itching Musculoskeletal Musculoskeletal: Reports as per HPI; Denies muscle weakness or myalgias Integumentary Integumentary: Denies jaundice Neurologic Neurologic: Denies lack of coordination or weakness Psychiatric Psychiatric: Denies confusion, depression, memory loss, mood swings, paranoia orsuicidal ideation Endocrine Endocrinology: Denies systems reviewed and no addt'l complaints, except as documented Hematologic/Lymphatic Hematologic/Lymphatic: Denies anemia, easy bleeding, easy bruising or lymphadenopathy Allergic/Immunologic Allergic/Immunologic: Denies systems reviewed and no addt'l complaints, except as documented Physical Exam Const alert General Appearance: cooperative Orientation / Consciousness: oriented to person HEENT hearing grossly normal bilaterally Head and Scalp: normal to inspection Face and Sinus: face symmetric Nose: external nose normal Mouth: oral and palatal mucosa normal Eyes conjunctivae normal General Eye: normal appearance of both eyes Neck full ROM General: normal visual inspection Lymph Lymphatic: no lymphadenopathy noted Chest inspection of chest normal and palpation of chest normal Chest: symmetrical chest wall rise Resp normal respiratory effort Effort and Inspection: able to speak in complete sentences Cardio regular rate GI non-distended Percussion: normal to percussion Rectal Exam: deferred Neuro Speech: speech normal Gait (Neuro): normal gait Lab / Micro Data Result Diagrams: 07/05/22 14:34 07/05/22 14:34 Labs: Laboratory Results - last 24 hr 07/05/22 14:34: WBC 9.0, RBC 4.37, Hgb 12.7, Hct 39.2, MCV 89.7, MCH 29.1, MCHC 32.4, RDW Std Deviation 44.4 H, RDW Coeff of Lizz 13.5, Plt Count 370, MPV 9.4, Immature Gran % (Auto) 0.400, Neut % (Auto) 80.6 H, Lymph % (Auto) 12.9 L, [place] % (Auto) 5.1, Eos % (Auto) 0.6, Baso % (Auto) 0.4, Absolute Neuts (auto) 7.3, Absolute Lymphs (auto) 1.16, Nucleated RBC % 0 07/05/22 14:34: Sodium 137, Potassium 3.5, Chloride 100, Carbon Dioxide 27.0, Anion Gap 10, BUN 13, Creatinine 0.89, Estim Creat Clear Calc 44.61, Est GFR (MDRD) Af Amer 78, Est GFR (MDRD) Non-Af 64, BUN/Creatinine Ratio 14.5, Glucose 161 H, Calcium 10.2 H, Total Bilirubin 0.40, AST 15, ALT 23, Alkaline Phosphatase 73, Total Protein 7.3, Albumin 3.6, Globulin 3.7, Albumin/Globulin Ratio 1.0 07/05/22 14:34: Blood Type A POSITIVE, Antibody Screen NEGATIVE Assessment & Plan Assessment/Plan (1) GI bleed: PLAN: The differential diagnosis for lower GI bleed to her would be diverticular, hemorrhoidal, stercoral ulcer, ischemic colitis, ulcerative colitis in the elderly, NSAID induced enteropathy or colitis, angiodysplasia, neoplasia. I am okay with her having clear liquids. Recommended to follow her hemoglobin and to get a CT scan of the abdomen pelvis be that her kidney function is within normal limits. I will discuss with her the possibility of possibly done a sigmoidoscopy or colonoscopy pending CT scan. Charges/Coding Visit Charges Inpatient E&M: 46889 Init Hosp L2 07/05/221950 <Electronically signed by Gonzalez Friend DO> Cosigner Signature (if applicable): CC: Dr. Jessica Escobar MD~ Signed [facility] Work Phone: 1(339) 493-578902-06-[address] Cuba [facility] July 05, 2022 5:36pm Note Date/Time July 05, 2022 2 :41pm [facility] Medical Records Department [address] [place] [address] Emergency Department Summary 07/05/22 MR#: [id number] Acct: [id number] Name: FLORES WASHINGTON Rep #:[id number] : 1940 81 From: Jason Cuba MD PCP: Dr. Jessica Escobar MD Status:REG E R Location: ED HPI HPI - GI History of Present Illness Chief Complaint: GI Bleed Narrative Narrative: 81-year-old female past medical history of coronary artery disease with stent placement, hypertension, diabetes, takes Plavix and aspirin/baby aspirin presents with rectal bleeding that began at 1030 this morning. She states she awoke, and felt like she had have a bowel movement. While she does not think that she passed any stool, she passed bright red blood and clots. She denies any chest pain or shortness of breath, no lightheadedness or dizziness. No abdominal pain. No nausea or vomiting, no hematemesis. She denies any other bleeding diathesis. She states she feels fine, but has to wear a pad because she feels that she is still having rectal bleeding. [facility] Medical History (Updated 07/05/22 @ 17:[address] Nena Mcallister MD) Anxiety and depression Aortic root dilatation Atherosclerosis of coronary artery of [place] heart without angina pectoris Chronic anemia DM type 2 (diabetes mellitus, type 2) Dyslipidemia Essential (primary) hypertension Home Medications atorvastatin 20 mg tablet 20 mg PO QHS 06/18/17 [History Last Taken 12/17/17] hydrochlorothiazide 25 mg tablet 25 mg PO DAILY 06/18/17 [History Last Taken 12/17/17] metformin 1,000 mg 24 hr tablet,extended release 1,000 mg PO BID 06/18/17 [History Last Taken 12/17/17] multivitamin 1 ea PO DAILY 06/18/17 [History Last Taken 12/17/17] aspirin 81 mg tablet,delayed release 81 mg PO DAILY@0800 #30 tabs 06/22/17 [Rx Last Taken 12/17/17] amlodipine 5 mg tablet 5 mg PO DAILY 10/03/17 [History Last Taken 12/17/17] coenzyme Q10 100 mg capsule (CoQ-10) 100 mg PO DAILY 05/08/18 [History Last Taken Unknown] lorazepam 0.5 mg tablet 0.5 mg PO BID PRN Anxiety 06/28/19 [History Last Taken Unknown] cholecalciferol (vitamin D3) 50 mcg (2,000 unit) capsule 50 mcg PO DAILY 03/24/21 [History Last Taken Unknown] potassium chloride 8 mEq tablet,extended release 24 meq PO DAILY 03/24/21 [History Last Taken Unknown] fluoxetine 40 mg capsule 40 mg PO DAILY 03/30/22 [History Last Taken Unknown] glimepiride 2 mg tablet 2 mg PO DAILY 03/30/22 [History Last Taken Unknown] metoprolol tartrate 25 mg tablet 12.5 mg PO BID #90 tabs 04/02/22 [Rx Last Taken Unknown] clopidogrel 75 mg tablet 75 mg PO DAILY #90 tabs 06/30/22 [Rx Last Taken Unknown] Allergy/AdvReac Type Severity Reaction Status Date / Time cephalexin [From Keflex] Allergy Swelling Verified 03/30/22 09:39 lisinopril Allergy Swelling Verified 03/30/22 09:39 codeine AdvReac Upset Verified 03/30/22 09:39 Stomach Family History Father Heart disease Mother Cancer Surgical History History of coronary artery stent placement (06/21/17) History of hysterectomy Social History Smoking Status: Never smoker alcohol intake: never substance use type: does not use caffeine: Yes Type: carbonated beverages what type of physical activity do you participate in: none seatbelt use: always do you feel safe at home: Yes ROS ROS ED ROS Narrative Constitutional: No fever, no chills. HEENT: No sore throat. No neck pain. No loss of vision. No rhinorrhea. Cardiovascular: No chest pain. No palpitations. No pedal edema. Respiratory: No cough, no shortness of breath. Abdominal: No abdominal pain. No nausea. No vomiting. Positive rectal bleeding/bright red blood per rectum. Genitourinary: No dysuria. No hematuria. Musculoskeletal: No myalgias. No arthralgias. Neurologic: No headaches. No dizziness. No lightheadedness. Skin: No rash. No change in color. Psychiatric: No depression. No anxiety. EXAM Physical Exam Narrative Exam Narrative: Afebrile. Vital signs noted. HEENT: Normocephalic. Atraumatic. PERRL, EOMI. Neck soft and supple. No pointtenderness or step off. Cardiovascular: Regular rate and rhythm. No murmurs, rubs, or gallops appreciated. Respiratory: No tachypnea. Lungs clear to auscultation bilaterally. Gastrointestinal: Abdomen soft, nontender, with normoactive bowel sounds. No rebound or guarding. Chaperoned rectal examination performed which reveals Neurological: Awake. Alert. Nonfocal, nonlateralizing. Skin: No rash. Normal color. No pallor. Musculoskeletal: No pedal edema. Full range of motion extremities. Const Vital Signs: 07/05/22 13:29 07/05/22 15:09 07/05/22 17:02 Temperature 97.0 F L Temperature Source Temporal Pulse Rate 75 69 Pulse Rate [Sitting (for 1 minute prior to obtaining)] 70 Pulse Rate [Standing (for 1 minute prior to obtaining)] 78 Respiratory Rate 18 13 Blood Pressure 140/79 H 129/57 H Blood Pressure [Sitting (for 1 minute prior to obtaining)] 131/64 H Blood Pressure [Standing (for 1 minute prior to obtaining)] 120/67 Blood Pressure Mean 99 81 Blood Pressure Mean [Sitting (for 1 minute prior to obtaining)] 86 Blood Pressure Mean [Standing (for 1 minute prior to obtaining)] 84 Pulse Ox 98 97 Oxygen Delivery Method Room Air Room Air MDM MDM MDM Narrative Medical decision making narrative: In the differential diagnosis is internal hemorrhoid versus AV malformation versus diverticular bleed. Comprehensive work-up was pursued. Type and screen will be obtained along with orthostatics, CBC, BMP to look for elevated BUN for upper GI bleeding. I did order a fecal occult blood, but if there is gross blood on examination, this will be canceled. Patient did have rectal bleeding here in the emergency department, so rectal examination was deferred. I reviewed her laboratory work and she has a normal hemoglobin of 12.7, white count normal at 9.0, platelet count normal at 370. CMP is significant for a glucose of 161 with a normal anion gap of 10, BUN normal at 13 with creatinine 0.89. She was typed and screened given her GI bleeding. Orthostatics are negative. I do feel that she is having stable lower GI bleeding. I do not feel that an NG tube is indicated. I do feel that it is because she is on Plavix and baby aspirin. I discussed patient with Dr. Decker with gastroenterology who agrees with admission for endoscopy tomorrow. Additionally, I discussed patient with Dr. Nena Mcallister for observation on the general medical floor as I feel she is stable rectal bleed and she states she feels well. Disposition is assigned to observation. Patient is in stable condition. Lab Data Attestation: I reviewed the patient's lab results. Labs: Laboratory Results - last 24 hr 07/05/22 07/05/22 07/05/22 14:34 14:34 14:34 WBC 9.0 RBC 4.37 Hgb 12.7 Hct 39.2 MCV 89.7 MCH 29.1 MCHC 32.4 RDW Std Deviation 44.4 H RDW Coeff of Lizz 13.5 Plt Count 370 MPV 9.4 Immature Gran % (Auto) 0.400 Neut % (Auto) 80.6 H Lymph % (Auto) 12.9 L [place] % (Auto) 5.1 Eos % (Auto) 0.6 Baso % (Auto) 0.4 Absolute Neuts (auto) 7.3 Absolute Lymphs (auto) 1.16 Nucleated RBC % 0 Sodium 137 Potassium 3.5 Chloride 100 Carbon Dioxide 27.0 Anion Gap 10 BUN 13 Creatinine 0.89 Estim Creat Clear Calc 44.61 Est GFR (MDRD) Af Amer 78 Est GFR (MDRD) Non-Af 64 BUN/Creatinine Ratio 14.5 Glucose 161 H Calcium 10.2 H Total Bilirubin 0.40 AST 15 ALT 23 Alkaline Phosphatase 73 Total Protein 7.3 Albumin 3.6 Globulin 3.7 Albumin/Globulin Ratio 1.0 Blood Type A POSITIVE Antibody Screen NEGATIVE Discharge Plan Triage Chief Complaint: GI Bleed ED Provider: Jason Cuba Dx/Rx/DC Orders Prescriptions: No Action coenzyme Q10 [CoQ-10] 100 mg capsule 100 mg PO DAILY cholecalciferol (vitamin D3) 50 mcg (2,000 unit) capsule 50 mcg PO DAILY fluoxetine 40 mg capsule 40 mg PO DAILY glimepiride 2 mg tablet 2 mg PO DAILY multivitamin 1 EACH tablet 1 ea PO DAILY atorvastatin 20 MG tablet 20 mg PO QHS hydrochlorothiazide 25 MG tablet 25 mg PO DAILY metformin 1,000 MG tablet,ER leanna.retention 24 hr 1,000 mg PO BID aspirin 81 MG tablet 81 mg PO DAILY@0800 Qty: 30 0RF amlodipine 5 mg tablet 5 mg PO DAILY Label Comments: at night lorazepam 0.5 mg tablet 0.5 mg PO BID PRN (Reason: Anxiety) potassium chloride 8 mEq tablet extended release 24 meq PO DAILY metoprolol tartrate 25 mg tablet 12.5 mg PO BID Qty: 90 3RF clopidogrel 75 mg tablet 75 mg PO DAILY Qty: 90 3RF Primary Care Provider: Jessica Escobar Referrals: Jessica Escobar MD [Primary Care Provider] - What to do if you have Problems For any increased pain, shortness of breath, bleeding, nausea or vomiting, chestpain, or any unexpected problems, contact your Primary Care Provider. Call [facility] ([phone]) or report to the closest Emergency Room. Call 911 if necessary. 07/05/22 1736 <Electronically signed by Jason Cuba MD> Cosigner Signature (if applicable): CC: Dr. Jessica Escobar MD ~ Signed [facility] Work Phone: 1(945) 101-564902-06-2023 History and physical note Author Dr. Mcallister [facility] July 05, 2022 7:53pm Note Date/Time July 05, 2022 5 :15pm [facility] Medical Records Department [address] [place] [address] H&P Exam - Hospitalist 07/05/22 1714 MR#: [id number] Acct: [id number] Name: FLORES WASHINGTON Rep #:[id number] : 1940 81 From: Nena Mcallister MD PCP: Dr. Jessica Escobar MD Status:ADM I NO [place] [place] HPI - General General Date of Admission: 07/05/22 Date of Service: 07/05/22 Chief Complaint: Rectal bleeding BRBPR/clots, ongoing. HPI Narrative The patient is an 81 y/o F w/ PMHx: Anxiety and Depression, Chronic normocytic anemia, CAD s/p PCI, Known aortic root dilation, HTN, HLD, Diabetes mellitus type II, Overweight who presents to the [facility] ED on 07/05/22 with history of rectal bleeding that started approximately 10:30 in the morning apparently awoke and felt like she was having a bowel movement but instead of passing stool she passed copious amounts of bright red blood and large clots with no chest pain, dyspnea, lightheadedness or dizziness at that time nor any recent nausea, emesis, abdominal pain or hematemesis but given ongoing bleeding requiring her to wear a pad prompted eventual ED evaluation. She notes that since she has presented to the ED the bleeding has somewhat slowed. Work-up in the ED included T97, heart 75, BP 140/79, respiratory rate 18, 98% on room air, unremarkable orthostatic vital signs, CBC with WC 9, hemoglobin 12.7, platelet 370 without marked shift, unremarkable CMP with glucose 161, calcium 10.2, type and screen performed per ED physician, stool occult requested per ED physician and pending. Patient ministered 1 L normal saline. [facility] Medical History Anxiety and depression Aortic root dilatation Atherosclerosis of coronary artery of [place] heart without angina pectoris Chronic anemia DM type 2 (diabetes mellitus, type 2) Dyslipidemia Essential (primary) hypertension Home Medications atorvastatin 20 mg tablet 20 mg PO QHS 06/18/17 [History Last Taken 12/17/17] hydrochlorothiazide 25 mg tablet 25 mg PO DAILY 06/18/17 [History Last Taken 12/17/17] metformin 1,000 mg 24 hr tablet,extended release 1,000 mg PO BID 06/18/17 [History Last Taken 12/17/17] multivitamin 1 ea PO DAILY 06/18/17 [History Last Taken 12/17/17] aspirin 81 mg tablet,delayed release 81 mg PO DAILY@0800 #30 tabs 06/22/17 [Rx Last Taken 12/17/17] amlodipine 5 mg tablet 5 mg PO DAILY 10/03/17 [History Last Taken 12/17/17] coenzyme Q10 100 mg capsule (CoQ-10) 100 mg PO DAILY 12/10/18 [History Last Taken Unknown] lorazepam 0.5 mg tablet 0.5 mg PO BID PRN Anxiety 06/28/19 [History Last Taken Unknown] cholecalciferol (vitamin D3) 50 mcg (2,000 unit) capsule 50 mcg PO DAILY 03/24/21 [History Last Taken Unknown] potassium chloride 8 mEq tablet,extended release 24 meq PO DAILY 03/24/21 [History Last Taken Unknown] fluoxetine 40 mg capsule 40 mg PO DAILY 03/30/22 [History Last Taken Unknown] glimepiride 2 mg tablet 2 mg PO DAILY 03/30/22 [History Last Taken Unknown] metoprolol tartrate 25 mg tablet 12.5 mg PO BID #90 tabs 04/02/22 [Rx Last Taken Unknown] clopidogrel 75 mg tablet 75 mg PO DAILY #90 tabs 06/30/22 [Rx Last Taken Unknown] Allergy/AdvReac Type Severity Reaction Status Date / Time cephalexin [From Keflex] Allergy Swelling Verified 03/30/22 09:39 lisinopril Allergy Swelling Verified 03/30/22 09:39 codeine AdvReac Upset Verified 03/30/22 09:39 Stomach Family History Father Heart disease Mother Cancer Surgical History History of coronary artery stent placement (06/21/17) History of hysterectomy Social History Smoking Status: Never smoker alcohol intake: never substance use type: does not use caffeine: Yes Type: carbonated beverages what type of physical activity do you participate in: none seatbelt use: always do you feel safe at home: Yes ROS ROS Narrative Admission Review of Systems: CONSTITUTIONAL: No weight loss, fever, chills, + weakness or fatigue. HEENT: Eyes: No visual loss, blurred vision, double vision or yellow sclerae. Ears, Nose, Throat: No hearing loss, sneezing, congestion, runny nose or sore throat. SKIN: No rash or itching, lesions, wounds. CARDIOVASCULAR: No chest pain, chest pressure or chest discomfort, palpitations,edema, orthopnea, syncopal events. RESPIRATORY: No shortness of breath, cough or sputum, wheezing, hemoptysis. GASTROINTESTINAL: + Bright red blood per rectum, no anorexia, nausea, vomiting or diarrhea, abdominal pain, melena. GENITOURINARY: No dysuria, frequency, urgency or retention. NEUROLOGICAL: No headache, dizziness, syncope, paralysis, ataxia, numbness or tingling in the extremities, focal weakness, change in bowel or bladder control,seizure. MUSCULOSKELETAL: + muscle, back pain, joint pain or stiffness. HEMATOLOGIC: + anemia, bleeding or bruising. LYMPHATICS: No enlarged nodes. No history of splenectomy. PSYCHIATRIC: + history of depression or anxiety. ENDOCRINOLOGIC: No reports of sweating, cold or heat intolerance. No polyuria orpolydipsia. ALLERGIES: No history of asthma, hives, eczema or rhinitis. Vital Signs Vital Signs Vital Signs: 07/05/22 13:29 07/05/22 15:09 07/05/22 17:02 Temperature 97.0 F L Temperature Source Temporal Pulse Rate 75 69 Pulse Rate [Sitting (for 1 minute prior to obtaining)] 70 Pulse Rate [Standing (for 1 minute prior to obtaining)] 78 Respiratory Rate 18 13 Blood Pressure 140/79 H 129/57 H Blood Pressure [Sitting (for 1 minute prior to obtaining)] 131/64 H Blood Pressure [Standing (for 1 minute prior to obtaining)] 120/67 Blood Pressure Mean 99 81 Blood Pressure Mean [Sitting (for 1 minute prior to obtaining)] 86 Blood Pressure Mean [Standing (for 1 minute prior to obtaining)] 84 Pulse Ox 98 97 Oxygen Delivery Method Room Air Room Air Weight Weight: 159 lb 11.2 oz Body Mass Index (BMI) 26.5 Physical Exam Narrative Physical Examination: General: Awake, alert, oriented x 3 and cooperative, seated upright in ED bed, fatigued but no acute distress. Skin: Normal color, normal turgor, no icterus, no cyanosis. HEENT: AT/NC, EOMI, PERRLA, MMM, no carotid bruits or JVD noted. Lungs: Mildly diminished, greater bases appropriate effort, no rales, ronchi or wheezing. Heart: Currently regular rate and rhythm; no gallop, rub audible. Abdomen: Soft, NTTP, ND, hyperactive BS, no HSM. Extremities: No cyanosis, no clubbing, no marked bilateral lower extremity peripheral ankle edema, does have thicker ankles. Neurological: Patient awake, alert, oriented as noted, cognitive function intact; pupils equally reactive to light and accommodation, cranial nerves II-XII grossly normal, moving all 4 extremities, no focal deficits, strength mildly to moderately globally Germaine secondary to acute presentation Psychiatric: Affect appears fatigued otherwise normal, no acute evidence of depressive or anxiety feelings. Results Lab / Micro Data Result Diagrams: 07/05/22 14:34 07/05/22 14:34 Labs: Laboratory Results - last 24 hr 07/05/22 14:34: WBC 9.0, RBC 4.37, Hgb 12.7, Hct 39.2, MCV 89.7, MCH 29.1, MCHC 32.4, RDW Std Deviation 44.4 H, RDW Coeff of Lizz 13.5, Plt Count 370, MPV 9.4, Immature Gran % (Auto) 0.400, Neut % (Auto) 80.6 H, Lymph % (Auto) 12.9 L, [place] % (Auto) 5.1, Eos % (Auto) 0.6, Baso % (Auto) 0.4, Absolute Neuts (auto) 7.3, Absolute Lymphs (auto) 1.16, Nucleated RBC % 0 07/05/22 14:34: Sodium 137, Potassium 3.5, Chloride 100, Carbon Dioxide 27.0, Anion Gap 10, BUN 13, Creatinine 0.89, Estim Creat Clear Calc 44.61, Est GFR (MDRD) Af Amer 78, Est GFR (MDRD) Non-Af 64, BUN/Creatinine Ratio 14.5, Glucose 161 H, Calcium 10.2 H, Total Bilirubin 0.40, AST 15, ALT 23, Alkaline Phosphatase 73, Total Protein 7.3, Albumin 3.6, Globulin 3.7, Albumin/Globulin Ratio 1.0 07/05/22 14:34: Blood Type A POSITIVE, Antibody Screen NEGATIVE Assessment & Plan Assessment/Plan (1) GI bleed: PLAN: Plan The patient is an 81 y/o F w/ PMHx: Anxiety and Depression, Chronic normocytic anemia, CAD s/p PCI, Known aortic root dilation, HTN, HLD, Diabetes mellitus type II, Overweight who presents to the [facility] ED on 07/05/22 with history of rectal bleeding that started approximately 10:30 in the morning apparently awoke and felt like she was having a bowel movement but instead of passing stool she passed copious amounts of bright red blood and large clots with ongoing bleedingrequiring her to wear a pad prompted eventual ED evaluation. #1. Acute GI Bleed with chronic anemia, normocytic: Admission hemoglobin 12.7, baseline prior has been 11-12, will admit to medical surgical, maintain on judicious IV fluids, will obtain serial H&H's, type and screen already performedper ED physician, maintain on IV PPI although this is more distal, will allow clear liquids until n.p.o. status at midnight, gastroenterology consulted, pending. Will maintain on fall precautions although patient not currently markedly symptomatic may worsen. #2. CAD: Status post prior PCI 2017, given acute presentation we will temporarily hold aspirin, Plavix, resume immediately following GI evaluation, will continue metoprolol, not on SHANTA inhibitor/ARB recurrent regimen. #3 hypertension: Continue home regimen including metoprolol, hydrochlorothiazide, amlodipine with hold parameters as needed given symptoms, PRN hydralazine. #4. Hyperlipidemia: We will continue patient on statin therapy. #5. Anxiety depression: We will continue patient on fluoxetine and low-dose as needed Ativan regimen. #6. Diabetes mellitus type II: Hold oral home regimen, given presentation will maintain on clears with n.p.o. status transition at midnight, accu checks w/ ISS. #7. DVT prophylaxis: SCDs, holding chemoprophylaxis given acute presentation asnoted. #8. CODE status: Patient TOYA are her children and living will is currently inplace. Discussed CODE status at length including difference between FULL code, DNR-CCA and DNR-CC status. Following discussions about the differences in these status, requested Full Code status. Admission Evaluation Time spent evaluating chart, patient history, patient evaluation, care planning and discussion with specialists: 60 minutes. Charges/Coding Visit Charges Inpatient E&M: 69380 Init Hosp L2 07/05/221952 <Electronically signed by Nena Mcallister MD> Cosigner Signature (if applicable): CC: Dr. Nena Mcallister MD; Dr. Jessica Escobar MD~ Signed [facility] Work Phone: [phone]) 780-622201-23-2018 Evaluation note* Diagnosis Onset Date Resolution Status History of coronary artery stent placement May acute Dyslipidemia chronic Essential (primary) hypertension [facility] Work Phone: [phone]) 497-902001-23-2018 Evaluation note* Diagnosis Onset Date Resolution Status History of coronary artery stent placement May acute Dyslipidemia chronic Essential (primary) hypertension chronic GI bleed acute [facility] Work Phone: [phone]) 383-653401-23-2018 Evaluation note* Diagnosis Onset Date Resolution Status GI bleed resolved GI bleed acute History of coronary artery stent placement May acute [facility] Work Phone: [phone]) [phone] Evaluation note* Diagnosis Onset Date Resolution Status Fatigue acute History of coronary artery stent placement May acute Aortic root dilatation chron ic Dyslipidemia chronic Essential (primary) hypertension [facility] Work Phone: Consult note Author Gonzalez Decker [facility] July 05, 2022 7:51pm Note Date/Time July 05, 2022 7 :51pm [facility] Medical Records Department [address] [place] [id number] Consultation - GI 07/05/221946 MR#: [id number] Acct: [id number] Name: FLORES WASHINGTON Rep #:[id number] : 1940 81 From: Gonzalez Decker DO PCP: Dr. Jessica Escobar MD Status:ADM I NO Location: [place] [address] HPI Consult Data Date of Consult: 07/05/22 HPI Narrative Reason for Consultation: GI bleed HPI Narrative: FLORES WASHINGTON, is a 81 F who presents with lower GI bleeding. 81-year-old female past medical history of coronary artery disease with stent placement, hypertension, diabetes, takes Plavix and aspirin/baby aspirin presents with rectal bleeding that began at 1030 this morning.? She states she awoke, and felt like she had have a bowel movement.? While she does not think that she passed any stool, she passed bright red blood and clots.? She denies any chest pain or shortness of breath, no lightheadedness or dizziness.? No abdominal pain.? No nausea or vomiting, no hematemesis.? She denies any other bleeding diathesis.? She states she feels fine, but has to weara pad because she feels that she is still having rectal bleeding. Her hemoglobin is 12.9 and then ranges in between 11 and 12. She has normal kidney function. Her BUN to creatinine ratio was normal. She denies any abdominal pain. [facility] Medical History (Updated 07/05/22 @ 19:[address] Roth Friend, DO) Anxiety and depression Aortic root dilatation Atherosclerosis of coronary artery of [place] heart without angina pectoris Chronic anemia DM type 2 (diabetes mellitus, type 2) Dyslipidemia Essential (primary) hypertension Home Medications atorvastatin 20 mg tablet 20 mg PO QHS 06/18/17 [History Last Taken 12/17/17] hydrochlorothiazide 25 mg tablet 25 mg PO DAILY 06/18/17 [History Last Taken 12/17/17] metformin 1,000 mg 24 hr tablet,extended release 1,000 mg PO BID 06/18/17 [History Last Taken 12/17/17] multivitamin 1 ea PO DAILY 06/18/17 [History Last Taken 12/17/17] aspirin 81 mg tablet,delayed release 81 mg PO DAILY@0800 #30 tabs 06/22/17 [Rx Last Taken 12/17/17] amlodipine 5 mg tablet 5 mg PO DAILY 10/03/17 [History Last Taken 12/17/17] coenzyme Q10 100 mg capsule (CoQ-10) 100 mg PO DAILY 05/08/18 [History Last Taken Unknown] lorazepam 0.5 mg tablet 0.5 mg PO BID PRN Anxiety 06/28/19 [History Last Taken Unknown] cholecalciferol (vitamin D3) 50 mcg (2,000 unit) capsule 50 mcg PO DAILY 03/24/21 [History Last Taken Unknown] potassium chloride 8 mEq tablet,extended release 24 meq PO DAILY 03/24/21 [History Last Taken Unknown] fluoxetine 40 mg capsule 40 mg PO DAILY 03/30/22 [History Last Taken Unknown] glimepiride 2 mg tablet 2 mg PO DAILY 03/30/22 [History Last Taken Unknown] metoprolol tartrate 25 mg tablet 12.5 mg PO BID #90 tabs 04/02/22 [Rx Last Taken Unknown] clopidogrel 75 mg tablet 75 mg PO DAILY #90 tabs 06/30/22 [Rx Last Taken Unknown] Allergy/AdvReac Type Severity Reaction Status Date / Time cephalexin [From Keflex] Allergy Swelling Verified 03/30/22 09:39 lisinopril Allergy Swelling Verified 03/30/22 09:39 codeine AdvReac Upset Verified 03/30/22 09:39 Stomach Family History Father Heart disease Mother Cancer Surgical History History of coronary artery stent placement (06/21/17) History of hysterectomy Social History Smoking Status: Never smoker alcohol intake: never substance use type: does not use caffeine: Yes Type: carbonated beverages what type of physical activity do you participate in: none seatbelt use: always do you feel safe at home: Yes ROS Review of Systems ROS Unobtainable: other Constitutional Constitutional: Denies fatigue, fever(s), poor appetite, weight gain or weight loss ENT HEENT: Denies mouth lesions Cardiovascular Cardiovascular: Denies abdominal bloating, abdominal edema or abdominal pain Respiratory/Chest Respiratory/Chest: Denies change in mental status, change in phlegm color, chestcongestion or chest tightness Gastrointestinal Gastrointestinal: Denies belching, bloating, change in bowel habits, change in stool character, chewing difficulty, coffee ground emesis, constipation, cramping, diarrhea, dyspepsia, dysphagia, early satiety, excessive flatus, fecalincontinence, heartburn, hematemesis, hematochezia, hemorrhoids, loose stools, melena, nausea, odynophagia, rectal bleeding, tenesmus, vomiting or weight changes Genitourinary Genitourinary: Denies abdominal discomfort, burning urination or itching Musculoskeletal Musculoskeletal: Reports as per HPI; Denies muscle weakness or myalgias Integumentary Integumentary: Denies jaundice Neurologic Neurologic: Denies lack of coordination or weakness Psychiatric Psychiatric: Denies confusion, depression, memory loss, mood swings, paranoia orsuicidal ideation Endocrine Endocrinology: Denies systems reviewed and no addt'l complaints, except as documented Hematologic/Lymphatic Hematologic/Lymphatic: Denies anemia, easy bleeding, easy bruising or lymphadenopathy Allergic/Immunologic Allergic/Immunologic: Denies systems reviewed and no addt'l complaints, except as documented Physical Exam Const alert General Appearance: cooperative Orientation / Consciousness: oriented to person HEENT hearing grossly normal bilaterally Head and Scalp: normal to inspection Face and Sinus: face symmetric Nose: external nose normal Mouth: oral and palatal mucosa normal Eyes conjunctivae normal General Eye: normal appearance of both eyes Neck full ROM General: normal visual inspection Lymph Lymphatic: no lymphadenopathy noted Chest inspection of chest normal and palpation of chest normal Chest: symmetrical chest wall rise Resp normal respiratory effort Effort and Inspection: able to speak in complete sentences Cardio regular rate GI non-distended Percussion: normal to percussion Rectal Exam: deferred Neuro Speech: speech normal Gait (Neuro): normal gait Lab / Micro Data Result Diagrams: 07/05/22 14:34 07/05/22 14:34 Labs: Laboratory Results - last 24 hr 07/05/22 14:34: WBC 9.0, RBC 4.37, Hgb 12.7, Hct 39.2, MCV 89.7, MCH 29.1, MCHC 32.4, RDW Std Deviation 44.4 H, RDW Coeff of Lizz 13.5, Plt Count 370, MPV 9.4, Immature Gran % (Auto) 0.400, Neut % (Auto) 80.6 H, Lymph % (Auto) 12.9 L, [place] % (Auto) 5.1, Eos % (Auto) 0.6, Baso % (Auto) 0.4, Absolute Neuts (auto) 7.3, Absolute Lymphs (auto) 1.16, Nucleated RBC % 0 07/05/22 14:34: Sodium 137, Potassium 3.5, Chloride 100, Carbon Dioxide 27.0, Anion Gap 10, BUN 13, Creatinine 0.89, Estim Creat Clear Calc 44.61, Est GFR (MDRD) Af Amer 78, Est GFR (MDRD) Non-Af 64, BUN/Creatinine Ratio 14.5, Glucose 161 H, Calcium 10.2 H, Total Bilirubin 0.40, AST 15, ALT 23, Alkaline Phosphatase 73, Total Protein 7.3, Albumin 3.6, Globulin 3.7, Albumin/Globulin Ratio 1.0 07/05/22 14:34: Blood Type A POSITIVE, Antibody Screen NEGATIVE Assessment & Plan Assessment/Plan (1) GI bleed: PLAN: The differential diagnosis for lower GI bleed to her would be diverticular, hemorrhoidal, stercoral ulcer, ischemic colitis, ulcerative colitis in the elderly, NSAID induced enteropathy or colitis, angiodysplasia, neoplasia. I am okay with her having clear liquids. Recommended to follow her hemoglobin and to get a CT scan of the abdomen pelvis be that her kidney function is within normal limits. I will discuss with her the possibility of possibly done a sigmoidoscopy or colonoscopy pending CT scan. Charges/Coding Visit Charges Inpatient E&M: 52825 Init Hosp L2 07/05/221950 <Electronically signed by Gonzalez Decker DO> Cosigner Signature (if applicable): CC: Dr. Jessica Escobar MD~ Signed [facility] Work Phone: Discharge summary Author Dr. Vera [facility] July 06, 2022 12:30pm Note Date/Time July 06, 2022 1 2:15pm [facility] Medical Records Department [address] [place] [id number] Discharge Summary 07/06/22 1215 MR#: [id number] Acct: [id number] Name: FLORES WASHINGTON Rep #:[id number] : 1940 81 From: Sarah Vera DO PCP: Dr. Jessica Escobar MD Status:ADM I NO Location: [address] Providers Date of Admission: 07/05/22 Date of Discharge: 07/06/22 Primary Care Physician: Dr. Jessica Escobar MD Consultations 07/05/22 20:43 Consult: Gastroenterology Routine Consulting Provider: [facility] Reason for Consult: Rectal bleeding EMERGENT Consult: No MD Notified: Yes Date Notified: 07/05/22 Time Notified: 18:43 Method of Notification: ED Physician Initiated Reason For Visit: RECTAL BLEEDING Diagnosis Discharge Diagnosis (1) GI bleed: Status: Acute Code(s): K92.2 - Gastrointestinal hemorrhage, unspecified Medications at Discharge Home Medications atorvastatin 20 mg tablet 20 mg PO QHS 06/18/17 hydrochlorothiazide 25 mg tablet 25 mg PO DAILY 06/18/17 metformin 1,000 mg 24 hr tablet,extended release 1,000 mg PO BID 06/18/17 multivitamin 1 ea PO DAILY 06/18/17 aspirin 81 mg tablet,delayed release 81 mg PO DAILY@0800 #30 tabs 06/22/17 amlodipine 5 mg tablet 5 mg PO DAILY 10/03/17 coenzyme Q10 100 mg capsule (CoQ-10) 100 mg PO DAILY 05/08/18 lorazepam 0.5 mg tablet 0.5 mg PO BID PRN Anxiety 06/28/19 cholecalciferol (vitamin D3) 50 mcg (2,000 unit) capsule 50 mcg PO DAILY 03/24/21 potassium chloride 8 mEq tablet,extended release 24 meq PO DAILY 03/24/21 fluoxetine 40 mg capsule 40 mg PO DAILY 03/30/22 glimepiride 2 mg tablet 2 mg PO DAILY 03/30/22 metoprolol tartrate 25 mg tablet 12.5 mg PO BID #90 tabs 04/02/22 clopidogrel 75 mg tablet 75 mg PO DAILY #90 tabs 06/30/22 Hospital Course Operations None Procedures - (CT abdomen and pelvis) Summary of Care Provided Minutes Spent on Discharge: 33 Hospital Course: Mrs. Washington is an 81-year-old white female who presented to the emergency department at [facility] on 07/05/2022 with rectal bleeding havingbright red blood per rectum and clots that has been ongoing. The patient reported that it started on the morning prior to admission at 1030 at which timeshe woke and felt like she was having a bowel movement but instead of passing stool she passed copious amounts of bright red blood with large clots. She denied chest pain, dyspnea, lightheadedness or dizziness at that time or since. She had no nausea or vomiting, no abdominal pain and no melena. With her ongoing bleeding she had to wear a pad and eventually presented to the emergencydepartment. At the time of arrival to the ED she felt the bleeding had somewhatslowed. Vital signs upon presentation were unremarkable. Orthostatic vital signs were normal. Her hemoglobin was 12.7 on presentation and she was given 1 L of normal saline. She was admitted to the medical floor and evaluated by gastroenterology. Her aspirin and Plavix were held and she was initially made NPO for possible colonoscopy. A CT of her abdomen pelvis was performed and demonstrated cholelithiasis without acute cholecystitis, minor diverticular changes in the colon without evidence of acute diverticulitis, no evidence of a small bowel obstruction, and no contrast accumulation in the bowel suggestive ofacute intraluminal hemorrhage. The patient had no further bleeding after admission to the hospital. I reviewed the case with gastroenterology and they feel that this is most likely a diverticular bleed as noted above and with the fact that the bleeding stopped they did not feel urgent colonoscopy was requiredat this time. Her hemoglobin on the morning of discharge was 10.6. Given her drop, we repeated her hemoglobin at noon at which time it was found to be 11.3. I have asked the patient to hold her aspirin and Plavix for 5 days postdischarge. Her last cardiac stent was 3 years ago. I did encourage her to talk with her primary rn postpartum about possibly discontinuing her Plavix sinceshe is 3 years out from her last stent. She was discharged home after eating oliverio regular diet without any difficulties in stable condition on 07/06/2022. She isto follow- up with gastroenterology within the next month to be evaluated for need of colonoscopy but we strongly encouraged her to come back to the emergencydepartment if she has any recurrent bleeding. I have asked her to follow-up with her primary care physician within the next 2 weeks. Discharge diagnoses: Hematochezia-suspect diverticular bleed--> resolved Acute blood loss anemia-mild and stable CAD Hypertension Hyperlipidemia DM-2 Anxiety Depression Physical Exam Const alert, oriented x3, no apparent distress, average body habitus and well nourished Constitutional Narrative: Very pleasant, elderly, white female sitting up in bed eating breakfast, family at bedside, patient appears comfortable and nontoxic General Appearance: cooperative, comfortable, well kempt and well developed Orientation / Consciousness: awake, oriented to person, oriented to place and oriented to time Exam Limitations: no limitations Nutritional Appearance: overweight HEENT normocephalic, head/scalp atraumatic and moist oral mucous membranes HEENT Narrative: Mild hearing loss Eyes PERRL, EOMs intact bilaterally and conjunctivae normal Eyes Narrative: Scleral torus Neck no lymphadenopathy, supple and no JVD Neck Narrative: Trachea midline, no thyroid enlargement Resp normal respiratory effort, no retractions, no use of accessory muscles and clearto auscultation bilaterally Cardio regular rate, regular rhythm, S1 normal heart sound, S2 normal heart sound, no murmurs, no rub, no gallops and no clicks GI normal to inspection, nondistended, normoactive bowel sounds, soft to palpation and non-tender Extremity no clubbing, cyanosis or edema Extremity Narrative: 2+ pedal pulses Skin no rashes or lesions noted, no wounds, skin turgor normal and no jaundice Neuro oriented x3, moves all extremities and no focal motor deficits Speech: speech normal Psych affect normal Psych Narrative: Very pleasant and appropriately interactive Weight / BMI Weight Weight: 72.5 kg Body Mass Index (BMI) 26.4 ABG / Lab / Microbiology Data Result Diagrams: 07/06/22 04:40 07/06/22 04:40 Laboratory: Laboratory Results - last 24 hr 07/05/22 14:34: WBC 9.0, RBC 4.37, Hgb 12.7, Hct 39.2, MCV 89.7, MCH 29.1, MCHC 32.4, RDW Std Deviation 44.4 H, RDW Coeff of Lizz 13.5, Plt Count 370, MPV 9.4, Immature Gran % (Auto) 0.400, Neut % (Auto) 80.6 H, Lymph % (Auto) 12.9 L, [place] % (Auto) 5.1, Eos % (Auto) 0.6, Baso % (Auto) 0.4, Absolute Neuts (auto) 7.3, Absolute Lymphs (auto) 1.16, Nucleated RBC % 0 07/05/22 14:34: Sodium 137, Potassium 3.5, Chloride 100, Carbon Dioxide 27.0, Anion Gap 10, BUN 13, Creatinine 0.89, Estim Creat Clear Calc 44.61, Est GFR (MDRD) Af Amer 78, Est GFR (MDRD) Non-Af 64, BUN/Creatinine Ratio 14.5, Glucose 161 H, Calcium 10.2 H, Total Bilirubin 0.40, AST 15, ALT 23, Alkaline Phosphatase 73, Total Protein 7.3, Albumin 3.6, Globulin 3.7, Albumin/Globulin Ratio 1.0 07/05/22 14:34: Blood Type A POSITIVE, Antibody Screen NEGATIVE 07/05/22 21:25: Hgb 11.1 L, Hct 34.5 L 07/05/22 21:49: POC Glucose 100 07/06/22 00:15: Hgb 11.1 L, Hct 33.1 L 07/06/22 03:47: POC Glucose 94 07/06/22 04:40: WBC 7.9, RBC 3.52 L, Hgb 10.6 L, Hct 30.9 L, MCV 87.8, MCH 30.1,MCHC 34.3 D, RDW Std Deviation 43.6, RDW Coeff of Lizz 13.6, Plt Count 284, MPV 9.0, Immature Gran % (Auto) 0.100, Neut % (Auto) 61.5, Lymph % (Auto) 29.9, [place]% (Auto) 6.8, Eos % (Auto) 1.1, Baso % (Auto) 0.6, Absolute Neuts (auto) 4.8, Absolute Lymphs (auto) 2.36, Nucleated RBC % 0 07/06/22 04:40: Sodium 140, Potassium 3.2 L, Chloride 105, Carbon Dioxide 27.0, Anion Gap 8, BUN 10, Creatinine 0.65, Estim Creat Clear Calc 39.70, Est GFR (MDRD) Af Amer 113, Est GFR (MDRD) Non-Af 93, BUN/Creatinine Ratio 15.4, [id number], Calcium 9.1, Total Bilirubin 0.60, AST 12 L, ALT 19, Alkaline Phosphatase 56, Total Protein 5.7 L, Albumin 2.9 L, Globulin 2.8, Albumin/Globulin Ratio 1.0 07/06/22 11:07: POC Glucose 194 H Radiography Diagnostic Testing: Radiology Impression Abdomen/Pelvis CT 07/05/22 20:02 IMPRESSION: Cholelithiasis without evidence for acute cholecystitis.. Minor diverticular changes of the colon without evidence for acute diverticulitis. No evidence for small bowel obstruction. No site of contrast accumulation within the bowel to suggest acute intraluminal hemorrhage at this time Radionuclide tagged red blood cells study would be helpful for further evaluation if clinically warranted Electronically Signed: David Bedoya MD at 20:39 EST Reading Location ID and State: [facility] / MD , Service support , D/C Instructions Discharge Diet: Low fat / Low cholesterol and 1800 Calorie Control Diet Discharge Activity: Return to Normal Activity and No Restrictions Meaningful Use Info Meaningful Use Diagnoses (Choose all that apply): None applicable Discharge Plan Admission Admit Date/Time: 07/05/22 18:42 Primary Reason for Your Visit: Rectal Bleeding Attending Provider: Sarah Vera Primary Care Provider: Jessica Escobar Consulting Providers: Nena Mcallister Instructions Additional Instructions / Restrictions: 1. Your bleeding is highly suspicious for diverticular bleed. Your hemoglobin/blood counts stabilized. 2. Hold Plavix and aspirin for 5 days and I would discuss whether or not you need ongoing Plavix with your primary rn postpartum since it has been 3 years since your last stent placement 3. Please return to the emergency department if you have repeat bleeding otherwise schedule appointment with Dr. Decker as directed below Discharge Orders/Prescriptions Prescriptions: Continued coenzyme Q10 [CoQ-10] 100 mg capsule 100 mg PO DAILY cholecalciferol (vitamin D3) 50 mcg (2,000 unit) capsule 50 mcg PO DAILY fluoxetine 40 mg capsule 40 mg PO DAILY glimepiride 2 mg tablet 2 mg PO DAILY multivitamin 1 EACH tablet 1 ea PO DAILY atorvastatin 20 MG tablet 20 mg PO QHS hydrochlorothiazide 25 MG tablet 25 mg PO DAILY metformin 1,000 MG tablet,ER leanna.retention 24 hr 1,000 mg PO BID amlodipine 5 mg tablet 5 mg PO DAILY Label Comments: at night lorazepam 0.5 mg tablet 0.5 mg PO BID PRN (Reason: Anxiety) potassium chloride 8 mEq tablet extended release 24 meq PO DAILY metoprolol tartrate 25 mg tablet 12.5 mg PO BID Qty: 90 3RF Held aspirin 81 MG tablet 81 mg PO DAILY@0800 Qty: 30 0RF Hold Instructions: x 5 days clopidogrel 75 mg tablet 75 mg PO DAILY Qty: 90 3RF Hold Instructions: x 5 days Referrals / Follow Up: Gonzalez Decker DO [Med Staff - Active Staff] - Within 1 Month (follow up for rectal bleeding) Jessica Escobar MD [Primary Care Provider] - Within 2 Weeks Disposition Disposition (needs filled in before D/C Order can be placed): Home, Self Care Charges/Coding Visit Charges Inpatient E&M: 34922 Disch Hosp >30min 07/06/22 1229 <Electronically signed by Sarah Vera DO> Cosigner Signature (if applicable): CC: Dr. Sarah Vera DO; Dr. Jessica Escobar MD; Gonzalez Decker DO~ Signed [facility] Work Phone: Evaluation note* Diagnosis COVID- Primary [facility] noteNo assessment information availableWooster [facility] Work Phone: Reason for referral (narrative)No reason for referral information availableWMemorial Health System Work Phone: Summary Purpose Family History No Family History Records Found Relationship Condition Age at Onset Recorded Date/T dipti father Cardiac disease Unknown mother Malignant neoplasm Unknown Advance Directives No Advanced Directives Records Found Advance Directive Response Recorded Date/ Time Living Will Yes February 19, 2019 7:35pm Power of Instructional Design Specialist Yes January 7:35pm Advance Directive Response Recorded Date/ Time Name of Medical Power of Instructional Design Specialist JOHN/ DAUGHTER July 05, 2022 3:03pm Living Will Yes July 05 3:03pm Power of Instructional Design Specialist Yes July 05, 2022 3:03pm Advance Directive Response Recorded Date/ Time Name of Medical Power of Instructional Design Specialist JOHN/ DAUGHTER July 05, 2022 8:54pm Living Will Yes July 05 8:54pm Power of Instructional Design Specialist Yes July 05, 2022 8:54pm Advance Directive Response Recorded Date/ Time Living Will Yes July 05 8:54pm Power of Instructional Design Specialist Yes July 05, 2022 8:54pm Advance Directive Response Recorded Date/ Time Living Will Yes July 05 9:54pm Do you have a Healthcare Power of Instructional Design Specialist? Yes July 05, 2022 9:54pm Chief Complaint and Reason for Visit Chief Complaint 1 Y FU CAD Coronary artery disease Reason for Visit History of coronary artery stent placement Dyslipidemia Essential (primary) hypertension Chief Complaint 1 Y FU CAD Coronary artery disease RECTAL BLEEDING RECTAL BLEEDING Reason for Visit History of coronary artery stent placement Dyslipidemia Essential (primary) hypertension GI bleed Chief Complaint 1 Y FU CAD Coronary artery disease RECTAL BLEEDING RECTAL BLEEDING RECTAL BLEEDING Reason for Visit History of coronary artery stent placement Dyslipidemia Essential (primary) hypertension GI bleed Chief Complaint CAD Coronary artery disease RECTAL BLEEDING RECTAL BLEEDING RECTAL BLEEDING H FU Reason for Visit GI bleed GI bleed History of coronary artery stent placement Chief Complaint 1 Y FU DILATED AORTIC ROOT Amb Documentation Reason for Visit Fatigue History of coronary artery stent placement Aortic root dilatation Dyslipidemia Essential (primary) hypertension Chief Complaint Admit Date 9 M FU November 29, 2024 11:17 am Additional Source Comments INFORMATION SOURCE (unrecogn ized section and content) DATE CREATED AUTHOR 05/07/2021 [facility] DATE CREATED AUTHOR AUTHOR'S ORGANIZ ATION 05/27/2024 [facility] DATE CREATED AUTHOR AUTHOR'S ORGANIZ ATION 09/17/2024 [facility] DATE CREATED AUTHOR AUTHOR'S ORGANIZ ATION 03/23/2025 [facility] Goals (unrecognized section and content) Goals may be documented in a n alternate sectionGoals may be documented in an alternate sectionGoals may be documented in an alternate sectionGoals may be documented in an alternate sectionGoals may be documented in an alternate sectionGoals may be documented in an alternate section Care Teams (unrecognized sec tion and content) Team Status: Active Member Role Status Dates Dr. Jessica Escobar MD Family Provider Active Dr. Jessica Escobar MD Primary Care Provider Active Team Status: Inactive Member Role Status Dates Dr. Jessica Escobar MD Primary Care Provider, Referring Provider Active Dr. Etienne Ortiz MD Attending Provider Active Team Status: Active Member Role Status Dates Dr. Jessica Escobar MD Primary Care Provider Active Dr. Etienne Ortiz MD Attending Provider, Referring Provider, Other Provider Active Team Status: Active Member Role Status Dates Dr. Jessica Escobar MD Primary Care Provider Active Jason Cuba MD Emergency Provider Active Dr. Nena Mcallister MD Admit Provider, Other Provider Active Dr. Gonzalez Decker DO Attending Provider Active Team Status: Inactive Member Role Status Dates Dr. Jessica Escobar MD Primary Care Provider Active Dr. Etienne Ortiz MD Attending Provider, Referring Pro vider Active Team Status: Active Member Role Status Dates Dr. Jessica Escobar MD Primary Care Provider Active Jason Cuba MD Emergency Provider Active Dr. Nena Mcallister MD Admit Provider, Attending Prov ider Active Team Status: Active Member Role Status Dates Dr. Jessica Escobar MD Primary Care Provider Active Jason Cuba MD Emergency Provider Active Dr. Nena Mcallister MD Admit Provider, Other Provider Active Dr. Sarah Vera DO Attending Provider, Other Provide r Active Team Status: Inactive Member Role Status Dates Dr. Jessica Escobar MD Primary Care Provider Active Jason Cuba MD Emergency Provider Active Dr. Nena Mcallister MD Admit Provider, Other Provider Active Dr. Sarah Vera DO Attending Provider Active Team Status: Inactive Member Role Status Dates Dr. Jessica Escobar MD Primary Care Provider, Referring Provider Active Dr. Gonzalez Decker DO Attending Provider Active Team Status: Inactive Member Role Status Dates Dr. Jessica Escobar MD Primary Care Provider Active Dr. Gonzalez Decker DO Attending Provider Active Team Status: Inactive Member Role Status Dates Dr. Jessica Escobar MD Primary Care Provider, Referring Provider Active Dr. Etienne Ortiz MD Active Yoana Sethi WELL SHOOTER, WELL SHOOTER-C Attending Provider Active Team Status: Active Member Role Status Dates Dr. Jessica Escobar MD Primary Care Provider Active Dr. Etienne Ortiz MD Attending Provider Active Team Status: Active Member Role Status Dates Dr. Jessica Escobar MD Primary Care Provider Active Yoana Sethi WELL SHOOTER, WELL SHOOTER-C Attending Provider Active Team Status: Inactive Member Role Status Dates Dr. Jessica Escobar MD Primary Care Provider Active Yoana Sethi WELL SHOOTER, WELL SHOOTER-C Attending Provider, Referring P annita Active Team Status: Active Member Role Status Dates Dr. Jessica Escobar MD Family Provider Active Anh Ruano WELL SHOOTER-C Primary Care Provider Active Team Status: Inactive Member Role Status Dates Anh Ruano WELL SHOOTER-C Primary Care Provider Active Start: October 09, 2024 End: October 09, 2024 Anh Ruano WELL SHOOTER-C Attending Provider Active Start: October 09, 2024 End: October 09, 2024 Team Status: Active Member Role/Relationship Status Dates Anh Ruano WELL SHOOTER-C Primary Care Provider Active Team Status: Inactive Member Role/Relationship Status Dates Anh Ruano WELL SHOOTER-C Primary Care Provider Active Start: October 09, 2024 End: October 09, 2024 Anh Ruano , WELL SHOOTER-C Attending Provider Active Start: October 09, 2024 End: October 09, 2024 Team Status: Inactive Member Role/Relationship Status Dates Dr. Jessica Escobar MD Referring Provider Active Start: November 29, 2024 End: November 29, 2024 Dr. Etienne Ortiz MD Attending Provider Active S tart: November 29, 2024 End: November 29, 2024 Anh Ruano WELL SHOOTER-C Primary Care Provider Active Start: November 29, 2024 End: November 29, 2024 Source Comments (unrecognize d section and content) In the event this informatio n is protected by the Federal Confidentiality of Alcohol and Drug Abuse Patient Records regulations: The Federal rules restrict any use of the information to criminally investigate or prosecute any alcohol or drug abuse patient.[facility] Reason for Visit (unrecogniz ed section and content) Reason Comments Cough Cough x 2 days-posit amber for COVID at home 2 hours ago FOR RECORDS PERTAINING TO PATIENTS WHO ARE OR HAVE BEEN ENROLLED IN A CHEMICAL DEPENDENCY/SUBSTANCEABUSE PROGRAM, SOME INFORMATION MAY BE OMITTED. This clinical summary was aggregated from multiple sources. Caution should be exercised in using it in the provision of clinical care. This summary normalizes information from multiple sources, and as a consequence, information in this document may materially change the coding, format and clinical context of patient data. In addition, data may be omitted in some cases. CLINICAL DECISIONS SHOULD BE BASED ON THE PRIMARY CLINICAL RECORDS. [facility]. provides no warranty or guarantee of the accuracy or completeness of information in this document.
[2025-03-26] MEDS: Lactated Ringers 1,000 ML 15 ML IV (06:53)
--- NOTE | 2025-03-26 07:13 | PCM.HP.BLA ---
History and Physical Date of Admission: 03/26/25 Intake Vital Signs 11/29/2510:18 03/13/2514:07 Height 5 ft 5 in 5 ft 5 in Weight: 163 lb 158 lb BMI 27.1 26.2 BP 110/63 125/66 H Blood Pressure Location Lt brachial Rt brachial Position Sitting Sitting Respiration 16 16 Pulse 62 Pulse Source Monitor Intake Visit Reasons: Dysphagia Chief Complaint: dysphagia Dispatcher Relay Required: No Is patient in pain?: No Allergies cephalexin (From Keflex) Allergy (Verified 03/13/25 14:07) Swelling lisinopril Allergy (Verified 03/13/25 14:07) Swelling codeine Adverse Reaction (Verified 03/13/25 14:07) Upset Stomach Medications Medication Instructions Recorded Confirmed Type atorvastatin 20 mg tablet 20 mg PO QHS 06/18/17 03/13/25 History metformin 1,000 mg 24 hr 1,000 mg PO BID 06/18/17 03/13/25 History tablet,extended release (gastric reten.) multivitamin 1 ea PO DAILY 06/18/17 03/13/25 History aspirin 81 mg tablet,delayed 81 mg PO DAILY@0800 #30 tabs 06/22/17 03/13/25 Rx release lorazepam 0.5 mg tablet 0.5 mg PO BID PRN Anxiety 06/28/19 03/13/25 History cholecalciferol (vitamin D3) 50 50 mcg PO DAILY 03/24/21 03/13/25 History mcg (2,000 unit) capsule fluoxetine 40 mg capsule 40 mg PO DAILY 03/30/22 03/13/25 History glimepiride 2 mg tablet 2 mg PO DAILY 03/30/22 03/13/25 History calcium 600 mg-D3 20 mcg-magnesium tab PO QDAY 03/07/24 03/13/25 History 50 mg-copper 1 [id number] tablet coenzyme Q10 200 mg capsule 200 mg PO QDAY 03/07/24 03/13/25 History amlodipine 5 mg tablet 2.5 mg (1/2 x 5 mg) PO DAILY #90 03/09/24 03/13/25 Rx tabs metoprolol tartrate 25 mg tablet 12.5 mg (1/2 x 25 mg) PO BID #90 03/29/24 03/13/25 Rx tabs spironolactone 25 mg tablet 25 mg PO DAILY #90 tabs 06/12/24 03/13/25 Rx buspirone 5 mg tablet 5 mg PO TID 11/29/24 03/13/25 History fluoxetine 10 mg capsule 10 mg PO QDAY 11/29/24 03/13/25 History inulin 1.7 gram chewable tablet g PO 11/29/24 03/13/25 History (Fiber Gummies) Have you fallen in the past year?: No PFSH Medical History Anxiety Depression Diabetes Coronary artery disease Hypertension Chronic anemia Anxiety and depression Aortic root dilatation Atherosclerosis of coronary artery of [place] heart without angina pectoris DM type 2 (diabetes mellitus, type 2) Dyslipidemia Essential (primary) hypertension Surgical History History of bilateral cataract extraction History of coronary artery stent placement (06/21/17) History of hysterectomy Family History Father Heart disease Mother Cancer Social History Smoking Status: Never smoker alcohol intake: never substance use type: does not use caffeine: Yes Type: carbonated beverages what type of physical activity do you participate in: none seatbelt use: always do you feel safe at home: Yes HPI HPI HPI: Patient is a 84-year-old female who reports dysphagia. She thinks that food is getting stuck in her distal esophagus. She says that if she eats too fast or does not chew well enough food gets stuck and eventually moves this way through. She has never had food get stuck but has not been able to pass. She has no problems swallowing pills. ROS General General: Yes fatigue; No weight change, appetite, colon cancer, breast cancer or weakness HEENT HEENT: Yes difficulty swallowing and eye surgery; No eye injury, swollen glands or hoarseness Endo Endocrine: Yes diabetes mellitus; No thyroid disease, thyroid cancer, Hair loss, heat intolerance or cold intolerance Skin Skin: No rash or changing moles Breast Breast: No left breast lump, right breast lump, nipple discharge, breast pain, abnormal mammogram, abnormal US or breast enlargement Musc Musculoskeletal: Yes arthritis; No back problems, rheumatoid arthritis, gout or joint pain Cardio Cardiovascular: Yes high blood pressure and heart stent; No murmur, pacemaker, heart disease, atrial fibrillation, heart attack, palpitations, shortness of breath with exertion or chest pain Psych Psychiatric: No depression, anxiety or hearing voices Resp Respiratory: No shortness of breath, No sleep apnea, No cough, No COPD, No asthma, No emphysema and No wheezing Gastro Gastrointestinal: No abdominal pain, No nausea or vomiting, No diarrhea, No constipation, No blood in stool, No acid reflux, No hemorrhoids, No ulcers, No gallbladder problem and No black,tarry stools Jimmy Hematologic: No blood thinners, No blood disorders, No bleeding, No anemia and No blood clots Neuro Neurologic: No system reviewed and no additional complaints, except as documented, No as per HPI, No abnormal gait, No abnormal hearing, No abnormal movements, No abnormal speech, No behavioral changes, No burning sensations, No confusion, No convulsions, No disequilibrium, No dizziness, No localized weakness, No frequent falls, No headache(s), No lack of coordination, No loss of vision, No memory loss, No numbness, No other visual disturbances, No radicular pain, No restless legs, No sensory deficit, No syncope, No tingling, No tremor(s), No weakness and No other Exam Const General: cooperative Orientation: alert and oriented x3 [facility] Head: normal to inspection Neck Neck: normal visual inspection and full ROM Chest Chest palpation & inspection: normal inspection of the chest Resp Effort & Inspection: normal respiratory effort Auscultation: clear to auscultation bilaterally Cardio Rate: regular rate Rhythm: regular rhythm GI Inspection: non-distended Palpation: soft and nontender Skin General: no rashes or lesions noted Neuro General: patient alert and patient oriented x3 Extrem General: full ROM Psych Appearance: grossly normal Mental Status: mental status grossly normal Assessment and Plan Assessment and Plan (1) Dysphagia: Plan: Patient has dysphagia of the esophageal phase. She reports that food is getting stuck in her distal esophagus. I discussed performing the EGD with possible dilation. I discussed the procedure as well as the risks including but not limited to bleeding, infection, perforation of the GI tract. I discussed the increased risk of bleeding and perforation with dilation. Patient understands the risks and is 1 to proceed. I have asked her to hold her aspirin for 5 days. Brian Lim MD Pager: [facility] [address] [place] [address], [address] [place] [address] Office: I have examined the patient and the H&P has been reviewed. There are no clinical changes since date of exam.
--- NOTE | 2025-03-26 07:15 | PCM.PRE.AN2 ---
ASA Classification* ASA Classification ASA Classification: 2 Assessment & Plan Anesthesia* Anesthesia Assessment Anesthesia Assessment: Discussed sedation and/or anesthesia options, risks, benefits, and alternatives with patient/parents/legal guardian/POA. Questions invited. The patient/parents/legal guardian/POA seems to understand and agrees to proceed with anesthesia plan. Reviewed the physical assessment, medical history, allergy history and patient home medications list prior to surgery/procedure/anesthetic and documented any changes. Performed airway and anesthesia risk assessments. Anesthesia Type Anesthesia Type: MAC History Source History Obtained from:: Patient and Chart Anesthesia Focused Assessment* Temperature: 98.2 F Pulse Rate: 70 Blood Pressure: 134/64 Respiratory Rate: 16 Pulse Ox: 96 Oxygen Delivery Method: Room Air Airway Assessment Mouth opens: 2 cm Mallampati Score: II Teeth Condition: Dentures (Only lower teeth a few are present) Neck Range of motion (ROM): Limited ROM Labs Anesthesia Preop lab: CBC WBC, (4.4-11.0) 10.3 K/mm3 10/09/24, : RBC, (4.2-5.4) 4.07 M/mm3 L 10/09/24, : Hgb, (12.0-15.0) 11.8 g/dL L 10/09/24, Hct, (37-47) 36.8 % L 10/09/24, : Plt Count, (150-450) 368 K/mm3 10/09/24, : CHEMISTRY Potassium, (3.3-5.1) 4.1 mmol/L 10/09/24, : Sodium, (133-145) 138 mmol/L 10/09/24, : Magnesium, (1.6-2.6) 1.8 mg/dL 06/21/17, 05:08 BUN, (4-19) 22 mg/dL H 10/09/24, : Creatinine, (0.70-1.20) 0.97 mg/dL 10/09/24, : Glucose, (70-99) 132 mg/dL H 10/09/24, : POC Glucose, (74-106) 197 mg/dL H Today, 06:51 TSH, (0.358-3.74) 2.98 uIU/mL 06/19/17, 05:30 COAG PT, (11.7-14.9) 12.2 SECONDS 02/19/19, 19:55 Pre-Assessment Diagnosis/Proposed Procedure Planned Operative Procedure(s): EGD POSS DILATION Anesthesia History 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 When Was Last Pacemaker Check QUESTION #4 FULL TEXT: You/Your Family Experience fever (hyperthermia) with Anesthesia Last Oral Intake Last Oral intake: Last Oral Intake NPO since 22:45 03/26/25 06:43 Meds taken in AM with sips of Yes 03/26/25 06:43 water? Meds patient instructed to amlodipine, metoprolol, 03/26/25 06:43 take am of surgery buspirone, fluoxetine PONV PONV - aircraft instrument mechanic: PONV - aircraft instrument mechanic Female Yes 03/22/25 13:56 HX of Motion Sickness Yes 03/22/25 13:56 HX of N/V After Surgery No 03/22/25 13:56 Non-Smoker Yes 03/22/25 13:56 Duration of Surgery greater No 03/22/25 13:56 than 60 minutes Number of Risk Factors 3 03/22/25 13:56 PONV Score Moderate Risk 03/22/25 13:56 Height & Weight Height & Weight: Anesthesia: Height & Weight Height 5 ft 5 in 03/26/25 06:43 Weight: 71 kg 03/26/25 06:43 Body Mass Index (BMI) 26.0 03/26/25 06:43 Respiratory Assessment Respiratory Assessment - aircraft instrument mechanic: Respiratory Tract Infection Hx - aircraft instrument mechanic Hx Respiratory Tract Infection No 03/22/25 13:56 STOP Sleep Apnea STOP Sleep Apnea - aircraft instrument mechanic: STOP Sleep Apnea - aircraft instrument mechanic Hx Hypertension Yes: CONTROLLED WITH MED 03/22/25 13:56 Hx Sleep Apnea No 03/22/25 13:56 CPAP BIPAP Do you snore loudly (louder No 03/22/25 13:56 than talking or can be heard Do you often feel tired/ Yes 03/22/25 13:56 fatigued/ sleepy during daytime? Has anyone observed you stop No 03/22/25 13:56 breathing during sleep? STOP Results Positive 03/22/25 13:56 QUESTION #5 FULL TEXT : Do you snore loudly (louder than talking or can be heard through closed doors)? Tobacco Use History Tobacco Use History - aircraft instrument mechanic: Tobacco Use History - aircraft instrument mechanic Tobacco Use Smoking Status Never smoker 03/22/25 13:56 Hx Tobacco Use No 03/22/25 13:56 Years Smoking Packs Smoked per Day Smoking Cessation Date was within the last 15 years Hx Smoking Cessation Date Hx Smoking Cessation No 03/22/25 13:56 Counseling Hematologic Medial History Hematologic Hx - aircraft instrument mechanic: Hematologic Medical Hx - documentation consultant Hx of Blood Transfusion No 03/22/25 13:56 Hx of Transfusion in last 3 No 03/22/25 13:56 Months Date of Last Transfusion (if within last 3 months) Ever experience any problems No 03/22/25 13:56 with transfusion(s)? Specify any problems Hx of Preganancy in last 3 No 03/22/25 13:56 Months Nurse Filling Out Transfusion DSCHRIBER 03/22/25 13:56 & Questions: Date: 03/22/25 03/22/25 13:56 Time: 13:57 03/22/25 13:56 Patient unable to answer at this time (ie. confused, unrespo /Reproduction History /Reproductive History - aircraft instrument mechanic: /Reproductive Hx- aircraft instrument mechanic Hx Now No 03/22/25 13:56 Gestational Age (in weeks): EDC: Hx Hx Para Hx Section SAB No 03/22/25 13:56 Active Medications Active Medications: Current Medications Generic Name Dose Route Start Last Admin Trade Name Freq PRN Reason Stop Dose Admin Lactated Ringer's 1,000 mls @ 15 mls/hr 03/26/25 06:30 03/26/25 06:53 IV 15 mls/hr .Q48H TOY Administration PFSH Medical History Wears glasses Wears dentures Post-menopausal Arthritis High cholesterol Restless legs Migraine headache History of diverticulitis Heartburn Non-smoker Shortness of breath on exertion History of edema History of stress test History of echocardiogram Cardiology follow-up encounter Anxiety Depression Diabetes Coronary artery disease Hypertension Chronic anemia Aortic root dilatation Atherosclerosis of coronary artery of [place] heart without angina pectoris Home Medications Medication Instructions Recorded Last Taken Type atorvastatin 20 mg tablet 20 mg PO QHS 06/18/17 03/25/25 History metformin 1,000 mg 24 hr 1,000 mg PO BID 06/18/17 03/25/25 History tablet,extended release (gastric reten.) multivitamin 1 ea PO DAILY 06/18/17 03/25/25 History aspirin 81 mg tablet,delayed 81 mg PO DAILY@0800 #30 tabs 06/22/17 03/21/25 Rx release lorazepam 0.5 mg tablet 0.5 mg PO BID PRN Anxiety 06/28/19 Unknown History cholecalciferol (vitamin D3) 50 50 mcg PO DAILY 03/24/21 03/25/25 History mcg (2,000 unit) capsule fluoxetine 40 mg capsule 40 mg PO DAILY 03/30/22 03/26/25 History glimepiride 2 mg tablet 2 mg PO DAILY 03/30/22 03/21/25 History calcium 600 mg-D3 20 mcg-magnesium 1 tab PO QDAY 03/07/24 03/25/25 History 50 mg-copper 1 [id number] tablet coenzyme Q10 200 mg capsule 200 mg PO QDAY 03/07/24 03/25/25 History amlodipine 5 mg tablet 2.5 mg (1/2 x 5 mg) PO DAILY #90 03/09/24 03/26/25 Rx tabs metoprolol tartrate 25 mg tablet 12.5 mg (1/2 x 25 mg) PO BID #90 03/29/24 03/26/25 Rx tabs spironolactone 25 mg tablet 25 mg PO DAILY #90 tabs 06/12/24 03/25/25 Rx buspirone 5 mg tablet 5 mg PO TID 11/29/24 03/26/25 History fluoxetine 10 mg capsule 10 mg PO QDAY 11/29/24 03/26/25 History inulin 1.7 gram chewable tablet 1.7 g PO DAILY 11/29/24 03/25/25 History (Fiber Gummies) Allergy/AdvReac Type Severity Reaction Status Date / Time cephalexin (From Keflex) Allergy Swelling Verified 03/26/25 06:42 lisinopril Allergy Swelling Verified 03/26/25 06:42 codeine AdvReac Upset Verified 03/26/25 06:42 Stomach Family History Father Heart disease Mother Cancer Surgical History History of cardiac catheterization Hx of colonoscopy History of bilateral cataract extraction History of coronary artery stent placement (06/21/17) History of hysterectomy Social History Smoking Status: Never smoker alcohol intake: never substance use type: does not use caffeine: Yes Type: carbonated beverages what type of physical activity do you participate in: none seatbelt use: always do you feel safe at home: Yes Review of Systems (Anesthesia) ROS Narrative System reviewed and no additional complaints, except as documented.
--- NOTE | 2025-03-26 07:30 | EGD_PTH ---
PATIENT: FLORES WASHINGTON LOC: EN U#:[id number] AGE/SX: 84/F ROOM: RE03/26/[address]: Dr. Brian Lim MD : 1940 BED: DIS: 03/26/2025 SPEC #: [id number] RECD: 03/26/25 10:30 STATUS: TERESITA ESTELA #: [id number] KAIA: 03/26/25 07:[address]: Brian Lim DEPT: SURGICAL PATHOLOGY RECD BY: Te Weinberg ENTERED: 03/26/25 11:28 SP TYPE: EGD BIOPSY OT DR: Anh Ruano, ALTAGRACIAC Tissues: A - Gastric mucous membrane Procedures: Immunohistochemical Stains Surgery Specimen Level IV HEADER OPERATION: EGD, biopsy, dilation PRE-OP DIAGNOSIS: Dysphagia TISSUE SUBMITTED: A- Antrum biopsy MICROSCOPIC DIAGNOSIS A. Antrum, biopsy: - Chronic gastritis. - IHC negative for H. pylori organisms. MICROSCOPIC DESCRIPTION Slides are reviewed. All matched controls reacted appropriately. These tests were developed and their performance characteristics determined by [facility]. They may not have been cleared or approved by the U.S. Food and Drug Administration. The FDA has determined that such clearance or approval is not necessary. The above immunohistochemical markers and/or special stains have been reviewed by the Pathologist. GROSS DESCRIPTION A. Received in fixative is one container labeled with the patient's name and designated "Antrum biopsy." The specimen consists of one irregular fragment of keenan tissue that measures 0.6 cm. The specimen is totally submitted in one cassette. NE 03/26/2025 CPT:60381,63703
--- NOTE | 2025-03-26 07:47 | OP.EGD_ITS ---
Patient Name: Simran Vance Procedure Date: 03/26/2025 7:22 AM Date of : 1940 Age: 84 Procedure: Upper GI endoscopy Indications: Dysphagia Providers: Brian Lim MD Referring MD: Juanis Herrera Medicines: Propofol per Anesthesia Patient Profile: This is an 84 year old female. Refer to note in patient chart for documentation of history and physical. Complications: No immediate complications. Estimated blood loss: Minimal. Procedure: Pre-Anesthesia Assessment: - Prior to the procedure, a History and Physical was performed, and patient medications and allergies were reviewed. The patient's tolerance of previous anesthesia was also reviewed. The risks and benefits of the procedure and the sedation options and risks were discussed with the patient. All questions were answered, and informed consent was obtained. Prior Anticoagulants: The patient has taken no anticoagulant or antiplatelet agents except for aspirin. After reviewing the risks and benefits, the patient was deemed in satisfactory condition to undergo the procedure. After obtaining informed consent, the endoscope was passed under direct vision. Throughout the procedure, the patient's blood pressure, pulse, and oxygen saturations were monitored continuously. The gastroscope was introduced through the mouth, and advanced to the third part of duodenum. The upper GI endoscopy was accomplished without difficulty. The patient tolerated the procedure well. Scope In: 7:36:11 AM Scope Out: 7:40:56 AM Total Procedure Duration Time 0 hours 4 minutes 45 seconds Findings: Few oozing superficial gastric ulcers with pigmented material were found in the gastric body. Biopsies were taken with a cold forceps for Helicobacter pylori testing. One benign-appearing, intrinsic moderate (circumferential scarring or stenosis; an endoscope may pass) stenosis was found at the gastroesophageal junction. The stenosis was traversed. A TTS dilator was passed through the scope. Dilation with a 15-16.5-18 mm balloon dilator was performed to 15 mm. The dilation site was examined and showed moderate mucosal disruption. Estimated blood loss was minimal. The examined duodenum was normal. Impression: - Oozing gastric ulcers with pigmented material. Biopsied. - Benign-appearing esophageal stenosis. Dilated. - Normal examined duodenum. Recommendation: - Discharge patient to home. - Resume previous diet. - Continue present medications. - Await pathology results. - Use Prilosec (omeprazole) 20 mg PO daily for 2 months. Procedure Code(s): --- Professional --- 46032, Esophagogastroduodenoscopy, flexible, transoral; with transendoscopic balloon dilation of esophagus (less than 30 mm diameter) Diagnosis Code(s): --- Professional --- K25.4, Chronic or unspecified gastric ulcer with hemorrhage K22.2, Esophageal obstruction R13.10, Dysphagia, unspecified CPT copyright 2021 [employer]. All rights reserved. The codes documented in this report are preliminary and upon slitter and rewinder machine operator review may be revised to meet current compliance requirements. Brian Lim MD 03/26/2025 7:47:06 AM This report has been signed electronically. Number of Addenda: 0 Note Initiated On: 03/26/2025 7:22 AM
--- NOTE | 2025-03-26 07:47 | OP.PROVAT_ITS ---
03/26/2025 Juanis Herrera Re : Upper GI endoscopy procedure for Simran Vance Dear Alden This procedure was performed on Wednesday, March 26, 2025. My impressions and recommendations are as follows: Impressions : - Oozing gastric ulcers with pigmented material. Biopsied. - Benign-appearing esophageal stenosis. Dilated. - Normal examined duodenum. Recommendations : - Discharge patient to home. - Resume previous diet. - Continue present medications. - Await pathology results. - Use Prilosec (omeprazole) 20 mg PO daily for 2 months. My findings are described in the full procedure note, which is enclosed. If I can be of further assistance, please feel free to contact me at Doctor phone number(s): , Work: . Sincerely, Brian Lim MD 03/26/2025 7:47:06 AM This report has been signed electronically.
--- NOTE | 2025-03-26 07:49 | PCM.POST.ANE ---
Anesthesia: Postop Eval I Current Vital Signs Temperature: 98.3 F Pulse Rate: 69 Blood Pressure: 133/60 Respiratory Rate: 16 Pulse Ox: 93 Oxygen Delivery Method: Room Air Assessment Airway patent: Yes Spontaneous unlabored respirations: Yes Mental status: Awake and Calm nausea: No Vomiting: No Anesthesia Complication: No Fluid Hydration Crystalloid volume administer (ml): 300 Total IV fluid infused: 300 Progress Note Anesthesia document: Postop Eval 1 completed: Yes
--- NOTE | 2025-03-26 14:51 | POSTOPAN2_ITS ---
Anesthesia Postop Eval I Sum Postop Eval Completion status Anesthesia document: Postop Eval 1 completed: Yes Anesthesia Postop Eval I Summary Anesthesia Postop Eval I Summary: Anesthesia Postop Eval I: Assessment Summary Airway patent Yes 03/26/25 07:49 EQUAL OPPORTUNITY ASSISTANT.GDOTT Spontaneous unlabored Yes 03/26/25 07:49 EQUAL OPPORTUNITY ASSISTANT.GDOTT respirations Mental status Awake,Calm 03/26/25 07:49 EQUAL OPPORTUNITY ASSISTANT.GDOTT nausea No 03/26/25 07:49 EQUAL OPPORTUNITY ASSISTANT.GDOTT Vomiting No 03/26/25 07:49 EQUAL OPPORTUNITY ASSISTANT.GDOTT Anesthesia Postop Eval I: Fluid Summary Crystalloid volume administer 300 03/26/25 07:49 EQUAL OPPORTUNITY ASSISTANT.GDOTT (ml) Colloids volume administered ( ml) Blood Product volume administered (ml) Total IV fluid infused 300 03/26/25 07:49 EQUAL OPPORTUNITY ASSISTANT.GDOTT Anesthesia Postop Eval I: Summary Notes Anesthesia Complication No 03/26/25 07:49 EQUAL OPPORTUNITY ASSISTANT.GDOTT Anesthesia Complication Comment: Post-operative progress note Anesthesia: Postop Eval II Evaluation Mental status: Awake and Calm Pain Level: 1 nausea: No Vomiting: No Complications Anesthesia Complication: No
--- NOTE | 2025-03-26 14:51 | PCM.POSTANE2 ---
Anesthesia Postop Eval I Sum Postop Eval Completion status Anesthesia document: Postop Eval 1 completed: Yes Anesthesia Postop Eval I Summary Anesthesia Postop Eval I Summary: Anesthesia Postop Eval I: Assessment Summary Airway patent Yes 03/26/25 07:49 YARD SWITCH OPERATOR.[email or web address] Spontaneous unlabored Yes 03/26/25 07:49 YARD SWITCH OPERATOR.GDOTT respirations Mental status Awake,Calm 03/26/25 07:49 YARD SWITCH OPERATOR.GDOTT nausea No 03/26/25 07:49 YARD SWITCH OPERATOR.GDOTT Vomiting No 03/26/25 07:49 YARD SWITCH OPERATOR.GDOTT Anesthesia Postop Eval I: Fluid Summary Crystalloid volume administer 300 03/26/25 07:49 YARD SWITCH OPERATOR.GDOTT (ml) Colloids volume administered ( ml) Blood Product volume administered (ml) Total IV fluid infused 300 03/26/25 07:49 YARD SWITCH OPERATOR.GDOTT Anesthesia Postop Eval I: Summary Notes Anesthesia Complication No 03/26/25 07:49 YARD SWITCH OPERATOR.GDOTT Anesthesia Complication Comment: Post-operative progress note Anesthesia: Postop Eval II Evaluation Mental status: Awake and Calm Pain Level: 1 nausea: No Vomiting: No Complications Anesthesia Complication: No
== END 2025-03-26 08:45 | disposition home or self-care (01) ==
LOC: EN 06:21 → AC 06:21
PROVIDERS: PCP Nurse Practitioner Family; Referring Provider Nurse Practitioner Family; Visit Provider Surgery
PROC: 0DJ08ZZ Inspection of Upper Intestinal Tract, Via Natural or Artificial Opening Endoscopic (ICD-10-PCS; CPT 43235; principal; 2025-03-26 07:25)
DX: R13.10 Dysphagia, unspecified (principal); E11.9 Type 2 diabetes mellitus without complications; K25.4 Chronic or unspecified gastric ulcer with hemorrhage; I10 Essential (primary) hypertension; Z90.710 Acquired absence of both cervix and uterus; E78.5 Hyperlipidemia, unspecified; K22.2 Esophageal obstruction; I25.10 Atherosclerotic heart disease of native coronary artery without angina pectoris; Z79.84 Long term (current) use of oral hypoglycemic drugs; Z79.899 Other long term (current) drug therapy; F41.9 Anxiety disorder, unspecified; F32.A Depression, unspecified; Z95.5 Presence of coronary angioplasty implant and graft; Z98.41 Cataract extraction status, right eye; Z98.42 Cataract extraction status, left eye; K29.50 Unspecified chronic gastritis without bleeding
CPT/HCPCS: 43249; 82962; 88305; 88342; J2405

== ENCOUNTER → 2025-04-22 | Outpatient (CLI) | payer MEDICARE, OTHER, SELFPAY ==
[2025-04-22 12:49] LABS: Creatinine, Urine (random) 292.00 mg/dL (28.00-217.00); Microalbumin,Random Urine 50.8 mg/L (<20 mg/L)
[2025-04-22 13:01] LABS: AST(SGOT) 29 U/L (<=31); Alanine Aminotransfer ALT/SGPT 33 U/L (<=34); Albumin, Serum 4.2 g/dL (3.4-4.8); Alkaline Phosphatase 72 U/L (35-104); Anion Gap 13 (5-15); BUN 19 mg/dL (4-19); BUN/Creat Ratio 20.4 RATIO (10-20); Calcium,Total 11.2 mg/dL (7.6-11.0); Carbon Dioxide 25.1 mmol/L (21.0-32.0); Chloride 99 mmol/L (98-108); Cholesterol 171 mg/dL (<=200); Globulin 2.8 g/dL (2.2-4.2); Glucose 159 mg/dL (70-99); Low Density Lipoprotein Calc. 87 mg/dL; Potassium 4.2 mmol/L (3.3-5.1); Triglycerides 117 mg/dL; Very Low Density Lipoprotein 23 mg/dL (5-40); cholesterol:hdl ratio screen 2.70
== END | disposition home or self-care (01) ==
LOC: MTLAB 10:19
PROVIDERS: PCP Nurse Practitioner Family; Referring Provider Nurse Practitioner Family; Visit Provider Nurse Practitioner Family
DX: E11.22 Type 2 diabetes mellitus with diabetic chronic kidney disease (principal); N18.30 Chronic kidney disease, stage 3 unspecified; E78.5 Hyperlipidemia, unspecified
CPT/HCPCS: 36415; 80053; 80061; 82043; 82570; 83036